=== PATIENT | male | born 1960 | race Caucasian/White ===

== ENCOUNTER 2016-11-28 14:42 | Observation (INO) | payer MEDICARE ==
[~2016-11-28] VITALS: Ht 170.2 cm; Wt 167.9 kg
[~2016-11-28 14:42] MED LIST changes: -ALBU2.5V4 NEB; -CLON1TAB3 PO; -IPRA4AER IH; -OMG1KC PO; -PARO40TA3 PO; -POTA99TA21 PO; -TEST200V21 INJ; -VITA150T PO
[2016-11-28] MEDS ORDERED: RT-ALBUTEROL/IPRATROPIUM 3 ML (DUONEB) VIAL INH ONE (14:45)
--- NOTE | 2016-11-28 14:59 | ED Respiratory ---
General Chief Complaint: Respiratory Problems Stated Complaint: SOA Source: patient Exam Limitations: no limitations History of Present Illness Time seen by provider: 14:58 Initial Comments To ER with reports of abnormal labs. Patient was upstairs having an outpatient ABG done. Today was his first visit with Dr. De Leon whom he is seeing for history of COPD and chronic bronchitis. Patient wears oxygen geqvbj-qjg-tjnup at home but did not wear it to the hospital today because he does not have a portable tank. ABG showed a PO2 of 45, PCO2 of 67, SPO2 was 75 percent. Patient denies feeling short of breath or any chest pain. He states "I feel normal". He also does have a nebulizer that he uses at home. No recent increased cough or fevers. No recent increased shortness of breath. Timing/Duration: constant Associated Symptoms: No cough, No fever/chills, No shortness of breath Allergies and Home Medications Allergies Coded Allergies: meperidine HCl (Unverified Allergy, Unknown, 04/22/13) Home Medications Acetaminophen/Codeine 1 Tab Tablet, 1-2 TAB PO TID PRN, (Reported) NEEDED FOR PAIN Albuterol Sulfate 2.5 Mg/3 Ml Solution, 2.5 MG IH Q4H PRN, (Reported) NEEDED FOR SHORTNESS OF BREATH Carvedilol 12.5 Mg Tablet, 12.5 MG PO BID, (Reported) Ipratropium/Albuterol Sulfate 14.7 Gm Aer.w.adap, 1 PUFF IH Q4H PRN, (Reported) NEEDED FOR SHORTNESS OF BREATH Lisinopril 20 Mg Tablet, 20 MG PO DAILY, (Reported) Montelukast Sodium 10 Mg Tablet, 10 MG PO DAILY, (Reported) Multivitamin 1 Each Tablet, 1 TAB PO DAILY, (Reported) Paroxetine Hcl 30 Mg Tablet, 30 MG PO DAILY, (Reported) Simvastatin 40 Mg Tablet, 40 MG PO HS, (Reported) Constitutional: see HPI, No chills, No fever EENTM: see HPI Respiratory: see HPI, cough, No short of breath Cardiovascular: no symptoms reported Genitourinary: no symptoms reported Musculoskeletal: no symptoms reported Skin: no symptoms reported Psychiatric/Neurological: No Symptoms Reported Hematologic/Lymphatic: No Symptoms Reported Immunological/Allergic: no symptoms reported Past Jsrfgjc-Vpknyg-Frvife Hx Immunizations Up To Date Tetanus Booster (TDap): Less than 5yrs Surgeries HX Surgeries: Yes Respiratory Hx Respiratory Disorders: Yes (COPD, chronic bronchitis, asthma) Respiratory Disorders: Asthma, Chronic Bronchitis, Sleep Apnea, COPD Cardiovascular Hx Cardiac Disorders: Yes Neurological Hx Neurological Disorders: No Reproductive System Hx Reproductive Disorders: No Genitourinary Hx Genitourinary Disorders: No Gastrointestinal Hx Gastrointestinal Disorders: Yes Gastrointestinal Disorders: Gastroesophageal Reflux Musculoskeletal Hx Musculoskeletal Disorders: No Endocrine Hx Endocrine Disorders: No HEENT HX ENT Disorders: No Cancer Hx Cancer: No Psychosocial Hx Psychiatric Problems: No Integumentary HX Skin/Integumentary Disorder: No Blood Transfusions Hx Blood Disorders: No Adverse Reaction to a Blood Tr: No (patient has never been given blood) Family Medical History Significant Family History: No Pertinent Family Hx Physical Exam Vital Signs Vital Sign - Last 12Hours 11/28/16 11/28/16 14:52 15:00 Temp 98.5 Pulse 72 Resp 22 B/P (MAP) 137/72 Pulse Ox 98 O2 Delivery High Flow NC O2 Flow Rate 4.00 Capillary Refill : General Appearance: WD/WN, no apparent distress, obese, other (no distress, speaks in full sentences) Eyes: Bilateral Eye EOMI, Bilateral Eye Normal Inspection, Bilateral Eye PERRL HEENT: PERRL/EOMI, normal ENT inspection Neck: non-tender, full range of motion Respiratory: no respiratory distress, no accessory muscle use, decreased breath sounds Cardiovascular: regular rate, rhythm, no murmur Gastrointestinal: normal bowel sounds, non tender, soft Neurologic/Psychiatric: alert, normal mood/affect, oriented x 3 Skin: normal color, warm/dry Progress/Results/Core Measures Results/Orders Lab Results Laboratory Tests Test 11/28/16 15:10 11/28/16 15:45 Range/Units White Blood Count 10.1 4.3-11.0 10^3/uL Red Blood Count 4.94 4.35-5.85 10^6/uL Hemoglobin 14.1 13.3-17.7 G/DL Hematocrit 46 40-54 % Mean Corpuscular Volume 94 80-99 FL Mean Corpuscular Hemoglobin 29 25-34 PG Mean Corpuscular Hemoglobin Concent 30 L 32-36 G/DL Red Cell Distribution Width 14.9 H 10.0-14.5 % Platelet Count 177 130-400 10^3/uL Mean Platelet Volume 10.1 7.4-10.4 FL Neutrophils (%) (Auto) 71 42-75 % Lymphocytes (%) (Auto) 17 12-44 % Monocytes (%) (Auto) 8 0-12 % Eosinophils (%) (Auto) 4 0-10 % Basophils (%) (Auto) 0 0-10 % Neutrophils # (Auto) 7.2 1.8-7.8 X 10^3 Lymphocytes # (Auto) 1.7 1.0-4.0 X 10^3 Monocytes # (Auto) 0.8 0.0-1.0 X 10^3 Eosinophils # (Auto) 0.4 H 0.0-0.3 10^3/uL Basophils # (Auto) 0.0 0.0-0.1 10^3/uL Sodium Level 143 135-145 MMOL/L Potassium Level 4.5 3.6-5.0 MMOL/L Chloride Level 99 98-107 MMOL/L Carbon Dioxide Level 35 H 21-32 MMOL/L Anion Gap 9 5-14 MMOL/L Blood Urea Nitrogen 12 7-18 MG/DL Creatinine 0.92 0.60-1.30 MG/DL Estimat Glomerular Filtration Rate > 60 BUN/Creatinine Ratio 13 Glucose Level 114 H 70-105 MG/DL Calcium Level 9.2 8.5-10.1 MG/DL Total Bilirubin 0.3 0.1-1.0 MG/DL Aspartate Amino Transf (AST/SGOT) 35 H 5-34 U/L Alanine Aminotransferase (ALT/SGPT) 43 0-55 U/L Alkaline Phosphatase 89 40-136 U/L Total Protein 7.4 6.4-8.2 G/DL Albumin 3.9 3.2-4.5 G/DL Blood Gas Puncture Site RIGHT RADIAL Blood Gas Patient Temperature 99.0 Arterial Blood pH 7.33 *L 7.37-7.43 Arterial Blood Partial Pressure CO2 71 *H 35-45 MMHG Arterial Blood Partial Pressure O2 73 L 79-93 MMHG Arterial Blood HCO3 37 H 23-27 MMOL/L Arterial Blood Total CO2 38.8 H 21.0-31.0 MMOL/L Arterial Blood Oxygen Saturation 94 94-100 % Arterial Blood Base Excess 10.7 H -2.5-2.5 MMOL/L Ramirez Test POSITIVE Blood Gas Ventilator Setting NO Blood Gas Inspired Oxygen 3L NC My Orders Orders - COFFMAN,PETER J LOPPER Cbc With Automated Diff (11/28/16 14:43) Comprehensive Metabolic Panel (11/28/16 14:43) Chest Pa/Lat (2 View) (11/28/16 14:43) Albuterol/Ipra Inhalation Soln (Duoneb I (11/28/16 14:45) Svn Sm Volume Nebulizer Rt-Rfs (11/28/16 14:43) Arterial Blood Gas (11/28/16 15:46) Medications Given in ED Current Medications Medications Dose Ordered Sig/Harry Route Start Time Stop Time Status Last Admin Dose Admin Albuterol/ Ipratropium 3 ml ONCE ONCE INH 11/28/16 14:45 11/28/16 14:46 DC 11/28/16 14:58 3 ML Vital Signs/I&O Vital Sign - Last 12Hours 11/28/16 11/28/16 14:52 15:00 Temp 98.5 Pulse 72 Resp 22 B/P (MAP) 137/72 Pulse Ox 98 97 O2 Delivery High Flow NC O2 Flow Rate 4.00 Departure Communication Time/Spoke to Admitting Phy: 16:29 Communication I discussed the case with Dr. Wu who agrees with the plan of care. Time/Spoke to Consulting Physi: 16:14 Communication/Consulting I discussed the case with Dr. De Leon. Recommends admission, BiPAP Impression Impression: Primary Impression: Obesity hypoventilation syndrome Disposition: ADMITTED INPATIENT Condition: Stable Decision to Admit Reason: Admit from ER (General) Decision to Admit/Date: Nov 28, 2016 Time/Decision to Admit Time: 16:14 Departure-Patient Inst. Referrals: ULICES HERNANDEZ MD (PCP/Family) Primary Care Physician FRED COFFMAN APRN Nov 28, 2016 14:59
[2016-11-28 15:22] LABS: BASOPHILS % (AUTO) 0 % (0-10); EOSINOPHILS # (AUTO) 0.4 10^3/uL (0.0-0.3); EOSINOPHILS % (AUTO) 4 % (0-10); LYMPHOCYTES # (AUTO) 1.7 X 10^3 (1.0-4.0); LYMPHOCYTES % (AUTO) 17 % (12-44); MEAN CORPUSCULAR HEMOGLOBIN 29 PG (25-34); MEAN CORPUSCULAR HGB CONC 30 G/DL (32-36); MEAN CORPUSCULAR VOLUME 94 FL (80-99); MEAN PLATELET VOLUME 10.1 FL (7.4-10.4); MONOCYTES # (AUTO) 0.8 X 10^3 (0.0-1.0); MONOCYTES % (AUTO) 8 % (0-12); NEUTROPHILS # (AUTO) 7.2 X 10^3 (1.8-7.8); NEUTROPHILS % (AUTO) 71 % (42-75); PLATELET COUNT 177 10^3/uL (130-400); RED BLOOD COUNT 4.94 10^6/uL (4.35-5.85); RED CELL DISTRIBUTION WIDTH 14.9 % (10.0-14.5); WHITE BLOOD COUNT 10.1 10^3/uL (4.3-11.0)
[2016-11-28 15:43] LABS: ALANINE AMINOTRANSFERASE 43 U/L (0-55); ALBUMIN 3.9 G/DL (3.2-4.5); ANION GAP 9 MMOL/L (5-14); ASPARTATE AMINO TRANSFERASE 35 U/L (5-34); BILIRUBIN,TOTAL 0.3 MG/DL (0.1-1.0); BLOOD UREA NITROGEN 12 MG/DL (7-18); BUN/CREATININE RATIO 13; CALCIUM 9.2 MG/DL (8.5-10.1); CARBON DIOXIDE 35 MMOL/L (21-32); CHLORIDE 99 MMOL/L (98-107); CREATININE SERUM 0.92 MG/DL (0.60-1.30); GFR ESTIMATED > 60; GLUCOSE 114 MG/DL (70-105); POTASSIUM 4.5 MMOL/L (3.6-5.0); SODIUM 143 MMOL/L (135-145); TOTAL PROTEIN 7.4 G/DL (6.4-8.2)
[2016-11-28 15:54] LABS: ABG BASE EXCESS 10.7 MMOL/L (-2.5-2.5); ABG HCO3 37 MMOL/L (23-27); ABG OXYGEN SATURATION 94 % (94-100); ABG PO2 73 MMHG (79-93); ABG TCO2 38.8 MMOL/L (21.0-31.0)
[2016-11-28 15:56] LABS: ABG PCO2 71 MMHG (35-45); ABG PH 7.33 (7.37-7.43)
[2016-11-28 15:57] LABS: ALLENS TEST POSITIVE
--- NOTE | 2016-11-28 15:58 | Diagnostic Imaging Report ---
PA and lateral chest at 3:39 p.m. INDICATION: COPD. This study was less than optimal due to motion artifact. FINDINGS: The heart size is within normal limits and stable when compared to 04/22/2013. There are chronic pulmonary changes evident but there is no sign of failure, pneumonia or pleural effusion to suggest an acute abnormality. On the PA view, the density about the left hilum does seem somewhat prominent when compared to the prior study. This may merely be secondary to superimposition of bronchovascular structures. There is no definite evidence for hilar mass. If further study is desired, however, then CT of the chest would be recommended. Mediastinum is not widened. The osseous structures are intact. IMPRESSION: 1. There is chronic pulmonary disease but there is no acute abnormality identified. 2. The density over the left hilum may merely be secondary to superimposition. Additional considerations as above. These results were discussed with Roosevelt Castillo APRN. Dictated by: Dictated on workstation # [id number]
[2016-11-28 16:45] VITALS: BP_SYST 137; BP_SYST 182; BP_DIAS 70; BP_DIAS 72
[2016-11-28] MEDS ORDERED: CATHETER FLUSH 10 ML SYR IV PRN (17:00)
[2016-11-28] MEDS ORDERED: RT-ALBUTEROL SULF 2.5 MG/3 ML PRE-MIX VIAL IH PRN ×2 (17:15→18:00)
[2016-11-28] MEDS ORDERED: CLON1TAB3 PO (17:39)
[2016-11-28] MEDS ORDERED: ALBU2.5V4 NEB (17:47)
[2016-11-28] MEDS ORDERED: APAP 300 MG/CODEINE 30 MG (TYLENOL #3) TAB PO PRN ×2 (18:00→18:45)
[2016-11-28] MEDS ORDERED: RT-ALBUTEROL/IPRATROPIUM 3 ML (DUONEB) VIAL IH PRN ×2 (18:15)
[2016-11-28] MEDS ORDERED: IOHEXOL 350 MG/ML 100 ML (OMNIPAQUE 350) VIAL IV ONE (18:15)
[2016-11-28] MEDS ORDERED: NS 100 ML (IVPB) BAG IV ONE (18:15)
[2016-11-28] MEDS: RT-ALBUTEROL SULF 2.5 MG/3 ML PRE-MIX VIAL IH SCH ×2 (18:24→22:10)
[2016-11-28] MEDS ORDERED: PATIENT MAY USE OWN MEDS, ALL MC SCH (18:45)
[2016-11-28] MEDS ORDERED: ALBUTEROL/IPRATROP (COMBIVENT RESPIMAT) 4 GM INHALER INH PRN (18:45)
[2016-11-28 20:04] VITALS: BP 162/77
[2016-11-28] MEDS ORDERED: SIMvastatin 40 MG (ZOCOR) TAB PO SCH (21:00)
[2016-11-28] MEDS ORDERED: clonazePAM 1 MG (KlonoPIN) TAB PO SCH (21:00)
[2016-11-28] MEDS: CARVEDILOL 12.5 MG (COREG) TABLET PO SCH (21:37)
[2016-11-28] MEDS: CATHETER FLUSH 10 ML SYR IV SCH (22:00)
[2016-11-29 00:53] VITALS: BP 146/72
[2016-11-29] MEDS: RT-ALBUTEROL SULF 2.5 MG/3 ML PRE-MIX VIAL IH SCH ×4 (02:07→14:51)
[2016-11-29 04:25] VITALS: BP 188/89
--- NOTE | 2016-11-29 07:19 | Pulmonary Consultation ---
History of Present Illness History of Present Illness Date of Consultation 11/29/16 07:13 Date of Admission History of Present Illness 56yo who saw me in office yesterday for first time. Pt was dyspnic while in office and I ordered ABG. ABG showed partially compensated respiratory acidosis and pt was sent to ED and was given breathing treatments. PT had a vent to mask at one time however insurance stopped paying for it and it was taken away from him. Pt has been getting worse since vent to mask was taken away. is at bedside and state pt slept much better with noninvasive ventilation last night. Allergies and Home Medications Allergies Coded Allergies: meperidine HCl (Unverified Allergy, Unknown, 04/22/13) Home Medications Acetaminophen/Codeine 1 Tab Tablet, 1-2 TAB PO TID PRN, (Reported) NEEDED FOR PAIN Albuterol Sulfate 2.5 Mg/3 Ml Vial.neb, 1 INHALER IH QID PRN for SHORTNESS OF BREATH, #300 (Reported) Carvedilol 12.5 Mg Tablet, 12.5 MG PO BID, (Reported) Clonazepam 1 Mg Tablet, 1 MG PO QID, #120 (Reported) Ipratropium/Albuterol Sulfate 14.7 Gm Aer.w.adap, 1 PUFF IH Q4H PRN, (Reported) NEEDED FOR SHORTNESS OF BREATH Lisinopril 20 Mg Tablet, 20 MG PO DAILY, (Reported) Paroxetine Hcl 30 Mg Tablet, 30 MG PO DAILY, (Reported) Simvastatin 40 Mg Tablet, 40 MG PO HS, (Reported) Past Xqfpxuq-Eabplf-Spjfmn Hx Patient Social History Alcohol Use: Denies Use Recreational Drug Use: No Smoking Status: Former Smoker Recent Foreign Travel: No Contact w/Someone Who Travel: No Recent Infectious Disease Expo: No Recent Hopitalizations: No Physical Abuse Screen: No Sexual Abuse: No Immunizations Up To Date Tetanus Booster (TDap): Less than 5yrs Seasonal Allergies Seasonal Allergies: No Surgeries HX Surgeries: Yes Respiratory Hx Respiratory Disorders: Yes (COPD, chronic bronchitis, asthma) Respiratory Disorders: Asthma, Chronic Bronchitis, Sleep Apnea, COPD Cardiovascular Hx Cardiac Disorders: Yes Neurological Hx Neurological Disorders: No Reproductive System Hx Reproductive Disorders: No Genitourinary Hx Genitourinary Disorders: No Gastrointestinal Hx Gastrointestinal Disorders: Yes Gastrointestinal Disorders: Gastroesophageal Reflux Musculoskeletal Hx Musculoskeletal Disorders: No Endocrine Hx Endocrine Disorders: No HEENT HX ENT Disorders: No Cancer Hx Cancer: No Psychosocial Hx Psychiatric Problems: No Behavioral Health Disorders: Anxiety, Depression Integumentary HX Skin/Integumentary Disorder: No Blood Transfusions Hx Blood Disorders: No Adverse Reaction to a Blood Tr: No (patient has never been given blood) Family Medical History Significant Family History: No Pertinent Family Hx Family Medial History: FH: CHF (congestive heart failure) Exam Exam Vital Signs Date Time Temp Pulse Resp B/P (MAP) Pulse Ox O2 Delivery O2 Flow Rate FiO2 11/29/16 06:37 63 15 95 40.00 11/29/16 04:25 98.0 57 16 188/89 98 NIV/Bilevel 11/29/16 04:09 22 98 40.00 11/29/16 02:07 75 17 96 40.00 11/29/16 00:53 98.3 84 28 146/72 96 NIV/Bilevel 11/29/16 00:07 11 40.00 11/28/16 22:10 65 12 91 40.00 11/28/16 21:00 91 40.00 11/28/16 20:04 97.2 69 20 162/77 96 NIV/Bilevel 11/28/16 19:58 62 17 93 40.00 11/28/16 18:27 64 21 92 40.00 11/28/16 17:15 40 11/28/16 16:45 97 11/28/16 16:45 75 31 97 40.00 11/28/16 16:45 98.3 75 24 182/70 97 NIV/Bilevel 11/28/16 16:35 86 20 95 3.00 11/28/16 15:00 97 4.00 11/28/16 14:52 98.5 72 22 137/72 98 High Flow NC I & O 11/29/16 07:00 Intake Total 100 ml Output Total 450 ml Balance -350 ml General Appearance: No Apparent Distress, WD/WN Neck: Full Range of Motion, Normal Inspection, Non Tender, Supple Respiratory: No Accessory Muscle Use, No Respiratory Distress, Decreased Breath Sounds Cardiovascular: Regular Rate, Rhythm Capillary Refill: Less Than 3 Seconds Gastrointestinal: normal bowel sounds, non tender, soft Skin: Warm/Dry Results Lab Laboratory Tests 11/28/16 15:10 Assessment/Plan Assessment/Plan -Morbid obesity with OHS -PT needs vent to mask to prevent continued progressive respiratory decline and -I have contact [facility] and they are going to try to get pt a vent to mask -COPDAE with acute on chronic respiratory failure -oxygen -SVNs Clinical Quality Measures DVT/VTE Risk/Contraindication: Risk Factor Score Per Nursin RFS Level Per Nursing on Admit: 4+=Very High GILLIAN SOOD DO Nov 29, 2016 07:19
[2016-11-29] MEDS ORDERED: NS 100 ML (IVPB) BAG IV ONE (07:45)
[2016-11-29] MEDS ORDERED: CATHETER FLUSH 10 ML SYR IV PRN (07:45)
[2016-11-29] MEDS ORDERED: IOHEXOL 350 MG/ML 100 ML (OMNIPAQUE 350) VIAL IV ONE (07:45)
[2016-11-29 08:00] VITALS: BP 131/90
[2016-11-29] MEDS ORDERED: POTA99TA21 PO (08:52)
[2016-11-29] MEDS ORDERED: VITA150T PO (08:52)
[2016-11-29] MEDS ORDERED: PARO40TA3 PO (08:52)
[2016-11-29] MEDS ORDERED: OMG1KC PO (08:52)
[2016-11-29] MEDS ORDERED: IPRA4AER IH (08:56)
[2016-11-29] MEDS ORDERED: CLON1TAB3 PO (08:56)
[2016-11-29] MEDS ORDERED: PARoxetine 20 MG (PAXIL) TAB PO SCH ×2 (09:00)
[2016-11-29] MEDS ORDERED: PARoxetine 10 MG (PAXIL) TAB PO SCH (09:00)
[2016-11-29] MEDS ORDERED: lisINopril 20 MG (ZESTRIL) TAB PO SCH (09:00)
[2016-11-29] MEDS ORDERED: TEST200V21 INJ (09:06)
[2016-11-29] MEDS: CARVEDILOL 12.5 MG (COREG) TABLET PO SCH (09:07)
[2016-11-29] MEDS ORDERED: clonazePAM 1 MG (KlonoPIN) TAB PO SCH (09:30)
[2016-11-29] MEDS ORDERED: clonazePAM 1 MG (KlonoPIN) TAB PO PRN (09:30)
[2016-11-29] MEDS ORDERED: PAROXETINE 40 MG PO SCH (10:00)
--- NOTE | 2016-11-29 11:23 | Short Stay Summary-Hospitalist ---
HPI History of Present Illness: HPI/Chief Complaint CC: Shortness of breath HPI: This is a 56yoWM pt of Dr. Agustin's that presented to ER after ABG was ordered as an outpatient revealed severe hypocapnia and need for BiPAP placement. Chart Review: CXR showed chronic pulmonary disease, CBC and CMP normal, ABG revealed 7.33 Dr. De Leon Review: Pt could be DC tomorrow. Monitor pt stay. early childhood worker: Ask respiratory is pt can eat. Patient Interview: Pt lives in [place]. Pt female visitor states he has O2 at his home. Physical exam was stable. Pt denies smoking. Pt states his PCP is Dr. Romaine Agustin. Pt does not know if he needs refills on meds but does not think he needs any refills. Pt would like to be DC today. Pt would like something to eat. Scribed by Moise Pink under the direct supervision of Dr. Shah. Source: patient Exam Limitations: no limitations Date Seen 11/29/16 Attending Physician Mayi Shah Douglas K MD Referring Physician Date of Admission Nov 28, 2016 at 16:16 Home Medications & Allergies Home Medications Reviewed patient Home Medication Reconciliation Form Allergies Allergies Coded Allergies meperidine HCl (Unverified Allergy, Unknown, 04/22/13) Past Kfibael-Ntuvgg-Nywukd Hx Patient Social History Marrital Status: single Employed/Student: unemployed Alcohol Use: Denies Use Recreational Drug Use: No Smoking Status: Former Smoker Physical Abuse Screen: No Sexual Abuse: No Recent Foreign Travel: No Contact w/other who traveled: No Recent Hopitalizations: No Recent Infectious Disease Expo: No Immunizations Up To Date Tetanus Booster (TDap): Less than 5yrs Seasonal Allergies Seasonal Allergies: No Surgeries HX Surgeries: Yes Respiratory Hx Respiratory Disorders: Yes (COPD, chronic bronchitis, asthma) Respiratory Disorders: COPD, Sleep Apnea Cardiovascular Hx Cardiovascular Disorders: Yes Cardiac Disorders: Hypertension Neurological Hx Neurological Disorders: No Reproductive System Hx Reproductive Disorders: No Genitourinary Hx Genitourinary Disorders: No Gastrointestinal Hx Gastrointestinal Disorders: Yes Gastrointestinal Disorders: Gastroesophageal Reflux Musculoskeletal Hx Musculoskeletal Disorders: No Endocrine Hx Endocrine Disorders: No HEENT HX ENT Disorders: No Cancer Hx Cancer: No Psychosocial Hx Psychiatric Problems: No Behavioral Health Disorders: Anxiety, Depression Integumentary HX Skin/Integumentary Disorder: No Blood Transfusions Hx Blood Disorders: No Adverse Reaction to a Blood Tr: No (patient has never been given blood) Family Medical History Significant Family History: No Pertinent Family Hx Family Hx: FH: CHF (congestive heart failure) Review of Systems Constitutional: see HPI EENTM: no symptoms reported Respiratory: short of breath, wheezing Cardiovascular: no symptoms reported Gastrointestinal: no symptoms reported Genitourinary: no symptoms reported Musculoskeletal: no symptoms reported Skin: no symptoms reported Psychiatric/Neurological: No Symptoms Reported All Other Systems Reviewed Negative Unless Noted: Yes Physical Exam Physical Exam Vital Signs Vital Sign - Last 12Hours 11/28/16 11/28/16 11/28/16 14:52 15:00 17:15 Temp 98.5 Pulse 72 Resp 22 B/P (MAP) 137/72 Pulse Ox 98 O2 Delivery High Flow NC O2 Flow Rate 4.00 FiO2 40 Capillary Refill : Less Than 3 Seconds General Appearance: No Apparent Distress, WD/WN, Chronically ill, Obese Eyes: Bilateral Eye Normal Inspection, Bilateral Eye PERRL HEENT: PERRL/EOMI, Normal ENT Inspection, Pharynx Normal Neck: Full Range of Motion, Normal Inspection, Non Tender, Supple, Carotid Bruit Respiratory: Chest Non Tender, Lungs Clear, No Accessory Muscle Use, No Respiratory Distress, Decreased Breath Sounds Cardiovascular: Regular Rate, Rhythm, No Edema, No Gallop, No JVD, No Murmur, Normal Peripheral Pulses Gastrointestinal: Normal Bowel Sounds, No Organomegaly, No Pulsatile Mass, Non Tender, Soft Back: Normal Inspection, No CVA Tenderness, No Vertebral Tenderness Extremity: Normal Capillary Refill, Normal Inspection, Normal Range of Motion, Non Tender, No Calf Tenderness, No Pedal Edema Neurologic/Psychiatric: Alert, Oriented x3, No Motor/Sensory Deficits, Normal Mood/Affect Skin: Normal Color, Warm/Dry, Rash (venous stasis changes bilateral lower extremities) Lymphatic: No Adenopathy Results Results/Procedures Lab Laboratory Tests 11/28/16 15:10 Short Stay Diagnosis Discharge Diagnosis-Short Stay Admission Diagnosis Assessment: Hypercapnic respiratory failure in need of BiPAP while arranging vent to mask sleep apnea treatment Depression Anxiety Chronic venous stasis dermatitis Morbid obesity Respiratory acidosis Final Discharge Diagnosis Assessment: Hypercapnic respiratory failure in need of BiPAP while arranging vent to mask sleep apnea treatment Depression Anxiety Chronic venous stasis dermatitis Morbid obesity Respiratory acidosis Conclusion Plan Plan: Discharge once DME arranges for vent to mask and portable oxygen Follow-up Dr. De Leon Follow-up with Dr. Agustin Clinical Quality Measures DVT/VTE Risk/Contraindication: Risk Factor Score Per Nursin RFS Level Per Nursing on Admit: 4+=Very High MAYI SHAH DO Nov 29, 2016 11:23
[2016-11-29 12:00] VITALS: BP 122/58
[2016-11-29] MEDS: CATHETER FLUSH 10 ML SYR IV SCH ×2 (14:59→15:00)
[2016-11-29 15:30] VITALS: BP 122/58
--- OUTSIDE RECORDS SUMMARY | 2016-12-31 14:31 | XMS REPORT ---
Author Author [facility] Medical Staff Organization [facility] Address [address] [place], [place] [id number] Phone [phone] Summary purpose TRANSITION OF CARE AUTO GENERATION Chief Complaint and Reason for Visit Admit Diagnosis 1 LOWER LEG INJURY NOS Problem list No authorized problems tracked for continuity of care are available for this visit. Encounters No authorized problems tracked for encounter diagnoses are available for this visit. Medications No medications recorded for this patient visit Allergies, adverse reactions, alerts Allergen Category Ingredient Status Reaction Severity Onset Demerol Drug Allergy Demerol Confirmed or Verified Demerol Drug Allergy meperidine Confirmed or Verified Immunizations No immunizations recorded for this patient visit Relevant diagnostic tests and/or laboratory data No authorized results are available for this patient visit History of procedures Procedure Code Code Type Description Date Performed Performing Physician A0427 CPT-4 [id number] 01-28-2015 SONAL DALE A0425 CPT-4 GROUND MILEAGE 01-28-2015 SONAL DALE Functional status No functional or cognitive status observations are available for this visit. Vital signs No authorized vital signs are available for this visit. Social history No Social History or smoking status observations were recorded for this visit. ( Unknown if ever smoked.) Treatment Plan No treatment plan text is available for this visit. Hospital discharge instructions No discharge instruction text is available for this visit.
--- OUTSIDE RECORDS SUMMARY | 2016-12-31 14:31 | XMS REPORT ---
Author Author [facility] Medical Staff Organization [facility] Address [address], [place] [id number] Phone [phone] Summary purpose TRANSITION OF CARE AUTO GENERATION Chief Complaint and Reason for Visit No authorized Reason for Visit (Admitting Diagnosis) is available for this visit. Problem list No authorized problems tracked for [...] for this patient visit History of procedures No procedures recorded for this patient visit. Functional status Functional Status Finding Observation Time Muscle Strength RUE 5 ROM full resist :45 Muscle Strength RLE 5 ROM full resist :45 Muscle Strength LUE 5 ROM full resist :45 Muscle Strength LLE 4 ROM slight resist :45 Abdomen Appearance obese :45 Abdomen firm :45 Bowel Sounds present :45 Urination normal :45 Quality sym/unlabored :45 Cough absent :45 Secretions no :45 Breath Sounds RUL clear :45 Breath Sounds RML clear :45 Breath Sounds RLL clear :45 Breath Sounds EZE clear :45 Breath Sounds LLL clear :45 Airway natural :45 Oxygen no :30 Temp >100.4 no :45 Temp <96.8 no :45 Chills with rigors no :45 HR > 90bpm no :45 Respirations > 20 no :45 Systolic <90 no :45 headache stiff neck no :45 Rapid Resp no :45 IV Site Location R hand :34 IV Type peripheral :34 IV Site Information discontinued :34 IV Site Awais other (specify) Comment: 16g :39 IV Site Appearance WNL :39 IV Site Color clear :39 IV Site Patent yes :39 Dressing Type occlusive :39 Nursing Note TDAP admin in R deltoid. Discharge instructions reviewed with pt- verbalized understanding. VS obtained, dc in good condition and ambulatory. :34 Vital signs Type Value Date Respiration Rate 20breaths per minute :30 Pulse 80beats per minute :30 Oxygen Saturation 94% :30 BP Systolic 146mmHg :30 BP Diastolic 82mmHg :30 Temperature 99.4F :39 Social history No Social History or smoking status observations were recorded for this visit. ( Unknown if ever smoked.) Treatment Plan No treatment plan text is available for this visit. Hospital discharge instructions Dismissal Condition good Disposition on DC home DC Inst/Educ Give yes Med/Side Effects Rev yes
--- OUTSIDE RECORDS SUMMARY | 2016-12-31 14:31 | XMS REPORT | Clinical Summary ---
Author Author Admin, ISATU Organization [facility] Address Unknown Phone Unavailable Allergies, Adverse Reactions, Alerts Allergy Name Reaction Description Start Date Severity Status Provider DEMEROL Lips turned purple Mild Active Regino Lane MD Conditions or Problems Problem Name Problem Code Onset Date Status Entry Date Provider Comment Standard Description Annotate DEPRESSION [address] MD Depressive disorder, not elsewhere classified HYPERTENSION 401.[address] MD Unspecified essential hypertension SHOULDER PAIN, LEFT, CHRONIC 719.[address] MD Pain in joint involving shoulder region URTICARIA 708.[address] MD Unspecified urticaria CHEST PAIN, UNSPECIFIED 786.[address] MD Unspecified chest pain EDEMA 782.[address] MD Edema SNORING 786.[address] MD Other dyspnea and respiratory abnormality HYPOGONADISM 257.2 Active Barbi Coates Other testicular hypofunction ANXIETY DISORDER 300.[address] MD Anxiety state, unspecified GASTROENTERITIS 558.[address] MD Other and unspecified noninfectious gastroenteritis and colitis Medication List Medication Instructions Start Date Stop Date Generic Name ND Status Provider Patient Instruction PROMETHAZINE HCL 25 MG TABS 1 four times a day as needed for nausea/vomiting PROMETHAZINE HCL 42078390984 Active Regino Lane MD Active XANAX 0.25 MG TABS 2 by mouth twice a day PRN Anxiety ALPRAZOLAM 61616627269 No Longer Active Regino Lane MD Active XANAX 0.5 MG TABS 1 po BID PRN Anxiety ALPRAZOLAM 69759759110 Active Regino Lane MD Active AXIRON 30 MG/ACT SOLN 60 mg applied q.a.m TESTOSTERONE 11975011885 No Longer Active Regino Lane MD Active VENLAFAXINE HCL 75 MG TABS 1 po BID VENLAFAXINE HCL 22963908423 Active Vivien Sosar Active CARVEDILOL 12.5 MG TABS 1 tablet by mouth twice daily CARVEDILOL 65099422341 Active Chani Jackum DIGITAL TECHNICIAN Active HYDROCHLOROTHIAZIDE 25 MG TABS 1 tablet by mouth daily prn HYDROCHLOROTHIAZIDE 77438865685 Active Gail Jimenez RN Active LISINOPRIL 20 MG TABS 1 tablet by mouth daily LISINOPRIL 30783277327 Active Chani Negron Quinn DIGITAL TECHNICIAN Active PREDNISONE 20 MG TAB 2 tabs daily for 3 days, 1 tab daily for 3 days, 1/2 tab daily for 2 days PREDNISONE 35153120343 No Longer Active Regino Lane MD Active TYLENOL/CODEINE #3 300-30 MG TAB 1 po TID PRN Pain ACETAMINOPHEN-CODEINE 53843930657 Active Regino Lane MD Active ZOLOFT 50 MG TAB 1 tablet by mouth daily SERTRALINE HCL 42357942268 No Longer Active Regino Lane MD Active ZOLOFT 100 MG TAB 1 po qd SERTRALINE HCL 12873513072 No Longer Active Regino Lane MD Active SIMVASTATIN 20 MG TABS 1 tab daily at bedtime SIMVASTATIN 49025471574 Active Gail Jimenez RN Active LISINOPRIL-HYDROCHLOROTHIAZIDE 20-12.5 MG TABS 1 tab by mouth daily LISINOPRIL-HYDROCHLOROTHIAZIDE 55640132002 No Longer Active Jhonathan Agudelo RN Active ZOLOFT 50 MG TAB 1 tablet by mouth daily ZOLOFT 50 MG TAB 004616 SERTRALINE HCL Inactive XANAX 0.25 MG TABS 2 by mouth twice a day PRN Anxiety XANAX 0.25 MG TABS 914972 ALPRAZOLAM Inactive PREDNISONE 20 MG TAB 2 tabs daily for 3 days, 1 tab daily for 3 days, 1/2 tab daily for 2 days PREDNISONE 20 MG TAB 783920 PREDNISONE Inactive AXIRON 30 MG/ACT SOLN 60 mg applied q.a.m AXIRON 30 MG/ACT SOLN TESTOSTERONE Inactive Advance Directives Directive Description Start Date PERMISSION TO SHARE Diagnostic Results Date Name Value Unit Range Description Lab Report: Lipid Panel, Prostatic Specific Ag, Comp. Metabolic Panel - Chemistry cholesterol, serum 147 mg/dL 209-369 5862/06/19 triglyceride, serum, fasting 192 mg/dL 30-200 HDL cholesterol, serum 40 mg/dL 32-96 LDL cholesterol, serum 69 mg/dL 0-130 prostate specific antigen 0.56 ng/mL 0.00-4.00 sodium, serum 141 mmol/L 104-488 8990/06/19 potassium, serum 4.4 mmol/L 3.5-5.2 chloride, serum 105 mmol/L 98-107 carbon dioxide, venous blood 29.3 mmol/L 21.0-32.0 blood glucose 109 mg/dL 65-110 urea nitrogen, blood 18 mg/dL 7-18 creatinine, serum 1.30 mg/dL 0.60-1.30 alanine aminotransferase (SGPT), serum 43 U/L 12-78 aspartate aminotransferase (SGOT), serum 23 U/L 15-37 alkaline phosphatase, serum 107 U/L 50-136 calcium, serum 8.9 mg/dL 8.5-10.1 bilirubin, serum, total 0.30 mg/dL 0.00-1.00 Encounters Code Encounter Date Provider Facility CPT-96651 Level 3 Est. Patient 10:35:[address] MD [facility] CPT-68383 Level 3 Est. Patient 11:30:[address] MD [facility] CPT-65021 Level 3 Est. Patient 12:49:[address] MD [facility] CPT-82842 Level 3 Est. Patient 10:47:[address] MD [facility] CPT-28759 Level 4 Est. Patient 09:59:[address] MD [facility] CPT-09662 Level 3 Est. Patient 09:32:[address] MD [facility] CPT-97968 Level 3 Est. Patient 10:10:[address] MD [facility] Procedures Code Procedure Name Date Entry Date Standard Description CPT-21052 Venipuncture Draw Fee 08:08:20 CDT CPT-J1080 Depo Testosterone 200 mg 14:41:51 CDT CPT-J1080 Depo Testosterone 200 mg 11:21:45 CDT CPT-J1070 Depo Testosterone 100 mg 11:21:45 CDT CPT-50365 Abx/Therapy Injection 11:21:45 CDT CPT-J1080 Depo Testosterone 200 mg 10:46:16 CDT CPT-J1070 Depo Testosterone 100 mg 10:46:16 CDT CPT-31082 Abx/Therapy Injection 10:46:16 CDT CPT-62372 EKG Trac and Interp 10:22:23 REMELT WORKER CPT-70154 Chest 2V Frontal and Lat 10:22:23 REMELT WORKER CPT-54270 Shoulder comp min 2V 10:10:44 CDT
--- OUTSIDE RECORDS SUMMARY | 2016-12-31 14:32 | XMS REPORT ---
Author Author [facility] [employer] [facility] Medical Staff Organization [facility] Address [address], [place] [id number] Phone [phone] Summary purpose TRANSITION OF CARE AUTO GENERATION [...] recorded for this patient visit. Functional status No functional or cognitive status [...]
--- OUTSIDE RECORDS SUMMARY | 2016-12-31 14:32 | XMS REPORT | Clinical Summary ---
Author Author Admin, ISATU Organization [facility] Address Unknown Phone Allergies, Adverse Reactions, Alerts Allergy Name Reaction [...] Instructions Start Date Stop Date Generic Name NDC Status Provider Patient Instruction PROMETHAZINE HCL 25 MG TABS 1 four times a day as needed for nausea/vomiting PROMETHAZINE HCL 76162045273 Active Regino Lane MD Active XANAX 0.25 MG TABS 2 by mouth twice a day PRN Anxiety ALPRAZOLAM 79269790644 No Longer Active Regino Lane MD Active XANAX 0.5 MG TABS 1 po BID PRN Anxiety ALPRAZOLAM 00998966267 Active Region Lane MD Active AXIRON 30 MG/ACT SOLN 60 mg applied q.a.m TESTOSTERONE 07572613518 No Longer Active Regino Lane MD Active VENLAFAXINE HCL 75 MG TABS 1 po BID VENLAFAXINE HCL 18393725223 Active Vivien Aj Active CARVEDILOL 12.5 MG TABS 1 tablet by mouth twice daily CARVEDILOL 75887602306 Active Chani Negron Quinn GRASSLAND CONSERVATIONIST Active HYDROCHLOROTHIAZIDE 25 MG TABS 1 tablet by mouth daily prn HYDROCHLOROTHIAZIDE 40212791528 Active Gail Jimenez RN Active LISINOPRIL 20 MG TABS 1 tablet by mouth daily LISINOPRIL 23286132456 Active Chani Negron Quinn GRASSLAND CONSERVATIONIST Active PREDNISONE 20 MG TAB 2 tabs daily for 3 days, 1 tab daily for 3 days, 1/2 tab daily for 2 days PREDNISONE 63574163709 No Longer Active Regino Lane MD Active TYLENOL/CODEINE #3 300-30 MG TAB 1 po TID PRN Pain ACETAMINOPHEN-CODEINE 43513695463 Active Regino Lane MD Active ZOLOFT 50 MG TAB 1 tablet by mouth daily SERTRALINE HCL 37873350797 No Longer Active Regino Lane MD Active ZOLOFT 100 MG TAB 1 po qd SERTRALINE HCL 34196284111 No Longer Active Regino Lane MD Active SIMVASTATIN 20 MG TABS 1 tab daily at bedtime SIMVASTATIN 36880901365 Active Gail Jimenez RN Active LISINOPRIL-HYDROCHLOROTHIAZIDE 20-12.5 MG TABS 1 tab by mouth daily LISINOPRIL-HYDROCHLOROTHIAZIDE 04517298717 No Longer Active Jhonathan Agudelo Active ZOLOFT 50 MG TAB 1 tablet by mouth daily ZOLOFT 50 MG TAB 859046 SERTRALINE HCL Inactive XANAX 0.25 MG TABS 2 by mouth twice a day PRN Anxiety XANAX 0.25 MG TABS 936614 ALPRAZOLAM Inactive PREDNISONE 20 MG TAB 2 tabs daily for 3 days, 1 tab daily for 3 days, 1/2 tab daily for 2 days PREDNISONE 20 MG TAB 248584 PREDNISONE Inactive AXIRON 30 MG/ACT SOLN 60 mg applied q.a.m AXIRON 30 MG/ACT SOLN TESTOSTERONE Inactive Advance Directives Directive Description Start Date PERMISSION TO SHARE Diagnostic Results Date Name Value Unit Range Description Lab Report: Lipid Panel, Prostatic Specific Ag, Comp. Metabolic Panel - Chemistry cholesterol, serum 147 mg/dL 005-866 0297/06/19 triglyceride, serum, fasting 192 mg/dL 30-200 HDL cholesterol, serum 40 mg/dL 32-96 LDL cholesterol, serum 69 mg/dL 0-130 prostate specific antigen 0.56 ng/mL 0.00-4.00 sodium, serum 141 mmol/L 233-913 6763/06/19 potassium, serum 4.4 mmol/L 3.5-5.2 chloride, serum [...] 0.00-1.00 Encounters Code Encounter Date Provider Facility CPT-48286 Level 3 Est. Patient 10:35:[address] MD [facility] CPT-38603 Level 3 Est. Patient 11:30:[address] MD [facility] CPT-75257 Level 3 Est. Patient 12:49:[address] MD [facility] CPT-96183 Level 3 Est. Patient 10:47:[address] MD [facility] CPT-70562 Level 4 Est. Patient 09:59:[address] MD [facility] CPT-81562 Level 3 Est. Patient 09:32:[address] MD [facility] CPT-53078 Level 3 Est. Patient 10:10:[address] MD [facility] Procedures Code Procedure Name Date Entry Date Standard Description CPT-68162 Venipuncture Draw Fee 08:08:20 CDT CPT-J1080 Depo Testosterone 200 mg 14:41:51 CDT CPT-J1080 Depo Testosterone 200 mg 11:21:45 CDT CPT-J1070 Depo Testosterone 100 mg 11:21:45 CDT CPT-41949 Abx/Therapy Injection 11:21:45 CDT CPT-J1080 Depo Testosterone 200 mg 10:46:16 CDT CPT-J1070 Depo Testosterone 100 mg 10:46:16 CDT CPT-70550 Abx/Therapy Injection 10:46:16 CDT CPT-62110 EKG Trac and Interp 10:22:23 MAGNET PLACER CPT-03523 Chest 2V Frontal and Lat 10:22:23 MAGNET PLACER CPT-43193 Shoulder comp min 2V 10:10:44 CDT
--- OUTSIDE RECORDS SUMMARY | 2016-12-31 14:32 | XMS REPORT | Clinical Summary ---
Author Author Admin, ISATU Organization [facility] Address Unknown Phone Unavailable Allergies, Adverse Reactions, [...] day as needed for nausea/vomiting PROMETHAZINE HCL 46068613214 Active Regino Lane MD Active XANAX 0.25 MG TABS 2 by mouth twice a day PRN Anxiety ALPRAZOLAM 79674017020 No Longer Active Regino Lane MD Active XANAX 0.5 MG TABS 1 po BID PRN Anxiety ALPRAZOLAM 03368628784 Active Regino Lane MD Active AXIRON 30 MG/ACT SOLN 60 mg applied q.a.m TESTOSTERONE 86797160001 No Longer Active Regino Lane MD Active VENLAFAXINE HCL 75 MG TABS 1 po BID VENLAFAXINE HCL 35653015051 Active Vivien Sosar Active CARVEDILOL 12.5 MG TABS 1 tablet by mouth twice daily CARVEDILOL 53419355166 Active Chani Jackum HEDGE FUND ACCOUNTANT Active HYDROCHLOROTHIAZIDE 25 MG TABS 1 tablet by mouth daily prn HYDROCHLOROTHIAZIDE 68028743871 Active Gail Jimenez RN Active LISINOPRIL 20 MG TABS 1 tablet by mouth daily LISINOPRIL 45167851406 Active Chani Negron Quinn HEDGE FUND ACCOUNTANT Active PREDNISONE 20 MG TAB 2 tabs daily for 3 days, 1 tab daily for 3 days, 1/2 tab daily for 2 days PREDNISONE 47872224396 No Longer Active Regino Lane MD Active TYLENOL/CODEINE #3 300-30 MG TAB 1 po TID PRN Pain ACETAMINOPHEN-CODEINE 04080784882 Active Regino Lane MD Active ZOLOFT 50 MG TAB 1 tablet by mouth daily SERTRALINE HCL 18775131921 No Longer Active Regino Lane MD Active ZOLOFT 100 MG TAB 1 po qd SERTRALINE HCL 34907381367 No Longer Active Regino Lane MD Active SIMVASTATIN 20 MG TABS 1 tab daily at bedtime SIMVASTATIN 79328528252 Active Gail Jimenez RN Active LISINOPRIL-HYDROCHLOROTHIAZIDE 20-12.5 MG TABS 1 tab by mouth daily LISINOPRIL-HYDROCHLOROTHIAZIDE 18110233326 No Longer Active Jhonathan Agudelo RN Active ZOLOFT 50 MG TAB 1 tablet by mouth daily ZOLOFT 50 MG TAB 505154 SERTRALINE HCL Inactive XANAX 0.25 MG TABS 2 by mouth twice a day PRN Anxiety XANAX 0.25 MG TABS 102201 ALPRAZOLAM Inactive PREDNISONE 20 MG TAB 2 tabs daily for 3 days, 1 tab daily for 3 days, 1/2 tab daily for 2 days PREDNISONE 20 MG TAB 712442 PREDNISONE Inactive AXIRON 30 MG/ACT SOLN 60 mg applied q.a.m AXIRON 30 MG/ACT SOLN TESTOSTERONE Inactive Advance Directives Directive Description Start Date PERMISSION TO SHARE Diagnostic Results Date Name Value Unit Range Description Lab Report: Lipid Panel, Prostatic Specific Ag, Comp. Metabolic Panel - Chemistry cholesterol, serum 147 mg/dL 406-679 9195/06/19 triglyceride, serum, fasting 192 mg/dL 30-200 HDL cholesterol, serum 40 mg/dL 32-96 LDL cholesterol, serum 69 mg/dL 0-130 prostate specific antigen 0.56 ng/mL 0.00-4.00 sodium, serum 141 mmol/L 102-803 4521/06/19 potassium, serum 4.4 mmol/L 3.5-5.2 chloride, serum [...] 0.00-1.00 Encounters Code Encounter Date Provider Facility CPT-47928 Level 3 Est. Patient 10:35:[address] MD [facility] CPT-21533 Level 3 Est. Patient 11:30:[address] MD [facility] CPT-36291 Level 3 Est. Patient 12:49:[address] MD [facility] CPT-05069 Level 3 Est. Patient 10:47:30 GRAPHIC [address]IGN [address]ACHER [address] MD [facility] CPT-01210 Level 4 Est. Patient 09:59:53 GRAPHIC [address]IGN TEACHER [address] MD [facility] CPT-22424 Level 3 Est. Patient 09:32:09 GRAPHIC DESIGN TEACHER R[address]o [address] MD [facility] CPT-47310 Level 3 Est. Patient 10:10:[address] MD [facility] Procedures Code Procedure Name Date Entry Date Standard Description CPT-78143 Venipuncture Draw Fee 08:08:20 CDT CPT-J1080 Depo Testosterone 200 mg 14:41:51 CDT CPT-J1080 Depo Testosterone 200 mg 11:21:45 CDT CPT-J1070 Depo Testosterone 100 mg 11:21:45 CDT CPT-87760 Abx/Therapy Injection 11:21:45 CDT CPT-J1080 Depo Testosterone 200 mg 10:46:16 CDT CPT-J1070 Depo Testosterone 100 mg 10:46:16 CDT CPT-04787 Abx/Therapy Injection 10:46:16 CDT CPT-50132 EKG Trac and Interp 10:22:23 GRAPHIC DESIGN TEACHER CPT-44083 Chest 2V Frontal and Lat 10:22:23 GRAPHIC DESIGN TEACHER CPT-75653 Shoulder comp min 2V 10:10:44 CDT
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
--- OUTSIDE RECORDS SUMMARY | 2016-12-31 14:32 | XMS REPORT | Continuity of Care Document ---
Author Author [facility] Organization [facility] Address Unknown Phone Unavailable Support Name Relationship Address Phone ORDOÑEZPARMINDER RIVAS Next Of Kin [address] [place] [address] Insurance Providers Payer Name Policy Number Subscriber Name Relationship [facility] [id number] Luis Angel Ordoñez 01 Self / Same As Patient Advance Directives Directive Response Recorded Date Advance Directives N 04/22/13 9:29am Health Care Power of Senior Net Developer Architect N 04/22/13 9:29am Organ Donor N 04/22/13 9:29am Problems No Known Problems or Medical conditions. Family History History Response Recorded Date/Time Hx Family Cancer N 04/22/13 8:58am Hx Family Cardiac Disorders Y 04/22/13 8: 58am Hx Family Stroke N 04/22/13 8:58am Hx Family Hypertension Y 04/22/13 8:58am Hx Family Myocardial Infarction Y 8:58am Hx Family Cystic Fibrosis N 04/22/13 8: 58am Social History History Response Recorded Date/Time Alcohol Use Denies Use 04/22/13 8:36am Recreational Drug Use N 04/22/13 8:36am Recent Foreign Travel N 04/22/13 8:36am Recent Infectious Disease Exposure N 8:36am Hospitalization with Isolation Denies 5:49pm Allergies, Adverse Reactions, Alerts Allergen Type Severity Reaction Last Updated meperidine HCl Allergy Unknown 04/22/13 Medications Medication Dose Units Route Sig Qty Days Multivitamin (Multi Vitamin Daily) 1 Tab PO DAILY Acetaminophen/Codeine (Tylenol W/Codeine #3 Tablet) 1 - 2 Tab PO TID PRN Albuterol Sulfate (Proventil 2.5 Mg/3 Ml Ns) 2.5 Mg IH Q4H PRN Ipratropium/Albuterol Sulfate (Combivent Inhaler) 1 Puff IH Q4H PRN Carvedilol 12.5 Mg PO BID Lisinopril (Prinivil) 20 Mg PO DAILY Paroxetine Hcl 30 Mg PO DAILY Simvastatin 40 Mg PO HS Montelukast Sodium (Singulair 10 Mg) 10 Mg PO DAILY Response Recorded Date/Time Status not known Unknown Results No Known Relevant Diagnostic Tests, Laboratory Data and/or Discharge Summary. Encounters Encounter Location Date/Time Discharged Inpatient [facility] 8:04am
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
--- OUTSIDE RECORDS SUMMARY | 2016-12-31 15:04 | XMS REPORT | Continuity of Care Document ---
Author Author [facility] Address Unknown Phone Unavailable Allergies Active Description Code Type Severity Reaction Onset Reported/Identified Relationship to Patient Clinical Status Yes Demerol 3853 Drug Allergy N/A N/A Yes Demerol Drug Allergy 06/11/2012 Yes meperidine HCl [id number] Drug Allergy Unknown N/A 04/22/2013 Medications Problems [...] LUIS ANGEL VALDEZ APRN 782.3 EDEMA 06/11/2012 296.90 MOOD DISORDER [...] Procedures Code [place] [address] ROUTINE VENIPUNCTURE 07/19/2012 48840 TESTOSTERONE FREE 07/19/2012 74842 NUCLEAR STRESS TESTING 07/26/2012 61345 EKG, TRACING (IN-HOUSE) 07/26/2012 62319 ECHO 2D 2011 54042 THERAPUTIC INJ SQ/IM 07/30/2012 79004 TESTOSTERONE FREE 08/21/2012 77053 THERAPUTIC INJ SQ/IM 09/13/2012 A0425 GROUND MILEAGE [...] Status Pt. Type Provider Facility Loc./Unit Complaint [id number] 10/04/2012 15:20:00 10/04/2012 23: 59:59 [facility] Outpatient LUIS ANGEL VALDEZ APRN [id number] 09/13/2012 10:41:00 09/13/2012 23: 59:59 [facility] Outpatient LUIS ANGEL VALDEZ APRN [id number] 08/26/2012 12:40:00 08/26/2012 23: 59:59 [facility] LUIS ANGEL VALDEZ APRN [id number] 08/19/2012 11:07:00 08/19/2012 23: 59:59 [facility] Outpatient [id number] 07/30/2012 08:15:00 07/30/2012 23: 59:59 [facility] [place] [id number] 07/19/2012 08:43:00 07/19/2012 23: 59:59 [facility] Outpatient FORTINO LINN DO [id number] 12/06/2012 11:00:00 Document Registration
== END 2016-11-29 11:25 | disposition home or self-care (01) ==
LOC: EDUNIT# 14:42 → ER 14:43 → 4TH 16:16 → UNDOADMOB 16:16 → 4TH 16:44 → UNDODISOB 11-29 15:30
PROVIDERS: ADMIT Internal Medicine; ATTEND Internal Medicine
DX: J96.22 Acute and chronic respiratory failure with hypercapnia (principal); E66.2 Morbid (severe) obesity with alveolar hypoventilation; Z68.43 Body mass index [BMI] 50.0-59.9, adult; J44.9 Chronic obstructive pulmonary disease, unspecified; F32.9 Major depressive disorder, single episode, unspecified; F41.9 Anxiety disorder, unspecified; I87.2 Venous insufficiency (chronic) (peripheral)
CPT/HCPCS: 36415; 71020; 80053; 82805; 85025; 94640; 94660; 94761; 99285; G0378

== ENCOUNTER → 2016-11-28 | Outpatient (CLI) | payer MEDICARE ==
[~2016-11-28] MED LIST: ALBU0.8322 IH; ALBU2.5V4 NEB; CARV12.53 PO; CLON1TAB3 PO; CODE-54 PO; IPRA4AER IH; LISI20TA PO; MNTL10T PO; MULT-974 PO; OMG1KC PO; PARO30TA2 PO; PARO40TA3 PO; POTA99TA21 PO; RT-COMBINH IH; SIMV40TA4 PO; TEST200V21 INJ; VITA150T PO
[2016-11-28 14:20] LABS: ABG BASE EXCESS 10.7 MMOL/L (-2.5-2.5); ABG HCO3 37 MMOL/L (23-27); ABG OXYGEN SATURATION 76 % (94-100); ABG PCO2 67 MMHG (35-45); ABG PH 7.35 (7.37-7.43); ABG PO2 45 MMHG (79-93); ABG TCO2 38.6 MMOL/L (21.0-31.0)
[2016-11-28 14:22] LABS: ALLENS TEST YES-POS; PATIENT TEMP 98.2
== END ==
LOC: RT 13:30
PROVIDERS: ATTEND Internal Medicine Critical Care Medicine
DX: J44.9 Chronic obstructive pulmonary disease, unspecified (principal); G47.30 Sleep apnea, unspecified; E66.01 Morbid (severe) obesity due to excess calories; R53.83 Other fatigue; R09.02 Hypoxemia; R06.00 Dyspnea, unspecified
CPT/HCPCS: 82805

== ENCOUNTER → 2017-01-29 | Outpatient (CLI) | payer MEDICARE ==
[~2017-01-29] MED LIST changes: +ALBU2.5V4 NEB; +CLON1TAB3 PO; +IPRA4AER IH; +OMG1KC PO; +PARO40TA3 PO; +POTA99TA21 PO; +RT-ALBUTEROL SULF 2.5 MG/3 ML PRE-MIX VIAL IH ONE; +TEST200V21 INJ; +VITA150T PO
== END ==
LOC: RT 15:08
PROVIDERS: ATTEND Internal Medicine Critical Care Medicine
DX: J44.9 Chronic obstructive pulmonary disease, unspecified (principal); R06.00 Dyspnea, unspecified; G47.30 Sleep apnea, unspecified; E66.01 Morbid (severe) obesity due to excess calories; R09.02 Hypoxemia; R53.83 Other fatigue
CPT/HCPCS: 94060; 94640; 94726; 94729

== ENCOUNTER 2017-03-06 03:02 | Emergency (ER) | payer MEDICARE ==
[~2017-03-06] VITALS: Ht 170.2 cm; Wt 158.8 kg
[~2017-03-06 03:02] MED LIST changes: -RT-ALBUTEROL SULF 2.5 MG/3 ML PRE-MIX VIAL IH ONE
[2017-03-06] MEDS ORDERED: RT-ALBUTEROL/IPRATROPIUM 3 ML (DUONEB) VIAL ONE (03:16)
[2017-03-06] MEDS ORDERED: RT-ALBUTEROL/IPRATROPIUM 3 ML (DUONEB) VIAL INH ONE (03:30)
[2017-03-06 03:34] LABS: BASOPHILS % (AUTO) 0 % (0-10); EOSINOPHILS # (AUTO) 0.4 10^3/uL (0.0-0.3); EOSINOPHILS % (AUTO) 4 % (0-10); LYMPHOCYTES # (AUTO) 2.2 X 10^3 (1.0-4.0); LYMPHOCYTES % (AUTO) 22 % (12-44); MEAN CORPUSCULAR HEMOGLOBIN 27 PG (25-34); MEAN CORPUSCULAR HGB CONC 31 G/DL (32-36); MEAN CORPUSCULAR VOLUME 89 FL (80-99); MEAN PLATELET VOLUME 9.9 FL (7.4-10.4); MONOCYTES # (AUTO) 0.7 X 10^3 (0.0-1.0); MONOCYTES % (AUTO) 7 % (0-12); NEUTROPHILS # (AUTO) 6.9 X 10^3 (1.8-7.8); NEUTROPHILS % (AUTO) 67 % (42-75); PLATELET COUNT 179 10^3/uL (130-400); RED CELL DISTRIBUTION WIDTH 16.4 % (10.0-14.5); WHITE BLOOD COUNT 10.2 10^3/uL (4.3-11.0)
[2017-03-06 03:58] LABS: ALANINE AMINOTRANSFERASE 31 U/L (0-55); ANION GAP 11 MMOL/L (5-14); ASPARTATE AMINO TRANSFERASE 24 U/L (5-34); BILIRUBIN,TOTAL 0.3 MG/DL (0.1-1.0); BLOOD UREA NITROGEN 11 MG/DL (7-18); BUN/CREATININE RATIO 11; CALCIUM 9.2 MG/DL (8.5-10.1); CARBON DIOXIDE 29 MMOL/L (21-32); CHLORIDE 102 MMOL/L (98-107); CREATININE SERUM 1.03 MG/DL (0.60-1.30); GFR ESTIMATED > 60; GLUCOSE 109 MG/DL (70-105); POTASSIUM 4.2 MMOL/L (3.6-5.0); SODIUM 142 MMOL/L (135-145); TOTAL PROTEIN 7.3 GM/DL (6.4-8.2)
[2017-03-06 04:05] LABS: TROPONIN I < 0.30 NG/ML (<0.30)
--- NOTE | 2017-03-06 05:35 | ED Respiratory ---
General Chief Complaint: Respiratory Problems Stated Complaint: SOB Nursing Triage Note: PT TO ED 7 W/ C/O SOB ONSET THIS EVENING. PT REPORTS HE RECENTLY CHANGED HIS MASK FOR HIS BREATHING MACHINE AND STATES "IT JUST DIDN'T WORK OR FIT RIGHT". Source: patient Exam Limitations: no limitations History of Present Illness Time seen by provider: 03:17 Initial Comments This 56-year-old gentleman presents to the emergency room with complaints of shortness of air and difficulty sleeping. He uses a BiPAP (vent to mask) machine at home for sleep apnea. He has been having trouble with his mask. He denies any cough or fever. He feels a tightness across his upper abdomen and has had some increased lower extremity swelling. He reports being under much stress recently which exacerbates these issues. He does have a nebulizer machine but has not taken any treatments since yesterday afternoon. Patient has a medical history of COPD, obstructive sleep apnea, congestive heart failure , and history of respiratory failure with hypercarbia requiring intubation. He uses 3 L/m on his oxygen supplementation. Dr. Agustin is his primary care provider and Dr. De Leon is his imaging system administrator. Allergies and Home Medications Allergies Coded Allergies: meperidine HCl (Unverified Allergy, Unknown, 04/22/13) Home Medications Acetaminophen/Codeine 1 Tab Tablet, 1-2 TAB PO TID PRN for PAIN, (Reported) Albuterol Sulfate 2.5 Mg/3 Ml Vial.neb, 2.5 MG NEB QID PRN for SHORTNESS OF BREATH, (Reported) Albuterol/Ipratropium 4 Gm Aero, 1 PUFF IH Q4H PRN for SHORTNESS OF BREATH, ( Reported) Carvedilol 12.5 Mg Tablet, 12.5 MG PO BID, (Reported) Clonazepam 1 Mg Tablet, 1 MG PO BID, (Reported) Clonazepam 1 Mg Tablet, 1 MG PO BID PRN for ANXIETY, (Reported) Lisinopril 20 Mg Tablet, 20 MG PO DAILY, (Reported) [place] 3 Polyunsat Fatty Acids 1,000 Mg Cap, 2,000 MG PO DAILY, (Reported) TAKES 2 (1000MG) CAPSULES Paroxetine HCl 40 Mg Tablet, 40 MG PO DAILY, (Reported) Potassium Gluconate 99 Mg Tablet, 99 MG PO DAILY, (Reported) Simvastatin 40 Mg Tablet, 40 MG PO HS, (Reported) Testosterone Cypionate 200 Mg/1 Ml Vial, 100 MG INJ EVERY 2 WEEKS, (Reported) Vitamin B Complex & Vit C No.4 150 Mg Tablet, 150 MG PO DAILY, (Reported) Constitutional: no symptoms reported EENTM: no symptoms reported Respiratory: see HPI Cardiovascular: see HPI Gastrointestinal: no symptoms reported Genitourinary: no symptoms reported Musculoskeletal: no symptoms reported Skin: no symptoms reported Psychiatric/Neurological: See HPI Hematologic/Lymphatic: No Symptoms Reported Past Ikeavlp-Wsrlbb-Qqhehh Hx Patient Social History Alcohol Use: Denies Use Recreational Drug Use: No Smoking Status: Former Smoker Recent Foreign Travel: No Contact w/Someone Who Travel: No Recent Infectious Disease Expo: No Recent Hopitalizations: No Immunizations Up To Date Tetanus Booster (TDap): Less than 5yrs Seasonal Allergies Seasonal Allergies: No Surgeries HX Surgeries: Yes Surgeries: Adenoidectomy, Tonsillectomy Respiratory Hx Respiratory Disorders: Yes (COPD, chronic bronchitis, asthma, history of respiratory failure requiring intubation) Respiratory Disorders: Asthma, Chronic Bronchitis, Sleep Apnea, COPD Cardiovascular Hx Cardiac Disorders: Yes (Congestive heart failure) Cardiac Disorders: Hypertension Neurological Hx Neurological Disorders: No Reproductive System Hx Reproductive Disorders: No Genitourinary Hx Genitourinary Disorders: No Gastrointestinal Hx Gastrointestinal Disorders: Yes Gastrointestinal Disorders: Gastroesophageal Reflux Musculoskeletal Hx Musculoskeletal Disorders: No Endocrine Hx Endocrine Disorders: No HEENT HX ENT Disorders: No Cancer Hx Cancer: No Psychosocial Hx Psychiatric Problems: Yes Behavioral Health Disorders: Sleep Difficulties, Anxiety, Depression Integumentary HX Skin/Integumentary Disorder: No Blood Transfusions Hx Blood Disorders: No Adverse Reaction to a Blood Tr: No (patient has never been given blood) Family Medical History Significant Family History: No Pertinent Family Hx Family Medial History: FH: CHF (congestive heart failure) Physical Exam Vital Signs Vital Sign - Last 12Hours 03/06/17 03:07 Temp 98.3 Pulse 76 Resp 28 B/P (MAP) 179/77 Pulse Ox 90 O2 Delivery Nasal Cannula O2 Flow Rate 3.00 Capillary Refill : Less Than 3 Seconds General Appearance: WD/WN, no apparent distress, obese (Morbidly) HEENT: PERRL/EOMI, normal ENT inspection, pharynx normal Neck: normal inspection Respiratory: no respiratory distress, no accessory muscle use, wheezing Cardiovascular: regular rate, rhythm, no edema, no murmur Gastrointestinal: normal bowel sounds, non tender, soft Extremities: no calf tenderness, swelling Neurologic/Psychiatric: night nurse II-XII nml as tested, no motor/sensory deficits, alert, normal mood/affect, oriented x 3 Skin: normal color, warm/dry Progress/Results/Core Measures Results/Orders Lab Results Laboratory Tests Test 03/06/17 03:18 Range/Units White Blood Count 10.2 4.3-11.0 10^3/uL Red Blood Count 5.00 4.35-5.85 10^6/uL Hemoglobin 13.7 13.3-17.7 G/DL Hematocrit 45 40-54 % Mean Corpuscular Volume 89 80-99 FL Mean Corpuscular Hemoglobin 27 25-34 PG Mean Corpuscular Hemoglobin Concent 31 L 32-36 G/DL Red Cell Distribution Width 16.4 H 10.0-14.5 % Platelet Count 179 130-400 10^3/uL Mean Platelet Volume 9.9 7.4-10.4 FL Neutrophils (%) (Auto) 67 42-75 % Lymphocytes (%) (Auto) 22 12-44 % Monocytes (%) (Auto) 7 0-12 % Eosinophils (%) (Auto) 4 0-10 % Basophils (%) (Auto) 0 0-10 % Neutrophils # (Auto) 6.9 1.8-7.8 X 10^3 Lymphocytes # (Auto) 2.2 1.0-4.0 X 10^3 Monocytes # (Auto) 0.7 0.0-1.0 X 10^3 Eosinophils # (Auto) 0.4 H 0.0-0.3 10^3/uL Basophils # (Auto) 0.0 0.0-0.1 10^3/uL Sodium Level 142 135-145 MMOL/L Potassium Level 4.2 3.6-5.0 MMOL/L Chloride Level 102 98-107 MMOL/L Carbon Dioxide Level 29 21-32 MMOL/L Anion Gap 11 5-14 MMOL/L Blood Urea Nitrogen 11 7-18 MG/DL Creatinine 1.03 0.60-1.30 MG/DL Estimat Glomerular Filtration Rate > 60 BUN/Creatinine Ratio 11 Glucose Level 109 H 70-105 MG/DL Calcium Level 9.2 8.5-10.1 MG/DL Total Bilirubin 0.3 0.1-1.0 MG/DL Aspartate Amino Transf (AST/SGOT) 24 5-34 U/L Alanine Aminotransferase (ALT/SGPT) 31 0-55 U/L Alkaline Phosphatase 78 40-136 U/L Troponin I < 0.30 <0.30 NG/ML C-Reactive Protein High Sensitivity 1.60 H 0.00-0.50 MG/DL B-Type Natriuretic Peptide < 10.0 <100.0 PG/ML Total Protein 7.3 6.4-8.2 GM/DL Albumin 4.0 3.2-4.5 GM/DL My Orders Orders - JEREMIAH CASTELLANOS MD Albuterol/Ipra Inhalation Soln (Duoneb I (03/06/17 03:16) BNP (03/06/17 03:24) Cbc With Automated Diff (03/06/17 03:24) Comprehensive Metabolic Panel (03/06/17 03:24) Troponin I (03/06/17 03:24) Saline Lock/Iv-Start (03/06/17 03:24) Chest Pa/Lat (2 View) (03/06/17 03:24) Albuterol/Ipra Inhalation Soln (Duoneb I (03/06/17 03:30) Svn Sm Volume Nebulizer Rt-Rfs (03/06/17 03:24) Ekg Tracing (03/06/17 03:24) Monitor-Rhythm Ecg Trace Only (03/06/17 03:24) Hs C Reactive Protein (03/06/17 03:24) Medications Given in ED Vital Signs/I&O Vital Sign - Last 12Hours 03/06/17 03/06/17 03/06/17 03:07 03:27 05:53 Temp 98.3 Pulse 76 73 Resp 28 24 B/P (MAP) 179/77 Pulse Ox 90 96 93 O2 Delivery Nasal Cannula Nasal Cannula Room Air O2 Flow Rate 3.00 3.00 Blood Pressure Mean: 111 Progress Note : Progress Note Workup was unremarkable. Patient felt significantly improved after DuoNeb treatment. Counseling regarding weight loss was provided. Diagnostic Imaging Diagonstic Imaging: Xray Plain Films/CT/US/NM/MRI: chest Comments Chest x-ray viewed by me and compared with prior. Report not yet available. No acute changes identified. Departure Impression Impression: Primary Impression: COPD exacerbation Additional Impression: Dyspnea Qualified Codes: R06.00 - Dyspnea, unspecified Disposition: 01 HOME, SELF-CARE Condition: Improved Departure-Patient Inst. Decision time for Depature: 05:20 Referrals: ULICES AGUSTIN MD (PCP/Family) Primary Care Physician Patient Instructions: Exacerbation of COPD Add. Discharge Instructions: Follow-up with Dr. De Leon as soon as possible. You may continue nebulizer treatments as often as every 4 hours if needed for shortness of air. Work toward weight loss. Use your other medications as prescribed. Return to care if symptoms worsen. All discharge instructions reviewed with patient and/or family. Voiced understanding. Copy Copies To 1: GILLIAN DE LEON DO Copies To 2: ULICES AGUSTIN MD, JOSHUA T MD Mar 06, 2017 05:35
[2017-03-06 05:53] VITALS: BP 165/84
--- NOTE | 2017-03-06 07:47 | Diagnostic Imaging Report ---
INDICATION: Shortness of breath, onset this evening. Recently changed mask on his breathing machine and states that it does not work right. Unable to sleep. History of COPD. Comparison study: Chest from 11/28/2016. FINDINGS: Frontal and lateral views of the chest demonstrate stable cardiomegaly. Flattening of the diaphragms is again identified on the lateral view. No pleural effusions are present. There are no focal infiltrates. IMPRESSION: Stable mild cardiomegaly and COPD. Dictated by: Dictated on workstation # [id number]
--- OUTSIDE RECORDS SUMMARY | 2017-03-06 18:46 | XMS REPORT | Continuity of Care Document ---
Author Author Formerly 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 Type Provider Facility Loc./Unit Complaint [id number] 10/04/2012 15:20:00 10/04/2012 23: 59:59 [facility] Outpatient LUIS ANGEL VALDEZ APRN [id number] 09/13/2012 10:41:00 09/13/2012 23: 59:59 [facility] Outpatient LUIS ANGEL VALDEZ APRN [id number] 08/26/2012 12:40:00 08/26/2012 23: 59:59 [facility] Outpatient LUIS ANGEL VALDEZ APRN [id number] 08/19/2012 11:07:00 08/19/2012 23: 59:59 [facility] Outpatient [id number] 07/30/2012 08:15:00 07/30/2012 23: 59:59 [facility] [place] [place] [id number] 07/19/2012 08:43:00 07/19/2012 23: 59:59 [facility] Outpatient FORTINO LINN DO [id number] 12/06/2012 11:00:00 Document Registration
== END 2017-03-06 05:53 | disposition home or self-care (01) ==
LOC: EDUNIT# 03:02 → ER 03:05
DX: J44.1 Chronic obstructive pulmonary disease with (acute) exacerbation (principal); J45.909 Unspecified asthma, uncomplicated; F41.9 Anxiety disorder, unspecified; F32.9 Major depressive disorder, single episode, unspecified; K21.9 Gastro-esophageal reflux disease without esophagitis; I10 Essential (primary) hypertension; Z87.891 Personal history of nicotine dependence; Z98.890 Other specified postprocedural states
CPT/HCPCS: 36415; 71020; 80053; 83880; 84484; 85025; 86141; 93005; 93041; 94640

== ENCOUNTER → 2017-05-28 | Outpatient (CLI) | payer MEDICARE, OTHER | LOC: WOUNDCARE 11:02 | PROVIDERS: ATTEND Surgery | DX: I87.323 Chronic venous hypertension (idiopathic) with inflammation of bilateral lower extremity (principal); I50.9 Heart failure, unspecified; I89.0 Lymphedema, not elsewhere classified; I70.213 Atherosclerosis of native arteries of extremities with intermittent claudication, bilateral legs; J44.9 Chronic obstructive pulmonary disease, unspecified; E66.01 Morbid (severe) obesity due to excess calories; Z68.43 Body mass index [BMI] 50.0-59.9, adult | CPT/HCPCS: 99213 ==

== ENCOUNTER → 2017-05-28 | Outpatient (CLI) | payer MEDICARE, OTHER ==
[2017-05-28 13:37] LABS: BASOPHILS % (AUTO) 0 % (0-10); EOSINOPHILS # (AUTO) 0.6 10^3/uL (0.0-0.3); EOSINOPHILS % (AUTO) 6 % (0-10); LYMPHOCYTES # (AUTO) 1.7 X 10^3 (1.0-4.0); LYMPHOCYTES % (AUTO) 16 % (12-44); MEAN CORPUSCULAR HEMOGLOBIN 28 PG (25-34); MEAN CORPUSCULAR HGB CONC 30 G/DL (32-36); MEAN CORPUSCULAR VOLUME 91 FL (80-99); MEAN PLATELET VOLUME 9.5 FL (7.4-10.4); MONOCYTES # (AUTO) 0.9 X 10^3 (0.0-1.0); MONOCYTES % (AUTO) 9 % (0-12); NEUTROPHILS # (AUTO) 7.3 X 10^3 (1.8-7.8); NEUTROPHILS % (AUTO) 69 % (42-75); PLATELET COUNT 194 10^3/uL (130-400); RED BLOOD COUNT 5.08 10^6/uL (4.35-5.85); RED CELL DISTRIBUTION WIDTH 15.5 % (10.0-14.5); WHITE BLOOD COUNT 10.6 10^3/uL (4.3-11.0)
[2017-05-28 13:56] LABS: ALANINE AMINOTRANSFERASE 28 U/L (0-55); ALBUMIN 4.1 GM/DL (3.2-4.5); ANION GAP 9 MMOL/L (5-14); ASPARTATE AMINO TRANSFERASE 23 U/L (5-34); BILIRUBIN,TOTAL 0.3 MG/DL (0.1-1.0); BLOOD UREA NITROGEN 13 MG/DL (7-18); BUN/CREATININE RATIO 15; CALCIUM 9.3 MG/DL (8.5-10.1); CARBON DIOXIDE 32 MMOL/L (21-32); CHLORIDE 98 MMOL/L (98-107); CREATININE SERUM 0.87 MG/DL (0.60-1.30); GFR ESTIMATED > 60; GLUCOSE 101 MG/DL (70-105); POTASSIUM 4.1 MMOL/L (3.6-5.0); SODIUM 139 MMOL/L (135-145); TOTAL PROTEIN 7.8 GM/DL (6.4-8.2)
== END ==
LOC: LAB 13:19
PROVIDERS: ATTEND Surgery
DX: I87.323 Chronic venous hypertension (idiopathic) with inflammation of bilateral lower extremity (principal); I89.0 Lymphedema, not elsewhere classified; I50.9 Heart failure, unspecified; E66.01 Morbid (severe) obesity due to excess calories; J44.9 Chronic obstructive pulmonary disease, unspecified; I70.213 Atherosclerosis of native arteries of extremities with intermittent claudication, bilateral legs
CPT/HCPCS: 36415; 80053; 85025

== ENCOUNTER → 2017-06-04 | Outpatient (CLI) | payer MEDICARE, OTHER | LOC: WOUNDCARE 10:55 | PROVIDERS: ATTEND Surgery | DX: I87.323 Chronic venous hypertension (idiopathic) with inflammation of bilateral lower extremity (principal); I70.213 Atherosclerosis of native arteries of extremities with intermittent claudication, bilateral legs; I89.0 Lymphedema, not elsewhere classified; I50.9 Heart failure, unspecified; J44.9 Chronic obstructive pulmonary disease, unspecified; E66.01 Morbid (severe) obesity due to excess calories; Z68.43 Body mass index [BMI] 50.0-59.9, adult | CPT/HCPCS: 99212 ==

== ENCOUNTER → 2017-06-07 | Outpatient (CLI) | payer MEDICARE | LOC: CARD 10:32 | PROVIDERS: ATTEND Surgery | DX: I50.9 Heart failure, unspecified (principal); I87.323 Chronic venous hypertension (idiopathic) with inflammation of bilateral lower extremity; I89.0 Lymphedema, not elsewhere classified; I70.213 Atherosclerosis of native arteries of extremities with intermittent claudication, bilateral legs; J44.9 Chronic obstructive pulmonary disease, unspecified; E66.01 Morbid (severe) obesity due to excess calories | CPT/HCPCS: 93306 ==

== ENCOUNTER 2017-09-04 15:21 | Emergency (ER) | payer MEDICARE, OTHER ==
[~2017-09-04] VITALS: Ht 170.2 cm; Wt 156.9 kg
[2017-09-04] MEDS ORDERED: FURO40TA4 PO (15:47)
[2017-09-04] MEDS ORDERED: PRAM0.12 PO (15:49)
[2017-09-04] MEDS ORDERED: NS IV 1000 ML 1,000 ML IV ONE (16:01)
[2017-09-04 16:06] LABS: BASOPHILS % (AUTO) 0 % (0-10); EOSINOPHILS # (AUTO) 0.3 10^3/uL (0.0-0.3); EOSINOPHILS % (AUTO) 4 % (0-10); HEMATOCRIT 43 % (40-54); HEMOGLOBIN 13.7 G/DL (13.3-17.7); LYMPHOCYTES # (AUTO) 1.6 X 10^3 (1.0-4.0); LYMPHOCYTES % (AUTO) 19 % (12-44); MEAN CORPUSCULAR HEMOGLOBIN 28 PG (25-34); MEAN CORPUSCULAR HGB CONC 32 G/DL (32-36); MEAN CORPUSCULAR VOLUME 88 FL (80-99); MONOCYTES # (AUTO) 0.6 X 10^3 (0.0-1.0); MONOCYTES % (AUTO) 6 % (0-12); NEUTROPHILS # (AUTO) 6.2 X 10^3 (1.8-7.8); NEUTROPHILS % (AUTO) 71 % (42-75); PLATELET COUNT 181 10^3/uL (130-400); RED CELL DISTRIBUTION WIDTH 14.9 % (10.0-14.5); WHITE BLOOD COUNT 8.7 10^3/uL (4.3-11.0)
[2017-09-04 16:23] LABS: ABG BASE EXCESS 6.9 MMOL/L (-2.5-2.5); ABG OXYGEN SATURATION 96 % (94-100); ABG PCO2 59 MMHG (35-45); ABG PH 7.36 (7.37-7.43); ABG PO2 78 MMHG (79-93); ABG TCO2 34.2 MMOL/L (21.0-31.0)
[2017-09-04 16:25] LABS: ALANINE AMINOTRANSFERASE 26 U/L (0-55); ALKALINE PHOSPHATASE 87 U/L (40-136); BILIRUBIN,TOTAL 0.3 MG/DL (0.1-1.0); BUN/CREATININE RATIO 17; CALCIUM 9.4 MG/DL (8.5-10.1); CARBON DIOXIDE 31 MMOL/L (21-32); CHLORIDE 97 MMOL/L (98-107); CREATININE SERUM 0.94 MG/DL (0.60-1.30); GFR ESTIMATED > 60; GLUCOSE 146 MG/DL (70-105); POTASSIUM 4.4 MMOL/L (3.6-5.0); SODIUM 139 MMOL/L (135-145); TOTAL PROTEIN 7.6 GM/DL (6.4-8.2)
[2017-09-04 16:25] LABS: ALLENS TEST POSITIVE; INSPIRED O2 3L; PATIENT TEMP 98.6; VENTILATOR NO
--- NOTE | 2017-09-04 16:40 | ED Respiratory ---
General Chief Complaint: Respiratory Problems Stated Complaint: SOB,AMS Nursing Triage Note: pt and report dizziness, soa with moderate resp effort, hallicinations, upper joint pain, unable to sleep or breath on vent to mask, occasional pursed lip breathing, chills, and feels like he's hot and suffocating x 1 week. reports pt fell on Sunday, but pt was unable to tell her when or how, just remembers waking up and going into their room to tell her he woke up on the ground. pt amb into exam room x 1 assist. Source: patient Exam Limitations: no limitations History of Present Illness Time seen by provider: 16:25 Initial Comments Here with report of shortness of air, dyspnea with exertion, dizziness and apparently visual hallucinations. Complains of pain in the upper back. reports that he is on Ventimask but has not been using it very well because he cannot tolerate it. Apparently had a full but today as the found him on the floor. Patient doesn't remember any of the events related to that. Denies nausea or vomiting. Timing/Duration: week, getting worse Severity: moderate Prior Episodes/Possible Cause: occasional episodes Associated Symptoms: No chest pain/soreness, No cough, fever/chills, nasal congestion, nasal drainage, shortness of breath, No sore throat, No wheezing Allergies and Home Medications Allergies Coded Allergies: meperidine HCl (Unverified Allergy, Unknown, 04/22/13) Home Medications Acetaminophen/Codeine 1 Tab Tablet, 1-2 TAB PO TID PRN for PAIN, (Reported) Albuterol Sulfate 2.5 Mg/3 Ml Vial.neb, 2.5 MG NEB QID PRN for SHORTNESS OF BREATH, (Reported) Albuterol/Ipratropium 4 Gm Aero, 1 PUFF IH Q4H PRN for SHORTNESS OF BREATH, ( Reported) Carvedilol 12.5 Mg Tablet, 12.5 MG PO BID, (Reported) Furosemide 40 Mg Tablet, 40 MG PO DAILY, (Reported) Lisinopril 20 Mg Tablet, 20 MG PO DAILY, (Reported) [place] 3 Polyunsat Fatty Acids 1,000 Mg Cap, 2,000 MG PO DAILY, (Reported) TAKES 2 (1000MG) CAPSULES Paroxetine HCl 40 Mg Tablet, 40 MG PO DAILY, (Reported) Potassium Gluconate 99 Mg Tablet, 99 MG PO DAILY, (Reported) Pramipexole 0.125 Mg Tablet, 0.25 MG PO BID, (Reported) Simvastatin 40 Mg Tablet, 40 MG PO HS, (Reported) Vitamin B Complex & Vit C No.4 150 Mg Tablet, 150 MG PO DAILY, (Reported) Constitutional: see HPI, chills, dizziness, fever, malaise, weakness EENTM: nose congestion, nose pain, No ear pain Respiratory: dyspnea on exertion, short of breath Cardiovascular: No chest pain, No edema Gastrointestinal: No abdominal pain, No nausea, No vomiting Genitourinary: no symptoms reported Musculoskeletal: joint pain (bilateral shoulders) Skin: no symptoms reported Psychiatric/Neurological: No Symptoms Reported All Other Systems Reviewed Negative Unless Noted: Yes Past Yvfqkqv-Ybxris-Swmvxt Hx Patient Social History Alcohol Use: Denies Use Recreational Drug Use: No Smoking Status: Former Smoker Former Smoker, Quit: Nov 28, 1986 2nd Hand Smoke Exposure: No Recent Foreign Travel: No Contact w/Someone Who Travel: No Recent Infectious Disease Expo: No Recent Hopitalizations: No Physical Abuse: No Sexual Abuse: No Mistreated: No Fear: No Immunizations Up To Date Tetanus Booster (TDap): More than 5yrs Date of Pneumonia Vaccine: December 25, 2016 Seasonal Allergies Seasonal Allergies: No Surgeries History of Surgeries: Yes Surgeries: Adenoidectomy, Tonsillectomy Respiratory History of Respiratory Disorde: Yes (COPD, chronic bronchitis, asthma) Respiratory Disorders: Asthma, Chronic Bronchitis, Sleep Apnea, COPD Cardiovascular History of Cardiac Disorders: Yes (Congestive heart failure) Cardiac Disorders: Hypertension Neurological History of Neurological Disord: No Reproductive System Hx Reproductive Disorders: No Genitourinary History of Genitourinary Disor: No Gastrointestinal History of Gastrointestinal Di: Yes Gastrointestinal Disorders: Gastroesophageal Reflux Musculoskeletal History of Musculoskeletal Dis: No Endocrine History of Endocrine Disorders: No HEENT History of HEENT Disorders: No Cancer History of Cancer: No Psychosocial History of Psychiatric Problem: Yes Behavioral Health Disorders: Sleep Difficulties, Anxiety, Depression Suicide Risk Score: 1 Integumentary History of Skin or Integumenta: No Blood Transfusions History of Blood Disorders: No Adverse Reaction to a Blood Tr: No (patient has never been given blood) Reviewed Nursing Assessment Reviewed/Agree w Nursing PMH: Yes Family Medical History Family Medial History: FH: CHF (congestive heart failure) Physical Exam Vital Signs Vital Sign - Last 12Hours 09/04/17 15:38 Temp 98.6 Pulse 77 Resp 24 B/P (MAP) 150/77 (101) Pulse Ox 96 O2 Delivery Nasal Cannula Capillary Refill : Less Than 3 Seconds General Appearance: WD/WN, no apparent distress HEENT: PERRL/EOMI, pharynx normal Neck: full range of motion, supple Respiratory: lungs clear, normal breath sounds Cardiovascular: regular rate, rhythm, no murmur Gastrointestinal: non tender, soft Extremities: non-tender, normal inspection Neurologic/Psychiatric: alert, oriented x 3 Skin: normal color, warm/dry Focused Exam Evaluation Lactate Level Laboratory Tests 09/04/17 15:58: Lactic Acid Level 1.87 Lactic Acid Level Laboratory Tests Test 09/04/17 15:58 Lactic Acid Level 1.87 MMOL/L (0.50-2.00) Progress/Results/Core Measures Suspected Sepsis Recent Fever Within 48 Hours: Yes Infection Criteria Present: Suspected New Infection New/Unexplained Altered Menta: Yes Sepsis Screen: Possible Severe Sepsis Risk Sepsis Diagnosis: SIRS Temperature:98.6 Pulse: 77 Respiratory Rate: 24 Laboratory Tests 09/04/17 15:58: White Blood Count 8.7 Blood Pressure 150 /77 Mean: 101 Laboratory Tests 09/04/17 15:58: Lactic Acid Level 1.87 Laboratory Tests 09/04/17 15:58: Creatinine 0.94, Platelet Count 181, Total Bilirubin 0.3 Results/Orders Lab Results Laboratory Tests Test 09/04/17 15:58 09/04/17 16:11 Range/Units White Blood Count 8.7 4.3-11.0 10^3/uL Red Blood Count 4.90 4.35-5.85 10^6/uL Hemoglobin 13.7 13.3-17.7 G/DL Hematocrit 43 40-54 % Mean Corpuscular Volume 88 80-99 FL Mean Corpuscular Hemoglobin 28 25-34 PG Mean Corpuscular Hemoglobin Concent 32 32-36 G/DL Red Cell Distribution Width 14.9 H 10.0-14.5 % Platelet Count 181 130-400 10^3/uL Mean Platelet Volume 10.0 7.4-10.4 FL Neutrophils (%) (Auto) 71 42-75 % Lymphocytes (%) (Auto) 19 12-44 % Monocytes (%) (Auto) 6 0-12 % Eosinophils (%) (Auto) 4 0-10 % Basophils (%) (Auto) 0 0-10 % Neutrophils # (Auto) 6.2 1.8-7.8 X 10^3 Lymphocytes # (Auto) 1.6 1.0-4.0 X 10^3 Monocytes # (Auto) 0.6 0.0-1.0 X 10^3 Eosinophils # (Auto) 0.3 0.0-0.3 10^3/uL Basophils # (Auto) 0.0 0.0-0.1 10^3/uL Sodium Level 139 135-145 MMOL/L Potassium Level 4.4 3.6-5.0 MMOL/L Chloride Level 97 L 98-107 MMOL/L Carbon Dioxide Level 31 21-32 MMOL/L Anion Gap 11 5-14 MMOL/L Blood Urea Nitrogen 16 7-18 MG/DL Creatinine 0.94 0.60-1.30 MG/DL Estimat Glomerular Filtration Rate > 60 BUN/Creatinine Ratio 17 Glucose Level 146 H 70-105 MG/DL Lactic Acid Level 1.87 0.50-2.00 MMOL/L Calcium Level 9.4 8.5-10.1 MG/DL Total Bilirubin 0.3 0.1-1.0 MG/DL Aspartate Amino Transf (AST/SGOT) 26 5-34 U/L Alanine Aminotransferase (ALT/SGPT) 26 0-55 U/L Alkaline Phosphatase 87 40-136 U/L C-Reactive Protein High Sensitivity 2.59 H 0.00-0.50 MG/DL B-Type Natriuretic Peptide 18.5 <100.0 PG/ML Total Protein 7.6 6.4-8.2 GM/DL Albumin 4.0 3.2-4.5 GM/DL Blood Gas Puncture Site RIGHT RADIAL Blood Gas Patient Temperature 98.6 Arterial Blood pH 7.36 L 7.37-7.43 Arterial Blood Partial Pressure CO2 59 H 35-45 MMHG Arterial Blood Partial Pressure O2 78 L 79-93 MMHG Arterial Blood HCO3 32 H 23-27 MMOL/L Arterial Blood Total CO2 34.2 H 21.0-31.0 MMOL/L Arterial Blood Oxygen Saturation 96 94-100 % Arterial Blood Base Excess 6.9 H -2.5-2.5 MMOL/L Ramirez Test POSITIVE Blood Gas Ventilator Setting NO Blood Gas Inspired Oxygen 3L My Orders Orders - STEPHIE NYE MD Arterial Blood Gas (1/9/18 16:01) Cbc With Automated Diff (09/04/17 16:01) Comprehensive Metabolic Panel (09/04/17 16:01) Hs C Reactive Protein (09/04/17 16:01) Lactic Acid Analyzer (09/04/17 16:01) Blood Culture (09/04/17 16:01) Chest 1 View, Ap/Pa Only (09/04/17 16:01) Saline Lock/Iv-Start (09/04/17 16:01) Ns Iv 1000 Ml (Sodium Chloride 0.9%) (09/04/17 16:01) BNP (09/04/17 16:34) Ct Head Wo (09/04/17 16:40) Prednisone Tablet (Deltasone Tablet) (09/04/17 18:00) Vital Signs/I&O Vital Sign - Last 12Hours 09/04/17 15:38 Temp 98.6 Pulse 77 Resp 24 B/P (MAP) 150/77 (101) Pulse Ox 96 O2 Delivery Nasal Cannula Capillary Refill : Less Than 3 Seconds Blood Pressure Mean: 101 Progress Note : Progress Note Seen and evaluated. IV, labs, EKG and chest x-ray ordered. CT head ordered given the fall and recent dizziness with hallucinations. 1750: Prednisone 40 mg by mouth given. We will initiate Augmentin treatment for sinusitis. Patient does admit to congestion and this may be adding to the problems with his to mask. He has appointment with Dr. De Leon in the morning. Copy of chart sent to him. Discharged home with return precautions. Patient verbalize understanding instructions and agreement with plan. Diagnostic Imaging Diagonstic Imaging: Xray Plain Films/CT/US/NM/MRI: chest Comments NAME: LUIS ANGEL ORDOÑEZ [employer] REC#: [id number] PT STATUS: REG ER : 1960 PHYSICIAN: STEPHIE NYE MD ADMIT DATE: 09/04/17/ER Signed Date of Exam: 09/04/17 CHEST 1 VIEW, AP/PA ONLY INDICATION: Dyspnea. Single portable AP view of the chest is obtained with comparison made to study of 03/06/2017. FINDINGS: There is mild cardiomegaly. No pneumothorax or consolidation is identified. No definite pleural fluid is appreciated on the limited study. IMPRESSION: Cardiomegaly similar to previous study without other evidence of acute abnormality. Dictated by: Dictated on workstation # [id number] Dict: 09/04/17 1642 Trans: 09/04/17 1701 Interpreted by: RHETT CASAS MD Electronically signed by: RHETT CASAS MD 09/04/17 170 Diagonstic Imaging: CT Plain Films/CT/US/NM/MRI: head Comments [facility]IA [facility] [place], [place] NAME: LUIS ANGEL ORDOÑEZ [employer] REC#: [id number] PT STATUS: REG ER : 1960 PHYSICIAN: TSEPHIE NYE MD ADMIT DATE: 09/04/17/ER Draft Date of Exam:09/04/17 CT HEAD WO PROCEDURE: CT head without contrast. TECHNIQUE: Multiple contiguous axial images were obtained through the brain without the use of intravenous contrast. INDICATION: Dizziness. FINDINGS: Ventricles and sulci are within normal limits for size. Small focal lucencies are seen within the left basal ganglia which may reflect nonacute lacunar infarcts. There is no evidence of hemorrhage. There is no abnormal mass effect or shift of midline structures. There is mild mural thickening in the visualized portion of the right maxillary sinus. There is poor aeration of mastoid air cells, bilaterally. IMPRESSION: 1. No CT evidence of acute intracranial abnormality however there may be nonacute lacunar infarct within the left basal ganglia. 2. There is probable chronic right maxillary sinusitis and poor pneumatization of mastoid air cells. Dictated on workstation # [id number] Dict: 09/04/17 1725 Trans: 09/04/17 1738 TS [id number] Interpreted by: RHETT CASAS MD Electronically signed by: Departure Impression Impression: Primary Impression: Sinusitis Qualified Codes: J32.1 - Chronic frontal sinusitis Additional Impression: Bronchitis Disposition: 01 HOME, SELF-CARE Condition: Stable Departure-Patient Inst. Decision time for Depature: 17:59 Referrals: MARELY GONZALEZ MD (PCP/Family) Primary Care Physician Patient Instructions: Acute Bronchitis, Adult (DC), Sinusitis, Adult (DC) Add. Discharge Instructions: All discharge instructions reviewed with patient and/or family. Voiced understanding. Take medications as directed. You may use Afrin nasal spray or the generic, 12 hour relief, 2 sprays to each nostril twice daily for 3 days only and then stop. Do not use more than 3 days. Keep appointment with Dr. De Leon tomorrow. Return for worse pain, fever, vomiting, weakness, breathing problems or other concerns as needed. Scripts Prednisone (Prednisone) 20 Mg Tab 40 MG PO DAILY, #8 TAB 0 Refills Prov: STEPHIE NYE MD 09/04/17 Amoxicillin/Potassium Clav (Augmentin 875-125 Tablet) 1 Each Tablet 1 EACH PO BID, #20 TAB 0 Refills Prov: STEPHIE NYE MD 09/04/17 Copy Copies To 1: GILLIAN DE LEON TIMOTHY D MD Sep 04, 2017 16:39
--- NOTE | 2017-09-04 16:47 | Diagnostic Imaging Report ---
INDICATION: Dyspnea. Single portable AP view of the chest is obtained with comparison made to study of 03/06/2017. FINDINGS: There is mild cardiomegaly. No pneumothorax or consolidation is identified. No definite pleural fluid is appreciated on the limited study. IMPRESSION: Cardiomegaly similar to previous study without other evidence of acute abnormality. Dictated by: Dictated on workstation # [id number]
--- NOTE | 2017-09-04 17:39 | Diagnostic Imaging Report ---
PROCEDURE: CT head without contrast. TECHNIQUE: Multiple contiguous axial images were obtained through the brain without the use of intravenous contrast. INDICATION: Dizziness. FINDINGS: Ventricles and sulci are within normal limits for size. Small focal lucencies are seen within the left basal ganglia which may reflect nonacute lacunar infarcts. There is no evidence of hemorrhage. There is no abnormal mass effect or shift of midline structures. There is mild mural thickening in the visualized portion of the right maxillary sinus. There is poor aeration of mastoid air cells, bilaterally. IMPRESSION: 1. No CT evidence of acute intracranial abnormality however there may be nonacute lacunar infarct within the left basal ganglia. 2. There is probable chronic right maxillary sinusitis and poor pneumatization of mastoid air cells. Dictated by: Dictated on workstation # [id number]
[2017-09-04] MEDS ORDERED: predniSONE 20 MG TAB PO ONE (18:00)
[2017-09-04] MEDS ORDERED: PRD20T PO (18:05)
[2017-09-04] MEDS ORDERED: AMOX-358 PO (18:05)
[2017-09-04 18:30] VITALS: BP 149/86
== END 2017-09-04 18:30 | disposition home or self-care (01) ==
LOC: EDUNIT# 15:21 → ER 15:23
DX: J32.9 Chronic sinusitis, unspecified (principal); J40 Bronchitis, not specified as acute or chronic; J44.9 Chronic obstructive pulmonary disease, unspecified; G47.30 Sleep apnea, unspecified; I10 Essential (primary) hypertension; K21.9 Gastro-esophageal reflux disease without esophagitis; F41.9 Anxiety disorder, unspecified; F32.9 Major depressive disorder, single episode, unspecified; Z87.891 Personal history of nicotine dependence; Z90.89 Acquired absence of other organs
CPT/HCPCS: 36415; 70450; 71045; 80053; 82805; 83605; 83880; 85025; 86141; 87040

== ENCOUNTER → 2018-03-25 | Outpatient (CLI) | payer MEDICARE, OTHER ==
[~2018-03-25] MED LIST changes: +AMOX-358 PO; -CLON1TAB3 PO; +CLON1TAB4 PO; +FURO40TA4 PO; +PRAM0.12 PO; +PRD20T PO; +RT-ALBUTEROL SULF 2.5 MG/3 ML PRE-MIX VIAL INH ONE
== END ==
LOC: RT 08:29
PROVIDERS: ATTEND Nurse Practitioner Family
DX: J44.9 Chronic obstructive pulmonary disease, unspecified (principal)
CPT/HCPCS: 94060; 94726; 94729

== ENCOUNTER → 2018-10-21 | Outpatient (CLI) | payer MEDICARE ==
[~2018-10-21] MED LIST changes: +CLON1TAB13 PO; -CLON1TAB4 PO; +IOHEXOL 350 MG/ML 100 ML (OMNIPAQUE 350) VIAL IV ONE; +NS 100 ML (IVPB) BAG IV ONE; +RECEIVED CONTRAST (Hold Metformin) IV SCH; -RT-ALBUTEROL SULF 2.5 MG/3 ML PRE-MIX VIAL INH ONE
[2018-10-21 10:01] LABS: BUN/CREATININE RATIO 14; CREATININE SERUM 0.86 MG/DL (0.60-1.30); GFR ESTIMATED > 60
--- NOTE | 2018-10-21 14:03 | Diagnostic Imaging Report ---
PROCEDURE: CT chest with contrast only. TECHNIQUE: Multiple contiguous axial images were obtained through the chest after administration of intravenous contrast. INDICATION: Chronic bronchitis, COPD, asthma, shortness of air on exertion. COMPARISON: Chest radiograph of 09/04/2017 FINDINGS: Lungs and airway: No endoluminal nodule within the trachea. No pulmonary mass or consolidation. 4 mm right lower lobe pulmonary nodule. Calcified left upper lobe 10 mm pulmonary nodule is compatible with granulomatous infection. No additional pulmonary nodules. No emphysema. No bronchiectasis or interstitial lung disease. Pleura: No pleural effusion or pneumothorax. Heart and mediastinum: Thyroid is normal. No supraclavicular or axillary lymphadenopathy. No mediastinal, hilar or juxtaphrenic lymphadenopathy. Heart is normal in size. No pericardial effusion. Coronary artery calcifications are present. Normal caliber thoracic aorta. Upper abdomen: Diffuse hepatic steatosis. Musculoskeletal: No concerning focal osseous lesions. IMPRESSION: 1. No acute cardiopulmonary process, emphysema or interstitial lung disease. 2. Right lower lobe 4 mm pulmonary nodule is indeterminate but likely of benign etiology given size. Followup CT chest in 12 months could be performed to assess stability if patient is deemed high risk for lung cancer. 3. Diffuse hepatic steatosis. Dictated by: Dictated on workstation # [id number]
== END ==
LOC: RAD 09:32
PROVIDERS: ATTEND Nurse Practitioner Family
DX: K76.0 Fatty (change of) liver, not elsewhere classified (principal); R91.1 Solitary pulmonary nodule; J44.9 Chronic obstructive pulmonary disease, unspecified; J98.4 Other disorders of lung; J96.20 Acute and chronic respiratory failure, unspecified whether with hypoxia or hypercapnia; E66.01 Morbid (severe) obesity due to excess calories; I50.9 Heart failure, unspecified
CPT/HCPCS: 36415; 71260; 82565; 84520

== ENCOUNTER 2019-06-20 07:07 | Inpatient (IN) | payer MEDICARE ==
[~2019-06-20] VITALS: Ht 170.2 cm; Wt 167.8 kg
[2019-06-20] VITALS (16 sets, daily range): BP systolic 91–128; BP diastolic 45–72
[~2019-06-20 07:07] MED LIST changes: -IOHEXOL 350 MG/ML 100 ML (OMNIPAQUE 350) VIAL IV ONE; -NS 100 ML (IVPB) BAG IV ONE; -RECEIVED CONTRAST (Hold Metformin) IV SCH
[2019-06-20] MEDS ORDERED: RT-ALBUTEROL/IPRATROPIUM 3 ML (DUONEB) VIAL ONE ×2 (07:16→07:23)
[2019-06-20 07:35] LABS: BASOPHILS % (AUTO) 0 % (0-10); EOSINOPHILS # (AUTO) 0.5 10^3/uL (0.0-0.3); EOSINOPHILS % (AUTO) 5 % (0-10); HEMATOCRIT 42 % (40-54); HEMOGLOBIN 12.1 G/DL (13.3-17.7); LYMPHOCYTES # (AUTO) 1.7 X 10^3 (1.0-4.0); LYMPHOCYTES % (AUTO) 16 % (12-44); MEAN CORPUSCULAR HEMOGLOBIN 27 PG (25-34); MEAN CORPUSCULAR HGB CONC 29 G/DL (32-36); MEAN CORPUSCULAR VOLUME 93 FL (80-99); MEAN PLATELET VOLUME 9.3 FL (7.4-10.4); MONOCYTES # (AUTO) 0.8 X 10^3 (0.0-1.0); MONOCYTES % (AUTO) 7 % (0-12); NEUTROPHILS # (AUTO) 7.2 X 10^3 (1.8-7.8); NEUTROPHILS % (AUTO) 71 % (42-75); PLATELET COUNT 197 10^3/uL (130-400); RED CELL DISTRIBUTION WIDTH 16.5 % (10.0-14.5); WHITE BLOOD COUNT 10.1 10^3/uL (4.3-11.0)
[2019-06-20 07:54] LABS: PROTHROMBIN TIME PATIENT 13.4 SEC (12.2-14.7)
[2019-06-20 07:59] LABS: ABG BASE EXCESS 14.8 MMOL/L (-2.5-2.5); ABG OXYGEN SATURATION 50 % (94-100); ABG TCO2 45.7 MMOL/L (21.0-31.0)
[2019-06-20 08:02] LABS: ALANINE AMINOTRANSFERASE 34 U/L (0-55); ALBUMIN 3.9 GM/DL (3.2-4.5); ALKALINE PHOSPHATASE 122 U/L (40-136); BILIRUBIN,TOTAL 0.3 MG/DL (0.1-1.0); BUN/CREATININE RATIO 13; CARBON DIOXIDE 38 MMOL/L (21-32); CHLORIDE 96 MMOL/L (98-107); CREATININE SERUM 0.85 MG/DL (0.60-1.30); GFR ESTIMATED > 60; GLUCOSE 110 MG/DL (70-105); POTASSIUM 4.7 MMOL/L (3.6-5.0); SODIUM 141 MMOL/L (135-145); TOTAL PROTEIN 7.5 GM/DL (6.4-8.2)
[2019-06-20 08:02] LABS: ABG PCO2 101 MMHG (35-45); ABG PH 7.24 (7.37-7.43); ABG PO2 37 MMHG (79-93); ALLENS TEST YES-POS; INSPIRED O2 60%; VENTILATOR YES
[2019-06-20 08:03] LABS: PATIENT TEMP 36.4
--- NOTE | 2019-06-20 08:10 | ED General ---
General Chief Complaint: Respiratory Problems Stated Complaint: SOA Nursing Triage Note: pt to rm 5 wiht complaint of soa. per , states has been going for 2 weeks. pt wears 3LNC at home. Nursing Sepsis Screen: No Definite Risk Source of Information: Patient Exam Limitations: Physical Impairments History of Present Illness Date Seen by Provider: Jun 20, 2019 Time Seen by Provider: 07:19 Initial Comments Here with report of increasing shortness of air over the last couple of weeks but certainly worse over the last 1-2 days. No reported fevers, vomiting or other concerns. Patient is quite lethargic and is not really answering questions for himself. He is following simple commands. He is normally on Vent to mask at home while sleeping. The found him not wearing it this morning. Does have history of respiratory failure from COPD as well as CHF. Timing/Duration: 1-2 Days Severity: Severe Associated Systoms: No Chest Pain, No Cough, No Fever/Chills; Shortness of Air, Weakness Allergies and Home Medications Allergies Coded Allergies: meperidine HCl (Unverified Allergy, Unknown, 04/22/13) Home Medications Acetaminophen/Codeine 1 Tab Tablet, 1-2 TAB PO TID PRN for PAIN, (Reported) Albuterol Sulfate 2.5 Mg/3 Ml Vial.neb, 2.5 MG NEB QID PRN for SHORTNESS OF BREATH, (Reported) Albuterol/Ipratropium 4 Gm Aero, 1 PUFF IH Q4H PRN for SHORTNESS OF BREATH, (Reported) Amoxicillin/Potassium Clav 1 Each Tablet, 1 EACH PO BID Prescribed by: STEPHIE NYE on 09/04/17 1805 Carvedilol 12.5 Mg Tablet, 12.5 MG PO BID, (Reported) Furosemide 40 Mg Tablet, 40 MG PO DAILY, (Reported) Lisinopril 20 Mg Tablet, 20 MG PO DAILY, (Reported) [place] 3 Polyunsat Fatty Acids 1,000 Mg Cap, 2,000 MG PO DAILY, (Reported) TAKES 2 (1000MG) CAPSULES Paroxetine HCl 40 Mg Tablet, 40 MG PO DAILY, (Reported) Potassium Gluconate 99 Mg Tablet, 99 MG PO DAILY, (Reported) Pramipexole 0.125 Mg Tablet, 0.25 MG PO BID, (Reported) Prednisone 20 Mg Tab, 40 MG PO DAILY Prescribed by: STEPHIE NYE on 09/04/17 180 Simvastatin 40 Mg Tablet, 40 MG PO HS, (Reported) Vitamin B Complex & Vit C No.4 150 Mg Tablet, 150 MG PO DAILY, (Reported) Patient Home Medication List Home Medication List Reviewed: Yes Review of Systems Review of Systems Constitutional: see HPI; No chills, No fever; malaise, weakness EENTM: no symptoms reported Respiratory: see HPI, orthopnea, short of breath Cardiovascular: No chest pain; edema Review of systems Limited due to patient's altered mental status Past Tbomzsx-[id number]-[id number] Hx Past Med/Social Hx: Reviewed Nursing Past Med/Soc Hx Patient Social History Alcohol Use: Denies Use Recreational Drug Use: No Smoking Status: Former Smoker Former Smoker, Quit: Nov 28, 1986 2nd Hand Smoke Exposure: No Recent Foreign Travel: No Contact w/Someone Who Travel: No Recent Infectious Disease Expo: No Recent Hopitalizations: No Physical Abuse: No Sexual Abuse: No Mistreated: No Fear: No Immunizations Up To Date Tetanus Booster (TDap): More than 5yrs Date of Pneumonia Vaccine: December 25, 2016 Seasonal Allergies Seasonal Allergies: No Past Medical History Surgeries: Yes Adenoidectomy, Tonsillectomy Respiratory: Yes (COPD, chronic bronchitis, asthma) Asthma, Chronic Bronchitis, Sleep Apnea, COPD Cardiac: Yes (Congestive heart failure) Hypertension Neurological: No Reproductive Disorders: No Genitourinary: No Gastrointestinal: Yes Gastroesophageal Reflux Musculoskeletal: No Endocrine: No HEENT: No Cancer: No Psychosocial: Yes Sleep Difficulties, Anxiety, Depression Integumentary: No Blood Disorders: No Adverse Reaction/Blood Tranf: No (patient has never been given blood) Family Medical History Reviewed Nursing Family Hx FH: CHF (congestive heart failure) Physical Exam-Suspected Sepsis Physical Exam Vital Signs Vital Signs - First Documented 06/20/19 09:56 B/P (MAP) 99/53 Capillary Refill : Less Than 3 Seconds Height, Weight, BMI Height: 5'7.00" Weight: 346lbs. 2.0oz. 156.242016kn; 58.00 BMI Method:Stated General Appearance: No Apparent Distress, WD/WN HEENT: PERRL/EOMI, Pharynx Normal Neck: Non Tender, Supple Respiratory: Lungs Clear, Normal Breath Sounds Cardiovascular: Regular Rate, Rhythm, No Murmur Gastrointestinal: Non Tender, Soft Back: Normal Inspection, No CVA Tenderness, No Vertebral Tenderness Extremity: Normal Range of Motion, Non Tender Neurologic/Psychiatric: Alert, Oriented x3 Skin: normal color, warm/dry Focused Exam Lactate Level 06/20/19 07:25: Lactic Acid Level 1.31 Lactic Acid Level Laboratory Tests Test 06/20/19 07:25 Lactic Acid Level 1.31 MMOL/L (0.50-2.00) Procedures/Interventions Lumen: triple Central Line Procedure: betadine prep, sterile drapes applied, sterile dressing applied Position: internal jugular (R) Complications: none Post Position: sutured, good blood return, position confirmed w/ CXR Placed via ultrasound guidance times one attempt without difficulty. Sutured and covered. Good return and flush. Confirmed with chest x-ray. No complications. Date of ETT Placement: Jun 20, 2019 Time of ETT Placement: 09:10 Intubation Method: orotracheal Tube Size: 7.5 Medications: Etomidate, Succinylcholine Positive End Tide CO2: Yes Breath Sounds after Intubation: bilateral-equal Post Intubation Xray: Yes Tube in good position Intubated via bougie after failed attempt with the via scope due to anatomical issues including large tone and large neck. Vocal cords and epiglottis appeared swollen. To past over bougie with some resistance but was able to place to 25 cm at teeth. Positive end-tidal CO2 and breath sounds. O2 sats improved to 100% via ventilation. No significant prolonged desaturations during attempts. Chest x-ray shows tube in good position. Progress/Results/Core Measures Suspected Sepsis Recent Fever Within 48 Hours: No Infection Criteria Present: None New/Unexplained Altered Menta: No Sepsis Screen: No Definite Risk SIRS Temperature: Pulse: 75 Respiratory Rate: 19 Laboratory Tests 06/20/19 07:25: White Blood Count 10.1 Blood Pressure / Mean: 06/20/19 07:25: Lactic Acid Level 1.31 Laboratory Tests 06/20/19 07:25: Creatinine 0.85, INR Comment 1.0, Platelet Count 197, Total Bilirubin 0.3 Results/Orders Lab Results Laboratory Tests Test 06/20/19 07:25 06/20/19 07:50 06/20/19 08:33 06/20/19 09:30 Range/Units White Blood Count 10.1 4.3-11.0 10^3/uL Red Blood Count 4.53 4.35-5.85 10^6/uL Hemoglobin 12.1 L 13.3-17.7 G/DL Hematocrit 42 40-54 % Mean Corpuscular Volume 93 80-99 FL Mean Corpuscular Hemoglobin 27 25-34 PG Mean Corpuscular Hemoglobin Concent 29 L 32-36 G/DL Red Cell Distribution Width 16.5 H 10.0-14.5 % Platelet Count 197 130-400 10^3/uL Mean Platelet Volume 9.3 7.4-10.4 FL Neutrophils (%) (Auto) 71 42-75 % Lymphocytes (%) (Auto) 16 12-44 % Monocytes (%) (Auto) 7 0-12 % Eosinophils (%) (Auto) 5 0-10 % Basophils (%) (Auto) 0 0-10 % Neutrophils # (Auto) 7.2 1.8-7.8 X 10^3 Lymphocytes # (Auto) 1.7 1.0-4.0 X 10^3 Monocytes # (Auto) 0.8 0.0-1.0 X 10^3 Eosinophils # (Auto) 0.5 H 0.0-0.3 10^3/uL Basophils # (Auto) 0.0 0.0-0.1 10^3/uL Prothrombin Time 13.4 12.2-14.7 SEC INR Comment 1.0 0.8-1.4 Activated Partial Thromboplast Time 28 24-35 SEC Sodium Level 141 135-145 MMOL/L Potassium Level 4.7 3.6-5.0 MMOL/L Chloride Level 96 L 98-107 MMOL/L Carbon Dioxide Level 38 H 21-32 MMOL/L Anion Gap 7 5-14 MMOL/L Blood Urea Nitrogen 11 7-18 MG/DL Creatinine 0.85 0.60-1.30 MG/DL Estimat Glomerular Filtration Rate > 60 BUN/Creatinine Ratio 13 Glucose Level 110 H 70-105 MG/DL Lactic Acid Level 1.31 0.50-2.00 MMOL/L Calcium Level 9.0 8.5-10.1 MG/DL Corrected Calcium 9.1 8.5-10.1 MG/DL Total Bilirubin 0.3 0.1-1.0 MG/DL Aspartate Amino Transf (AST/SGOT) 25 5-34 U/L Alanine Aminotransferase (ALT/SGPT) 34 0-55 U/L Alkaline Phosphatase 122 40-136 U/L Troponin I < 0.028 <0.028 NG/ML B-Type Natriuretic Peptide 65.1 <100.0 PG/ML Total Protein 7.5 6.4-8.2 GM/DL Albumin 3.9 3.2-4.5 GM/DL Blood Gas Puncture Site LR LR Blood Gas Patient Temperature 36.4 36.4 Arterial Blood pH 7.24 *L 7.25 *L 7.37-7.43 Arterial Blood Partial Pressure CO2 101 *H 96 *H 35-45 MMHG Arterial Blood Partial Pressure O2 37 *L 73 L 79-93 MMHG Arterial Blood HCO3 43 *H 42 *H 23-27 MMOL/L Arterial Blood Total CO2 45.7 H 44.6 H 21.0-31.0 MMOL/L Arterial Blood Oxygen Saturation 50 L 91 L 94-100 % Arterial Blood Base Excess 14.8 H 14.0 H -2.5-2.5 MMOL/L Ramirez Test YES-POS YES-POS Blood Gas Ventilator Setting YES NO Blood Gas Inspired Oxygen 60% 50% Urine Color YELLOW Urine Clarity CLEAR Urine pH 6 5-9 Urine Specific [place] 1.025 H 1.016-1.022 Urine Protein 2+ H NEGATIVE Urine Glucose (UA) NEGATIVE NEGATIVE Urine Ketones NEGATIVE NEGATIVE Urine Nitrite NEGATIVE NEGATIVE Urine Bilirubin NEGATIVE NEGATIVE Urine Urobilinogen NORMAL NORMAL MG/DL Urine Leukocyte Esterase NEGATIVE NEGATIVE Urine RBC (Auto) NEGATIVE NEGATIVE Urine RBC RARE /HPF Urine WBC NONE /HPF Urine Squamous Epithelial Cells RARE /HPF Urine Crystals NONE /LPF Urine Bacteria NEGATIVE /HPF Urine Casts NONE /LPF Urine Mucus NEGATIVE /LPF Urine Culture Indicated CULTURE PENDING My Orders Orders - STEPHIE NYE MD Albuterol/Ipra Inhalation Soln (Duoneb I (06/20/19 07:16) Albuterol/Ipra Inhalation Soln (Duoneb I (06/20/19 07:23) Cbc With Automated Diff (06/20/19 07:26) Comprehensive Metabolic Panel (06/20/19 07:26) Blood Culture (06/20/19 07:26) Sputum Culture (06/20/19 07:26) Urinalysis (06/20/19 07:26) Urine Culture (06/20/19 07:26) Protime With Inr (06/20/19 07:26) Partial Thromboplastin Time (06/20/19 07:26) Chest 1 View, Ap/Pa Only (06/20/19 07:26) Ed Iv/Invasive Line Start (06/20/19 07:26) Ed Iv/Invasive Line Start (06/20/19 07:26) Vital Signs Adult Sepsis Patie Q15M (06/20/19 07:26) O2 (06/20/19 07:26) Remove Rings In Anticipation O (06/20/19 07:26) Lactic Acid Analyzer (06/20/19 07:26) Arterial Blood Gas (06/20/19 07:26) BNP (06/20/19 07:26) Troponin I (06/20/19 07:26) Ekg Tracing (06/20/19 07:26) Furosemide Injection (Lasix Injection) (06/20/19 08:11) Arterial Blood Gas (06/20/19 08:33) Propofol Drip (Icu) (Diprivan Drip (Icu) (06/20/19 10:00) Propofol Drip (Icu) (Diprivan Drip (Icu) (06/20/19 09:51) Chest 1 View, Ap/Pa Only (06/20/19 09:56) Ventilator Settings Order (06/20/19 10:01) Arterial Blood Draw (06/20/19 ) Arterial Blood Draw (06/20/19 ) Ns Iv 500 Ml (Sodium Chloride 0.9%) (06/20/19 10:15) Norepinephrine (Levophed) (06/20/19 10:30) Ns (Ivpb) (Sodium Chloride 0.9%) (06/20/19 10:30) Norepinephrine (Levophed) (06/20/19 10:30) Ns Iv 500 Ml (Sodium Chloride 0.9%) (06/20/19 10:15) Chest 1 View, Ap/Pa Only (06/20/19 10:45) Influenza A And B Antigens (06/20/19 11:06) Cefepime Injection (Maxipime Injection) (06/20/19 11:15) Medications Given in ED Current Medications Medications Dose Ordered Sig/Harry Route Start Time Stop Time Status Last Admin Dose Admin Albuterol/ Ipratropium 3 ml STK-MED ONCE .ROUTE 06/20/19 07:16 06/20/19 07:19 DC 06/20/19 08:07 3 ML Albuterol/ Ipratropium 3 ml STK-MED ONCE .ROUTE 06/20/19 07:23 06/20/19 07:24 DC 06/20/19 08:07 3 ML Vital Signs/I&O 06/20/19 06/20/19 06/20/19 06/20/19 07:08 07:08 07:57 09:56 Temp 36.4 36.40470 Pulse 76 75 62 Resp 20 19 20 B/P (MAP) 99/53 Pulse Ox 95 94 99 100 O2 Delivery Nasal Cannula Nasal Cannula O2 Flow Rate 5.00 5.00 50.00 Capillary Refill : Less Than 3 Seconds Progress Note : Progress Note Seen and evaluated. IV, labs, EKG and chest x-ray ordered. Placed on BiPAP at 18/7 due to lethargy and concerns for hypercarbia. ABG ordered. Monitor patient. 0835: Patient increasingly lethargic. Repeat ABG ordered. We are trying to avoid intubation but we will see what his PaCO2 is. Lasix 40 mg IV ordered due to concerns for heart failure. Continue to monitor. 0910: Patient becoming incre asingly lethargic and concerns about persistent hypercapnia. ABG done and shows persistent hypercapnia. Elected to intubate due to declining respiratory status and mental status. This was discussed with the patient's who agreed. This was done. 1020: Patient had declining blood pressure and was going to require pressors. Blood pressure declined likely related to sedation medication including propofol as well as high PEEP needed to maintain ventilation. 1100: Central line placed and patient tolerated procedure well. 1105: Plus chest x-ray shows central line in good position. No pneumothorax. Question left sided pneumonia on previous x-ray verifying intubation. This was discussed with Dr. Rowan. We will go ahead and initiate treatment for possible pneumonia. Cefepime 1 g IV ordered. We will go ahead and check influenza. Patient has been on propofol at ranges from 20-40 mcg/kg/m. He did get very hypotensive earlier but is doing better now. We have Levophed available for blood pressure management and currently have that at 0.05 mcg/kg/m after starting at 0.1 mcg/kg/m and having moderate increase in blood pressure. He will be admitted to the ICU. Current vent settings are tidal volume of 450 with rate of 22 and PEEP of 5 and FiO2 30%. End-tidal CO2 has ranged from 50s to 70s despite adjustments and seems to be improving somewhat now. Dr. Rowan will write orders and has seen the patient in the emergency department. Patient admitted, inpatient status critical condition. ECG Initial ECG Impression Date: Jun 20, 2019 Initial ECG Impression Time: 07:51 Initial ECG Rate: 61 Initial ECG Rhythm: Normal Sinus Initial ECG Impression: Normal Initial ECG Comparisson: Unchanged Comment Normal sinus rhythm with normal axis. No evidence of ST elevation NV. Unchanged from a 03/06/17. Interpreted by me. Diagnostic Imaging Diagonstic Imaging: Xray Plain Films/CT/US/NM/MRI: chest [facility] [employer] [place], [place] NAME: LUIS ANGEL ORDOÑEZ H?REL REC#: [id number] PT STATUS: REG ER : 1960 PHYSICIAN: STEPHIE NYE MD ADMIT DATE: 06/20/19/ER Draft Date of Exam:06/20/19 CHEST 1 VIEW, AP/PA ONLY Indication: Shortness of air. Examination: Chest 06/20/2019. Comparison: Made to a chest from 09/04/2017. Findings: There is cardiomegaly. Pulmonary vasculature may be mildly congested but examination limited due to patient body habitus. Atelectasis or infiltrate difficult to exclude at the left lung base. An effusion at the left lung base is also possible versus a prominent fat pad as seen on prior CT imaging from September 2018. No obvious pneumothorax is seen. Impression: 1. Very limited evaluation due to portable technique and patient body habitus, see above discussion. Dictated on workstation # [id number] Dict: 06/20/19 0802 Trans: 06/20/19 0808 [facility] [id number] Interpreted by: JANIE BARKER MD Electronically signed by: Reviewed: Reviewed by Me Diagonstic Imaging: Xray Plain Films/CT/US/NM/MRI: chest Comments [facility] [employer] [place], [place] NAME: LUIS ANGEL ORDOÑEZ H?REL REC#: [id number] PT STATUS: REG ER : 1960 PHYSICIAN: STEPHIE NYE MD ADMIT DATE: 06/20/19/ER Draft Date of Exam:06/20/19 CHEST 1 VIEW, AP/PA ONLY Indication: Post intubation. Time of exam: 10:06 AM Correlation is made with prior chest earlier same day. An endotracheal tube has been placed has its tip in good position above the jorge luis. NG tube passes below the diaphragm. The heart size is stable. Lungs appear to be fairly clear. There is some density in the left base near the costophrenic angle which could indicate some minimal fluid versus infiltrate/atelectasis. Remainder of lung good are clear. The pulmonary vascularity is normal. There is no pneumothorax. IMPRESSION: 1. Satisfactory endotracheal tube and nasogastric tube placement. 2. Questionable mild left basilar infiltrate/atelectasis and small effusion. Dictated on workstation # [id number] Dict: 06/20/19 1019 Trans: 06/20/19 1022 [facility] [id number] Interpreted by: BEATRICE CUADRA MD Electronically signed by: Departure Communication (Admissions) Time/Spoke to Admitting Phy: 09:10 Impression Primary Impression: Hypercapnic respiratory failure Qualified Codes: J96.02 - Acute respiratory failure with hypercapnia Additional Impressions: Pneumonia involving left lung Qualified Codes: J18.9 - Pneumonia, unspecified organism COPD with acute exacerbation Obesity hypoventilation syndrome Disposition: 01 HOME, SELF-CARE Condition: Critical Admissions Decision to Admit Reason: Admit from ER (General) Decision to Admit/Date: Jun 20, 2019 Time/Decision to Admit Time: 09:10 Departure-Patient Inst. Referrals: NO,LOCAL PHYSICIAN (PCP/Family) Primary Care Physician STEPHIE NYE MD Jun 20, 2019 08:10
[2019-06-20] MEDS ORDERED: FUROSEMIDE 40 MG/4 ML INJ (LASIX) IV STA (08:11)
[2019-06-20 08:43] LABS: ABG OXYGEN SATURATION 91 % (94-100); ABG PO2 73 MMHG (79-93); ABG TCO2 44.6 MMOL/L (21.0-31.0)
[2019-06-20 08:44] LABS: ABG PCO2 96 MMHG (35-45); ABG PH 7.25 (7.37-7.43)
[2019-06-20 08:45] LABS: ALLENS TEST YES-POS; INSPIRED O2 50%; PATIENT TEMP 36.4; VENTILATOR NO
--- NOTE | 2019-06-20 09:00 | NUR ---
0901- HR 61, RR 20, 96% O2 BVM, 134/42 0902- 30 MG ETOMIDATE IV PUSH 0903- 200MG SUCCS IV PUSH 0905- FIRST ATTEMPT AT INTUBATION, UNSUCCESSFUL, PT BAGGED 09- SECOND ATTEMPT, BOUJE INSERTED 0910- 7.5 ETT PLACED, POSITIVE COLOR CHANGE AND BREATH SOUNDS AUSCULTATED. 25 @ THE TEETH. 0913- 75MCG FENTANYL, 2.5MG VERSED ADMINISTERED 0920- 16FR OG TUBE INSERTED 0930- 16FR PEARSON INSERTED
[2019-06-20] MEDS ORDERED: PROPOFOL DRIP (ICU) 100 ML IV ONE (09:51)
[2019-06-20 09:52] LABS: BILIRUBIN,URINE NEGATIVE (NEGATIVE); CLARITY,URINE CLEAR; COLOR,URINE YELLOW; GLUCOSE, URINE (UA) NEGATIVE (NEGATIVE); KETONES,URINE NEGATIVE (NEGATIVE); LEUKOCYTE ESTERASE ,URINE NEGATIVE (NEGATIVE); NITRITE,URINE NEGATIVE (NEGATIVE); PH,URINE 6 (5-9); PROTEIN,URINE 2+ (NEGATIVE)
[2019-06-20 09:53] LABS: BACTERIA,URINE NEGATIVE /HPF; RBC,URINE RARE /HPF; SQUAMOUS EPITHELIAL CELL,UR RARE /HPF
[2019-06-20] MEDS: PROPOFOL DRIP (ICU) 100 ML IV SCH ×8 (09:56→23:40)
[2019-06-20] MEDS ORDERED: NS IV 500 ML 500 ML ONE (10:15)
[2019-06-20] MEDS ORDERED: NS IV 500 ML 500 ML IV SCH (10:15)
--- NOTE | 2019-06-20 10:22 | Diagnostic Imaging Report ---
Indication: Post intubation. Time of exam: 10:06 AM Correlation is made with prior chest earlier same day. An endotracheal tube has been placed has its tip in good position above the jorge luis. NG tube passes below the diaphragm. The heart size is stable. Lungs appear to be fairly clear. There is some density in the left base near the costophrenic angle which could indicate some minimal fluid versus infiltrate/atelectasis. Remainder of lung good are clear. The pulmonary vascularity is normal. There is no pneumothorax. IMPRESSION: 1. Satisfactory endotracheal tube and nasogastric tube placement. 2. Questionable mild left basilar infiltrate/atelectasis and small effusion. Dictated by: Dictated on workstation # [id number]
[2019-06-20] MEDS ORDERED: NS (IVPB) 250 ML ONE (10:30)
[2019-06-20] MEDS ORDERED: NOREPINEPHRINE 4 MG in NS (IVPB) 250 ML IV SCH (10:30)
[2019-06-20] MEDS ORDERED: NOREPINEPHRINE 4 MG/4 ML (LEVOPHED) AMP IV ONE (10:30)
--- NOTE | 2019-06-20 10:41 | History & Physical-Hospitalist ---
History of Present Illness HPI/Chief Complaint Pt is a 58yoCM who presented to the ER due to SOB. On my exam he is intubated and sedated and HPI and ROS is not possible per patient. All history comes from records. Per ER note he has had symptoms for 2 weeks but they worsened over the last two days. No reports fevers associated with this. He has a reported history of COPD and CHF per his and he is supposed to be on home vent to mask but he was found without it on this morning. On arrival to the ER he was lethargic and placed on BiPAP but despite this he became more lethargic and his ABG did not significantly improved his CO2 narcosis. He was then intubated due to hypercapnic respiratory failure and admitted to the ICU. Shortly after intubation his BP started to drop as well and he was placed on Levophed. Exam Limitations: clinical condition Date Seen 06/20/19 Time Seen by a Provider: 10:34 Attending Physician PCP No,Local Physician Referring Physician Date of Admission Home Medications & Allergies Home Medications Reviewed patient Home Medication Reconciliation performed by pharmacy medication reconciliations technician inventory specialist and/or nursing. Patients Allergies have been reviewed. Allergies Allergies Coded Allergies meperidine HCl (Unverified Allergy, Unknown, 04/22/13) Past Tbkghpq-Ptfhyg-Btndfb Hx Past Med/Social Hx: Reviewed Nursing Past Med/Soc Hx Patient Social History Marrital Status: Alcohol Use: Denies Use Recreational Drug Use: No Smoking Status: Former Smoker Former Smoker, Quit: Nov 28, 1986 2nd Hand Smoke Exposure: No Recent Foreign Travel: No Contact w/other who traveled: No Recent Hopitalizations: No Recent Infectious Disease Expo: No Immunizations Up To Date Tetanus Booster (TDap): More than 5yrs Date of Pneumonia Vaccine: December 25, 2016 Seasonal Allergies Seasonal Allergies: No Past Medical History Surgeries: Adenoidectomy, Tonsillectomy Respiratory: COPD, Sleep Apnea Cardiac: Hypertension Reproductive: No Gastrointestinal: Gastroesophageal Reflux Psychosocial: Sleep Difficulties, Anxiety, Depression History of Blood Disorders: No Adverse Reaction to Blood Walker: No (patient has never been given blood) Family History Reviewed Nursing Family Hx FH: CHF (congestive heart failure) Review of Systems ROS-Unable to Obtain: Intubated and sedated Constitutional: see HPI Physical Exam Physical Exam Vital Signs Vital Signs - First Documented 06/20/19 06/20/19 09:56 11:40 B/P (MAP) 99/53 FiO2 30 Capillary Refill : Less Than 3 Seconds Height, Weight, BMI Height: 5'7.00" Weight: 346lbs. 2.0oz. 156.628574cl; 58.00 BMI Method:Stated General Appearance: Chronically ill, Obese HEENT: Moist Mucous Membranes; No Scleral Icterus (L), No Scleral Icterus (R); Other (pupils nonreactive (had just received paralytics)) Neck: No JVD; Other (central line in place) Respiratory: Decreased Breath Sounds, Rhonci, Other (on vent) Cardiovascular: Regular Rate, Rhythm, No JVD, No Murmur Gastrointestinal: Normal Bowel Sounds, Non Tender, Soft, Other (obsese) Genital/Rectal: Other (lopez in place, yellow urine) Extremity: Normal Capillary Refill, Pedal Edema, Swelling Neurologic/Psychiatric: Other (had just received paralytic prior to exam so very limited neuro exam, sedated) Skin: No Mottled; Other (venous stasis dermatitis noted on bilateral lower extremities) Results Results/Procedures Labs Laboratory Tests 06/20/19 07:25 Patient resulted labs reviewed. Imaging: Reviewed Imaging Report Assessment/Plan Admission Diagnosis Acute Respiratory Failure Admission Status: Inpatient Order (span 2 midnights) Reason for Inpatient Admission: intubated Assessment and Plan Acute Respiratory Failure COPD Morbid obesity with OHS Intubated ABG shows profound hypercapnia but likely has a baseline CO2 retention Repeat ABG when arrives to unit Propofol and Precedex for sedation Vanc and Cefepime Solu Medrol Hypotensive Levophed ordered Lactic normal, leukocytosis normal, no fever, not tachycardiac No evidence of sepsis Likely iatrogenic from sedation CHF Echo ordered Cardiology consulted, discussed with Dr Zapata BNP normal Received Lasix in ER Monitor I/Os HTN Hold home meds Diagnosis/Problems Diagnosis/Problems (1) CHF (congestive heart failure) Status: Chronic Qualifiers: Heart failure type: unspecified Heart failure chronicity: chronic Qualified Codes: I50.9 - Heart failure, unspecified (2) COPD with acute exacerbation Status: Acute (3) Hypercapnic respiratory failure Status: Acute Qualifiers: Chronicity: acute Qualified Codes: J96.02 - Acute respiratory failure with hypercapnia (4) Obesity hypoventilation syndrome Status: Acute (5) Pneumonia involving left lung Status: Acute Qualifiers: Pneumonia type: due to unspecified organism Lung location: unspecified part of lung Qualified Codes: J18.9 - Pneumonia, unspecified organism JENNI ALMODOVAR MD Jun 20, 2019 10:41
--- NOTE | 2019-06-20 10:51 | NUR ---
50MG ROCURONIUM GIVEN AT THIS TIME PER DR. NYE VERBAL ORDER.
[2019-06-20] MEDS ORDERED: CEFEPIME INJECTION 1,000 MG in WATER (STERILE) FOR INJECTION 10 ML IV ONE (11:15)
[2019-06-20] MEDS ORDERED: PHARMACY TO DOSE IV SCH (11:15)
[2019-06-20] MEDS ORDERED: WATER (STERILE) FOR INJECTION 10 ML ONE (11:20)
[2019-06-20] MEDS ORDERED: CEFEPIME 1 GM (MAXIPIME) VIAL ONE (11:20)
--- NOTE | 2019-06-20 11:28 | Diagnostic Imaging Report ---
INDICATION: Intubation. Time of exam: 10:59 AM Correlation made with prior study earlier the same day. ET tube and NG tube remain in place. A right IJ line has been placed and has tip overlying the SVC. No pneumothorax is seen. There is some infiltrate or atelectasis left base. IMPRESSION: Right IJ line placement, as described. Dictated by: Dictated on workstation # [id number]
--- NOTE | 2019-06-20 11:35 | NUR ---
Pastoral care visit, with pts
--- NOTE | 2019-06-20 11:45 | NUR ---
PTD VANCOMYCIN LABS: SCR 0.85 PLAN: VANCOMYCIN 2,000MG IV X 1 NOW (1200) AND THEN START VANCOMYCIN 2,000MG IV Q12H STARTING TONIGHT AT 2000. WILL CHECK A TROUGH LEVEL PRIOR TO 4TH DOSE 06/21 @ 2100.
[2019-06-20] MEDS ORDERED: VANCOMYCIN 2000 MG/NS 500 ML IVPB IV SCH ×2 (12:00)
[2019-06-20] MEDS: NS IV 1000 ML 1,000 ML IV SCH ×2 (12:58→20:20)
[2019-06-20] MEDS ORDERED: PRAM1TAB5 PO (13:15)
[2019-06-20] MEDS ORDERED: TEST100V3 IM (13:15)
[2019-06-20] MEDS ORDERED: PRAM1TAB2 PO (13:15)
[2019-06-20] MEDS ORDERED: CARV12.53 PO (13:15)
[2019-06-20] MEDS ORDERED: CLON1TAB13 PO (13:15)
[2019-06-20] MEDS ORDERED: LISI-552 PO (13:15)
[2019-06-20] MEDS ORDERED: SILD50TA48 PO (13:15)
[2019-06-20] MEDS ORDERED: ATOR20TA66 PO (13:15)
[2019-06-20] MEDS ORDERED: VENL75CA93 PO (13:15)
[2019-06-20] MEDS: NOREPINEPHRINE 4 MG in NS (IVPB) 250 ML IV SCH ×4 (13:18→23:34)
[2019-06-20] MEDS: VASOPRESSIN INJECTION 20 UNIT in NORMAL SALINE 100 ML IV SCH ×2 (13:18→20:17)
[2019-06-20] MEDS: ENOXAPARIN 40 MG/0.4 ML (LOVENOX) SYR SC SCH ×2 (13:23→23:34)
[2019-06-20] MEDS: methylPREDNISolone 40 MG/ML (Solu-MEDROL) VIAL IV SCH ×3 (13:23→23:35)
--- NOTE | 2019-06-20 13:32 | NUR ---
FULL ASSESSMENT COMPLETED. PT HAS UNEQUAL PUPILS. L 4MM AND REACTIVE. R PINPOINT. DR ALMODOVAR NOTIFIED AND STAT HEAD CT WITHOUT CONTRAST ORDERED. RT NOTIFIED AND RADIOLOGY NOTIFIED. ATTEMPTS TO CONTACT TO SEE IF PATIENT HAS HAD PRIOR SURGERY UNSUCCESSFUL.
[2019-06-20] MEDS ORDERED: ROCURONIUM 10 MG/ML 5 ML SYRINGE IV ONE (13:41)
[2019-06-20] MEDS ORDERED: MIDAZOLAM 5 MG/5 ML (VERSED) VIAL IJ ONE (13:41)
[2019-06-20] MEDS ORDERED: ETOMIDATE IV SOLN 20 MG/10 ML VIAL IV ONE (13:41)
[2019-06-20] MEDS ORDERED: fentaNYL INJECTION 100 MCG/2 ML AMP INJ ONE (13:41)
[2019-06-20] MEDS ORDERED: SUCCINYLCHOLINE INJ 100 MG/5 ML SYR INJ ONE (13:41)
[2019-06-20] MEDS ORDERED: VENL150C98 PO (14:13)
[2019-06-20] MEDS ORDERED: TIOT18CA2 IH (14:16)
[2019-06-20] MEDS ORDERED: ACET-2267 PO (14:17)
--- NOTE | 2019-06-20 14:26 | NUR ---
HAD A LIST FAXED OVER FROM [facility] AND COMPARED IT WITH THE EXT MED HX. I ALSO CLARIFIED THE LIST WITH THE PATIENTS . IN ADDITION TO WHAT IS SHOWN ON THE EXT MED HX STATES HE HAS SPIRIVA HANDIHALER. HE IS SUPPOSED TO USE THIS DAILY BUT HE USES IT MORE NEEDED BECAUSE IT CAUSES MOUTH SORES EVEN THOUGH THEY RINSE HIS MOUTH. SEVERAL ANTIDEPRESSANTS HAVE BEEN FILLED RECENTLY, STATES HE IS ONLY TAKING BOTH STRENGTHS OF THE VENLAFAXINE CURRENTLY, HE HAS STOPPED THE OTHER 3. 06-04-19 EFFEXOR XR 75MG DAILY #30 06-01-19 EFFEXOR XR 150MG DAILY #30 05-29-19 PAXIL 40MG HS #30 ([facility] STATES IT WAS DC'D 05-14-19- STATES IT WAS DC'D RIGHT AFTER THEY REFILLED IT, BUT HE IS NOT CURRENTLY TAKING IT) 05-02-19 WELLBUTRIN 75MG BID #60 (DC'D 06-02-19) 04-25-19 ZOLOFT 100MG DAILY #90 (DC'D 07-14-19 BUT THEN REFILLED IN MARCH THEN DC'D 05-14-19) HE TAKES TYLENOL OTC NEEDED. HIS PCP IS DR. GONZALEZ AT [facility] IN [place]. HIS CLONAZEPAM AND MIRAPEX ARE PRESCRIBED BY DR. GUY PIKE. HE ALSO HAS SEEN MCKAY DELEON AT [facility] ON 05-14-19 HOWEVER THAT WAS THE ONLY TIME HE WAS SEEN THERE. NURSE STATES SHE DOES NOT THINK THEY DID A FULL INTAKE AT THAT TIME AND THE PATIENT HAS NOT BEEN BACK FOR A FOLLOW UP. THE ONLY NOTES ARE THAT HE WAS TO TAKE EFFEXOR 150 AND STOP WELLBUTRIN. STATES HE IS TAKING BOTH DOSES OF THE EFFEXOR AND HAS STOPPED THE OTHER MOOD MEDICATIONS.
--- NOTE | 2019-06-20 14:34 | Diagnostic Imaging Report ---
PROCEDURE: CT head without contrast. TECHNIQUE: Multiple contiguous axial images were obtained through the brain without the use of intravenous contrast. Auto Exposure Controls were utilized during the CT exam to meet ALARA standards for radiation dose reduction. INDICATION: Unequal pupils. COMPARISON: No prior studies are available for comparison. FINDINGS: Ventricles and sulci are within normal limits. No sulcal effacement or midline shift is detected. No acute intra-axial or extra-axial hemorrhage is detected. Cisterns are patent. Visualized paranasal sinuses are clear. Patient is intubated. IMPRESSION: No acute intracranial process is detected. Dictated by: Dictated on workstation # [id number]
[2019-06-20 14:53] LABS: ABG BASE EXCESS 14.2 MMOL/L (-2.5-2.5); ABG OXYGEN SATURATION 89 % (94-100); ABG PCO2 51 MMHG (35-45); ABG PH 7.49 (7.37-7.43); ABG PO2 53 MMHG (79-93); ABG TCO2 40.5 MMOL/L (21.0-31.0); ALLENS TEST YES-POS
[2019-06-20 14:54] LABS: INSPIRED O2 30%; PATIENT TEMP 36; VENTILATOR YES
--- NOTE | 2019-06-20 15:07 | Wound Care Assessment ---
Wound Care Assessment Date Seen by Provider: Jun 20, 2019 Time Seen by Provider: 14:50 Chief Complaint L calf ulcer. HPI The patient is a 58 year old male admitted for respiratory failure, noted to have venous insufficiency ulcer of L lateral calf. The patient has multiple co- morbidities, including COPD, CAD, CHF, TESSA, dysmobility, and severely morbid obesity. The ulcer is superficial. Xeroform/roller gauze dressing is ordered. Smoking Status: Former Smoker Recreational Drug Use: No Alcohol Use: Denies Use Review of Systems Other systems Unable to obtain ROS due to intubated. Exam Vital Signs Date Time Temp Pulse Resp B/P (MAP) Pulse Ox O2 Delivery O2 Flow Rate FiO2 06/20/19 14:00 61 23 112/61 (78) 100 Mechanical Ventilator 30.00 06/20/19 12:07 30 06/20/19 09:56 [id number] Capillary Refill : Less Than 3 Seconds General Appearance: other (On ventilator wiht stable vital signs.) Respiratory: no respiratory distress Extremities: other (L calf ulcer -- 0.8 x 1.0 x 0.2 cm, base 100% slough.) Results Laboratory Tests 06/20/19 07:25: White Blood Count 10.1, Red Blood Count 4.53, Hemoglobin 12.1L, Hematocrit 42, Mean Corpuscular Volume 93, Mean Corpuscular Hemoglobin 27, Mean Corpuscular Hemoglobin Concent 29L, Red Cell Distribution Width 16.5H, Platelet Count 197, Mean Platelet Volume 9.3, Neutrophils (%) (Auto) 71, Lymphocytes (%) (Auto) 16, Monocytes (%) (Auto) 7, Eosinophils (%) (Auto) 5, Basophils (%) (Auto) 0, Neutrophils # (Auto) 7.2, Lymphocytes # (Auto) 1.7, Monocytes # (Auto) 0.8, Eosinophils # (Auto) 0.5H, Basophils # (Auto) 0.0, Prothrombin Time 13.4, INR Comment 1.0, Activated Partial Thromboplast Time 28, Sodium Level 141, Potassium Level 4.7, Chloride Level 96L, Carbon Dioxide Level 38H, Anion Gap 7, Blood Urea Nitrogen 11, Creatinine 0.85, Estimat Glomerular Filtration Rate > 60, BUN/Creatinine Ratio 13, Glucose Level 110H, Lactic Acid Level 1.31, Calcium Level 9.0, Corrected Calcium 9.1, Total Bilirubin 0.3, Aspartate Amino Transf (AST/SGOT) 25, Alanine Aminotransferase (ALT/SGPT) 34, Alkaline Phosphatase 122, Troponin I < 0.028, B-Type Natriuretic Peptide 65.1, Total Protein 7.5, Albumin 3.9 06/20/19 07:50: Blood Gas Puncture Site LR, Blood Gas Patient Temperature 36.4, Arterial Blood pH 7.24*L, Arterial Blood Partial Pressure CO2 101*H, Arterial Blood Partial Pressure O2 37*L, Arterial Blood HCO3 43*H, Arterial Blood Total CO2 45.7H, Arterial Blood Oxygen Saturation 50L, Arterial Blood Base Excess 14.8H, Ramirez Test YES-POS, Blood Gas Ventilator Setting YES, Blood Gas Inspired Oxygen 60% 06/20/19 08:33: Blood Gas Puncture Site LR, Blood Gas Patient Temperature 36.4, Arterial Blood pH 7.25*L, Arterial Blood Partial Pressure CO2 96*H, Arterial Blood Partial Pressure O2 73L, Arterial Blood HCO3 42*H, Arterial Blood Total CO2 44.6H, Arterial Blood Oxygen Saturation 91L, Arterial Blood Base Excess 14.0H, Ramirez Test YES-POS, Blood Gas Ventilator Setting NO, Blood Gas Inspired Oxygen 50% 06/20/19 09:30: Urine Color YELLOW, Urine Clarity CLEAR, Urine pH 6, Urine Specific [place] 1. 025H, Urine Protein 2+H, Urine Glucose (UA) NEGATIVE, Urine Ketones NEGATIVE, Urine Nitrite NEGATIVE, Urine Bilirubin NEGATIVE, Urine Urobilinogen NORMAL, Urine Leukocyte Esterase NEGATIVE, Urine RBC (Auto) NEGATIVE, Urine RBC RARE, Urine WBC NONE, Urine Squamous Epithelial Cells RARE, Urine Crystals NONE, Urine Bacteria NEGATIVE, Urine Casts NONE, Urine Mucus NEGATIVE, Urine Culture Indicated CULTURE PENDING 06/20/19 14:42: Blood Gas Puncture Site RR, Blood Gas Patient Temperature 36, Arterial Blood pH 7.49H, Arterial Blood Partial Pressure CO2 51H, Arterial Blood Partial Pressure O2 53L, Arterial Blood HCO3 39H, Arterial Blood Total CO2 40.5H, Arterial Blood Oxygen Saturation 89L, Arterial Blood Base Excess 14.2H, Ramirez Test YES-POS, Blood Gas Ventilator Setting YES, Blood Gas Inspired Oxygen 30% Microbiology 06/20/19 Influenza Types A,B Antigen (RORO) - Final, Complete Microbiology 06/20/19 Influenza Types A,B Antigen (RORO) - Final, Complete Assessment/Plan/Dx 1. L calf ulcer, full thickness, venous insufficiency ulcer. 2. Lymphedema, chronic, multifactorial. 3. Morbid obesity. Plan: Xeroform dressings ordered. In current respiratory status, elevation of lower extremities is not possible. Will follow. BETO OROPEZA MD Jun 20, 2019 15:06
--- NOTE | 2019-06-20 16:12 | Consultation-Cardiology ---
HPI-Cardiology Cardiology Consultation Date of Consultation 06/20/19 Date of Admission Time Seen by Provider: 16:08 Indication: Acute respiratory failure HPI 58 years old gentleman with severe COPD, oxygen dependent, has been having increasing shortness of breath for the past 4-5 days, having fever and chills. Became more weak and gargling. Came into the emergency room and noted to be in respiratory failure, he was intubated, he was hypotensive, started on pressors and received fluid challenge. Currently sedated and intubated, history was obtained by visiting with his , no chest pain was reported. Home Medications & Allergies Allergies: Coded Allergies: meperidine HCl (Unverified Allergy, Unknown, 04/22/13) Home Medication List Reviewed: Yes KSG-Jwthaq-Twajyn Hx Patient Social History Marital Status: Alcohol Use: Denies Use Recreational Drug Use: No Smoking Status: Former Smoker 2nd Hand Smoke Exposure: No Recent Foreign Travel: No Recent Infectious Disease Expo: No Recent Hopitalizations: No Immunizations Up To Date Tetanus Booster (TDap): More than 5yrs Date of Pneumonia Vaccine: Jun 20, 2017 Past Medical History Discussed below Family Medical History Family History: FH: CHF (congestive heart failure) Review of Systems-General Review of Systems Constitutional: see HPI, other (Sedated and intubated, unable to provide review of systems) EENTM: no symptoms reported Respiratory: see HPI, orthopnea, short of breath, other Cardiovascular: No chest pain; edema Reviewed Test Results Reviewed Test Results Lab Laboratory Tests Test 06/20/19 07:25 06/20/19 07:50 06/20/19 08:33 06/20/19 09:30 Range/Units White Blood Count 10.1 4.3-11.0 10^3/uL Red Blood Count 4.53 4.35-5.85 10^6/uL Hemoglobin 12.1 L 13.3-17.7 G/DL Hematocrit 42 40-54 % Mean Corpuscular Volume 93 80-99 FL Mean Corpuscular Hemoglobin 27 25-34 PG Mean Corpuscular Hemoglobin Concent 29 L 32-36 G/DL Red Cell Distribution Width 16.5 H 10.0-14.5 % Platelet Count 197 130-400 10^3/uL Mean Platelet Volume 9.3 7.4-10.4 FL Neutrophils (%) (Auto) 71 42-75 % Lymphocytes (%) (Auto) 16 12-44 % Monocytes (%) (Auto) 7 0-12 % Eosinophils (%) (Auto) 5 0-10 % Basophils (%) (Auto) 0 0-10 % Neutrophils # (Auto) 7.2 1.8-7.8 X 10^3 Lymphocytes # (Auto) 1.7 1.0-4.0 X 10^3 Monocytes # (Auto) 0.8 0.0-1.0 X 10^3 Eosinophils # (Auto) 0.5 H 0.0-0.3 10^3/uL Basophils # (Auto) 0.0 0.0-0.1 10^3/uL Prothrombin Time 13.4 12.2-14.7 SEC INR Comment 1.0 0.8-1.4 Activated Partial Thromboplast Time 28 24-35 SEC Sodium Level 141 135-145 MMOL/L Potassium Level 4.7 3.6-5.0 MMOL/L Chloride Level 96 L 98-107 MMOL/L Carbon Dioxide Level 38 H 21-32 MMOL/L Anion Gap 7 5-14 MMOL/L Blood Urea Nitrogen 11 7-18 MG/DL Creatinine 0.85 0.60-1.30 MG/DL Estimat Glomerular Filtration Rate > 60 BUN/Creatinine Ratio 13 Glucose Level 110 H 70-105 MG/DL Lactic Acid Level 1.31 0.50-2.00 MMOL/L Calcium Level 9.0 8.5-10.1 MG/DL Corrected Calcium 9.1 8.5-10.1 MG/DL Total Bilirubin 0.3 0.1-1.0 MG/DL Aspartate Amino Transf (AST/SGOT) 25 5-34 U/L Alanine Aminotransferase (ALT/SGPT) 34 0-55 U/L Alkaline Phosphatase 122 40-136 U/L Troponin I < 0.028 <0.028 NG/ML B-Type Natriuretic Peptide 65.1 <100.0 PG/ML Total Protein 7.5 6.4-8.2 GM/DL Albumin 3.9 3.2-4.5 GM/DL Blood Gas Puncture Site LR LR Blood Gas Patient Temperature 36.4 36.4 Arterial Blood pH 7.24 *L 7.25 *L 7.37-7.43 Arterial Blood Partial Pressure CO2 101 *H 96 *H 35-45 MMHG Arterial Blood Partial Pressure O2 37 *L 73 L 79-93 MMHG Arterial Blood HCO3 43 *H 42 *H 23-27 MMOL/L Arterial Blood Total CO2 45.7 H 44.6 H 21.0-31.0 MMOL/L Arterial Blood Oxygen Saturation 50 L 91 L 94-100 % Arterial Blood Base Excess 14.8 H 14.0 H -2.5-2.5 MMOL/L Ramirez Test YES-POS YES-POS Blood Gas Ventilator Setting YES NO Blood Gas Inspired Oxygen 60% 50% Urine Color YELLOW Urine Clarity CLEAR Urine pH 6 5-9 Urine Specific [place] 1.025 H 1.016-1.022 Urine Protein 2+ H NEGATIVE Urine Glucose (UA) NEGATIVE NEGATIVE Urine Ketones NEGATIVE NEGATIVE Urine Nitrite NEGATIVE NEGATIVE Urine Bilirubin NEGATIVE NEGATIVE Urine Urobilinogen NORMAL NORMAL MG/DL Urine Leukocyte Esterase NEGATIVE NEGATIVE Urine RBC (Auto) NEGATIVE NEGATIVE Urine RBC RARE /HPF Urine WBC NONE /HPF Urine Squamous Epithelial Cells RARE /HPF Urine Crystals NONE /LPF Urine Bacteria NEGATIVE /HPF Urine Casts NONE /LPF Urine Mucus NEGATIVE /LPF Urine Culture Indicated CULTURE PENDING Test 06/20/19 14:42 Range/Units Blood Gas Puncture Site RR Blood Gas Patient Temperature 36 Arterial Blood pH 7.49 H 7.37-7.43 Arterial Blood Partial Pressure CO2 51 H 35-45 MMHG Arterial Blood Partial Pressure O2 53 L 79-93 MMHG Arterial Blood HCO3 39 H 23-27 MMOL/L Arterial Blood Total CO2 40.5 H 21.0-31.0 MMOL/L Arterial Blood Oxygen Saturation 89 L 94-100 % Arterial Blood Base Excess 14.2 H -2.5-2.5 MMOL/L Ramirez Test YES-POS Blood Gas Ventilator Setting YES Blood Gas Inspired Oxygen 30% Physical Exam Physical Exam Vital Signs Vital Signs - First Documented 06/20/19 06/20/19 09:56 11:40 B/P (MAP) 99/53 FiO2 30 Capillary Refill : Less Than 3 Seconds Height, Weight, BMI Height: 5'7.00" Weight: 346lbs. 2.0oz. 156.480002zg; 57.27 BMI Method:Stated General Appearance: Chronically ill, Obese, Severe Distress, Other (Sedated and intubated) HEENT: Moist Mucous Membranes; No Scleral Icterus (L), No Scleral Icterus (R); Other (pupils nonreactive (had just received paralytics)) Neck: No JVD; Other (central line in place) Respiratory: Decreased Breath Sounds, Rhonci, Other (on vent) Cardiovascular: Regular Rate, Rhythm, No JVD, No Murmur Gastrointestinal: Normal Bowel Sounds, Non Tender, Soft, Other (obsese) Genital/Rectal: Other (lopez in place, yellow urine) Back: Normal Inspection, No CVA Tenderness, No Vertebral Tenderness Extremity: Normal Capillary Refill, Pedal Edema, Swelling Neurologic/Psychiatric: Other (had just received paralytic prior to exam so very limited neuro exam, sedated) Skin: No Mottled; Other (venous stasis dermatitis noted on bilateral lower extremities) A/P-Cardiology Admission Diagnosis Acute respiratory failure Pneumonia COPD Hypotensive shock Assessment/Plan Acute respiratory failure, acute exacerbation of COPD, ventilatory dependent, started on antibiotics and steroids. Continue with current treatment Pneumonia, receiving antibiotics. Hypotensive shock, started on Levofed, receiving IV fluid, continue to monitor closely Questionable history of congestive heart failure, BNP is normal, echocardiogram showed normal left ventricular size and systolic function, suboptimal images, ejection fraction 55-60 percent, left atrial dilatation, pulmonary artery pressure of 25 mmHg History of COPD, oxygen dependent using oxygen at home. Hyperlipidemia Morbid obesity, BMI 57 Clinical Quality Measures DVT/VTE Risk/Contraindication: Risk Factor Score Per Nursin RFS Level Per Nursing on Admit: 4+=Very High CHARLIE ROSSI MD Jun 20, 2019 16:12
[2019-06-20] MEDS ORDERED: RT-ALBUTEROL/IPRATROPIUM 3 ML (DUONEB) VIAL INH PRN (17:15)
[2019-06-20] MEDS: inSUlin ASPART (NovoLOG) 1 UNIT/0.01 ML (CHARGE PER UNIT) SC SCH ×2 (18:15→23:35)
[2019-06-20] MEDS: RT-ALBUTEROL/IPRATROPIUM 3 ML (DUONEB) VIAL INH SCH ×2 (18:43→22:40)
[2019-06-20] MEDS: VANCOMYCIN 2000 MG/NS 500 ML IVPB IV SCH ×2 (20:19)
[2019-06-20] MEDS: CEFEPIME INJECTION 2,000 MG in WATER (STERILE) FOR INJECTION 20 ML IV SCH (20:28)
[2019-06-21] VITALS (29 sets, daily range): BP systolic 103–124; BP diastolic 48–78
[2019-06-21] MEDS: VASOPRESSIN INJECTION 20 UNIT in NORMAL SALINE 100 ML IV SCH (01:39)
[2019-06-21] MEDS: NOREPINEPHRINE 4 MG in NS (IVPB) 250 ML IV SCH ×6 (01:39→23:48)
[2019-06-21] MEDS: PROPOFOL DRIP (ICU) 100 ML IV SCH ×10 (02:02→23:38)
[2019-06-21 02:53] LABS: ABG BASE EXCESS 10.1 MMOL/L (-2.5-2.5); ABG OXYGEN SATURATION 87 % (94-100); ABG PCO2 61 MMHG (35-45); ABG PH 7.38 (7.37-7.43); ABG PO2 65 MMHG (79-93); ABG TCO2 36.9 MMOL/L (21.0-31.0)
[2019-06-21 02:53] LABS: BASOPHILS % (AUTO) 0 % (0-10); EOSINOPHILS % (AUTO) 0 % (0-10); HEMATOCRIT 38 % (40-54); HEMOGLOBIN 11.3 G/DL (13.3-17.7); LYMPHOCYTES # (AUTO) 1.1 X 10^3 (1.0-4.0); LYMPHOCYTES % (AUTO) 11 % (12-44); MEAN CORPUSCULAR HEMOGLOBIN 27 PG (25-34); MEAN CORPUSCULAR HGB CONC 30 G/DL (32-36); MEAN CORPUSCULAR VOLUME 89 FL (80-99); MEAN PLATELET VOLUME 9.3 FL (7.4-10.4); MONOCYTES # (AUTO) 0.2 X 10^3 (0.0-1.0); MONOCYTES % (AUTO) 2 % (0-12); NEUTROPHILS % (AUTO) 88 % (42-75); PLATELET COUNT 214 10^3/uL (130-400); RED CELL DISTRIBUTION WIDTH 16.3 % (10.0-14.5); WHITE BLOOD COUNT 10.3 10^3/uL (4.3-11.0)
[2019-06-21 02:56] LABS: ALLENS TEST YES-POS; INSPIRED O2 45%; PATIENT TEMP 38.1; VENTILATOR YES
[2019-06-21] MEDS ORDERED: HOLD METFORMIN - RECEIVED CONTRAST 20 ML VIAL IV SCH (03:00)
[2019-06-21] MEDS ORDERED: IOHEXOL 350 MG/ML 100 ML (OMNIPAQUE 350) VIAL IV ONE (03:00)
[2019-06-21] MEDS ORDERED: NS 100 ML (IVPB) BAG IV ONE (03:00)
--- NOTE | 2019-06-21 03:00 | NUR ---
Call to E ICU to report elevated temp of 100.6 F, 38.1 C.
[2019-06-21 03:15] LABS: BUN/CREATININE RATIO 15; CALCIUM 8.3 MG/DL (8.5-10.1); CARBON DIOXIDE 29 MMOL/L (21-32); CHLORIDE 96 MMOL/L (98-107); CREATININE SERUM 0.92 MG/DL (0.60-1.30); GFR ESTIMATED > 60; GLUCOSE 157 MG/DL (70-105); MAGNESIUM 1.8 MG/DL (1.6-2.4); PHOSPHORUS 2.4 MG/DL (2.3-4.7); POTASSIUM 4.2 MMOL/L (3.6-5.0); SODIUM 139 MMOL/L (135-145)
[2019-06-21 03:32] LABS: ANISOCYTOSIS SLIGHT; LYMPHOCYTES % (MANUAL) 5 %; MONOCYTES % (MANUAL) 4 %; NEUTROPHILS % (MANUAL) 91 %; POIKILOCYTOSIS SLIGHT; POLYCHROMASIA SLIGHT
[2019-06-21] MEDS ORDERED: ACETAMINOPHEN 325 MG TABLET ONE (03:54)
[2019-06-21] MEDS: NS IV 1000 ML 1,000 ML IV SCH ×3 (03:59→17:11)
[2019-06-21] MEDS: KCL 20 MEQ TAB (K-DUR) PO SCH (04:09)
[2019-06-21] MEDS: MAGNESIUM 1 GM/100 ML IVPB 100 ML IV SCH (04:09)
[2019-06-21] MEDS: ACETAMINOPHEN 325 MG TABLET PO PRN (04:10)
[2019-06-21] MEDS: POTASSIUM CL 10MEQ/50ML IVPB 50 ML IV SCH (04:10)
[2019-06-21] MEDS: inSUlin ASPART (NovoLOG) 1 UNIT/0.01 ML (CHARGE PER UNIT) SC SCH ×4 (04:11→23:41)
[2019-06-21] MEDS: fentaNYL INJECTION 100 MCG/2 ML AMP IV PRN ×3 (04:59→17:07)
--- NOTE | 2019-06-21 05:09 | NUR ---
Call to E ICU with update on patient condition, continued oxygen sat 88-89% on 50% FIO2 at this time per MV.
[2019-06-21] MEDS: RT-ALBUTEROL/IPRATROPIUM 3 ML (DUONEB) VIAL INH SCH ×5 (06:06→21:18)
--- NOTE | 2019-06-21 06:52 | Diagnostic Imaging Report ---
PROCEDURE: CT angiography of the chest with contrast. TECHNIQUE: Multiple contiguous axial images were obtained through the chest after uneventful bolus administration of intravenous contrast. 3D reconstructed CTA MIP acquisitions were also performed. Auto Exposure Controls were utilized during the CT exam to meet ALARA standards for radiation dose reduction. INDICATION: Respiratory distress. FINDINGS: This study is less than optimal due to the patient's body habitus. The previous CT chest exam of 10/21/2018 failed to show any sign of an acute cardiopulmonary abnormality. The recent plain film examination of the chest performed on 06/20/2019 did reveal left lower lobe atelectasis/infiltrate. On this exam, the main pulmonary arteries are well opacified and show no defect that would indicate a pulmonary embolus. The branches of the pulmonary arteries to the lower lobes, however, are obscured by atelectasis/infiltrate difficult to assess. The lung apices are clear. The previous exam did note a 4 mm nodule in the right lung base. That nodule is obscured by the atelectasis/infiltrate. The aorta is not abnormally dilated and there is no evidence for dissection. The heart is enlarged, but stable. There is no mediastinal or hilar adenopathy. The thyroid gland is generally unremarkable. The sections through the upper abdomen again show that the liver is of lower density than usually seen. This does suggest fatty metamorphosis. There is no acute abnormality identified. The bone windows are unremarkable for fracture or for destructive lesion. The patient has been intubated. The ET tube tip lies approximately 2 cm from the jorge luis. It should be retracted 1 cm. There is also an NG line in place. The tip of the line is in the gastric fundus. IMPRESSION: 1. There is cardiomegaly and bibasilar pneumonia/atelectasis. 2. There is no evidence for pulmonary embolus although the pulmonary arteries to the lower lobes are difficult to assess. The aorta is unremarkable. 3. The patient has been intubated and the ET tube tip should be retracted approximately 1 cm. The NG line tip appears to be within the stomach. Called to Riya at 6:50 a.m. by cvb (for OR) Dictated by: Dictated on workstation # [id number]
--- NOTE | 2019-06-21 07:00 | Occ Therapy Progress Note ---
Therapy Progress Note OT receiving orders to eval/ treat. Pt intubated currently, will complete evaluation when medically stable and able to participate in therapy services. Will check following date. FRANCIS STRANGE OTR Jun 21, 2019 07:00
--- NOTE | 2019-06-21 07:07 | Physical Therapy Progress Note ---
Therapy Progress Note Patient currently on mechanical ventilator. PT will assess patient when medically stable and able to actively participate with skilled therapy. GEOVANI BEAR PT Jun 21, 2019 07:07
--- NOTE | 2019-06-21 08:34 | Cardiology Progress Note ---
Subjective Date Seen by Provider: Jun 21, 2019 Time Seen by Provider: 08:31 Subjective/Events-last exam Patient is sedated and intubated. Review of Systems General: Other (Unable to provide review of systems) Focused Exam Lactate Level 06/20/19 07:25: Lactic Acid Level 1.31 Objective-Cardiology Exam Last Set of Vital Signs Vital Signs 06/21/19 06/21/19 06/21/19 04:36 06:06 06:46 Temp 37.4 Pulse 80 Resp 27 B/P (MAP) 111/51 Pulse Ox 94 O2 Delivery Mechanical Ventilator O2 Flow Rate 40.00 FiO2 45 Capillary Refill : Less Than 3 Seconds I&O Intake and Output 06/21/19 00:00 Intake Total 3300 ml Output Total 1500 ml Balance 1800 ml Intake Oral 0 ml IV Total 3270 ml Other 30 ml Output Urine Total 1500 ml Daily Weight Change No General: Other (Sedated and intubated) HEENT: Atraumatic Neck: Supple, No JVD, No Thyromegaly Lungs: Normal Air Movement, Other (Bilateral rhonchi) Heart: Regular Rate, Normal S1, Normal S2, No Murmurs Abdomen: Normal Bowel Sounds, Soft, No Tenderness, No Hepatosplenomegaly, No Masses Extremities: No Clubbing, No Cyanosis, No Edema, Normal Pulses Skin: No Rashes, No Breakdown, No Significant Lesion Neuro: Other (Sedated and intubated) Psych/Mental Status: Other (Sedated and intubated) Results Lab Laboratory Tests 06/21/19 02:35 A/P-Cardiology Admission Diagnosis Acute respiratory failure Pneumonia COPD Hypotensive shock Assessment/Plan Acute respiratory failure, acute exacerbation of COPD, ventilatory dependent and hypoxemia, managed by primary care team Pneumonia, receiving vancomycin and cefepime. Hypotensive shock, blood pressure is better. Continue to monitor Questionable history of congestive heart failure, BNP is normal, echocardiogram showed normal left ventricular size and systolic function, suboptimal images, ejection fraction 55-60 percent, left atrial dilatation, pulmonary artery pressure of 25 mmHg History of COPD, oxygen dependent using oxygen at home. Hyperlipidemia Morbid obesity, BMI 57 Clinical Quality Measures DVT/VTE Risk/Contraindication: Risk Factor Score Per Nursin RFS Level Per Nursing on Admit: 4+=Very High CHARLIE ORSSI MD Jun 21, 2019 08:34
--- NOTE | 2019-06-21 09:17 | Progress Note - Hospitalist ---
Subjective HPI/CC On Admission Date Seen by Provider: Jun 21, 2019 Time Seen by Provider: 09:12 Pt is a 58yoCM who presented to the ER due to SOB. On my exam he is intubated and sedated and HPI and ROS is not possible per patient. All history comes from records. Per ER note he has had symptoms for 2 weeks but they worsened over the last two days. No reports fevers associated with this. He has a reported history of COPD and CHF per his and he is supposed to be on home vent to mask but he was found without it on this morning. On arrival to the ER he was lethargic and placed on BiPAP but despite this he became more lethargic and his ABG did not significantly improved his CO2 narcosis. He was then intubated due to hypercapnic respiratory failure and admitted to the ICU. Shortly after intubation his BP started to drop as well and he was placed on Levophed. Subjective/Events-last exam Pt remains intubated and sedated. Reviewed events from overnight. CTA negative for PE but became febrile. Focused Exam Lactate Level 06/20/19 07:25: Lactic Acid Level 1.31 Objective Exam Vital Signs Vital Signs Date Time Temp Pulse Resp B/P (MAP) Pulse Ox O2 Delivery O2 Flow Rate FiO2 06/21/19 06:46 80 27 111/51 94 Mechanical Ventilator 40.00 06/21/19 06:06 45 06/21/19 04:36 37.4 Capillary Refill : Less Than 3 Seconds General Appearance: Chronically ill, Obese, Other (sedated and intubated) Respiratory: Decreased Breath Sounds, Rhonci, Other (on vent) Cardiovascular: Regular Rate, Rhythm, No Murmur Gastrointestinal: Normal Bowel Sounds, Soft, Other (obsese abdomen) Extremity: No Calf Tenderness, Swelling Neurologic/Psychiatric: Other (sedated medically) Results/Procedures Lab Laboratory Tests 06/21/19 02:35 Patient resulted labs reviewed. Imaging: Reviewed Imaging Report Assessment/Plan Assessment and Plan Assess & Plan/Chief Complaint Acute Respiratory Failure- mixed hypercapnia and hypoxemia COPD Morbid obesity with OHS Bibasilar PNA Intubated on 06/20 ABG shows improved CO2 but hypoxemia- PEE increased by eICU overnight Propofol and Precedex for sedation Vanc and Cefepime- await cultures Solu Medrol CTA negative for PE Hypotension- resolved Likely iatrogenic from sedation CHF- compensated Echo reveals EF or 55%, PA pressure 25 Cardiology consulted, discussed with Dr Zapata Monitor I/Os HTN Hold home meds as BP well controlled DVT ppx: Lovenos GI ppx: Protonix Diagnosis/Problems Diagnosis/Problems (1) Hypercapnic respiratory failure Status: Acute Qualifiers: Chronicity: acute on chronic Qualified Codes: J96.22 - Acute and chronic respiratory failure with hypercapnia (2) CHF (congestive heart failure) Status: Chronic Qualifiers: Heart failure type: unspecified Heart failure chronicity: chronic Qualifi ed Codes: I50.9 - Heart failure, unspecified (3) COPD with acute exacerbation Status: Acute (4) Obesity hypoventilation syndrome Status: Acute (5) Pneumonia involving left lung Status: Acute Qualifiers: Pneumonia type: due to unspecified organism Lung location: unspecified part of lung Qualified Codes: J18.9 - Pneumonia, unspecified organism (6) Essential (primary) hypertension Status: Chronic Clinical Quality Measures DVT/VTE Risk/Contraindication: Risk Factor Score Per Nursin RFS Level Per Nursing on Admit: 4+=Very High JENNI ALMODOVAR MD Jun 21, 2019 09:17
[2019-06-21] MEDS: CEFEPIME INJECTION 2,000 MG in WATER (STERILE) FOR INJECTION 20 ML IV SCH ×2 (09:42→20:23)
[2019-06-21] MEDS: ENOXAPARIN 40 MG/0.4 ML (LOVENOX) SYR SC SCH ×2 (09:42→23:37)
[2019-06-21] MEDS: VANCOMYCIN 2000 MG/NS 500 ML IVPB IV SCH ×4 (09:42→19:33)
[2019-06-21] MEDS: methylPREDNISolone 40 MG/ML (Solu-MEDROL) VIAL IV SCH ×2 (12:42→23:37)
[2019-06-21] MEDS ORDERED: ARTIFICIAL TEARS OINT (LACRI-LUBE) 3.5 GM TUBE OU PRN (17:45)
[2019-06-21] MEDS ORDERED: TROUGH ORDER-PHARMACY XX ONE (21:00)
[2019-06-22] VITALS (30 sets, daily range): BP systolic 107–153; BP diastolic 56–92
[2019-06-22] MEDS: RT-ALBUTEROL/IPRATROPIUM 3 ML (DUONEB) VIAL INH SCH ×6 (01:40→21:31)
[2019-06-22] MEDS: PROPOFOL DRIP (ICU) 100 ML IV SCH ×5 (02:01→23:20)
[2019-06-22] MEDS: NS IV 1000 ML 1,000 ML IV SCH ×3 (03:04→18:46)
[2019-06-22] MEDS: NOREPINEPHRINE 4 MG in NS (IVPB) 250 ML IV SCH ×5 (03:04→20:24)
[2019-06-22 03:12] LABS: BASOPHILS % (AUTO) 0 % (0-10); EOSINOPHILS % (AUTO) 0 % (0-10); HEMATOCRIT 37 % (40-54); LYMPHOCYTES % (AUTO) 9 % (12-44); MEAN CORPUSCULAR HEMOGLOBIN 27 PG (25-34); MEAN CORPUSCULAR HGB CONC 30 G/DL (32-36); MEAN CORPUSCULAR VOLUME 91 FL (80-99); MEAN PLATELET VOLUME 9.3 FL (7.4-10.4); MONOCYTES # (AUTO) 0.6 X 10^3 (0.0-1.0); MONOCYTES % (AUTO) 5 % (0-12); NEUTROPHILS % (AUTO) 87 % (42-75); PLATELET COUNT 206 10^3/uL (130-400); RED CELL DISTRIBUTION WIDTH 16.2 % (10.0-14.5); WHITE BLOOD COUNT 11.6 10^3/uL (4.3-11.0)
[2019-06-22 03:13] LABS: ABG BASE EXCESS 7.8 MMOL/L (-2.5-2.5); ABG OXYGEN SATURATION 92 % (94-100); ABG PCO2 57 MMHG (35-45); ABG PH 7.38 (7.37-7.43); ABG PO2 65 MMHG (79-93); ABG TCO2 34.7 MMOL/L (21.0-31.0)
[2019-06-22 03:16] LABS: ALLENS TEST YES-POS; INSPIRED O2 40%; PATIENT TEMP 36.9; VENTILATOR YES
[2019-06-22 03:32] LABS: BUN/CREATININE RATIO 18; CALCIUM 8.2 MG/DL (8.5-10.1); CARBON DIOXIDE 28 MMOL/L (21-32); CHLORIDE 101 MMOL/L (98-107); GFR ESTIMATED > 60; GLUCOSE 163 MG/DL (70-105); MAGNESIUM 2.1 MG/DL (1.6-2.4); PHOSPHORUS 2.2 MG/DL (2.3-4.7); POTASSIUM 4.4 MMOL/L (3.6-5.0); SODIUM 141 MMOL/L (135-145)
[2019-06-22] MEDS: POTASSIUM CL 10MEQ/50ML IVPB 50 ML IV SCH (03:40)
[2019-06-22] MEDS: MAGNESIUM 1 GM/100 ML IVPB 100 ML IV SCH (03:40)
[2019-06-22] MEDS: inSUlin ASPART (NovoLOG) 1 UNIT/0.01 ML (CHARGE PER UNIT) SC SCH ×4 (03:41→23:10)
[2019-06-22] MEDS: KCL 20 MEQ TAB (K-DUR) PO SCH (03:41)
[2019-06-22] MEDS: fentaNYL INJECTION 100 MCG/2 ML AMP IV PRN ×2 (03:53→09:14)
--- NOTE | 2019-06-22 06:14 | NUR ---
2100 Vancomycin trough not done at this time d/t patient receiving dose #3 of Vancomycin scheduled at 1999.
--- NOTE | 2019-06-22 08:28 | Cardiology Progress Note ---
Subjective Date Seen by Provider: Jun 22, 2019 Time Seen by Provider: 08:26 Subjective/Events-last exam Patient is sedated and intubated, unable to provide any history. No change in status Review of Systems General: Other (Unable to provide review of systems) Focused Exam Sepsis Stage: Sepsis Possible Source: Pulmonary Lactate Level 06/20/19 07:25: Lactic Acid Level 1.31 Time of Focused Exam: 09:00 Respiratory: Crackles, Decreased Breath Sounds, Other (Intubated) Cardiovascular: Regular Rate, Rhythm, No Gallop, No JVD, No Murmur, Normal Pe ripheral Pulses Skin: normal color, warm/dry, diaphoresis Objective-Cardiology Exam Last Set of Vital Signs Vital Signs 06/22/19 06/22/19 06/22/19 03:00 10:00 10:18 Temp 36.9 Pulse 72 Resp 17 B/P (MAP) 112/59 (76) Pulse Ox 96 O2 Delivery Mechanical Ventilator O2 Flow Rate 40.00 FiO2 40 Capillary Refill : Less Than 3 Seconds I&O Intake and Output 06/22/19 00:00 Intake Total 3950 ml Output Total 2005 ml Balance 1945 ml IV Total 3860 ml Other 90 ml Output Urine Total 2005 ml General: Other (Sedated and intubated) HEENT: Atraumatic Neck: Supple, No JVD, No Thyromegaly Lungs: Normal Air Movement, Other (Bilateral rhonchi) Heart: Regular Rate, Normal S1, Normal S2, No Murmurs Abdomen: Normal Bowel Sounds, Soft, No Tenderness, No Hepatosplenomegaly, No Masses Extremities: No Clubbing, No Cyanosis, No Edema, Normal Pulses Skin: No Rashes, No Breakdown, No Significant Lesion Neuro: Other (Sedated and intubated) Psych/Mental Status: Other (Sedated and intubated) Results Lab Laboratory Tests 06/22/19 03:00 A/P-Cardiology Admission Diagnosis Acute respiratory failure Pneumonia COPD Hypotensive shock Assessment/Plan Acute respiratory failure, acute exacerbation of COPD, ventilatory dependent and hypoxemia, we'll start weaning trial today. Pneumonia, receiving vancomycin and cefepime. Status post hypotensive shock, blood pressure is better. Continue to monitor Questionable history of congestive heart failure, BNP is normal, echocardiogram showed normal left ventricular size and systolic function, suboptimal images, ejection fraction 55-60 percent, left atrial dilatation, pulmonary artery pressure of 25 mmHg History of COPD, oxygen dependent using oxygen at home. Hyperlipidemia Morbid obesity, BMI 57 Clinical Quality Measures DVT/VTE Risk/Contraindication: Risk Factor Score Per Nursin RFS Level Per Nursing on Admit: 4+=Very High CHARLIE ROSSI MD Jun 22, 2019 08:28
--- NOTE | 2019-06-22 08:48 | Progress Note - Hospitalist ---
Subjective HPI/CC On Admission Date Seen by Provider: Jun 22, 2019 Time Seen by Provider: 08:44 Pt is a 58yoCM who presented to the ER due to SOB. On my exam he is intubated and sedated and HPI and ROS is not possible per patient. All history comes from records. Per ER note he has had symptoms for 2 weeks but they worsened over the last two days. No reports fevers associated with this. He has a reported history of COPD and CHF per his and he is supposed to be on home vent to mask but he was found without it on this morning. On arrival to the ER he was lethargic and placed on BiPAP but despite this he became more lethargic and his ABG did not significantly improved his CO2 narcosis. He was then intubated due to hypercapnic respiratory failure and admitted to the ICU. Shortly after intubation his BP started to drop as well and he was placed on Levophed. Subjective/Events-last exam Pt remains intubated and sedated. Discussed with RN doing well. Focused Exam Lactate Level 06/20/19 07:25: Lactic Acid Level 1.31 Objective Exam Vital Signs Vital Signs Date Time Temp Pulse Resp B/P (MAP) Pulse Ox O2 Delivery O2 Flow Rate FiO2 06/22/19 06:59 52 25 95 40 06/22/19 06:00 112/61 (78) Mechanical Ventilator 40.00 06/22/19 03:00 36.9 Capillary Refill : Less Than 3 Seconds General Appearance: No Apparent Distress, Chronically ill, Obese Respiratory: Decreased Breath Sounds, Other (on vent) Cardiovascular: No Murmur, Bradycardia Gastrointestinal: Normal Bowel Sounds, Soft Extremity: Pedal Edema Neurologic/Psychiatric: Other (sedated on vent) Results/Procedures Lab Laboratory Tests 06/22/19 03:00 Patient resulted labs reviewed. Imaging: Reviewed Imaging Report Assessment/Plan Assessment and Plan Assess & Plan/Chief Complaint Acute Respiratory Failure- mixed hypercapnia and hypoxemia COPD Morbid obesity with OHS Bibasilar PNA Intubated on 06/20, weaning trial today, will need BiPAP upon extubation Propofol for sedation Continue Cefepime, DC Vanc for MRSA negative Solu Medrol CTA negative for PE CHF- compensated Echo reveals EF or 55%, PA pressure 25 Cardiology consulted, discussed with Dr Zapata Monitor I/Os Hyperglycemia Iatrogenic form steroids SSI Hypotension- resolved HTN Hold home meds as BP well controlled DVT ppx: Lovenox GI ppx: Protonix Diagnosis/Problems Diagnosis/Problems (1) Hypercapnic respiratory failure Status: Acute Qualifiers: Chronicity: acute on chronic Qualified Codes: J96.22 - Acute and chronic respiratory failure with hypercapnia (2) CHF (congestive heart failure) Status: Chronic Qualifiers: Heart failure type: unspecified Heart failure chronicity: chronic Qualified Codes: I50.9 - Heart failure, unspecified (3) COPD with acute exacerbation Status: Acute (4) Obesity hypoventilation syndrome Status: Acute (5) Pneumonia involving left lung Status: Acute Qualifiers: Pneumonia type: due to unspecified organism Lung location: unspecified part of lung Qualified Codes: J18.9 - Pneumonia, unspecified organism (6) Essential (primary) hypertension Status: Chronic Clinical Quality Measures DVT/VTE Risk/Contraindication: Risk Factor Score Per Nursin RFS Level Per Nursing on Admit: 4+=Very High JENNI ALMODOVAR MD Jun 22, 2019 08:48
[2019-06-22] MEDS: CEFEPIME INJECTION 2,000 MG in WATER (STERILE) FOR INJECTION 20 ML IV SCH ×2 (08:50→20:34)
[2019-06-22] MEDS ORDERED: TROUGH ORDER-PHARMACY XX NR (09:00)
--- NOTE | 2019-06-22 09:00 | Diagnostic Imaging Report ---
INDICATION: Dyspnea, on a ventilator. EXAMINATION: Chest 06/22/2019 Comparison made to a chest from 06/20/2019 FINDINGS: The heart is enlarged. The pulmonary vasculature is unremarkable. There is a likely infiltrate at the left lung base with an adjacent effusion. The remaining lungs demonstrate mildly coarsened asymmetric densities in the right lung compared to the left, possibly mild asymmetric edema. There is a right-sided jugular line tip is stable. A feeding tube is coursing beneath the diaphragm. An ET tube is unchanged. IMPRESSION: 1. Developing left base infiltrate and effusion. 2. Possible asymmetric edema as above. Dictated by: Dictated on workstation # [id number]
[2019-06-22] MEDS ORDERED: DEXMEDETOMIDINE INJECTION 1,000 MCG in NS (IVPB) 240 ML IV SCH (10:00)
[2019-06-22 10:59] LABS: ABG BASE EXCESS 8.2 MMOL/L (-2.5-2.5); ABG OXYGEN SATURATION 81 % (94-100); ABG PCO2 66 MMHG (35-45); ABG PO2 50 MMHG (79-93); ABG TCO2 36.5 MMOL/L (21.0-31.0)
[2019-06-22] MEDS: ENOXAPARIN 40 MG/0.4 ML (LOVENOX) SYR SC SCH ×2 (11:02→23:16)
[2019-06-22] MEDS: methylPREDNISolone 40 MG/ML (Solu-MEDROL) VIAL IV SCH ×2 (11:02→23:16)
[2019-06-22 11:04] LABS: ABG PH 7.33 (7.37-7.43)
[2019-06-22 11:05] LABS: ALLENS TEST YES-POS; INSPIRED O2 40%; PATIENT TEMP 35.8; VENTILATOR YES
[2019-06-22 12:13] LABS: ABG BASE EXCESS 8.1 MMOL/L (-2.5-2.5); ABG OXYGEN SATURATION 84 % (94-100); ABG PCO2 66 MMHG (35-45); ABG PO2 54 MMHG (79-93); ABG TCO2 36.4 MMOL/L (21.0-31.0)
[2019-06-22 12:15] LABS: ABG PH 7.33 (7.37-7.43); ALLENS TEST YES-POS
[2019-06-22 12:16] LABS: INSPIRED O2 40%; PATIENT TEMP 35.8; VENTILATOR YES
[2019-06-22] MEDS ORDERED: NS (IVPB) 250 ML ONE (18:11)
[2019-06-23] VITALS (26 sets, daily range): BP systolic 103–206; BP diastolic 55–93
[2019-06-23] MEDS: NOREPINEPHRINE 4 MG in NS (IVPB) 250 ML IV SCH (01:44)
[2019-06-23] MEDS: RT-ALBUTEROL/IPRATROPIUM 3 ML (DUONEB) VIAL INH SCH ×6 (01:48→21:52)
[2019-06-23] MEDS: NS IV 1000 ML 1,000 ML IV SCH (02:05)
[2019-06-23] MEDS: PROPOFOL DRIP (ICU) 100 ML IV SCH (02:05)
[2019-06-23 03:25] LABS: ABG BASE EXCESS 6.7 MMOL/L (-2.5-2.5); ABG OXYGEN SATURATION 96 % (94-100); ABG PCO2 65 MMHG (35-45); ABG PO2 76 MMHG (79-93); ABG TCO2 34.7 MMOL/L (21.0-31.0); BASOPHILS % (AUTO) 0 % (0-10); EOSINOPHILS % (AUTO) 0 % (0-10); HEMATOCRIT 39 % (40-54); HEMOGLOBIN 11.3 G/DL (13.3-17.7); LYMPHOCYTES % (AUTO) 8 % (12-44); MEAN CORPUSCULAR HEMOGLOBIN 27 PG (25-34); MEAN CORPUSCULAR HGB CONC 29 G/DL (32-36); MEAN CORPUSCULAR VOLUME 91 FL (80-99); MEAN PLATELET VOLUME 9.3 FL (7.4-10.4); MONOCYTES # (AUTO) 0.6 X 10^3 (0.0-1.0); MONOCYTES % (AUTO) 5 % (0-12); NEUTROPHILS # (AUTO) 10.5 X 10^3 (1.8-7.8); NEUTROPHILS % (AUTO) 87 % (42-75); PLATELET COUNT 191 10^3/uL (130-400); RED CELL DISTRIBUTION WIDTH 16.8 % (10.0-14.5); WHITE BLOOD COUNT 12.1 10^3/uL (4.3-11.0)
[2019-06-23 03:26] LABS: ALLENS TEST YES-POS; INSPIRED O2 40; PATIENT TEMP 36.9; VENTILATOR YES
[2019-06-23 03:28] LABS: ABG PH 7.32 (7.37-7.43)
[2019-06-23 03:59] LABS: BUN/CREATININE RATIO 22; CALCIUM 8.1 MG/DL (8.5-10.1); CARBON DIOXIDE 28 MMOL/L (21-32); CHLORIDE 103 MMOL/L (98-107); CREATININE SERUM 0.74 MG/DL (0.60-1.30); GFR ESTIMATED > 60; GLUCOSE 146 MG/DL (70-105); MAGNESIUM 2.2 MG/DL (1.6-2.4); PHOSPHORUS 3.4 MG/DL (2.3-4.7); POTASSIUM 4.6 MMOL/L (3.6-5.0); SODIUM 143 MMOL/L (135-145)
[2019-06-23] MEDS ORDERED: BUMETANIDE 1 MG/4 ML (BUMEX) VIAL IV ONE (05:00)
--- NOTE | 2019-06-23 05:06 | Pulmonary Consultation ---
History of Present Illness History of Present Illness Date of Consultation 06/23/19 05:02 Date of Admission Reason for Visit: Acute respiratory failure Allergies and Home Medications Allergies Coded Allergies: meperidine HCl (Unverified Allergy, Unknown, 04/22/13) Home Medications Acetaminophen 500 Mg Tablet, 1,000 MG PO Q4H PRN for PAIN-MILD, (Reported) Albuterol Sulfate 2.5 Mg/3 Ml Vial.neb, 2.5 MG NEB Q4H PRN for SHORTNESS OF BREATH, (Reported) Atorvastatin Calcium 20 Mg Tablet, 20 MG PO DAILY, (Reported) Carvedilol 12.5 Mg Tablet, 12.5 MG PO BID, (Reported) Clonazepam 1 Mg Tablet, 1 MG PO HS, (Reported) Furosemide 40 Mg Tablet, 40 MG PO DAILY, (Reported) Lisinopril 20 Mg Tablet, 20 MG PO DAILY, (Reported) Pramipexole Di-HCl 1 Mg Tablet, 1 MG PO 0800,1200, (Reported) Pramipexole Di-HCl 1 Mg Tablet, 2 MG PO HS, (Reported) Sildenafil Citrate 50 Mg Tablet, 50 MG PO UD PRN for ED, (Reported) Testosterone Cypionate 100 Mg/1 Ml Vial, 1 ML IM EVERY 2 WEEKS, (Reported) Tiotropium Bonita 1 Inh Aerp, 1 CAP IH DAILY PRN for SHORTNESS OF BREATH, (Reported) Venlafaxine HCl 75 Mg Cap.er.24h, 75 MG PO DAILY, (Reported) TAKES ALONG WITH 150MG Venlafaxine HCl 150 Mg Cap.er.24h, 150 MG PO DAILY, (Reported) TAKES ALONG WITH 75MG Past Tbwvmfa-Rkpirs-Xqfrdr Hx Past Med/Social Hx: Reviewed Nursing Past Med/Soc Hx Patient Social History Alcohol Use: Denies Use Recreational Drug Use: No Smoking Status: Former Smoker Former Smoker, Quit: Nov 28, 1986 2nd Hand Smoke Exposure: No Recent Foreign Travel: No Contact w/Someone Who Travel: No Recent Infectious Disease Expo: No Recent Hopitalizations: No Physical Abuse: No Sexual Abuse: No Mistreated: No Fear: No Immunizations Up To Date Tetanus Booster (TDap): More than 5yrs Date of Pneumonia Vaccine: Jun 20, 2017 Seasonal Allergies Seasonal Allergies: No Past Medical History Surgeries: Yes Adenoidectomy, Tonsillectomy Respiratory: Yes (COPD, chronic bronchitis, asthma) Asthma, Chronic Bronchitis, Sleep Apnea, COPD Cardiac: Yes (Congestive heart failure) Hypertension Neurological: No Reproductive Disorders: No Genitourinary: No Gastrointestinal: Yes Gastroesophageal Reflux Musculoskeletal: No Endocrine: No HEENT: No Cancer: No Psychosocial: Yes Sleep Difficulties, Anxiety, Depression Integumentary: No Blood Disorders: No Adverse Reaction/Blood Tranf: No (patient has never been given blood) Family Medical History Reviewed Nursing Family Hx FH: CHF (congestive heart failure) Sepsis Event Evaluation Height, Weight, BMI Height: 5'7.00" Weight: 346lbs. 2.0oz. 156.849705py; 57.27 BMI Method:Stated Exam Exam Vital Signs Date Time Temp Pulse Resp B/P (MAP) Pulse Ox O2 Delivery O2 Flow Rate FiO2 06/23/19 04:18 65 18 98 40 06/23/19 03:20 97 Mechanical Ventilator 40 06/23/19 03:15 36.9 Mechanical Ventilator 40.00 06/23/19 02:05 50 20 99 Mechanical Ventilator 40.00 06/23/19 02:00 48 14 108/55 (72) 99 Mechanical Ventilator 40.00 06/23/19 01:48 48 16 99 40 06/23/19 01:03 44 06/23/19 01:00 49 21 108/60 (76) 98 Mechanical Ventilator 40.00 06/23/19 00:00 47 15 115/60 (78) 98 Mechanical Ventilator 40.00 06/22/19 23:20 50 Mechanical Ventilator 40.00 06/22/19 23:20 98 Mechanical Ventilator 40 06/22/19 23:20 36.8 Mechanical Ventilator 40.00 06/22/19 23:00 52 23 120/63 (82) 98 Mechanical Ventilator 40.00 06/22/19 22:00 66 21 130/68 (88) 97 Mechanical Ventilator 40.00 06/22/19 21:32 77 19 98 40 06/22/19 21:00 69 17 139/80 (99) 98 Mechanical Ventilator 40.00 06/22/19 20:00 61 16 138/71 (93) 97 Mechanical Ventilator 40.00 06/22/19 20:00 35.9 06/22/19 19:30 96 Mechanical Ventilator 40 06/22/19 19:20 65 20 150/76 (100) 96 Mechanical Ventilator 40.00 10/27/19 19:00 72 06/22/19 19:00 79 22 152/83 (106) 98 Mechanical Ventilator 40.00 06/22/19 18:17 78 20 100 40 06/22/19 18:00 120 43 142/80 (100) 99 Mechanical Ventilator 40.00 06/22/19 17:00 65 17 123/63 (83) 100 Mechanical Ventilator 40.00 06/22/19 16:00 78 144/71 (95) 96 Mechanical Ventilator 40.00 06/22/19 16:00 91 Mechanical Ventilator 40 06/22/19 16:00 35.9 06/22/19 15:00 72 26 140/74 (96) 96 Mechanical Ventilator 40.00 06/22/19 14:20 50 23 94 40 06/22/19 14:00 58 21 126/70 (88) 94 Mechanical Ventilator 40.00 06/22/19 13:00 78 30 153/79 (103) 93 Mechanical Ventilator 40.00 06/22/19 13:00 84 06/22/19 12:00 109 30 150/79 (102) 95 Mechanical Ventilator 40.00 06/22/19 12:00 36.8 06/22/19 12:00 91 Mechanical Ventilator 40 06/22/19 11:00 89 27 133/92 (106) 94 Mechanical Ventilator 40.00 06/22/19 10:18 72 17 96 40 06/22/19 10:00 58 16 112/59 (76) 91 Mechanical Ventilator 40.00 06/22/19 09:16 16 109/56 94 06/22/19 09:00 57 109/56 (73) 90 Mechanical Ventilator 40.00 06/22/19 08:00 48 17 107/56 (73) 97 Mechanical Ventilator 40.00 06/22/19 08:00 94 Mechanical Ventilator 40 06/22/19 07:00 55 06/22/19 07:00 52 27 112/57 (75) 95 Mechanical Ventilator 40.00 06/22/19 06:59 52 25 95 40 06/22/19 06:00 56 19 112/61 (78) 94 Mechanical Ventilator 40.00 06/22/19 05:37 64 20 118/60 94 Mechanical Ventilator 40.00 I & O 06/23/19 07:00 Intake Total 1280 ml Output Total 1675 ml Balance -395 ml Height & Weight Height: 5'7.00" Weight: 346lbs. 2.0oz. 156.281744ue; 57.27 BMI Method:Stated General Appearance: No Apparent Distress, Chronically ill, Obese HEENT: Moist Mucous Membranes; No Scleral Icterus (L), No Scleral Icterus (R); Other (pupils nonreactive (had just received paralytics)) Neck: No JVD; Other (central line in place) Respiratory: Crackles, Decreased Breath Sounds, Other (Intubated) Cardiovascular: Regular Rate, Rhythm, No Gallop, No JVD, No Murmur, Normal Peripheral Pulses Capillary Refill: Less Than 3 Seconds Extremity: Pedal Edema Neurologic/Psychiatric: Other (sedated on vent) Skin: No Mottled; Other (venous stasis dermatitis noted on bilateral lower extremities) Results Lab Laboratory Tests 06/22/19 03:00 06/23/19 03:15 Assessment/Plan Assessment/Plan Acute on chronic respiratory failure CHF -Bumex COPDAE -SVNS -Solumedrol GILLIAN SOOD DO Jun 23, 2019 05:06
[2019-06-23] MEDS ORDERED: BUMETANIDE 1 MG/4 ML (BUMEX) VIAL ONE (05:12)
[2019-06-23] MEDS: KCL 20 MEQ TAB (K-DUR) PO SCH (05:18)
[2019-06-23] MEDS: MAGNESIUM 1 GM/100 ML IVPB 100 ML IV SCH (05:18)
[2019-06-23] MEDS: POTASSIUM CL 10MEQ/50ML IVPB 50 ML IV SCH (05:18)
[2019-06-23] MEDS: inSUlin ASPART (NovoLOG) 1 UNIT/0.01 ML (CHARGE PER UNIT) SC SCH ×4 (05:18→20:53)
[2019-06-23 05:39] LABS: ABG BASE EXCESS 6.9 MMOL/L (-2.5-2.5); ABG OXYGEN SATURATION 95 % (94-100); ABG PCO2 53 MMHG (35-45); ABG PO2 69 MMHG (79-93); ABG TCO2 33.5 MMOL/L (21.0-31.0)
[2019-06-23 05:41] LABS: ALLENS TEST YES-POS; INSPIRED O2 40%; PATIENT TEMP 36.5; VENTILATOR YES
--- NOTE | 2019-06-23 06:03 | NUR ---
PT EXTUBATED TO VAPOTHERM PER ORDERS FROM DR SOOD, VAPOTHERM 20LPM AND 40%. HR 70'S, RR 16 SPO2 98%. PT ABLE TO VERBALIZE NAME AND DENIES INCREASE WOB AT THIS TIME. NO S/S OF DISTRESS NOTED AT THIS TIME. AT BEDSIDE.
--- NOTE | 2019-06-23 06:03 | NUR ---
Patient extubated at this time by RT. Patient tolerated without difficulty. Patient placed on VT 20L/40%.
--- NOTE | 2019-06-23 07:28 | Diagnostic Imaging Report ---
PATIENT HISTORY: Dyspnea. TECHNIQUE: Frontal view of the chest. COMPARISON: 06/22/2019 FINDINGS: Lung volumes are mildly low. There is mild central vascular congestion and cardiomegaly. There are left basilar airspace opacities which appear unchanged. The endotracheal tube is approximately 2.5 cm above the jorge luis. The right jugular line tip projects over the low SVC. IMPRESSION: 1. Cardiomegaly with mild central vascular congestion. Dictated by: Dictated on workstation # [id number]
[2019-06-23] MEDS ORDERED: VANCOMYCIN INJECTION 2,500 MG in NS IV 500 ML 500 ML IV NR (08:35)
--- NOTE | 2019-06-23 08:46 | Cardiology Progress Note ---
Subjective Date Seen by Provider: Jun 23, 2019 Time Seen by Provider: 08:44 Subjective/Events-last exam Patient is sitting in a chair, feeling better. Extubated today Review of Systems General: No Chills, No Night Sweats; Fatigue; No Malaise, No Appetite, No Other HEENT: No Head Aches, No Visual Changes, No Eye Pain, No Ear Pain, No Dysphasia, No Sinus Congestion, No Post Nasal Drip, No Sore Throat, No Other Pulmonary: Dyspnea; No Cough, No Pleuritic Chest Pain, No Other Cardiovascular: Edema; No: Chest Pain, Palpitations, Orthopnea, Paroxysmal Noc. Dyspnea, Lt Headedness, Other Focused Exam Time of Focused Exam: 09:00 Objective-Cardiology Exam Last Set of Vital Signs Vital Signs 06/23/19 06/23/19 06/23/19 06/23/19 03:15 06:00 06:16 07:00 Temp 36.9 Pulse 81 Resp 16 B/P (MAP) 158/92 (114) Pulse Ox 98 O2 Delivery Vapotherm O2 Flow Rate 20.00 FiO2 40 Capillary Refill : Less Than 3 Seconds I&O Intake and Output 06/23/19 00:00 Intake Total 1480 ml Output Total 2650 ml Balance -1170 ml IV Total 1420 ml Other 60 ml Output Urine Total 2650 ml General: Alert, Oriented X3, Cooperative HEENT: Atraumatic Neck: Supple, No JVD, No Thyromegaly Lungs: Clear to Auscultation, Normal Air Movement Heart: Regular Rate, Normal S1, Normal S2, No Murmurs Abdomen: Normal Bowel Sounds, Soft, No Tenderness, No Hepatosplenomegaly, No Masses Extremities: No Clubbing, No Cyanosis, No Edema, Normal Pulses Skin: No Rashes, No Breakdown, No Significant Lesion Neuro: Normal Speech Psych/Mental Status: Mental Status NL, Mood NL Results Lab Laboratory Tests 06/23/19 03:15 A/P-Cardiology Admission Diagnosis Acute respiratory failure Pneumonia COPD Hypotensive shock Assessment/Plan Status post respiratory failure with acute exacerbation of COPD, extubated today. Doing better. Pneumonia, managed by primary care team Status post hypotensive shock, blood pressure is better. Continue to monitor Questionable history of congestive heart failure, BNP is normal, echocardiogram showed normal left ventricular size and systolic function, suboptimal images, ejection fraction 55-60 percent, left atrial dilatation, pulmonary artery pressure of 25 mmHg History of COPD, oxygen dependent using oxygen at home. Hyperlipidemia Morbid obesity, BMI 57 Clinical Quality Measures DVT/VTE Risk/Contraindication: Risk Factor Score Per Nursin RFS Level Per Nursing on Admit: 4+=Very High CHARLIE ROSSI MD Jun 23, 2019 08:46
--- NOTE | 2019-06-23 08:55 | NUR ---
VANCOMYCIN DOSING SCR 0.74; CRCL > 120; BOLUS VANC 2500 MG THEN VANC 2 GM Q12H CHECK TROUGH LEVEL 06/24 2000 HOLD DOSE AND CONTACT PHARMACY IF LEVEL IS GREATER THAN 20 OR LESS THAN 10
--- NOTE | 2019-06-23 09:28 | Physical Therapy Evaluation ---
PT Evaluation-General Medical Diagnosis Admission Date Jun 20, 2019 at 11:08 Medical Diagnosis: respiratory failure Onset Date: Jun 20, 2019 Therapy Diagnosis Therapy Diagnosis: debility/weakness Height/Weight Height (Feet): 5 Height (Inches): 7.00 Weight (Pounds): 346 Weight (Ounces): 2.0 Precautions Precautions/Isolations: Fall Prevention, Standard Precautions Referral Physician: Anum Reason for Referral: Evaluation/Treatment Medical History Pertinent Medical History: COPD, Heart Failure, HTN Additional Medical History morbid obesity Current History ER secondary to SOA Reviewed History: Yes Social History Home: Single Level Current Living Status: Spouse Prior Prior Level of Function SCALE: Activities may be completed with or without assistive devices. 8-Lhmkginmmy-foypbuh completes the activity by him/herself with no assistance from a helper. 5-Set-up or Clean-up Assistance-helper sets up or cleans up; patient completes activity. [place] assists only prior to or following the activity. 4-Supervision or Touching Assistance-helper provides verbal cues and/or touching/steadying and/or contact guard assistance as patient completes activity. Assistance may be provided throughout the activity or intermittently. 3-Partial/Moderate Assistance-helper does LESS THAN HALF the effort. [place] lifts, holds or supports trunk or limbs, but provides less than half the effort. 2-Substantial/Maximal Assistance-helper does MORE THAN HALF the effort. [place] lifts or holds trunk or limbs and provides more than half the effort. 0-Ieskthcca-fidlvs does ALL the effort. Patient does none of the effort to complete the activity. Or, the assistance of 2 or more helpers is required for the patient to complete the activity. If activity was not attempted, code reason: 7-Patient Refused. 9-Not Applicable-not attempted and the patient did not perform the activity before the current illness, exacerbation or injury. 10-Not Attempted due to Environmental Limitations-(lack of equipment, weather restraints, etc.). 88-Not Attempted due to Medical Conditions or Safety Concerns. Bed Mobility: 6 Transfers (B,C,W/C): 6 Gait: 6 Indoor Mobility (Ambulation): Independent Prior Devices Use: Walker PT Evaluation-Current Subjective Patient agrees to PT. Extubated on this date and on vapotherm Objective Patient Orientation: Normal For Age Problem Solving: Fair Attachments: Oxygen (vapotherm), Delacruz Catheter ROM/Strength ROM Lower Extremities bilateral LE WFL Strength Lower Extremities 3+/5 grossly bilateral LE Integumentary/Posture Integumentary refer to nursing notes Bladder Incontinence: Delacruz Cath Posture slight trunk flexed posture Neuromuscular (Tone, Coordination, Reflexes) grossly intact Sensory Vision: Functional Hearing: Impaired Sensation Right Lower Extremit: Impaired Sensation Left Lower Extremity: Impaired Transfers Roll Left to Right (QC): 3 Sit to Lying (QC): 3 Lying to Sitting/Side of Bed(Q: 3 Sit to Stand (QC): 3 Chair/Itv-zs-Aifoj Xfer(QC): 3 Gait Does the Patient Walk?: Yes Mode of Locomotion: Walk Anticipated Mode of Locomotion: Walk Distance (FIM): 1=up to 49 ft Distance: 5 steps Gait Assistive Device: FWW Balance Sitting Static: Normal Sitting Dynamic: Normal Standing Static: Fair Standing Dynamic: Fair Assessment/Needs 58 y.o. male, will benefit from skilled PT to address functional strength and mobility to improve current LOF to safely return to home at maximum LOF. Rehab Potential: Fair PT Longterm Goals Child Support Agent Goals PT Longterm Goals Time Frame: Jul 05, 2019 Sit to Lying (QC): 6 Lying-Sitting on Side/Bed(QC): 6 Sit to Stand (QC): 6 Roll Left to Right (QC): 6 Chair/Gmw-fe-Iedhu Xfer(QC): 6 Car Transfer (QC): 6 Does the Patient Walk: Yes Distance: 200' Walk 10 feet (QC): 6 Walk 10ft-Uneven Surface(QC): 6 Walk 50ft with 2 Turns (QC): 6 Walk 150 ft (QC): 6 Gait Assistive Device: FWW PT Plan Problem List Problem List: Activity Tolerance, Functional Strength, Safety, Balance, Gait, Transfer, Bed Mobility Treatment/Plan Treatment Plan: Continue Plan of Care Treatment Plan: Bed Mobility, Education, Functional Activity Brianna, Functional Strength, Gait, Safety, Therapeutic Exercise, Transfers Treatment Duration: Jul 05, 2019 Frequency: 6 times per week Estimated Hrs Per Day: .25 hour per day Patient and/or Family Agrees t: Yes Time/GCodes Time In: 810 Time Out: 826 Total Billed Treatment Time: 16 Total Billed Treatment 1 visit EVModC 16 min GEOVANI BEAR PT Jun 23, 2019 09:28
[2019-06-23] MEDS: CEFEPIME INJECTION 2,000 MG in WATER (STERILE) FOR INJECTION 20 ML IV SCH ×2 (09:41→20:53)
--- NOTE | 2019-06-23 11:05 | NUR ---
Pastoral care visit, pt waved me into room when he saw me. Pt shared difficulty of his health situation as well as some lingering anger over family issues of his childhood. Pt also shared some issues in his relationship with his adult son. I offered support and encouragement.
--- NOTE | 2019-06-23 11:51 | Occupational Therapy Eval ---
OT Evaluation-General/PLF Medical Diagnosis Admission Date Jun 20, 2019 at 11:08 Medical Diagnosis: respiratory failure Onset Date: Jun 20, 2019 Therapy Diagnosis Therapy Diagnosis: Weakness/decreased ADL skills Height/Weight Height (Feet): 5 Height (Inches): 7.00 Weight (Pounds): 346 Weight (Ounces): 2.0 Precautions Precautions/Isolations: Fall Prevention, Standard Precautions Safety Interventions: None Referral Physician: Anum Referral Reason: Activity Tolerance, Self Care, Evaluation/Treatment, Strengthening/ROM Medical History Pertinent Medical History: COPD, Heart Failure, HTN Additional Medical History Pt. came in with low oxygen and SOA. Went into respiratory distress. Pt. put onto ventilator and extubated this a.m. Pt. also has CHF. Current History Pt. lives in [place]. States that he has had multiple falls at home. Reviewed History: Yes Social History Home: Single Level Current Living Status: Spouse Entry Into Home: Stairs With Railing Steps Into Home: 2 ADL-Prior Level of Function SCALE: Activities may be completed with or without assistive devices. 0-Stqpdrvgcl-tgfnasu completes the activity by him/herself with no assistance from a helper. 5-Set-up or Clean-up Assistance-helper sets up or cleans up; patient completes activity. [place] assists only prior to or following the activity. 4-Supervision or Touching Assistance-helper provides verbal cues and/or touching/steadying and/or contact guard assistance as patient completes activity. Assistance may be provided throughout the activity or intermittently. 3-Partial/Moderate Assistance-helper does LESS THAN HALF the effort. [place] lifts, holds or supports trunk or limbs, but provides less than half the effort. 2-Substantial/Maximal Assistance-helper does MORE THAN HALF the effort. [place] lifts or holds trunk or limbs and provides more than half the effort. 4-Zbgeridpq-pagksy does ALL the effort. Patient does none of the effort to complete the activity. Or, the assistance of 2 or more helpers is required for the patient to complete the activity. If activity was not attempted, code reason: 7-Patient Refused. 9-Not Applicable-not attempted and the patient did not perform the activity before the current illness, exacerbation or injury. 10-Not Attempted due to Environmental Limitations-(lack of equipment, weather restraints, etc.). 88-Not Attempted due to Medical Conditions or Safety Concerns. ADL PLOF Comments Pt. states that overall, he is independent with daily skills. However, at times requires assist from spouse to complete LE dressing. Uses a walker "sometimes" in his home. Self Care: Needed Some Help Functional Cognition: Independent DME/Equipment Comments Pt. has a walker and cane. Occupation: Pt. is unable to remember what he did for a living. OT Current Status Subjective Pt. does not report pain. Appearance Pt. is up in chair in room. Pt. was extubated this a.m. Agrees to work with OT but is having difficulty recalling information. Pt's family member is in room and is able to give some history. Mental Status/Objective Patient Orientation: Person Pt. does not know where he is, but knows he is in the hospital. Is unable to recall why he moved to [place] from [place], or what he did for a living. Pt. becomes tearful when he realizes he is having difficulty with his memory. Attachments: Delacruz Catheter, IV, Oxygen (Vapotherm), Telemetry Current Hand Dominance: Right Upper Extremity ROM Right- WFL Left- Pt. able to flex left shoulder to approximately 100 degrees. Upper Extremity Strength Overall, 3+/5 ADL-Treatment Eating (QC): 88 (Nursing states that pt. has not eaten yet, since extubation this a.m. However, is having no difficulty with drinking water.) Lower Body Dressing (QC): 1 (Pt. unable to reach feet to doff/don slipper socks.) On/Off Footwear (QC): 1 Other Treatments Pt. up in chair. Is unsure how long he has been up. Stands from chair with CGA. Pt. is able to stand at walker for approximately 3 minutes, with no dizziness reported. Pt. states that it feels good to stand. Does sit with correct posture and technique of reaching for chair. Pt. unable to reach feet while seated, and does demonstrate overall low endurance and fatigue. Pt. requests to continue sitting in chair with feet down, instead of elevated at this time. All needs met in room. Pt. and family member, (sister in law) educated about OT goals. Both verbalize understanding. Education OT Patient Education: Correct positioning, Modified ADL techniques, Progress toward Goal/Update tx plan, Purpose of tx/functional activities, Reviewed precautions, Rehab process, Transfer techniques Teaching Recipient: Patient, Family Teaching Methods: Demonstration, Discussion Response to Teaching: Verbalize Understanding, Return Demonstration OT Short Term Goals Short Term Goals Time Frame: Jun 30, 2019 Eating(FIM): 4 Grooming(FIM): 4 Bathing(FIM): 3 Upper Body Dressing(FIM): 4 Lower Body Dressing(FIM): 3 Toileting(FIM): 3 Transfers (B,C,W/C) (FIM): 4 Toilet/Commode Transfer(FIM): 4 Additional Short Term Goals: 1-Demonstrate ADL Tasks, 2-Verbalize Under standing, 3-ImproveStrength/Brianna 1=Demonstrate adherence to instructed precautions during ADL tasks. 2=Patient will verbalize/demonstrate understanding of assistive devices/modifications for ADL. 3=Patient will improve strength/tolerance for activity to enable patient to perform ADL's. OT Fdc Goals Piggyback Clerk Goals Time Frame: Jul 07, 2019 Eating (QC): 6 Oral Hygiene (QC): 5 Shower/Bathe Self (QC): 5 Upper Body Dressing (QC): 5 Lower Body Dressing (QC): 5 On/Off Footwear (QC): 5 Toileting Hygiene (QC): 5 Toilet/Commode Transfer (QC): 6 Additional Goals: 1-Demonstrate ADL Tasks, 2-Verbalize Understanding, 3- ImproveStrength/Brianna 1=Demonstrate adherence to instructed precautions during ADL tasks. 2=Patient will verbalize/demonstrate understanding of assistive device s/modifications for ADL. 3=Patient will improve strength/tolerance for activity to enable patient to perform ADL's. OT Education/Plan Problem List/Assessment Assessment: Decreased Activ Tolerance, Decreased UE Strength, Dependent Transfers, Impaired Cognition, Impaired Funct Balance, Impaired I ADL's, Impaired Self-Care Skills Discharge Recommendations Plan/Recommendations: Continue POC Therapy Discharge Recommendati: Post Acute OT Equpiment Recommendations-D/C: Hip Kit Treatment Plan/Plan of Care Treatment,Training & Education: Yes Patient would benefit from OT for education, treatment and training to promote independence in ADL's, mobility, safety and/or upper extremity function for ADL's. Plan of Care: ADL Retraining, Functional Mobility, UE Funct Exercise/Act Treatment Duration: Jul 07, 2019 Frequency: At least 5 of 7 days/Wk (IRF) Estimated Hrs Per Day: 1.5 hours per day Agreement: Yes Rehab Potential: Good Time/GCodes Start Time: 09:35 Stop Time: 10:00 Total Time Billed (hr/min): 25 Billed Treatment Time 1, EVH x 15minutes, FA x 10minutes AZIZA JONES OT Jun 23, 2019 11:51
[2019-06-23] MEDS: ENOXAPARIN 60 MG/0.6 ML (LOVENOX) SYR SC SCH ×2 (12:56→23:11)
[2019-06-23] MEDS: methylPREDNISolone 40 MG/ML (Solu-MEDROL) VIAL IV SCH ×2 (12:56→23:11)
[2019-06-23] MEDS: ACETAMINOPHEN 325 MG TABLET PO PRN (13:50)
--- NOTE | 2019-06-23 14:48 | Diagnostic Imaging Report ---
PROCEDURE: US Venous Lower Ext Francisco. TECHNIQUE: Multiple real-time grayscale images were obtained over the lower extremities in various projections, bilaterally. Additional duplex Doppler and color Doppler images were also obtained. INDICATION: Swelling. FINDINGS: Femoropopliteal deep venous system is bilaterally widely patent showing normal compressibility and normal flow. No superficial thrombi found. No mass or fluid collection demonstrated. IMPRESSION: Normal negative bilateral lower extremity venous Doppler and ultrasound exam. Dictated by: Dictated on workstation # [id number]
--- NOTE | 2019-06-23 15:43 | Wound Care Assessment ---
Wound Care Assessment Date Seen by Provider: Jun 23, 2019 Time Seen by Provider: 08:30 Chief Complaint L calf ulcer. HPI The patient is a 58 year old male admitted for respiratory failure, noted to have venous insufficiency ulcer of L lateral calf. The patient has multiple co- morbidities, including COPD, CAD, CHF, TESSA, dysmobility, and severely morbid obesity. The ulcer is superficial. Xeroform/roller gauze dressing is ordered. 06/23/19 -- Interval Note: The patient is off the ventilator, sitting up. No c/o related to leg. th eL calf wound is stable with present dressing. We will continue Xeroform. Smoking Status: Former Smoker Recreational Drug Use: No Alcohol Use: Denies Use Review of Systems Pulmonary: No Dyspnea Cardiovascular: No: Chest Pain Exam Vital Signs Date Time Temp Pulse Resp B/P (MAP) Pulse Ox O2 Delivery O2 Flow Rate FiO2 06/23/19 15:23 36.9 85 97 06/23/19 14:27 Vapotherm 15.00 50 06/23/19 14:00 157/78 (104) 06/23/19 13:00 30 Capillary Refill : Less Than 3 Seconds General Appearance: no apparent distress Cardiovascular: regular rate, rhythm, other (3+ edema) Respiratory: rhonchi (On right.) Extremities: other (L lateral calf ulcer -- 1.4 x 1.5 x 0.2 cm, base 100% slough, mod. s.s. drainage.) Results Laboratory Tests 06/22/19 23:10: Glucometer 133H 06/23/19 03:15: White Blood Count 12.1H, Red Blood Count 4.25L, Hemoglobin 11.3L, Hematocrit 39L , Mean Corpuscular Volume 91, Mean Corpuscular Hemoglobin 27, Mean Corpuscular Hemoglobin Concent 29L, Red Cell Distribution Width 16.8H, Platelet Count 191, Mean Platelet Volume 9.3, Neutrophils (%) (Auto) 87H, Lymphocytes (%) (Auto) 8L, Monocytes (%) (Auto) 5, Eosinophils (%) (Auto) 0, Basophils (%) (Auto) 0, Neutrophils # (Auto) 10.5H, Lymphocytes # (Auto) 1.0, Monocytes # (Auto) 0.6, Eosinophils # (Auto) 0.0, Basophils # (Auto) 0.0, Blood Gas Puncture Site R RAD, Blood Gas Patient Temperature 36.9, Arterial Blood pH 7.32*L, Arterial Blood Partial Pressure CO2 65H, Arterial Blood Partial Pressure O2 76L, Arterial Blood HCO3 33H, Arterial Blood Total CO2 34.7H, Arterial Blood Oxygen Saturation 96, Arterial Blood Base Excess 6.7H, Ramirez Test YES-POS, Blood Gas Ventilator Setting YES, Blood Gas Inspired Oxygen 40, Sodium Level 143, Potassium Level 4.6, Chloride Level 103, Carbon Dioxide Level 28, Anion Gap 12, Blood Urea Nitrogen 16, Creatinine 0.74, Estimat Glomerular Filtration Rate > 60, BUN/Creatinine Ratio 22, Glucose Level 146H, Calcium Level 8.1L, Phosphorus Level 3.4, Magnesium Level 2.2, B-Type Natriuretic Peptide 153.2H 06/23/19 05:30: Blood Gas Puncture Site RR, Blood Gas Patient Temperature 36.5, Arterial Blood pH 7.40, Arterial Blood Partial Pressure CO2 53H, Arterial Blood Partial Pressure O2 69L, Arterial Blood HCO3 32H, Arterial Blood Total CO2 33.5H, Arterial Blood Oxygen Saturation 95, Arterial Blood Base Excess 6.9H, Ramirez Test YES-POS, Blood Gas Ventilator Setting YES, Blood Gas Inspired Oxygen 40% 06/23/19 11:56: Glucometer 122H Microbiology 06/20/19 Blood Culture - Preliminary, Resulted No growth 06/21/19 Gram Stain - Final, Resulted 06/21/19 Sputum Culture - Preliminary, Resulted Staphylococcus aureus Usual upper respiratory giovanni Culture In Progress 06/20/19 Urine Culture - Final, Complete NO GROWTH Assessment/Plan/Dx 1. L calf ulcer, full thickness, venous insufficiency ulcer. 2. Lymphedema, chronic, multifactorial. 3. Morbid obesity. Plan: Xeroform dressings ordered. Will follow. BETO OROPEZA MD Jun 23, 2019 15:43 POS
--- NOTE | 2019-06-23 16:56 | Progress Note - Hospitalist ---
Subjective HPI/CC On Admission Date Seen by Provider: Jun 23, 2019 Time Seen by Provider: 08:20 shortness of breath Subjective/Events-last exam He is doing well this morning since extubation. He denies dyspnea. He wants coffee. He is still a bit disoriented. He has no other complaints or concerns. Focused Exam Time of Focused Exam: 09:00 Objective Exam Vital Signs Vital Signs Date Time Temp Pulse Resp B/P (MAP) Pulse Ox O2 Delivery O2 Flow Rate FiO2 06/23/19 16:00 86 21 94 Vapotherm 20.00 40.00 06/23/19 15:23 36.9 06/23/19 14:27 50 Capillary Refill : Less Than 3 Seconds General Appearance: No Apparent Distress, Obese Neck: Normal Inspection, Supple Respiratory: Lungs Clear, Normal Breath Sounds, No Respiratory Distress Cardiovascular: Regular Rate, Rhythm, No Edema, No Murmur Gastrointestinal: Normal Bowel Sounds, Non Tender, Soft Extremity: Normal Inspection, Non Tender, No Pedal Edema Neurologic/Psychiatric: Alert, Disoriented Skin: Normal Color, Warm/Dry Results/Procedures Lab Laboratory Tests 06/23/19 03:15 Patient resulted labs reviewed. Imaging: Reviewed Imaging Report Assessment/Plan Assessment and Plan Assess & Plan/Chief Complaint Acute Respiratory Failure- mixed hypercapnia and hypoxemia COPD Morbid obesity with OHS Bibasilar PNA -Extubated this morning -Wearing nasal cannula -Continue Cefepime -Resume Vancomycin with sputum positive for Staph aureus Steroid-induced hyperglycemia -SSI Hypotension- resolved HTN -Hold home meds as BP well controlled DVT ppx: Lovenox GI ppx: Protonix Diagnosis/Problems Diagnosis/Problems (1) Hypercapnic respiratory failure Status: Acute Qualifiers: Chronicity: acute on chronic Qualified Codes: J96.22 - Acute and chronic respiratory failure with hypercapnia (2) Pneumonia involving left lung Status: Acute Qualifiers: Pneumonia type: due to unspecified organism Lung location: unspecified part of lung Qualified Codes: J18.9 - Pneumonia, unspecified organism (3) Essential (primary) hypertension Status: Chronic (4) COPD with acute exacerbation Status: Acute Clinical Quality Measures DVT/VTE Risk/Contraindication: Risk Factor Score Per Nursin RFS Level Per Nursing on Admit: 4+=Very High MARIAM JIN MD Jun 23, 2019 16:56 POS
[2019-06-23] MEDS: VANCOMYCIN INJECTION 2,000 MG in NS (IVPB) 250 ML IV SCH (20:53)
[2019-06-24] VITALS (10 sets, daily range): BP systolic 133–173; BP diastolic 61–94
[2019-06-24] MEDS: RT-ALBUTEROL/IPRATROPIUM 3 ML (DUONEB) VIAL INH SCH ×6 (02:10→21:45)
[2019-06-24] MEDS ORDERED: ALPRAZolam 1 MG (XANAX) TAB ONE (02:29)
--- NOTE | 2019-06-24 02:42 | NUR ---
THIS PATIENT VOICED C/O ANXIETY R/T HIS CURRENT SITUATION. STATES HE IS UNABLE TO FALL ASLEEP BECAUSE HE CAN NOT SHUT HIS MIND OFF. HE SAYS HE IS WORRIED ABOUT HIS BECAUSE HE DOES NOT WANT HER TO HAVE TO PRESUME THE ROLE OF HIS CAREGIVER AND THAT HE HAS BEEN BATTLING DEPRESSION WELL. I TOLD HIM I WOULD CALL [facility] AND VOICE HIS CONCERNS TO THEM. 0137-- NOTIFIED [facility] OF THE PATIENTS COMPLAINTS. NEW ORDER RECEIVED AT THIS TIME.
[2019-06-24 03:41] LABS: BASOPHILS % (AUTO) 0 % (0-10); EOSINOPHILS % (AUTO) 0 % (0-10); HEMATOCRIT 41 % (40-54); HEMOGLOBIN 12.2 G/DL (13.3-17.7); LYMPHOCYTES # (AUTO) 1.3 X 10^3 (1.0-4.0); LYMPHOCYTES % (AUTO) 12 % (12-44); MEAN CORPUSCULAR HEMOGLOBIN 27 PG (25-34); MEAN CORPUSCULAR HGB CONC 30 G/DL (32-36); MEAN CORPUSCULAR VOLUME 89 FL (80-99); MEAN PLATELET VOLUME 9.4 FL (7.4-10.4); MONOCYTES # (AUTO) 0.5 X 10^3 (0.0-1.0); MONOCYTES % (AUTO) 5 % (0-12); NEUTROPHILS # (AUTO) 9.2 X 10^3 (1.8-7.8); NEUTROPHILS % (AUTO) 83 % (42-75); PLATELET COUNT 196 10^3/uL (130-400); RED CELL DISTRIBUTION WIDTH 17.1 % (10.0-14.5)
[2019-06-24 03:58] LABS: BUN/CREATININE RATIO 25; CALCIUM 8.7 MG/DL (8.5-10.1); CARBON DIOXIDE 28 MMOL/L (21-32); CHLORIDE 100 MMOL/L (98-107); CREATININE SERUM 0.81 MG/DL (0.60-1.30); GFR ESTIMATED > 60; GLUCOSE 154 MG/DL (70-105); MAGNESIUM 2.1 MG/DL (1.6-2.4); PHOSPHORUS 3.7 MG/DL (2.3-4.7); SODIUM 140 MMOL/L (135-145)
--- NOTE | 2019-06-24 04:36 | Pulmonary Progress Note ---
Subjective Time Seen by a Provider: 06:31 Subjective/Events-last exam Pt appears to be doing better. Sepsis Event Evaluation Height, Weight, BMI Height: 5'7.00" Weight: 346lbs. 2.0oz. [id number]; 57.27 BMI Method:Stated Focused Exam Time of Focused Exam: 09:00 Exam Exam Vital Signs Date Time Temp Pulse Resp B/P (MAP) Pulse Ox O2 Delivery O2 Flow Rate FiO2 06/24/19 02:10 96 NIV Bilevel 8.00 06/24/19 01:01 72 06/24/19 00:33 NIV Bilevel 9.00 06/24/19 00:24 NIV Bilevel 7.00 06/24/19 00:00 94 NIV Bilevel 9 06/23/19 23:00 83 26 159/74 (102) 95 Vapotherm 20.00 40.00 06/23/19 22:00 89 22 182/84 (116) 95 Vapotherm 20.00 40.00 06/23/19 21:52 96 Vapotherm 20.00 40 06/23/19 21:00 85 22 146/84 (104) 96 Vapotherm 20.00 40.00 06/23/19 20:23 77 14 190/91 (124) 95 Vapotherm 20.00 40.00 06/23/19 20:00 95 Vapotherm 20.00 35 06/23/19 20:00 36.4 06/23/19 19:57 97 Vapotherm 20.00 40 06/23/19 19:21 83 06/23/19 19:00 79 23 206/93 (130) 96 Vapotherm 20.00 40.00 06/23/19 18:00 83 45 148/70 (96) 97 Vapotherm 20.00 40.00 06/23/19 17:00 76 32 157/72 (100) 95 Vapotherm 20.00 40.00 06/23/19 16:15 95 Vapotherm 20.00 30 06/23/19 16:00 86 21 94 Vapotherm 20.00 40.00 06/23/19 16:00 36.1 06/23/19 15:23 36.9 85 97 06/23/19 15:00 86 165/80 (108) 95 Vapotherm 20.00 40.00 06/23/19 14:27 97 Vapotherm 15.00 50 06/23/19 14:00 85 157/78 (104) 97 Vapotherm 20.00 40.00 06/23/19 13:00 116 30 175/80 (111) Vapotherm 20.00 40.00 06/23/19 12:30 95 Vapotherm 15.00 30 06/23/19 12:26 82 06/23/19 12:00 116 30 167/82 (110) Vapotherm 20.00 40.00 06/23/19 11:00 96 14 145/66 (92) 93 Vapotherm 20.00 40.00 06/23/19 10:37 96 Vapotherm 15.00 30 06/23/19 10:18 96 Vapotherm 20.00 40 06/23/19 10:00 81 13 146/66 (92) 95 Vapotherm 20.00 40.00 06/23/19 09:00 79 14 143/67 (92) 95 Vapotherm 20.00 80.00 06/23/19 08:00 97 Vapotherm 20.00 40 06/23/19 08:00 80 21 150/69 (96) Vapotherm 20.00 80.00 06/23/19 07:00 81 06/23/19 07:00 73 29 153/69 (97) 95 Vapotherm 20.00 40.00 06/23/19 06:16 98 Vapotherm 20.00 40 06/23/19 06:03 Vapotherm 20.00 40.00 06/23/19 06:00 67 16 158/92 (114) 99 Mechanical Ventilator 40.00 06/23/19 05:00 64 157/76 (103) 97 Mechanical Ventilator 40.00 I & O 06/24/19 07:00 Intake Total 2685 ml Output Total 6425 ml Balance -3740 ml Height & Weight Height: 5'7.00" Weight: 346lbs. 2.0oz. [id number]; 57.27 BMI Method:Stated General Appearance: No Apparent Distress, Obese HEENT: Moist Mucous Membranes; No Scleral Icterus (L), No Scleral Icterus (R); Other (pupils nonreactive (had just received paralytics)) Neck: Normal Inspection, Supple Respiratory: Lungs Clear, Normal Breath Sounds, No Respiratory Distress Cardiovascular: Regular Rate, Rhythm, No Edema, No Murmur Capillary Refill: Less Than 3 Seconds Extremity: Normal Inspection, Non Tender, No Pedal Edema Neurologic/Psychiatric: Alert, Disoriented Skin: Normal Color, Warm/Dry Results Lab Laboratory Tests 06/23/19 03:15 06/24/19 03:25 Assessment/Plan Assessment/Plan Acute on chronic respiratory failure CHF -Bumex COPDAE -SVNS -Solumedrol GILLIAN SOOD DO Jun 24, 2019 04:36 POS
[2019-06-24] MEDS ORDERED: ALPRAZolam 1 MG (XANAX) TAB PO PRN (05:00)
[2019-06-24] MEDS: inSUlin ASPART (NovoLOG) 1 UNIT/0.01 ML (CHARGE PER UNIT) SC SCH ×4 (05:01→21:37)
[2019-06-24] MEDS: MAGNESIUM 1 GM/100 ML IVPB 100 ML IV SCH (05:02)
[2019-06-24] MEDS: KCL 20 MEQ TAB (K-DUR) PO SCH (05:02)
[2019-06-24] MEDS: POTASSIUM CL 10MEQ/50ML IVPB 50 ML IV SCH (05:02)
--- NOTE | 2019-06-24 06:53 | Cardiology Progress Note ---
Subjective Date Seen by Provider: Jun 24, 2019 Time Seen by Provider: 06:51 Subjective/Events-last exam Patient is sitting in bed, on Vapotherm, still having dyspnea Review of Systems General: No Chills, No Night Sweats; Fatigue; No Malaise, No Appetite, No Other HEENT: No Head Aches, No Visual Changes, No Eye Pain, No Ear Pain, No Dysphasia, No Sinus Congestion, No Post Nasal Drip, No Sore Throat, No Other Pulmonary: Dyspnea; No Cough, No Pleuritic Chest Pain, No Other Cardiovascular: No: Chest Pain, Palpitations, Orthopnea, Paroxysmal Noc. Dyspnea, Edema, Lt Headedness, Other Focused Exam Time of Focused Exam: 09:00 Objective-Cardiology Exam Last Set of Vital Signs Vital Signs 06/23/19 06/24/19 06/24/19 20:00 06:00 06:41 Temp 36.4 Pulse 72 Resp 17 B/P (MAP) 148/68 (94) Pulse Ox 96 O2 Delivery Vapotherm O2 Flow Rate 15.00 FiO2 30 Capillary Refill : Less Than 3 Seconds I&O Intake and Output 06/24/19 00:00 Intake Total 3545 ml Output Total 6650 ml Balance -3105 ml Intake Oral 1840 ml IV Total 1645 ml Other 60 ml Output Urine Total 6650 ml General: Alert, Oriented X3, Cooperative HEENT: Atraumatic Neck: Supple, No JVD, No Thyromegaly Lungs: Clear to Auscultation, Normal Air Movement Heart: Regular Rate, Normal S1, Normal S2, No Murmurs Abdomen: Normal Bowel Sounds, Soft, No Tenderness, No Hepatosplenomegaly, No Masses Extremities: No Clubbing, No Cyanosis, No Edema, Normal Pulses Skin: No Rashes, No Breakdown, No Significant Lesion Neuro: Normal Speech Psych/Mental Status: Mental Status NL, Mood NL Results Lab Laboratory Tests 06/24/19 03:25 A/P-Cardiology Admission Diagnosis Acute respiratory failure Pneumonia COPD Hypotensive shock Assessment/Plan Status post respiratory failure with acute exacerbation of COPD, extubated and on Vapotherm at this time. Improving slowly. Fluid overload, echocardiogram showed normal LV function, ejection fraction 55- 60 percent, left atrial dilatation with pulmonary artery pressure of 25 mmHg, no signs of congestive heart failure. Responded to Bumex. Continue to monitor Pneumonia, managed by primary care team Status post hypotensive shock, blood pressure is better. Continue to monitor Venous stasis changes, venous stasis ulcer, seen by Dr. Taveras History of COPD, oxygen dependent using oxygen at home. Hyperlipidemia Morbid obesity, BMI 57 Clinical Quality Measures DVT/VTE Risk/Contraindication: Risk Factor Score Per Nursin RFS Level Per Nursing on Admit: 4+=Very High CHARLIE ROSSI MD Jun 24, 2019 06:53 POS
--- NOTE | 2019-06-24 07:55 | Diagnostic Imaging Report ---
INDICATION: Dyspnea. COMPARISON STUDY: Chest from yesterday. FINDINGS: Portable upright view of the chest demonstrates interval extubation and removal of the enteric tube. A right jugular catheter remains in the SVC. Cardiomegaly is stable. Central pulmonary congestion has resolved. There is still a small left pleural effusion. IMPRESSION: Interval extubation with resolution of the pulmonary congestion. Cardiomegaly and a small left pleural effusion are still present. Dictated by: Dictated on workstation # [id number]
[2019-06-24] MEDS: VANCOMYCIN INJECTION 2,000 MG in NS (IVPB) 250 ML IV SCH ×2 (09:14→21:39)
[2019-06-24] MEDS: CEFEPIME INJECTION 2,000 MG in WATER (STERILE) FOR INJECTION 20 ML IV SCH ×2 (09:14→21:39)
--- NOTE | 2019-06-24 09:45 | NUR ---
Pt to room 403. Bedside report received from SIERRA Tracy. Agree with previous assessment.
--- NOTE | 2019-06-24 10:42 | Occupational Ther Daily Note ---
OT Current Status-Daily Note Subjective Pt alert, sitting in recliner. present in room. No c/o pain. Pt transferred from ICU room 9 to 4th floor room 403. Mental Status/Objective Patient Orientation: Person, Place, Time, Situation Attachments: Delacruz Catheter, IV, Oxygen (4L) ADL-Treatment Pt agrees to shower with 's help. Pt declines assistance from [place] or nrsg. CGA sitting <--> stand. CGA using FWW to ambulate to bathroom and transfer into shower. Pt able to complete upper body, rozina area and upper legs then pt's assisted bathing all other area. Pt donned/doffed hospital gown by self. assisted with donning/doffing socks. After therapy, pt sitting in recliner with call light/phone in reach. Nrsg notified of pt's needs. present in room. Therapy Code Descriptions/Definitions Functional [place] Measure: 0=Not Assessed/NA 4=Minimal Assistance 1=Total Assistance 5=Supervision or Setup 2=Maximal Assistance 6=Modified [place] 3=Moderate Assistance 7=Complete IndependenceSCALE: Activities may be completed with or without assistive devices. 8-Pxvpbeesbx-gzevkii completes the activity by him/herself with no assistance from a helper. 5-Set-up or Clean-up Assistance-helper sets up or cleans up; patient completes activity. [place] assists only prior to or following the activity. 4-Supervision or Touching Assistance-helper provides verbal cues and/or touching/steadying and/or contact guard assistance as patient completes activity. Assistance may be provided throughout the activity or intermittently. 3-Partial/Moderate Assistance-helper does LESS THAN HALF the effort. [place] lifts, holds or supports trunk or limbs, but provides less than half the effort. 2-Substantial/Maximal Assistance-helper does MORE THAN HALF the effort. [place] lifts or holds trunk or limbs and provides more than half the effort. 7-Bzmqkcwnq-vtnhne does ALL the effort. Patient does none of the effort to complete the activity. Or, the assistance of 2 or more helpers is required for the patient to complete the activity. If activity was not attempted, code reason: 7-Patient Refused. 9-Not Applicable-not attempted and the patient did not perform the activity before the current illness, exacerbation or injury. 10-Not Attempted due to Environmental Limitations-(lack of equipment, weather restraints, etc.). 88-Not Attempted due to Medical Conditions or Safety Concerns. Bathing Location: L Arm, R Arm, L Upper Leg, R Upper Leg, Chest, Abdomen, Perineal Area Shower/Bathe Self (QC): 3 Lower Body Dressing (QC): 2 OT Short Term Goals Short Term Goals Time Frame: Jun 30, 2019 Eating(FIM): 4 Grooming(FIM): 4 Bathing(FIM): 3 Upper Body Dressing(FIM): 4 Lower Body Dressing(FIM): 3 Toileting(FIM): 3 Transfers (B,C,W/C) (FIM): 4 Toilet/Commode Transfer(FIM): 4 Additional Short Term Goals: 1-Demonstrate ADL Tasks, 2-Verbalize Understanding, 3-ImproveStrength/Brianna 1=Demonstrate adherence to instructed precautions during ADL tasks. 2=Patient will verbalize/demonstrate understanding of assistive devices/modific ations for ADL. 3=Patient will improve strength/tolerance for activity to enable patient to perform ADL's. OT Jail Goals Jail Goals Time Frame: Jul 07, 2019 Eating (QC): 6 Oral Hygiene (QC): 5 Shower/Bathe Self (QC): 5 Upper Body Dressing (QC): 5 Lower Body Dressing (QC): 5 On/Off Footwear (QC): 5 Toileting Hygiene (QC): 5 Toilet/Commode Transfer (QC): 6 Additional Goals: 1-Demonstrate ADL Tasks, 2-Verbalize Understanding, 3- ImproveStrength/Brianna 1=Demonstrate adherence to instructed precautions during ADL tasks. 2=Patient will verbalize/demonstrate understanding of assistive devices/modifications for ADL. 3=Patient will improve strength/tolerance for activity to enable patient to perform ADL's. OT Education/Plan Problem List/Assessment Assessment: Decreased Activ Tolerance, Impaired Coordination, Impaired Funct Balance, Impaired Self-Care Skills Discharge Recommendations Plan/Recommendations: Continue POC Treatment Plan/Plan of Care Patient would benefit from OT for education, treatment and training to promote independence in ADL's, mobility, safety and/or upper extremity function for ADL's. Plan of Care: ADL Retraining, Functional Mobility, UE Funct Exercise/Act Treatment Duration: Jul 07, 2019 Frequency: At least 5 of 7 days/Wk (IRF) Estimated Hrs Per Day: 1.5 hours per day Agreement: Yes Rehab Potential: Good Time/GCodes Start Time: 10:15 Stop Time: 11:00 Total Time Billed (hr/min): 45 Billed Treatment Time 1 visit-ADL 3 (45 min) KATALINA YUAN Jun 24, 2019 10:42 POS
--- NOTE | 2019-06-24 11:40 | Progress Note - Hospitalist ---
Subjective HPI/CC On Admission Date Seen by Provider: Jun 24, 2019 Time Seen by Provider: 09:00 shortness of breath Subjective/Events-last exam He reports improved shortness of breath and cough. He had a bowel movement. He denies fever and chills. He denies abdominal pain, nausea, and vomiting. Focused Exam Time of Focused Exam: 09:00 Objective Exam Vital Signs Vital Signs Date Time Temp Pulse Resp B/P (MAP) Pulse Ox O2 Delivery O2 Flow Rate FiO2 06/24/19 10:45 37.1 94 24 166/77 (106) 96 Nasal Cannula 5.00 06/24/19 09:00 35 Capillary Refill : Less Than 3 Seconds General Appearance: No Apparent Distress, Obese Neck: Normal Inspection, Supple Respiratory: Lungs Clear, Normal Breath Sounds, No Respiratory Distress Cardiovascular: Regular Rate, Rhythm, No Edema, No Murmur Gastrointestinal: Normal Bowel Sounds, Non Tender, Soft Extremity: Normal Inspection, Non Tender, Pedal Edema, Other (venous stasis dermatitis) Neurologic/Psychiatric: Alert, Oriented x3, No Motor/Sensory Deficits, Normal Mood/Affect Skin: Warm/Dry Lymphatic: No Adenopathy Results/Procedures Lab Laboratory Tests 06/24/19 03:25 Patient resulted labs reviewed. Imaging: Reviewed Imaging Report Assessment/Plan Assessment and Plan Assess & Plan/Chief Complaint Acute respiratory failure with hypoxia and hypercapnia COPD Morbid obesity with OHS Bibasilar PNA -On vapotherm -Transition to nasal cannula -Continue Cefepime and Vancomycin -Await sputum culture results, growing Staph aureus -Transfer to 4th floor HTN -Resume Coreg and Lisinopril Steroid-induced hyperglycemia -SSI Hypotension- resolved DVT ppx: Lovenox Diagnosis/Problems Diagnosis/Problems (1) Hypercapnic respiratory failure Status: Acute Qualifiers: Chronicity: acute on chronic Qualified Codes: J96.22 - Acute and chronic respiratory failure with hypercapnia (2) Pneumonia involving left lung Status: Acute Qualifiers: Pneumonia type: due to unspecified organism Lung location: unspecified part of lung Qualified Codes: J18.9 - Pneumonia, unspecified organism (3) Essential (primary) hypertension Status: Chronic (4) COPD with acute exacerbation Status: Acute Clinical Quality Measures DVT/VTE Risk/Contraindication: Risk Factor Score Per Nursin RFS Level Per Nursing on Admit: 4+=Very High MARIAM JIN MD Jun 24, 2019 11:40 POS
[2019-06-24] MEDS: methylPREDNISolone 40 MG/ML (Solu-MEDROL) VIAL IV SCH ×2 (12:29→23:59)
[2019-06-24] MEDS: ENOXAPARIN 60 MG/0.6 ML (LOVENOX) SYR SC SCH ×2 (12:30→23:59)
[2019-06-24] MEDS: PRAMIPEXOLE 0.5 MG TAB (MIRAPEX) PO SCH (12:30)
--- NOTE | 2019-06-24 14:27 | Physical Therapy Daily Note ---
PT Daily Note-Current Subjective Patient and agree to PT at this time. Patient expresses concern about c-pap and possibility of infection coming from it. Patient reports he does not know how to clean c-pap and was told to discuss concerns with RT and/or medical supply company. Pain Numeric Pain Scale: 0-No Pain Location: No Pain Reported Mental Status Patient Orientation: Person, Place, Time, Situation Attachments: Oxygen (4L), Delacruz Catheter, IV Transfers SCALE: Activities may be completed with or without assistive devices. 7-Hfbkykqqee-ypsdrbv completes the activity by him/herself with no assistance from a helper. 5-Set-up or Clean-up Assistance-helper sets up or cleans up; patient completes activity. [place] assists only prior to or following the activity. 4-Supervision or Touching Assistance-helper provides verbal cues and/or touching/steadying and/or contact guard assistance as patient completes activity. Assistance may be provided throughout the activity or intermittently. 3-Partial/Moderate Assistance-helper does LESS THAN HALF the effort. [place] lifts, holds or supports trunk or limbs, but provides less than half the effort. 2-Substantial/Maximal Assistance-helper does MORE THAN HALF the effort. [place] lifts or holds trunk or limbs and provides more than half the effort. 1-Epxiazvxd-xlqwce does ALL the effort. Patient does none of the effort to complete the activity. Or, the assistance of 2 or more helpers is required for the patient to complete the activity. If activity was not attempted, code reason: 7-Patient Refused. 9-Not Applicable-not attempted and the patient did not perform the activity before the current illness, exacerbation or injury. 10-Not Attempted due to Environmental Limitations-(lack of equipment, weather restraints, etc.). 88-Not Attempted due to Medical Conditions or Safety Concerns. Sit to Stand (QC): 6 Gait Training Does the Patient Walk?: Yes Gait: 5 Distance: 75' Walk 10 feet (QC): 5 Walk 50 ft with 2 Turns(QC): 5 Gait Assistive Device: FWW Normal pattern and pace. Does not usually use FWW. Exercises Seated Therapy Exercises: Ankle pumps, Hip flexion Seated Reps: 10 Assessment Patient able to stand from chair and ambulate with use of FWW with no assistanc e. Patient demonstrates normal pattern during ambulation but limited distance due to pulmonary function. PT Group Home Goals Group Home Goals PT Joinery Setter Out Goals Time Frame: Jul 05, 2019 Sit to Lying (QC): 6 Lying-Sitting on Side/Bed(QC): 6 Sit to Stand (QC): 6 Roll Left to Right (QC): 6 Chair/Owl-qe-Ukzsb Xfer(QC): 6 Car Transfer (QC): 6 Does the Patient Walk: Yes Distance: 200' Walk 10 feet (QC): 6 Walk 10ft-Uneven Surface(QC): 6 Walk 50ft with 2 Turns (QC): 6 Walk 150 ft (QC): 6 Gait Assistive Device: FWW PT Plan Treatment/Plan Treatment Plan: Continue Plan of Care Treatment Plan: Bed Mobility, Education, Functional Activity Brianna, Functional Strength, Gait, Safety, Therapeutic Exercise, Transfers Treatment Duration: Jul 05, 2019 Frequency: 6 times per week Estimated Hrs Per Day: .25 hour per day Patient and/or Family Agrees t: Yes Time/GCodes Time In: 1304 Time Out: 1321 Total Billed Treatment Time: 17 Total Billed Treatment 1 visit FA 17min GEOVANI BEAR PT Jun 24, 2019 14:27 POS
--- NOTE | 2019-06-24 15:57 | NUR ---
Responded to request by pt to see this Soft Sugar Operator Head, pt and spent quite a bit of time talking about pts depressions ad his health issues and concerns. Pt shared about his recent sleep issues. I listened and offered support and encouragement. Pt seemed to feel some relief in sharing.
[2019-06-24] MEDS ORDERED: MELATONIN 3 MG TABLET PO PRN (16:45)
[2019-06-24] MEDS ORDERED: ONDANSETRON 4 MG (ZOFRAN) ORAL DISSOLVE TAB PO PRN (16:45)
[2019-06-24] MEDS ORDERED: BISACODYL 10 MG SUPP (DULCOLAX) PR PRN (16:45)
[2019-06-24] MEDS ORDERED: diphenhydrAMINE 25 MG TAB (BENADRYL) PO PRN (16:45)
[2019-06-24] MEDS ORDERED: ANTACID SUSP 30 ML UDC (MYLANTA) PO PRN (16:45)
[2019-06-24] MEDS ORDERED: POLYETHYLENE GLYCOL 17 GM (MIRALAX) PACK PO PRN (16:45)
[2019-06-24] MEDS ORDERED: TROUGH ORDER-PHARMACY XX NR (20:00)
[2019-06-24] MEDS ORDERED: PRAMIPEXOLE 0.5 MG TAB (MIRAPEX) PO SCH (21:00)
[2019-06-24] MEDS ORDERED: clonazePAM 1 MG (KlonoPIN) TAB PO SCH (21:00)
[2019-06-24] MEDS ORDERED: WATER (STERILE) FOR INJECTION 20 ML ONE (21:27)
[2019-06-24] MEDS ORDERED: CEFEPIME 2 GM (MAXIPIME) VIAL ONE (21:27)
[2019-06-24] MEDS: CARVEDILOL 12.5 MG (COREG) TABLET PO SCH (21:37)
[2019-06-25 00:25] VITALS: BP 155/72
[2019-06-25] MEDS: RT-ALBUTEROL/IPRATROPIUM 3 ML (DUONEB) VIAL INH SCH ×3 (01:11→09:58)
[2019-06-25 04:35] VITALS: BP 145/67
[2019-06-25 06:00] LABS: BASOPHILS % (AUTO) 0 % (0-10); EOSINOPHILS % (AUTO) 0 % (0-10); HEMATOCRIT 39 % (40-54); HEMOGLOBIN 11.6 G/DL (13.3-17.7); LYMPHOCYTES # (AUTO) 1.2 X 10^3 (1.0-4.0); LYMPHOCYTES % (AUTO) 12 % (12-44); MEAN CORPUSCULAR HEMOGLOBIN 26 PG (25-34); MEAN CORPUSCULAR HGB CONC 30 G/DL (32-36); MEAN CORPUSCULAR VOLUME 89 FL (80-99); MEAN PLATELET VOLUME 9.2 FL (7.4-10.4); MONOCYTES # (AUTO) 0.6 X 10^3 (0.0-1.0); MONOCYTES % (AUTO) 5 % (0-12); NEUTROPHILS # (AUTO) 8.6 X 10^3 (1.8-7.8); NEUTROPHILS % (AUTO) 83 % (42-75); PLATELET COUNT 212 10^3/uL (130-400); RED CELL DISTRIBUTION WIDTH 17.1 % (10.0-14.5); WHITE BLOOD COUNT 10.3 10^3/uL (4.3-11.0)
[2019-06-25 06:20] LABS: BUN/CREATININE RATIO 23; CALCIUM 8.6 MG/DL (8.5-10.1); CARBON DIOXIDE 27 MMOL/L (21-32); CHLORIDE 103 MMOL/L (98-107); GFR ESTIMATED > 60; GLUCOSE 142 MG/DL (70-105); POTASSIUM 4.9 MMOL/L (3.6-5.0); SODIUM 139 MMOL/L (135-145)
[2019-06-25] MEDS: MAGNESIUM 1 GM/100 ML IVPB 100 ML IV SCH (06:33)
[2019-06-25] MEDS: POTASSIUM CL 10MEQ/50ML IVPB 50 ML IV SCH (06:33)
[2019-06-25] MEDS: KCL 20 MEQ TAB (K-DUR) PO SCH (06:33)
[2019-06-25] MEDS: inSUlin ASPART (NovoLOG) 1 UNIT/0.01 ML (CHARGE PER UNIT) SC SCH ×2 (06:34→12:19)
--- NOTE | 2019-06-25 06:34 | Pulmonary Progress Note ---
Subjective Time Seen by a Provider: 06:32 Subjective/Events-last exam Pt is doing better. No complications noted. Sepsis Event Evaluation Height, Weight, BMI Height: 5'7.00" Weight: 346lbs. 2.0oz. 156.519652hl; 57.27 BMI Method:Stated Focused Exam Time of Focused Exam: 09:00 Exam Exam Vital Signs Date Time Temp Pulse Resp B/P (MAP) Pulse Ox O2 Delivery O2 Flow Rate FiO2 06/25/19 06:17 92 High Flow N/C 4.00 06/25/19 04:35 37.2 83 18 145/67 (93) 92 NIV Bilevel 9.00 06/25/19 01:11 94 NIV Bilevel 4.00 06/25/19 00:25 37.3 90 18 155/72 (99) 95 NIV Bilevel 9.00 06/24/19 21:45 93 High Flow N/C 4.00 06/24/19 21:44 82 173/79 (110) 06/24/19 21:30 High Flow N/C 5.00 06/24/19 19:40 36.8 95 20 165/77 (106) 95 Nasal Cannula 4.00 06/24/19 18:46 93 High Flow N/C 4.00 06/24/19 15:07 High Flow N/C 5.00 06/24/19 12:00 37.0 89 22 158/61 (93) 96 Nasal Cannula 5.00 06/24/19 10:45 37.1 94 24 166/77 (106) 96 Nasal Cannula 5.00 06/24/19 09:55 93 High Flow N/C 5.00 06/24/19 09:45 High Flow N/C 5.00 06/24/19 09:00 95 Vapotherm 20.00 35 06/24/19 08:00 97 160/85 (110) NIV Bilevel 9.00 06/24/19 07:00 97 162/94 (116) NIV Bilevel 9.00 06/24/19 07:00 82 06/24/19 06:41 96 Vapotherm 15.00 30 I & O 06/25/19 07:00 Intake Total 1080 ml Output Total 1925 ml Balance -845 ml Height & Weight Height: 5'7.00" Weight: 346lbs. 2.0oz. [id number]; 57.27 BMI Method:Stated General Appearance: No Apparent Distress, Obese HEENT: PERRL/EOMI, Moist Mucous Membranes; No Scleral Icterus (L), No Scleral Icterus (R) Neck: Normal Inspection, Supple Respiratory: Lungs Clear, Normal Breath Sounds, No Respiratory Distress Cardiovascular: Regular Rate, Rhythm, No Edema, No Murmur Capillary Refill: Less Than 3 Seconds Extremity: Normal Inspection, Non Tender, No Pedal Edema Neurologic/Psychiatric: Alert, Disoriented Skin: Normal Color, Warm/Dry Lymphatic: No Adenopathy Results Lab Laboratory Tests 06/24/19 03:25 06/25/19 05:50 Assessment/Plan Assessment/Plan MRSA pneumonia -Continue Vanco -D/C Cefepime -D/C central line after obtaining peripheral line -D/C lopez - pt is requesting CHF -Lasix COPDAE -SVNS -D/C Solumedrol -Oxygen Debility -PT/OT GILLIAN SOOD DO Jun 25, 2019 06:34 POS
[2019-06-25] MEDS ORDERED: VENlafaxine XR 75 MG (EFFEXOR XR) CAP PO SCH (07:00)
[2019-06-25] MEDS: ACETAMINOPHEN 325 MG TABLET PO PRN (07:01)
--- NOTE | 2019-06-25 07:04 | Diagnostic Imaging Report ---
INDICATION: Shortness of breath COMPARISON: 06/24/19 FINDINGS: Single view of the chest demonstrates continued cardiac enlargement. Lungs are clear. There is no pneumothorax. The right IJ catheter stable. IMPRESSION: Stable cardiac enlargement without pulmonary edema or infiltrate. Dictated by: Dictated on workstation # [id number]
--- NOTE | 2019-06-25 07:35 | NUR ---
VANCOMYCIN DOSING TROUGH LEVEL 16.9 - CONTINUE CURRENT DOSE OF VANC 2 GM Q12H
[2019-06-25 08:00] VITALS: BP 164/75
[2019-06-25] MEDS: PRAMIPEXOLE 0.5 MG TAB (MIRAPEX) PO SCH ×2 (08:36→12:25)
[2019-06-25] MEDS: CARVEDILOL 12.5 MG (COREG) TABLET PO SCH (08:37)
[2019-06-25] MEDS: VANCOMYCIN INJECTION 2,000 MG in NS (IVPB) 250 ML IV SCH (08:44)
[2019-06-25] MEDS ORDERED: FUROSEMIDE 40 MG (LASIX) TAB PO SCH (09:00)
[2019-06-25] MEDS ORDERED: NON-FORMULARY MEDICATION 1 EA EA (Venlafaxine HCl (Venlafaxine HCl ER) 150 MG) PO SCH (09:00)
[2019-06-25] MEDS ORDERED: lisINopril 20 MG (PRINIVIL) TABLET PO SCH (09:00)
--- NOTE | 2019-06-25 10:21 | Cardiology Progress Note ---
Subjective Date Seen by Provider: Jun 25, 2019 Time Seen by Provider: 10:20 Subjective/Events-last exam Patient is sitting up in chair. Reports dyspnea is improving. Denies any chest pain or palpitations. Review of Systems General: No Chills, No Night Sweats; Fatigue; No Malaise, No Appetite, No Other HEENT: No Head Aches, No Visual Changes, No Eye Pain, No Ear Pain, No Dysphasia, No Sinus Congestion, No Post Nasal Drip, No Sore Throat, No Other Pulmonary: Dyspnea; No Cough, No Pleuritic Chest Pain, No Other Cardiovascular: No: Chest Pain, Palpitations, Orthopnea, Paroxysmal Noc. Dyspnea, Edema, Lt Headedness, Other Focused Exam Time of Focused Exam: 09:00 Objective-Cardiology Exam Last Set of Vital Signs Vital Signs 06/24/19 06/25/19 06/25/19 09:00 09:58 12:00 Temp 36.9 Pulse 80 Resp 24 B/P (MAP) 155/74 (101) Pulse Ox 91 O2 Delivery Nasal Cannula O2 Flow Rate 4.00 FiO2 35 Capillary Refill : Less Than 3 Seconds I&O Intake and Output 06/25/19 00:00 Intake Total 1950 ml Output Total 3425 ml Balance -1475 ml Intake Oral 1680 ml IV Total 270 ml Output Urine Total 3425 ml # Bowel Movements 2 General: Alert, Oriented X3, Cooperative HEENT: Atraumatic Neck: Supple, No JVD, No Thyromegaly Lungs: Clear to Auscultation, Normal Air Movement Heart: Regular Rate, Normal S1, Normal S2, No Murmurs Abdomen: Normal Bowel Sounds, Soft, No Tenderness, No Hepatosplenomegaly, No Masses Extremities: No Clubbing, No Cyanosis, No Edema, Normal Pulses Skin: No Rashes, No Breakdown, No Significant Lesion Neuro: Normal Speech Psych/Mental Status: Mental Status NL, Mood NL Results Lab Laboratory Tests 06/25/19 05:50 A/P-Cardiology Admission Diagnosis Acute respiratory failure Pneumonia COPD Hypotensive shock Assessment/Plan Status post respiratory failure with acute exacerbation of COPD. Improving slowly. Fluid overload, echocardiogram showed normal LV function, ejection fraction 55- 60 percent, left atrial dilatation with pulmonary artery pressure of 25 mmHg, no signs of congestive heart failure. Responded to Bumex. Continue to monitor Pneumonia, managed by primary care team Status post hypotensive shock, blood pressure is better. Continue to monitor Hypertension- started on Lisinopril in addition to his beta fabian. Continue to monitor blood pressure. Venous stasis changes, venous stasis ulcer, seen by Dr. Taveras History of COPD, oxygen dependent using oxygen at home. Hyperlipidemia, monitor as outpatient. Morbid obesity, BMI 57 Patient was seen and evaluated with Di, examination performed, management plan was discussed, agree with the current scribed note, I made few changes to the note using Italic font Patient is sitting in a chair, feeling better, still having mild shortness of breath Responded to diuretics. Doing better Blood pressure is better Start on lisinopril and beta blockers, continue to monitor blood pressure at this time. Clinical Quality Measures DVT/VTE Risk/Contraindication: Risk Factor Score Per Nursin RFS Level Per Nursing on Admit: 4+=Very High Supervisory-Addendum Brief Supervisory Addendum Participated in pt care: history, MDM, physical Personally performed: exam, history, MDM Care discussed with: DI PARHAM Jun 25, 2019 10:21 CHARLIE MILLS MD Jun 25, 2019 14:29 POS
--- NOTE | 2019-06-25 10:37 | Occupational Ther Daily Note ---
OT Current Status-Daily Note Subjective Pt alert, sitting in recliner. Pt agrees to therapy. No c/o pain at this time. Mental Status/Objective Patient Orientation: Person, Place, Time, Situation Attachments: [place] Catheter, IV, Oxygen ADL-Treatment Therapy Code Descriptions/Definitions Functional [place] Measure: 0=Not Assessed/NA 4=Minimal Assistance 1=Total Assistance 5=Supervision or Setup 2=Maximal Assistance 6=Modified [place] 3=Moderate Assistance 7=Complete IndependenceSCALE: Activities may be completed with or without assistive devices. 2-Qrkvqhtgdn-qdliicd completes the activity by him/herself with no assistance from a helper. 5-Set-up or Clean-up Assistance-helper sets up or cleans up; patient completes activity. [place] assists only prior to or following the activity. 4-Supervision or Touching Assistance-helper provides verbal cues and/or touching/steadying and/or contact guard assistance as patient completes activity. Assistance may be provided throughout the activity or intermittently. 3-Partial/Moderate Assistance-helper does LESS THAN HALF the effort. [place] lifts, holds or supports trunk or limbs, but provides less than half the effort. 2-Substantial/Maximal Assistance-helper does MORE THAN HALF the effort. [place] lifts or holds trunk or limbs and provides more than half the effort. 7-Qnasrhfdo-gkkgtc does ALL the effort. Patient does none of the effort to complete the activity. Or, the assistance of 2 or more helpers is required for the patient to complete the activity. If activity was not attempted, code reason: 7-Patient Refused. 9-Not Applicable-not attempted and the patient did not perform the activity before the current illness, exacerbation or injury. 10-Not Attempted due to Environmental Limitations-(lack of equipment, weather restraints, etc.). 88-Not Attempted due to Medical Conditions or Safety Concerns. Other Treatment Pt stated that he has been walking in room with FWW and . is assisting pt with ADLs. assisted pt to transfer from bed to recliner, CGA. Pt agrees to complete UE strengthening against gravity. Pt is hard to keep focused and on task. B UE exercises, 3, 2 sets 10 reps. Pt tolerated well. After therapy, pt sitting in recliner with call light/phone in reach. present in room, all needs met . OT Short Term Goals Short Term Goals Time Frame: Jun 30, 2019 Eating(FIM): 4 Grooming(FIM): 4 Bathing(FIM): 3 Upper Body Dressing(FIM): 4 Lower Body Dressing(FIM): 3 Toileting(FIM): 3 Transfers (B,C,W/C) (FIM): 4 Toilet/Commode Transfer(FIM): 4 Additional Short Term Goals: 1-Demonstrate ADL Tasks, 2-Verbalize Understanding, 3-ImproveStrength/Brianna 1=Demonstrate adherence to instructed precautions during ADL tasks. 2=Patient will verbalize/demonstrate understanding of assistive devices/modifications for ADL. 3=Patient will improve strength/tolerance for activity to enable patient to perform ADL's. OT Intermediate Goals Intermediate Goals Time Frame: Jul 07, 2019 Eating (QC): 6 Oral Hygiene (QC): 5 Shower/Bathe Self (QC): 5 Upper Body Dressing (QC): 5 Lower Body Dressing (QC): 5 On/Off Footwear (QC): 5 Toileting Hygiene (QC): 5 Toilet/Commode Transfer (QC): 6 Additional Goals: 1-Demonstrate ADL Tasks, 2-Verbalize Understanding, 3- ImproveStrength/Brianna 1=Demonstrate adherence to instructed precautions during ADL tasks. 2=Patient will verbalize/demonstrate understanding of assistive devices/modifications for ADL. 3=Patient will improve strength/tolerance for activity to enable patient to perform ADL's. OT Education/Plan Problem List/Assessment Assessment: Decreased Activ Tolerance, Decreased UE Strength, Impaired Self- Care Skills Discharge Recommendations Plan/Recommendations: Continue POC Treatment Plan/Plan of Care Patient would benefit from OT for education, treatment and training to promote independence in ADL's, mobility, safety and/or upper extremity function for ADL's. Plan of Care: ADL Retraining, Functional Mobility, UE Funct Exercise/Act Treatment Duration: Jul 07, 2019 Frequency: At least 5 of 7 days/Wk (IRF) Estimated Hrs Per Day: 1.5 hours per day Agreement: Yes Rehab Potential: Good Time/GCodes Start Time: 09:03 Stop Time: 09:27 Total Time Billed (hr/min): 24 Billed Treatment Time 1 visit-FA 2 (24 min) KATALINA YUAN Jun 25, 2019 10:37 POS
[2019-06-25 12:00] VITALS: BP 155/74
--- NOTE | 2019-06-25 12:14 | Physical Therapy Daily Note ---
PT Daily Note-Current Subjective Pt is sitting in recliner visiting with company upon arrival. Pt agrees to PT for ambulation. Pain Location: No Pain Reported Mental Status Patient Orientation: Person, Place, Time, Situation Attachments: Oxygen, IV Transfers SCALE: Activities may be completed with or without assistive devices. 2-Bnkvcfokiv-nrbylio completes the activity by him/herself with no assistance from a helper. 5-Set-up or Clean-up Assistance-helper sets up or cleans up; patient completes activity. [place] assists only prior to or following the activity. 4-Supervision or Touching Assistance-helper provides verbal cues and/or touching/steadying and/or contact guard assistance as patient completes activit y. Assistance may be provided throughout the activity or intermittently. 3-Partial/Moderate Assistance-helper does LESS THAN HALF the effort. [place] lifts, holds or supports trunk or limbs, but provides less than half the effort. 2-Substantial/Maximal Assistance-helper does MORE THAN HALF the effort. [place] lifts or holds trunk or limbs and provides more than half the effort. 3-Mutczjbdq-vzbsgk does ALL the effort. Patient does none of the effort to complete the activity. Or, the assistance of 2 or more helpers is required for the patient to complete the activity. If activity was not attempted, code reason: 7-Patient Refused. 9-Not Applicable-not attempted and the patient did not perform the activity before the current illness, exacerbation or injury. 10-Not Attempted due to Environmental Limitations-(lack of equipment, weather restraints, etc.). 88-Not Attempted due to Medical Conditions or Safety Concerns. Sit to Stand (QC): 5 Weight Bearing Full Weight Bearing Full Weight Bearing Gait Training Does the Patient Walk?: Yes Gait: 5 Distance: 250' Walk 10 feet (QC): 5 Walk 50 ft with 2 Turns(QC): 5 Walk 150 ft (QC): 5 Gait Persons Needed: 1 Gait Assistive Device: FWW Treatments Pt transfers from recliner to standing and ambulates in hallway while wearing mask for Droplet Precautions. Pt returns to room at end of Rx with all needs met, call light in hand. Assessment Current Status: Good Progress Pt is fatigued by end of walk, needing rest to recover. PT Chcf Goals [place] Goals PT [place] Goals Time Frame: Jul 05, 2019 Sit to Lying (QC): 6 Lying-Sitting on Side/Bed(QC): 6 Sit to Stand (QC): 6 Roll Left to Right (QC): 6 Chair/Iqs-cv-Cwedj Xfer(QC): 6 Car Transfer (QC): 6 Does the Patient Walk: Yes Distance: 200' Walk 10 feet (QC): 6 Walk 10ft-Uneven Surface(QC): 6 Walk 50ft with 2 Turns (QC): 6 Walk 150 ft (QC): 6 Gait Assistive Device: FWW PT Plan Problem List Problem List: Activity Tolerance, Functional Strength Treatment/Plan Treatment Plan: Continue Plan of Care Treatment Plan: Bed Mobility, Education, Functional Activity Brianna, Functional Strength, Gait, Safety, Therapeutic Exercise, Transfers Treatment Duration: Jul 05, 2019 Frequency: 6 times per week Estimated Hrs Per Day: .25 hour per day Patient and/or Family Agrees t: Yes Safety Risks/Education Patient Education: Gait Training, Correct Positioning, Safety Issues Teaching Recipient: Patient Teaching Methods: Discussion Response to Teaching: Verbalize Understanding Time/GCodes Time In: 1114 Time Out: 1129 Total Billed Treatment Time: 15 Total Billed Treatment 1, GT (15m) CARA MARQUEZ PTA Jun 25, 2019 12:14 POS
[2019-06-25] MEDS: ENOXAPARIN 60 MG/0.6 ML (LOVENOX) SYR SC SCH (12:25)
[2019-06-25] MEDS ORDERED: LINE600T5 PO (13:11)
--- NOTE | 2019-06-25 13:39 | Discharge Summary ---
Discharge Summary Hospital Course Problems/Dx: (1) MRSA pneumonia Status: Acute Qualifiers: Qualified Codes: J15.212 - Pneumonia due to methicillin resistant Stap hylococcus aureus (2) Hypercapnic respiratory failure Status: Acute Qualifiers: Qualified Codes: J96.22 - Acute and chronic respiratory failure with hypercapnia (3) Essential (primary) hypertension Status: Chronic (4) COPD with acute exacerbation Status: Acute Hospital Course Date of Admission: Jun 20, 2019 at 11:08 Admission Diagnosis : Acute on chronic respiratory failure with hypoxemia and hypercapnia Family Physician/Provider: DarielaLocal Physician Date of Discharge: 06/25/19 Discharge Diagnosis: MRSA pneumonia Hospital Course: Tad Guadalupe is a 58yoM with PMH morbid obesity, OHS, chronic respiratory failure, who presented with acute respiratory failure and was found to have MRSA pneumonia. He was in severe respiratory distress and required intubation. He improved and was extubated without issue. He was continued on oral Linezolid on discharge. He was discharged home. He will follow up with Dr. De Leon. He needs to establish with a primary care provider. Labs and Pending Lab Test: Laboratory Tests 06/24/19 15:50: Glucometer 145H 06/24/19 20:21: Vancomycin Level Trough 16.9 06/24/19 21:16: Glucometer 198H 06/25/19 05:50: White Blood Count 10.3, Red Blood Count 4.42, Hemoglobin 11.6L, Hematocrit 39L, Mean Corpuscular Volume 89, Mean Corpuscular Hemoglobin 26, Mean Corpuscular Hemoglobin Concent 30L, Red Cell Distribution Width 17.1H, Platelet Count 212, Mean Platelet Volume 9.2, Neutrophils (%) (Auto) 83H, Lymphocytes (%) (Auto) 12, Monocytes (%) (Auto) 5, Eosinophils (%) (Auto) 0, Basophils (%) (Auto) 0, Neutrophils # (Auto) 8.6H, Lymphocytes # (Auto) 1.2, Monocytes # (Auto) 0.6, Eosinophils # (Auto) 0.0, Basophils # (Auto) 0.0, Sodium Level 139, Potassium Level 4.9, Chloride Level 103, Carbon Dioxide Level 27, Anion Gap 9, Blood Urea Nitrogen 18, Creatinine 0.80, Estimat Glomerular Filtration Rate > 60, BUN/Creatinine Ratio 23, Glucose Level 142H, Calcium Level 8.6, Phosphorus Level 4.0, Magnesium Level 2.0 06/25/19 11:01: Glucometer 136H Microbiology 06/20/19 Blood Culture - Preliminary, Resulted No growth 06/21/19 Gram Stain - Final, Complete 06/21/19 Sputum Culture - Final, Complete Staphylococcus aureus Usual upper respiratory giovanni 06/20/19 Urine Culture - Final, Complete NO GROWTH Home Meds Active Zyvox (Linezolid) 600 Mg Tablet 600 Mg PO BID 7 Days Reported Tylenol Extra Strength (Acetaminophen) 500 Mg Tablet 1,000 Mg PO Q4H PRN Spiriva (Tiotropium [place]) 1 Inh Aerp 1 Cap IH DAILY PRN Venlafaxine HCl ER (Venlafaxine HCl) 150 Mg Cap.er.24h 150 Mg PO DAILY TAKES ALONG WITH 75MG Sildenafil Citrate 50 Mg Tablet 50 Mg PO UD PRN Lisinopril 20 Mg Tablet 20 Mg PO DAILY Atorvastatin Calcium 20 Mg Tablet 20 Mg PO DAILY Mirapex (Pramipexole Di-HCl) 1 Mg Tablet 2 Mg PO HS Pramipexole Dihydrochloride (Pramipexole Di-HCl) 1 Mg Tablet 1 Mg PO 0800,1200 Testosterone Cypionate 100 Mg/1 Ml Vial 1 Ml IM EVERY 2 WEEKS Venlafaxine HCl ER (Venlafaxine HCl) 75 Mg Cap.er.24h 75 Mg PO DAILY TAKES ALONG WITH 150MG Clonazepam 1 Mg Tablet 1 Mg PO HS Carvedilol 12.5 Mg Tablet 12.5 Mg PO BID Furosemide 40 Mg Tablet 40 Mg PO DAILY Albuterol Sulfate 2.5 Mg/3 Ml Vial.neb 2.5 Mg NEB Q4H PRN Assessment/Pt Instructions Take medications as prescribed. Complete your antibiotics even if you are f eeling better. Establish with a primary care doctor. Follow up with Dr. De Leon. Discharge Planning: <30 minutes discharge planning Discharge Instructions Discharge Diet: No Restrictions Activity as Tolerated: Yes Consultations Pulmonology Discharge Physical Examination Vital Signs Vital Signs Date Time Temp Pulse Resp B/P (MAP) Pulse Ox O2 Delivery O2 Flow Rate FiO2 06/25/19 12:00 36.9 80 24 155/74 (101) 91 Nasal Cannula 06/25/19 09:58 4.00 06/24/19 09:00 35 General Appearance: No Apparent Distress, WD/WN, Obese Respiratory: Lungs Clear, Normal Breath Sounds, No Respiratory Distress, Other (wearing nasal cannula) Cardiovascular: Regular Rate, Rhythm, No Edema, No Murmur Gastrointestinal: Normal Bowel Sounds, Non Tender, Soft Extremity: Normal Inspection, Non Tender, Other (chronic venous stasis changes) Skin: Warm/Dry, Other (venous stasis dermatitis) Neurologic/Psychiatric: Alert, Oriented x3, No Motor/Sensory Deficits, Normal Mood/Affect Allergies: Coded Allergies: meperidine HCl (Unverified Allergy, Unknown, 04/22/13) Discharge Summary Date of Admission Jun 20, 2019 at 11:08 Date of Discharge Discharge Date: Jun 25, 2019 Discharge Time: 13:28 Admission Diagnosis Acute Respiratory Failure Consults/Procedures Consulations Pulmonology Discharge Diagnosis MRSA pneumonia (1) MRSA pneumonia Status: Acute Qualifiers: Qualified Codes: J15.212 - Pneumonia due to methicillin resistant Staphylococcus aureus (2) Hypercapnic respiratory failure Status: Acute Qualifiers: Qualified Codes: J96.22 - Acute and chronic respiratory failure with hypercapnia (3) Essential (primary) hypertension Status: Chronic (4) COPD with acute exacerbation Status: Acute Clinical Quality Measures DVT/VTE Risk/Contraindication: Risk Factor Score Per Nursin RFS Level Per Nursing on Admit: 4+=Very High MARIAM JIN MD Jun 25, 2019 13:32 POS
== END 2019-06-25 15:45 | disposition home or self-care (01) | DRG 208 ==
LOC: EDUNIT# 07:07 → ER 07:08 → ICU 11:08 → 4TH 06-24 09:48
PROVIDERS: ADMIT Family Medicine; ATTEND Family Medicine
PROC: 5A1945Z Respiratory Ventilation, 24-96 Consecutive Hours (ICD-10-PCS; principal; 2019-06-20)
PROC: 0BH17EZ Insertion of Endotracheal Airway into Trachea, Via Natural or Artificial Opening (ICD-10-PCS; 2019-06-20)
DX: J96.22 Acute and chronic respiratory failure with hypercapnia (principal); J96.21 Acute and chronic respiratory failure with hypoxia; J15.212 Pneumonia due to Methicillin resistant Staphylococcus aureus; J44.1 Chronic obstructive pulmonary disease with (acute) exacerbation; R57.9 Shock, unspecified; E66.2 Morbid (severe) obesity with alveolar hypoventilation; Z68.43 Body mass index [BMI] 50.0-59.9, adult; L97.221 Non-pressure chronic ulcer of left calf limited to breakdown of skin; I11.0 Hypertensive heart disease with heart failure; E87.70 Fluid overload, unspecified; I50.9 Heart failure, unspecified; R73.9 Hyperglycemia, unspecified; I87.2 Venous insufficiency (chronic) (peripheral); I89.0 Lymphedema, not elsewhere classified; K21.9 Gastro-esophageal reflux disease without esophagitis; R53.83 Other fatigue; E78.5 Hyperlipidemia, unspecified; F41.9 Anxiety disorder, unspecified; F32.9 Major depressive disorder, single episode, unspecified; Z86.79 Personal history of other diseases of the circulatory system; Z99.81 Dependence on supplemental oxygen; Z87.891 Personal history of nicotine dependence; T38.0X5A Adverse effect of glucocorticoids and synthetic analogues, initial encounter
CPT/HCPCS: 31500; 36415; 36600; 51702; 70450; 71045; 71275; 80048; 80053; 80202; 81000; 82805; 82962; 83605; 83735; 83880; 84100; 84484; 85007; 85025; 85027; 85610; 85730; 87040; 87070; 87077; 87081; 87088; 87186; 87205; 87449; 87804; 87899; 93005; 93306; 93970; 94002; 94003; 94640; 94660; 94664; 94760; 94799; 96365; 96366; 96367; 96375; 99291; 99292

== ENCOUNTER 2019-08-26 16:36 | Inpatient (IN) | payer MEDICARE ==
[~2019-08-26] VITALS: Ht 170.2 cm; Wt 174.8 kg
[2019-08-26] VITALS (7 sets, daily range): BP systolic 54–150; BP diastolic 30–69
[~2019-08-26 16:36] MED LIST changes: +ACET-2267 PO; +ATOR20TA66 PO; +LINE600T12 PO; +LISI-552 PO; +PRAM1TAB2 PO; +PRAM1TAB5 PO; +SILD50TA48 PO; +TEST100V3 IM; +TIOT18CA2 IH; +VENL150C98 PO; +VENL75CA93 PO
[2019-08-26] MEDS ORDERED: NS IV 1000 ML 1,000 ML IV SCH (19:14)
[2019-08-26] MEDS ORDERED: VANCOMYCIN INJECTION 0.1 MG in NS (IVPB) 250 ML IV SCH (19:15)
[2019-08-26] MEDS ORDERED: NS IV ONE (19:15)
[2019-08-26] MEDS ORDERED: ACETAMINOPHEN 650 MG SUPP (TYLENOL) PR PRN (19:15)
[2019-08-26] MEDS ORDERED: BISACODYL 10 MG SUPP (DULCOLAX) PR PRN (19:15)
--- NOTE | 2019-08-26 19:29 | History & Physical-Hospitalist ---
History of Present Illness HPI/Chief Complaint Pt is a 59yoCM known to me from previous admissions who was admitted for acute hypercapnic respiratory failure. He is currently intubated sedated and interview is not possible. All history is obtained from review of records and from ER. He reportedly was found by his home health aides and was unresponsive this afternoon and EMS was called and he was brought to the emergency department. He was protecting his airway and so a trial of BiPAP was done because his PCO2 was around 115. After this trial repeat ABG showed a PCO2 of 126 and decision was made to intubate. He has known COPD and follows with Dr. De Leon. He was here recently in May for similar presentation. At that time he had a MRSA pneumonia. He is being admitted to the ICU. Source: patient Date Seen 08/26/19 Time Seen by a Provider: 20:30 Attending Physician Jenni Rowan MD PCP No,Local Physician Referring Physician Date of Admission Home Medications & Allergies Home Medications Reviewed patient Home Medication Reconciliation performed by pharmacy medication reconciliations automotive maintenance technician and/or nursing. Patients Allergies have been reviewed. Allergies Allergies Coded Allergies meperidine HCl (Unverified Allergy, Unknown, 04/22/13) Past Gknfjjm-Xvifjp-Vafrhe Hx Past Med/Social Hx: Reviewed Nursing Past Med/Soc Hx Patient Social History Marrital Status: Smoking Status: Former Smoker Former Smoker, Quit: Nov 28, 1986 2nd Hand Smoke Exposure: No Recent Foreign Travel: No Contact w/other who traveled: No Recent Hopitalizations: No Immunizations Up To Date Tetanus Booster (TDap): More than 5yrs Date of Pneumonia Vaccine: Jun 20, 2017 Seasonal Allergies Seasonal Allergies: No Past Medical History Surgeries: Adenoidectomy, Tonsillectomy Respiratory: COPD, Sleep Apnea Cardiac: Hypertension Reproductive: No Gastrointestinal: Gastroesophageal Reflux Psychosocial: Sleep Difficulties, Anxiety, Depression History of Blood Disorders: No Adverse Reaction to Blood Walker: No (patient has never been given blood) Family History Reviewed Nursing Family Hx FH: CHF (congestive heart failure) Review of Systems ROS-Unable to Obtain: unable to obtain due to intubation Constitutional: see HPI Physical Exam Physical Exam Vital Signs Vital Signs - First Documented 08/26/19 08/26/19 08/26/19 20:10 20:21 21:00 Temp 36.8 Pulse 65 Resp 22 B/P (MAP) 92/44 Pulse Ox 100 O2 Delivery Mechanical Ventilator O2 Flow Rate 50.00 FiO2 100 Capillary Refill : Height, Weight, BMI Height: 5'7.00" Weight: 346lbs. 2.0oz. [id number]; 57.27 BMI Method:Stated General Appearance: Chronically ill, Obese HEENT: Other (OG in place ) Respiratory: Rhonci, Wheezing, Other (intubated) Cardiovascular: Regular Rate, Rhythm, No Murmur Gastrointestinal: Normal Bowel Sounds, Soft, Other (obese) Extremity: Pedal Edema, Swelling Neurologic/Psychiatric: Other (aroused to physical stimuli when transferred from gurney to bed) Skin: Normal Color, Warm/Dry; No Mottled Results Results/Procedures Labs Laboratory Tests 08/26/19 21:10 08/26/19 21:45 08/27/19 03:25 08/27/19 13:53 08/28/19 03:00 Patient resulted labs reviewed. Assessment/Plan Admission Diagnosis Acute hypercapnic respiratory failure Admission Status: Inpatient Order (span 2 midnights) Reason for Inpatient Admission: on vent Assessment and Plan Acute hypercapnic Respiratory Failure COPD Morbid obesity with OHS Recent MRSA pneumonia Intubated at OSH, will get CXR to check placement Propofol and Precedex for sedation Vanc and Cefepime to cover for PNA Was started on Zosyn at OSH for aspiration during intubation Will start Solu Medrol MAT protocol ABG now Hypotensive No evidence of sepsis at this time, will check lactic acid Dr Buckley consulted who will place central line Had similar presentation last admission and hypotension was iatrogenic from sedation Levophed to keep MAP >60 CHF Echo from 05/2019 showed EF 55% Monitor I/Os HTN Hold home meds Critical Care Critically Ill Patient Diagnosis/Problems Diagnosis/Problems (1) Acute hypercapnic respiratory failure (2) Essential (primary) hypertension Status: Chronic (3) CHF (congestive heart failure) Status: Chronic JENNI ROWAN MD Aug 26, 2019 19:29
[2019-08-26] MEDS ORDERED: PROPOFOL DRIP (ICU) 100 ML IV ONE (20:01)
[2019-08-26] MEDS ORDERED: NS (IVPB) 50 ML ONE (20:01)
[2019-08-26] MEDS: PROPOFOL DRIP (ICU) 100 ML IV SCH (20:10)
[2019-08-26] MEDS ORDERED: NS IV 1000 ML 1,000 ML ONE ×2 (20:22→22:38)
[2019-08-26] MEDS ORDERED: NS (IVPB) 250 ML ONE ×3 (20:24→23:30)
[2019-08-26] MEDS ORDERED: NOREPINEPHRINE 4 MG/4 ML (LEVOPHED) AMP IV ONE ×2 (20:24→22:37)
--- NOTE | 2019-08-26 21:29 | Diagnostic Imaging Report ---
INDICATION: Respiratory failure, intubated. COMPARISON: 06/25/2019 at 03:43 a.m. FINDINGS: Single view of the chest demonstrates an ET tube in the mid trachea. There is an NG tube just within the stomach. The side-port is in the distal esophagus. Consider advancing 10 cm. The heart is enlarged. Bilateral pulmonary infiltrates are present. There is no pneumothorax. No large effusion seen. Central vascular congestion is seen centrally. IMPRESSION: 1. Cardiac enlargement with central vascular congestion. 2. Bilateral pulmonary infiltrates suggestive of pneumonia. 3. Well-positioned ET tube. Consider advancing the NG tube approximately 10 cm. Dictated by: Dictated on workstation # [id number]
[2019-08-26 21:43] LABS: ALBUMIN 3.7 GM/DL (3.2-4.5); BILIRUBIN,TOTAL 0.5 MG/DL (0.1-1.0); CALCIUM 7.8 MG/DL (8.5-10.1); CREATININE SERUM 1.38 MG/DL (0.60-1.30)
[2019-08-26 21:50] LABS: POTASSIUM 6.5 MMOL/L (3.6-5.0)
[2019-08-26 21:56] LABS: BASOPHILS % (AUTO) 0 % (0-10); EOSINOPHILS # (AUTO) 0.1 10^3/uL (0.0-0.3); EOSINOPHILS % (AUTO) 0 % (0-10); HEMATOCRIT 48 % (40-54); HEMOGLOBIN 13.6 G/DL (13.3-17.7); LYMPHOCYTES # (AUTO) 1.8 X 10^3 (1.0-4.0); LYMPHOCYTES % (AUTO) 7 % (12-44); MEAN CORPUSCULAR HEMOGLOBIN 27 PG (25-34); MEAN CORPUSCULAR HGB CONC 28 G/DL (32-36); MEAN CORPUSCULAR VOLUME 94 FL (80-99); MEAN PLATELET VOLUME 9.2 FL (7.4-10.4); MONOCYTES % (AUTO) 4 % (0-12); NEUTROPHILS # (AUTO) 23.8 X 10^3 (1.8-7.8); NEUTROPHILS % (AUTO) 89 % (42-75); PLATELET COUNT 265 10^3/uL (130-400); WHITE BLOOD COUNT 26.7 10^3/uL (4.3-11.0)
[2019-08-26 22:05] LABS: ABG BASE EXCESS 6.4 MMOL/L (-2.5-2.5); ABG OXYGEN SATURATION 68 % (94-100); ABG PO2 41 MMHG (79-93); ABG TCO2 37.9 MMOL/L (21.0-31.0)
[2019-08-26 22:07] LABS: ABG PCO2 97 MMHG (35-45); ABG PH 7.17 (7.37-7.43)
[2019-08-26 22:08] LABS: ALLENS TEST YES-POS; INSPIRED O2 50%; PATIENT TEMP 36.1; VENTILATOR YES
[2019-08-26 22:22] LABS: ANISOCYTOSIS SLIGHT; BAND NEUTROPHILS 18 %; EOSINOPHILS % (MANUAL) 1 %; LYMPHOCYTES % (MANUAL) 5 %; MONOCYTES % (MANUAL) 2 %; NEUTROPHILS % (MANUAL) 74 %; POLYCHROMASIA SLIGHT
[2019-08-26] MEDS: inSUlin ASPART (NovoLOG) 1 UNIT/0.01 ML (CHARGE PER UNIT) SC SCH (23:04)
[2019-08-26] MEDS ORDERED: VANCOMYCIN 1000 MG/VIAL ONE (23:30)
[2019-08-26] MEDS: NS IV 1000 ML 1,000 ML IV SCH (23:56)
[2019-08-26] MEDS: CEFEPIME INJECTION 1,000 MG in WATER (STERILE) FOR INJECTION 10 ML IV SCH (23:56)
[2019-08-27] VITALS (28 sets, daily range): BP systolic 100–144; BP diastolic 47–72
[2019-08-27] MEDS: NOREPINEPHRINE 4 MG in NS (IVPB) 250 ML IV SCH ×2 (00:30→03:53)
[2019-08-27 00:45] LABS: ABG BASE EXCESS 5.5 MMOL/L (-2.5-2.5); ABG OXYGEN SATURATION 86 % (94-100); ABG PO2 56 MMHG (79-93); ABG TCO2 36.7 MMOL/L (21.0-31.0)
[2019-08-27 00:46] LABS: ABG PCO2 94 MMHG (35-45); ABG PH 7.18 (7.37-7.43)
[2019-08-27 00:47] LABS: ALLENS TEST YES-POS; INSPIRED O2 80%; PATIENT TEMP 36.2; VENTILATOR YES
[2019-08-27 02:19] LABS: ABG BASE EXCESS 5.8 MMOL/L (-2.5-2.5); ABG OXYGEN SATURATION 90 % (94-100); ABG PO2 55 MMHG (79-93); ABG TCO2 35.1 MMOL/L (21.0-31.0)
[2019-08-27 02:20] LABS: ABG PH 7.26 (7.37-7.43)
[2019-08-27 02:21] LABS: ABG PCO2 74 MMHG (35-45); ALLENS TEST YES-POS; INSPIRED O2 80%; VENTILATOR YES
[2019-08-27] MEDS: PROPOFOL DRIP (ICU) 100 ML IV SCH ×4 (02:39→22:30)
[2019-08-27] MEDS: NS IV 1000 ML 1,000 ML IV SCH (03:02)
[2019-08-27 03:33] LABS: BASOPHILS % (AUTO) 0 % (0-10); EOSINOPHILS % (AUTO) 0 % (0-10); HEMATOCRIT 44 % (40-54); HEMOGLOBIN 12.8 G/DL (13.3-17.7); LYMPHOCYTES # (AUTO) 1.2 X 10^3 (1.0-4.0); LYMPHOCYTES % (AUTO) 4 % (12-44); MEAN CORPUSCULAR HEMOGLOBIN 27 PG (25-34); MEAN CORPUSCULAR HGB CONC 29 G/DL (32-36); MEAN CORPUSCULAR VOLUME 92 FL (80-99); MEAN PLATELET VOLUME 9.1 FL (7.4-10.4); MONOCYTES # (AUTO) 1.4 X 10^3 (0.0-1.0); MONOCYTES % (AUTO) 5 % (0-12); NEUTROPHILS # (AUTO) 26.2 X 10^3 (1.8-7.8); NEUTROPHILS % (AUTO) 91 % (42-75); PLATELET COUNT 226 10^3/uL (130-400); RED CELL DISTRIBUTION WIDTH 18.6 % (10.0-14.5); WHITE BLOOD COUNT 28.8 10^3/uL (4.3-11.0)
[2019-08-27 03:55] LABS: ALBUMIN 3.6 GM/DL (3.2-4.5); BILIRUBIN,TOTAL 0.4 MG/DL (0.1-1.0); CALCIUM 7.8 MG/DL (8.5-10.1); CREATININE SERUM 1.44 MG/DL (0.60-1.30); POTASSIUM 6.1 MMOL/L (3.6-5.0)
[2019-08-27 04:44] LABS: ABG BASE EXCESS 6.3 MMOL/L (-2.5-2.5); ABG OXYGEN SATURATION 94 % (94-100); ABG PCO2 67 MMHG (35-45); ABG PO2 66 MMHG (79-93); ABG TCO2 34.5 MMOL/L (21.0-31.0)
[2019-08-27 04:45] LABS: ABG PH 7.31 (7.37-7.43)
[2019-08-27 04:46] LABS: ALLENS TEST YES-POS; INSPIRED O2 80%; PATIENT TEMP 36.8; VENTILATOR YES
[2019-08-27] MEDS ORDERED: SOD POLYSTERENE 15 GM/60 ML (KAYEXALATE) UNIT DOSE ONE (04:46)
[2019-08-27] MEDS ORDERED: SOD POLYSTERENE 15 GM/60 ML (KAYEXALATE) UNIT DOSE NG ONE (05:30)
[2019-08-27] MEDS: CEFEPIME INJECTION 1,000 MG in WATER (STERILE) FOR INJECTION 10 ML IV SCH ×3 (06:00→18:05)
[2019-08-27] MEDS: MAGNESIUM 1 GM/100 ML IVPB 100 ML IV SCH (06:32)
[2019-08-27] MEDS: KCL 20 MEQ TAB (K-DUR) PO SCH (06:32)
[2019-08-27] MEDS: POTASSIUM CL 10MEQ/50ML IVPB 50 ML IV SCH (06:32)
[2019-08-27] MEDS: inSUlin ASPART (NovoLOG) 1 UNIT/0.01 ML (CHARGE PER UNIT) SC SCH ×4 (06:33→21:18)
--- NOTE | 2019-08-27 08:33 | Diagnostic Imaging Report ---
INDICATION: Mechanical ventilation, infiltrate. TECHNIQUE: Single view chest 3:15 AM. CORRELATION STUDY: 08/26/2019 FINDINGS: Examination compromised by patient's body habitus and technique. Endotracheal tube and gastric tube remain in place. The heart size and mediastinum remain enlarged and prominent. Scattered pulmonary parenchymal densities projected over the mid and lower lung good persisting. There is overall hypoventilation may be accentuating the findings. IMPRESSION: 1. Generally stable appearance about the support lines and tubes as limited in visualization. 2. Extensive bilateral pulmonary infiltrates persisting, stable to perhaps slightly more prominent, may be accentuated by severity of hypoventilation. Dictated by: Dictated on workstation # [id number]
[2019-08-27] MEDS ORDERED: RT-ALBUTEROL/IPRATROPIUM 3 ML (DUONEB) VIAL INH PRN (09:00)
[2019-08-27] MEDS: RT-ALBUTEROL/IPRATROPIUM 3 ML (DUONEB) VIAL INH SCH ×4 (09:35→21:17)
[2019-08-27 09:41] LABS: ABG BASE EXCESS 7.2 MMOL/L (-2.5-2.5); ABG OXYGEN SATURATION 96 % (94-100); ABG PCO2 51 MMHG (35-45); ABG PH 7.41 (7.37-7.43); ABG PO2 73 MMHG (79-93); ABG TCO2 33.4 MMOL/L (21.0-31.0); ALLENS TEST YES-POS
[2019-08-27] MEDS ORDERED: VANCOMYCIN 2000 MG/NS 500 ML IVPB IV NR ×2 (09:41)
--- NOTE | 2019-08-27 09:41 | NUR ---
0715 dose of vanc not given due to it being un available. contacted pharmacy and it is a concentration that has to be figured so it will be figured and re timed. house sup an doc notified.
[2019-08-27 09:42] LABS: INSPIRED O2 90%; PATIENT TEMP 37.2; VENTILATOR YES
[2019-08-27] MEDS ORDERED: FUROSEMIDE 40 MG/4 ML INJ (LASIX) IVP ONE (09:45)
--- NOTE | 2019-08-27 10:42 | Progress Note - Hospitalist ---
Subjective HPI/CC On Admission Date Seen by Provider: Aug 27, 2019 Time Seen by Provider: 10:37 Pt is a 59yoCM known to me from previous admissions who was admitted for acute hypercapnic respiratory failure. He is currently intubated sedated and interview is not possible. All history is obtained from review of records and from ER. He reportedly was found by his home health aides and was unresponsive this afternoon and EMS was called and he was brought to the emergency department. He was protecting his airway and so a trial of BiPAP was done because his PCO2 was around 115. After this trial repeat ABG showed a PCO2 of 126 and decision was made to intubate. He has known COPD and follows with Dr. De Leon. He was here recently in May for similar presentation. At that time he had a MRSA pneumonia. He is being admitted to the ICU. Subjective/Events-last exam Pt remains intubated and sedated. at bedside. Reviewed events from yesterday with her and plan to keep on vent today. All questions answered. Focused Exam Lactate Level 08/26/19 21:10: Lactic Acid Level 2.80*H 08/27/19 00:10: Lactic Acid Level 2.09*H Objective Exam Vital Signs Vital Signs Date Time Temp Pulse Resp B/P (MAP) Pulse Ox O2 Delivery O2 Flow Rate FiO2 08/28/19 14:00 63 26 144/51 (82) 100 Mechanical Ventilator 70.00 08/28/19 12:00 36.0 08/28/19 10:29 40 Capillary Refill : Less Than 3 Seconds General Appearance: Obese, Other (intubated/sedated) Respiratory: Wheezing, Other (on vent) Cardiovascular: Regular Rate, Rhythm, No Murmur Gastrointestinal: Normal Bowel Sounds, Soft, Other (obese) Genital/Rectal: Other (lopez in place) Neurologic/Psychiatric: Other (sedated) Results/Procedures Lab Laboratory Tests 08/28/19 03:00 Patient resulted labs reviewed. Assessment/Plan Assessment and Plan Assess & Plan/Chief Complaint Acute hypercapnic Respiratory Failure COPD Morbid obesity with OHS Recent MRSA pneumonia Maintain on vent Pulm consult tomorrow Propofol and Precedex for sedation Vanc and Cefepime Continue SoluMedrol MAT protocol Hypotension- resolved No evidence of sepsis at this time, lactic acidosis likely due to hypoxia Had similar presentation last admission in May and hypotension was iatrogenic from sedation Levophed to keep MAP >60 CHF Echo from 05/2019 showed EF 55% Monitor I/Os HTN Hold home meds Critical Care Critically Ill Patient Diagnosis/Problems Diagnosis/Problems (1) Acute hypercapnic respiratory failure (2) Essential (primary) hypertension Status: Chronic (3) CHF (congestive heart failure) Status: Chronic Clinical Quality Measures DVT/VTE Risk/Contraindication: Risk Factor Score Per Nursin RFS Level Per Nursing on Admit: 4+=Very High JENNI ALMODOVAR MD Aug 27, 2019 10:42
[2019-08-27 14:00] LABS: BASOPHILS % (AUTO) 0 % (0-10); EOSINOPHILS % (AUTO) 0 % (0-10); HEMATOCRIT 39 % (40-54); HEMOGLOBIN 11.6 G/DL (13.3-17.7); LYMPHOCYTES # (AUTO) 1.1 X 10^3 (1.0-4.0); LYMPHOCYTES % (AUTO) 7 % (12-44); MEAN CORPUSCULAR HEMOGLOBIN 27 PG (25-34); MEAN CORPUSCULAR HGB CONC 29 G/DL (32-36); MEAN CORPUSCULAR VOLUME 90 FL (80-99); MEAN PLATELET VOLUME 9.4 FL (7.4-10.4); MONOCYTES % (AUTO) 6 % (0-12); NEUTROPHILS % (AUTO) 86 % (42-75); PLATELET COUNT 151 10^3/uL (130-400); RED CELL DISTRIBUTION WIDTH 18.1 % (10.0-14.5)
[2019-08-27 14:17] LABS: CALCIUM 7.8 MG/DL (8.5-10.1); CREATININE SERUM 1.42 MG/DL (0.60-1.30); POTASSIUM 4.6 MMOL/L (3.6-5.0)
[2019-08-27] MEDS: D5 NS 1000 ML IV SOLUTION 1,000 ML IV SCH (18:04)
[2019-08-27] MEDS: VANCOMYCIN 1250 MG/NS 250 ML IVPB IV SCH ×2 (18:07)
[2019-08-27] MEDS: FAMOTIDINE 20MG/2ML IV (PEPCID) IV SCH (21:18)
[2019-08-28] VITALS (30 sets, daily range): BP systolic 99–160; BP diastolic 48–70
[2019-08-28] MEDS: CEFEPIME INJECTION 1,000 MG in WATER (STERILE) FOR INJECTION 10 ML IV SCH ×4 (00:07→17:49)
[2019-08-28] MEDS: RT-ALBUTEROL/IPRATROPIUM 3 ML (DUONEB) VIAL INH SCH ×6 (01:25→22:15)
[2019-08-28] MEDS: PROPOFOL DRIP (ICU) 100 ML IV SCH ×6 (01:54→23:36)
[2019-08-28] MEDS: VANCOMYCIN 1250 MG/NS 250 ML IVPB IV SCH ×4 (01:57→11:31)
[2019-08-28 03:09] LABS: WHITE BLOOD COUNT 10.2 10^3/uL (4.3-11.0)
[2019-08-28 03:10] LABS: BASOPHILS % (AUTO) 0 % (0-10); EOSINOPHILS # (AUTO) 0.1 10^3/uL (0.0-0.3); EOSINOPHILS % (AUTO) 1 % (0-10); HEMATOCRIT 36 % (40-54); HEMOGLOBIN 10.5 G/DL (13.3-17.7); LYMPHOCYTES # (AUTO) 1.4 X 10^3 (1.0-4.0); LYMPHOCYTES % (AUTO) 13 % (12-44); MEAN CORPUSCULAR HEMOGLOBIN 26 PG (25-34); MEAN CORPUSCULAR HGB CONC 29 G/DL (32-36); MEAN CORPUSCULAR VOLUME 90 FL (80-99); MEAN PLATELET VOLUME 9.6 FL (7.4-10.4); MONOCYTES # (AUTO) 0.7 X 10^3 (0.0-1.0); MONOCYTES % (AUTO) 7 % (0-12); NEUTROPHILS # (AUTO) 8.2 X 10^3 (1.8-7.8); NEUTROPHILS % (AUTO) 80 % (42-75); PLATELET COUNT 129 10^3/uL (130-400); RED CELL DISTRIBUTION WIDTH 18.4 % (10.0-14.5)
[2019-08-28 03:13] LABS: ABG BASE EXCESS 7.2 MMOL/L (-2.5-2.5); ABG OXYGEN SATURATION 86 % (94-100); ABG PCO2 49 MMHG (35-45); ABG PH 7.43 (7.37-7.43); ABG PO2 48 MMHG (79-93); ABG TCO2 33.5 MMOL/L (21.0-31.0)
[2019-08-28 03:14] LABS: ALLENS TEST YES-POS; INSPIRED O2 70%; PATIENT TEMP 35.4; VENTILATOR YES
--- NOTE | 2019-08-28 03:32 | Pulmonary Consultation ---
JEREMIAH FIELDS MED STUDENT 08/28/19 0332: History of Present Illness History of Present Illness Date Seen by Provider: Aug 28, 2019 Time Seen by Provider: 03:10 Date of Admission History of Present Illness The patient is a 59 year old male who was direct admitted to the ICU for acute respiratory failure. He was found unresponsive by home health aides and taken to the [facility] ER by EMS. He was intubated in the ER after a trial of BiPAP and a repeat ABG showed CO2 of 126. The patient was then transferred here for ICU management. ABGs have shown improvement over past 24hrs. This morning he is on the ventilator and is not requiring pressors. Allergies and Home Medications Allergies Coded Allergies: meperidine HCl (Unverified Allergy, Unknown, 04/22/13) Home Medications Acetaminophen 500 Mg Tablet, 1,000 MG PO Q4H PRN for PAIN-MILD, (Reported) Albuterol Sulfate 2.5 Mg/3 Ml Vial.neb, 2.5 MG NEB Q4H PRN for SHORTNESS OF BREATH, (Reported) Atorvastatin Calcium 20 Mg Tablet, 20 MG PO DAILY, (Reported) Carvedilol 12.5 Mg Tablet, 12.5 MG PO BID, (Reported) Clonazepam 1 Mg Tablet, 1 MG PO HS, (Reported) Furosemide 40 Mg Tablet, 40 MG PO DAILY, (Reported) Linezolid 600 Mg Tablet, 600 MG PO BID Prescribed by: MARIAM JIN on 06/25/19 1311 Lisinopril 20 Mg Tablet, 20 MG PO DAILY, (Reported) Pramipexole Di-HCl 1 Mg Tablet, 1 MG PO 0800,1200, (Reported) Pramipexole Di-HCl 1 Mg Tablet, 2 MG PO HS, (Reported) Sildenafil Citrate 50 Mg Tablet, 50 MG PO UD PRN for ED, (Reported) Testosterone Cypionate 100 Mg/1 Ml Vial, 1 ML IM EVERY 2 WEEKS, (Reported) Tiotropium [place] 1 Inh Aerp, 1 CAP IH DAILY PRN for SHORTNESS OF BREATH, (Reported) Venlafaxine HCl 75 Mg Cap.er.24h, 75 MG PO DAILY, (Reported) TAKES ALONG WITH 150MG Venlafaxine HCl 150 Mg Cap.er.24h, 150 MG PO DAILY, (Reported) TAKES ALONG WITH 75MG Past Sfijwbu-Qahmpq-Ewgqbm Hx Patient Social History Alcohol Use: Denies Use Recreational Drug Use: No Smoking Status: Former Smoker Type Used: Cigarettes Former Smoker, Quit: Nov 28, 1986 2nd Hand Smoke Exposure: No Recent Foreign Travel: No Contact w/Someone Who Travel: No Recent Infectious Disease Expo: No Recent Hopitalizations: No Immunizations Up To Date Tetanus Booster (TDap): More than 5yrs Date of Pneumonia Vaccine: Jun 20, 2017 Date of Influenza Vaccine: Jun 11, 2019 Seasonal Allergies Seasonal Allergies: No Past Medical History Surgeries: Yes Adenoidectomy, Tonsillectomy Respiratory: Yes (COPD, chronic bronchitis, asthma) Asthma, Chronic Bronchitis, Sleep Apnea, COPD Currently Using CPAP: Yes Currently Using BIPAP: No Cardiac: Yes (Congestive heart failure) Hypertension Neurological: No Reproductive Disorders: No Genitourinary: No Gastrointestinal: Yes Gastroesophageal Reflux Musculoskeletal: No Endocrine: No HEENT: No Cancer: No Psychosocial: Yes Sleep Difficulties, Anxiety, Depression Integumentary: No Blood Disorders: No Adverse Reaction/Blood Tranf: No (patient has never been given blood) Family Medical History FH: CHF (congestive heart failure) Review of Systems Time Seen by Provider: 03:10 Other Patient is on the ventilator. Sepsis Event Evaluation Height, Weight, BMI Height: 5'7.00" Weight: 346lbs. 2.0oz. 156.498850iq; 57.92 BMI Method:Stated Exam Exam Vital Signs Date Time Temp Pulse Resp B/P (MAP) Pulse Ox O2 Delivery O2 Flow Rate FiO2 08/28/19 03:00 63 30 103/52 (69) 96 Mechanical Ventilator 70.00 08/28/19 02:00 63 29 106/53 (70) 98 Mechanical Ventilator 70.00 08/28/19 01:54 70 109/53 08/28/19 01:25 64 30 95 70 08/28/19 01:00 59 08/28/19 01:00 62 26 106/52 (70) 97 Mechanical Ventilator 70.00 08/28/19 00:00 61 30 115/53 (73) 99 Mechanical Ventilator 70.00 08/28/19 00:00 36.2 08/28/19 00:00 94 Mechanical Ventilator 70 08/27/19 23:00 58 29 120/58 (78) 100 Mechanical Ventilator 70.00 08/27/19 22:30 62 120/63 08/27/19 22:00 64 30 121/60 (80) 100 Mechanical Ventilator 70.00 08/27/19 21:17 60 30 100 70 08/27/19 21:00 64 29 112/56 (74) 100 Mechanical Ventilator 70.00 08/27/19 20:01 82 111/57 08/27/19 20:00 67 24 111/57 (75) 100 Mechanical Ventilator 70.00 08/27/19 20:00 35.9 08/27/19 20:00 94 Mechanical Ventilator 70 08/27/19 19:00 75 08/27/19 19:00 74 29 121/58 (79) 96 Mechanical Ventilator 70.00 08/27/19 18:13 67 30 98 70 08/27/19 18:00 75 30 118/58 (78) 100 Mechanical Ventilator 70.00 08/27/19 17:00 76 30 100/49 (66) 100 Mechanical Ventilator 70.00 08/27/19 16:00 94 Mechanical Ventilator 70 08/27/19 16:00 75 30 121/62 (81) 99 Mechanical Ventilator 70.00 08/27/19 15:20 36.2 08/27/19 15:00 73 30 138/68 (91) 97 Mechanical Ventilator 70.00 08/27/19 14:35 Mechanical Ventilator 70.00 08/27/19 14:33 70 30 96 80 08/27/19 14:00 71 30 136/72 (93) 96 Mechanical Ventilator 90.00 08/27/19 13:00 75 08/27/19 13:00 73 30 140/68 (92) 96 Mechanical Ventilator 90.00 08/27/19 12:00 79 29 118/64 (82) 100 Mechanical Ventilator 90.00 08/27/19 12:00 94 Mechanical Ventilator 90 08/27/19 11:25 37.4 08/27/19 11:23 37.4 08/27/19 11:00 77 30 141/69 (93) 97 Mechanical Ventilator 90.00 08/27/19 10:45 77 30 98 80 08/27/19 10:00 77 29 117/58 (77) 97 Mechanical Ventilator 90.00 08/27/19 09:00 69 30 144/70 (94) 94 Mechanical Ventilator 90.00 08/27/19 08:53 68 94 90 08/27/19 08:40 68 30 139/69 94 Mechanical Ventilator 90.00 08/27/19 08:00 94 Mechanical Ventilator 90 08/27/19 08:00 66 29 143/71 (95) 94 Mechanical Ventilator 90.00 08/27/19 07:12 36.8 08/27/19 07:00 67 08/27/19 07:00 65 30 136/67 (90) 93 Mechanical Ventilator 90.00 08/27/19 06:22 67 30 94 90 08/27/19 06:00 68 30 124/61 (82) 95 Mechanical Ventilator 80.00 08/27/19 05:00 65 15 123/62 (82) 96 Mechanical Ventilator 80.00 08/27/19 04:00 67 30 115/55 (75) 96 Mechanical Ventilator 80.00 08/27/19 04:00 97 Mechanical Ventilator 80 08/27/19 04:00 36.3 08/27/19 03:57 66 30 96 80 I & O 08/28/19 07:00 Output Total 4075 ml Balance -4075 ml Height & Weight Height: 5'7.00" Weight: 346lbs. 2.0oz. 156.345140sn; 57.92 BMI Method:Stated General Appearance: Obese, Other (intubated/sedated) HEENT: Other (OG in place ) Respiratory: Wheezing, Other (on vent) Cardiovascular: Regular Rate, Rhythm, No Murmur, Bradycardia Capillary Refill: Less Than 3 Seconds Extremity: Pedal Edema, Swelling Neurologic/Psychiatric: Other (sedated) Skin: Normal Color, Warm/Dry; No Mottled Results Lab Laboratory Tests 08/26/19 21:10 08/26/19 21:45 08/27/19 03:25 08/27/19 13:53 08/28/19 03:00 Assessment/Plan Assessment/Plan Acute Respiratory Failure: -Ventilator support -FIO2 70% -PEEP: 10.0 COPD exacerbation -Duonebs Q4h -Add solumedrol Morbid obesity with OHS Recent MRSA pneumonia -Vancomycin started 08/26 -Cefepime started 08/26 CHF -monitor I/O HTN -hold home medications GILLIAN DE LEON DO 08/28/19 7884: History of Present Illness History of Present Illness Time Seen by Provider: 04:28 History of Present Illness The patient is a 59 year old male with hx of severe COPD, OHS, recent admission in May for MRSA pna was direct admitted to the ICU for acute respiratory failure. He was found unresponsive by home health aides and taken to the [facility] ER by EMS. He was intubated in the ER after a trial of BiPAP and a repeat ABG showed CO2 of 126. The patient was then transferred here for ICU management. ABGs have shown improvement over past 24hrs. This morning he is on the ventilator and is not requiring pressors. Allergies and Home Medications Allergies Coded Allergies: meperidine HCl (Unverified Allergy, Unknown, 04/22/13) Home Medications Acetaminophen 500 Mg Tablet, 1,000 MG PO Q4H PRN for PAIN-MILD, (Reported) Albuterol Sulfate 2.5 Mg/3 Ml Vial.neb, 2.5 MG NEB Q4H PRN for SHORTNESS OF BREATH, (Reported) Atorvastatin Calcium 20 Mg Tablet, 20 MG PO DAILY, (Reported) Carvedilol 12.5 Mg Tablet, 12.5 MG PO BID, (Reported) Clonazepam 1 Mg Tablet, 1 MG PO HS, (Reported) Furosemide 40 Mg Tablet, 40 MG PO DAILY, (Reported) Linezolid 600 Mg Tablet, 600 MG PO BID Prescribed by: MARIAM JIN on 06/25/19 1311 Lisinopril 20 Mg Tablet, 20 MG PO DAILY, (Reported) Pramipexole Di-HCl 1 Mg Tablet, 1 MG PO 0800,1200, (Reported) Pramipexole Di-HCl 1 Mg Tablet, 2 MG PO HS, (Reported) Sildenafil Citrate 50 Mg Tablet, 50 MG PO UD PRN for ED, (Reported) Testosterone Cypionate 100 Mg/1 Ml Vial, 1 ML IM EVERY 2 WEEKS, (Reported) Tiotropium [place] 1 Inh Aerp, 1 CAP IH DAILY PRN for SHORTNESS OF BREATH, (Reported) Venlafaxine HCl 75 Mg Cap.er.24h, 75 MG PO DAILY, (Reported) TAKES ALONG WITH 150MG Venlafaxine HCl 150 Mg Cap.er.24h, 150 MG PO DAILY, (Reported) TAKES ALONG WITH 75MG Past Turylwk-Qxpcwq-Qjfzmf Hx Family Medical History FH: CHF (congestive heart failure) Review of Systems Time Seen by Provider: 04:30 Exam Exam General Appearance: Obese, Other (intubated/sedated) Respiratory: Wheezing, Other (on vent) Cardiovascular: Regular Rate, Rhythm, No Murmur, Bradycardia Extremity: Pedal Edema, Swelling Skin: Normal Color, Warm/Dry Assessment/Plan Assessment/Plan Acute Respiratory Failure: -Ventilator support -FIO2 70% -- Decrease to 50% -PEEP: 10.0 --- decrease PEEP to 8 -Pt appears to be doing better change vent to AC/VC 30/500/8 Fi02 decreased to 50% -Repeat ABG in 1 hr -Check Sputum culture -Give Bumex 2 mg IV X 1 -Decrease IVF to 30 cc/hr COPD exacerbation -Duonebs Q4h -Add solumedrol 125 x 1 then 40 Q 6 Morbid obesity with OHS Hypokalemia -Replace -Check phos Recent MRSA pneumonia -Vancomycin started 08/26 -Cefepime started 08/26 -Cultures negative thus fare CHF -monitor I/O HTN -hold home medications Supervisory-Addendum Brief Verification & Attestation Participated in pt care: history Personally performed: exam, history Care discussed with: Medical Student Procedures: n/a Verification and Attestation of Medical Student E/M Service A medical student performed and documented this service in my presence. I reviewed and verified all information documented by the medical student and made modifications to such information, when appropriate. I personally performed the physical exam and medical decision making. Gillian De Leon, Aug 28, 2019,05:02 JEREMIAH FIELDS MED STUDENT Aug 28, 2019 03:32 GILLIAN DE LEON DO Aug 28, 2019 04:34
[2019-08-28 03:48] LABS: ALANINE AMINOTRANSFERASE 18 U/L (0-55); ALKALINE PHOSPHATASE 66 U/L (40-136); BILIRUBIN,TOTAL 0.3 MG/DL (0.1-1.0); BUN/CREATININE RATIO 21; CALCIUM 7.8 MG/DL (8.5-10.1); CARBON DIOXIDE 25 MMOL/L (21-32); CHLORIDE 100 MMOL/L (98-107); CREATININE SERUM 1.21 MG/DL (0.60-1.30); GFR ESTIMATED > 60; GLUCOSE 168 MG/DL (70-105); MAGNESIUM 1.7 MG/DL (1.6-2.4); POTASSIUM 3.5 MMOL/L (3.6-5.0); SODIUM 140 MMOL/L (135-145); TOTAL PROTEIN 5.7 GM/DL (6.4-8.2)
[2019-08-28] MEDS: KCL 20 MEQ TAB (K-DUR) PO SCH (04:00)
[2019-08-28] MEDS: MAGNESIUM 1 GM/100 ML IVPB 100 ML IV SCH ×2 (04:00→04:32)
[2019-08-28] MEDS: POTASSIUM CL 10MEQ/50ML IVPB 50 ML IV SCH ×4 (04:00→09:01)
[2019-08-28] MEDS ORDERED: MAGNESIUM 1 GM/100 ML IVPB 100 ML IV ONE (04:45)
[2019-08-28] MEDS ORDERED: methylPREDNISolone 125 MG (Solu-MEDROL) VIAL IVP ONE (04:45)
[2019-08-28] MEDS ORDERED: BUMETANIDE 1 MG/4 ML (BUMEX) VIAL IV ONE (04:45)
[2019-08-28] MEDS: methylPREDNISolone 40 MG/ML (Solu-MEDROL) VIAL IV SCH ×3 (04:48→17:49)
[2019-08-28 07:05] LABS: ABG BASE EXCESS 7.8 MMOL/L (-2.5-2.5); ABG OXYGEN SATURATION 79 % (94-100); ABG PCO2 54 MMHG (35-45); ABG PO2 44 MMHG (79-93); ABG TCO2 34.6 MMOL/L (21.0-31.0)
[2019-08-28 07:06] LABS: ALLENS TEST YES-POS; INSPIRED O2 50%; PATIENT TEMP 36.1; VENTILATOR YES
[2019-08-28] MEDS: inSUlin ASPART (NovoLOG) 1 UNIT/0.01 ML (CHARGE PER UNIT) SC SCH ×3 (07:16→17:51)
--- NOTE | 2019-08-28 07:32 | Diagnostic Imaging Report ---
INDICATION: Ventilated patient. COMPARISON: 08/27/2019 FINDINGS: Single frontal radiograph view of the chest was obtained and demonstrates indwelling intertracheal tube with tip below the clavicular heads above the jorge luis. Gastric tube tip is not well-visualized. There is persistent cardiomegaly. Note is also made of interval progression of advanced alveolar consolidation throughout the right lung. There is some patchy airspace opacity on the left as well. Small left basilar effusion is suspected. No pneumothorax is seen on either side. IMPRESSION: 1. Bilateral consolidative appearing infiltrates. Again, there has been interval progression on the right. 2. Probable small left basilar effusion. 3. Cardiomegaly. 4. Lines and tubes as above. Dictated by: Dictated on workstation # [id number]
--- NOTE | 2019-08-28 08:52 | Progress Note - Hospitalist ---
Subjective HPI/CC On Admission Date Seen by Provider: Aug 28, 2019 Time Seen by Provider: 08:45 Pt is a 59yoCM known to me from previous admissions who was admitted for acute hypercapnic respiratory failure. He is currently intubated sedated and interview is not possible. All history is obtained from review of records and from ER. He reportedly was found by his home health aides and was unresponsive this afternoon and EMS was called and he was brought to the emergency department. He was protecting his airway and so a trial of BiPAP was done because his PCO2 was around 115. After this trial repeat ABG showed a PCO2 of 126 and decision was made to intubate. He has known COPD and follows with Dr. De Leon. He was here recently in May for similar presentation. At that time he had a MRSA pneumonia. He is being admitted to the ICU. Subjective/Events-last exam Pt remains intubated and sedated. No ROS possible. at bedside. No complaints. Focused Exam Lactate Level 08/26/19 21:10: Lactic Acid Level 2.80*H 08/27/19 00:10: Lactic Acid Level 2.09*H Objective Exam Vital Signs Vital Signs Date Time Temp Pulse Resp B/P (MAP) Pulse Ox O2 Delivery O2 Flow Rate FiO2 08/28/19 08:00 58 26 120/61 (80) 100 Mechanical Ventilator 70.00 08/28/19 06:51 50 08/28/19 04:00 36.3 Capillary Refill : Less Than 3 Seconds General Appearance: Chronically ill, Obese Respiratory: Decreased Breath Sounds, Other (intubated) Cardiovascular: Regular Rate, Rhythm, No Murmur Gastrointestinal: Normal Bowel Sounds, Non Tender, Soft Genital/Rectal: Other (lopez in place) Extremity: Pedal Edema (nonpitting) Neurologic/Psychiatric: Other (sedated) Results/Procedures Lab Laboratory Tests 08/27/19 13:53 08/28/19 03:00 Patient resulted labs reviewed. Assessment/Plan Assessment and Plan Assess & Plan/Chief Complaint Acute hypercapnic Respiratory Failure COPD Morbid obesity with OHS Recent MRSA pneumonia Pulm consulted, appreciate recs Propofol and Precedex for sedation Vanc and Cefepime SoluMedrol MAT protocol Hypotension- resolved No evidence of sepsis at this time, lactic acidosis likely due to hypoxia Had similar presentation last admission in May and hypotension was iatrogenic from sedation Levophed to keep MAP >60 CHF Echo from 05/2019 showed EF 55% Monitor I/Os HTN Hold home meds Critical Care Critically Ill Patient Diagnosis/Problems Diagnosis/Problems (1) Acute hypercapnic respiratory failure (2) Essential (primary) hypertension Status: Chronic (3) CHF (congestive heart failure) Status: Chronic Clinical Quality Measures DVT/VTE Risk/Contraindication: Risk Factor Score Per Nursin RFS Level Per Nursing on Admit: 4+=Very High JENNI ALMODOVAR MD Aug 28, 2019 08:52
[2019-08-28] MEDS ORDERED: TROUGH ORDER-PHARMACY XX NR (09:00)
[2019-08-28] MEDS ORDERED: NS IV 1000 ML 1,000 ML ONE (09:12)
[2019-08-28] MEDS: FAMOTIDINE 20MG/2ML IV (PEPCID) IV SCH ×2 (09:19→20:21)
[2019-08-28] MEDS: D5 NS 1000 ML IV SOLUTION 1,000 ML IV SCH (09:20)
[2019-08-28] MEDS ORDERED: BUDE0.5A NEB (09:37)
--- NOTE | 2019-08-28 09:38 | NUR ---
UNABLE TO SPEAK WITH THE PATIENT AT THIS TIME. I COMPARED THE MED REC WITH THE EXT MED HX AND REVIEWED THE MEDICATIONS THEY WERE REPORTED PREVIOUSLY. THE EXT MED HX MATCHES. I REMOVED THE LINEZOLID THAT SHOULD BE FINISHED. PREVIOUSLY HAD REPORTED PATIENT USES THE SPIRIVA NEEDED, I LEFT IT AND THE SILDENAFIL PRN AND THE TYLENOL OTC PRN. I ADDED THE BUDESONIDE THAT WAS RECENTLY FILLED.
--- NOTE | 2019-08-28 09:48 | Anesthesia-Procedure Note ---
Procedures/Interventions Procedure Start/Stop/Diagnosis Date of Procedure: Aug 28, 2019 Start Time: 09:30 Stop Time: 09:45 Arterial Line Arterial Line Catheter: 20G Type: Radial Location: Right Procedure: prepped, draped in sterile fashion, good wave-form was obtained, patient tolerated procedure well, no immediate complications LESLEY KEBEDE CRNA Aug 28, 2019 09:48
[2019-08-28 10:51] LABS: ABG BASE EXCESS 6.2 MMOL/L (-2.5-2.5); ABG OXYGEN SATURATION 94 % (94-100); ABG PCO2 48 MMHG (35-45); ABG PH 7.42 (7.37-7.43); ABG PO2 63 MMHG (79-93); ABG TCO2 32.4 MMOL/L (21.0-31.0)
[2019-08-28 10:52] LABS: ALLENS TEST ART LINE; INSPIRED O2 40%; VENTILATOR YES
[2019-08-28 11:14] LABS: BILIRUBIN,URINE NEGATIVE (NEGATIVE); CLARITY,URINE CLEAR; COLOR,URINE YELLOW; GLUCOSE, URINE (UA) NEGATIVE (NEGATIVE); KETONES,URINE NEGATIVE (NEGATIVE); LEUKOCYTE ESTERASE ,URINE NEGATIVE (NEGATIVE); NITRITE,URINE NEGATIVE (NEGATIVE); PH,URINE 5.5 (5-9); PROTEIN,URINE NEGATIVE (NEGATIVE)
[2019-08-28 11:22] LABS: BACTERIA,URINE NEGATIVE /HPF; SQUAMOUS EPITHELIAL CELL,UR RARE /HPF
[2019-08-28] MEDS: VANCOMYCIN INJECTION 1,750 MG in NS IV 500 ML 500 ML IV SCH (12:38)
--- NOTE | 2019-08-28 13:05 | NUR ---
Pastoral care visit.
--- NOTE | 2019-08-28 13:35 | NUR ---
Received dietary consult regarding pt's vent status. Note pt currently intubated and sedated at this time. Plan of Care is to extubate pt tomorrow 08/29/19. Would recommend the following TF if pt fails to extubate and would remain intubated: Jevity 1.5 at goal rate of 50ml/hr. Begin at 10ml/hr and increase by 10ml q6h as tolerated. At goal rate, provides 1800 kcal (27 kcal/kg IBW); 77 g Pro (1.1 g Pro/kg IBW) and 912 ml free water. Flush with 150 ml H2O q4h for hydration status. with flushes provides 1812 ml free water. Will follow and reassess as pt needs and status change. Colton Anthony, MS, RD, LD
--- NOTE | 2019-08-28 16:35 | Diagnostic Imaging Report ---
INDICATION: PICC line placement. EXAMINATION: Portable chest at 4:15 p.m. FINDINGS: An ET tube projects over the trachea. NG tube enters the stomach. Left upper extremity PICC line is ascending in the internal jugular vein. There is a large consolidating infiltrate in the right lung. There is a left pleural effusion. IMPRESSION: Left upper extremity PICC line appears to be passing in a cephalad direction in the left internal jugular vein. Extensive right lung infiltrate and left pleural effusion are not appreciably changed from earlier in the day. Dictated by: Dictated on workstation # [id number]
--- NOTE | 2019-08-28 17:00 | NUR ---
attempt to place picc left upper arm unsuccessful, advanced to IJ rather than SVC. attempt to place picc right upper arm unsuccessful, unable to gain access.
[2019-08-28] MEDS: MUPIROCIN 2% OINT 22 GM (BACTROBAN) TUBE NSEACH SCH (20:22)
--- NOTE | 2019-08-28 23:35 | OPERATIVE REPORT ---
DATE OF SERVICE: 08/26/2019 PREOPERATIVE DIAGNOSIS: Hypotension. POSTOPERATIVE DIAGNOSIS: Hypotension. PROCEDURE: Attempted right internal jugular vein central line placement, left femoral vein ultrasound-guided central line placement. SURGEON: Judie Buckley DO ANESTHESIA: Current sedation on vent. ESTIMATED BLOOD LOSS: Minimal. COMPLICATIONS: None. INDICATIONS: The patient is a 59-year-old male, intubated and has been having some hypotension and Dr. Rowan has requested that I place a central line. The right neck was prepped and draped in sterile fashion. Timeout was performed. Ultrasound was used to locate the right internal jugular vein. This was then accessed without difficulty. Dark nonpulsatile blood was withdrawn. The guidewire was inserted into the right internal jugular vein. A #11 blade scalpel was used to make a small skin incision at the insertion point. Dilator was then advanced over the wire and removed. The triple lumen catheter was then advanced. The wire was then attempted to be withdrawn with the catheter inserted and the wire was unable to be removed. The wire was then advanced and the catheter was removed from the wire. The dilator was then advanced over the wire without difficulty and a new catheter was inserted over the wire and the wire was attempted to be removed and unable to be removed again, therefore the catheter and the wire were removed. Ultrasound again was used to relocate the right internal jugular vein, it was re-accessed, dark nonpulsatile blood was withdrawn. Wire was reinserted into the right internal jugular vein. The dilator was then advanced over the wire and removed without difficulty. The triple lumen catheter was then inserted again over the wire and the wire again was unable to be removed. Multiple attempts at redirection were performed and unable to get the wire to be removed; therefore the catheter and the wire removed and pressure was held. The left femoral vein was then prepped and draped. The area was prepped and draped in a sterile fashion. Ultrasound was used to locate the left femoral vein. The left femoral vein was then accessed, dark nonpulsatile blood was withdrawn. The wire was inserted through the needle and the needle was removed. An 11 blade scalpel was used to make a small skin incision at the insertion point, the dilator was then advanced over the wire and removed. The triple lumen catheter was then advanced over the wire and the wire was removed. This was then secured in the usual fashion using 3-0 silk suture. All ports were accessed and flushed without difficulty. The area was then washed and dried and sterile bandage was applied. The patient tolerated procedure well without any complications. Chest x-ray pending. Job ID: [id number] DocumentID: [id number] Dictated Date: 08/28/2019 18:19:30 Press Breaker Date: 08/28/2019 23:35:19 Dictated By: JUDIE BUCKLEY DO
[2019-08-29] VITALS (32 sets, daily range): BP systolic 108–173; BP diastolic 48–70
[2019-08-29] MEDS: inSUlin ASPART (NovoLOG) 1 UNIT/0.01 ML (CHARGE PER UNIT) SC SCH ×4 (00:10→17:51)
[2019-08-29] MEDS: CEFEPIME INJECTION 1,000 MG in WATER (STERILE) FOR INJECTION 10 ML IV SCH ×4 (00:27→17:51)
[2019-08-29] MEDS: methylPREDNISolone 40 MG/ML (Solu-MEDROL) VIAL IV SCH ×4 (00:27→17:51)
[2019-08-29] MEDS: VANCOMYCIN INJECTION 1,750 MG in NS IV 500 ML 500 ML IV SCH ×2 (00:27→12:50)
[2019-08-29] MEDS: PROPOFOL DRIP (ICU) 100 ML IV SCH ×11 (02:24→22:33)
[2019-08-29 02:50] LABS: BASOPHILS % (AUTO) 0 % (0-10); EOSINOPHILS % (AUTO) 0 % (0-10); HEMATOCRIT 38 % (40-54); HEMOGLOBIN 11.4 G/DL (13.3-17.7); LYMPHOCYTES # (AUTO) 0.8 X 10^3 (1.0-4.0); LYMPHOCYTES % (AUTO) 6 % (12-44); MEAN CORPUSCULAR HEMOGLOBIN 27 PG (25-34); MEAN CORPUSCULAR HGB CONC 30 G/DL (32-36); MEAN CORPUSCULAR VOLUME 89 FL (80-99); MEAN PLATELET VOLUME 10.1 FL (7.4-10.4); MONOCYTES # (AUTO) 0.5 X 10^3 (0.0-1.0); MONOCYTES % (AUTO) 3 % (0-12); NEUTROPHILS # (AUTO) 13.4 X 10^3 (1.8-7.8); NEUTROPHILS % (AUTO) 91 % (42-75); PLATELET COUNT 142 10^3/uL (130-400); RED CELL DISTRIBUTION WIDTH 18.5 % (10.0-14.5); WHITE BLOOD COUNT 14.7 10^3/uL (4.3-11.0)
[2019-08-29 02:51] LABS: ABG BASE EXCESS 5.8 MMOL/L (-2.5-2.5); ABG OXYGEN SATURATION 80 % (94-100); ABG PCO2 41 MMHG (35-45); ABG PH 7.47 (7.37-7.43); ABG PO2 43 MMHG (79-93); ABG TCO2 31.1 MMOL/L (21.0-31.0)
[2019-08-29 02:53] LABS: ALLENS TEST POSITIVE; INSPIRED O2 21%; VENTILATOR YES
[2019-08-29] MEDS: RT-ALBUTEROL/IPRATROPIUM 3 ML (DUONEB) VIAL INH SCH ×6 (03:05→22:14)
[2019-08-29 03:11] LABS: ALANINE AMINOTRANSFERASE 19 U/L (0-55); ALBUMIN 3.2 GM/DL (3.2-4.5); ALKALINE PHOSPHATASE 69 U/L (40-136); BILIRUBIN,TOTAL 0.2 MG/DL (0.1-1.0); BUN/CREATININE RATIO 22; CALCIUM 8.5 MG/DL (8.5-10.1); CARBON DIOXIDE 23 MMOL/L (21-32); CHLORIDE 103 MMOL/L (98-107); CREATININE SERUM 1.11 MG/DL (0.60-1.30); GFR ESTIMATED > 60; GLUCOSE 174 MG/DL (70-105); MAGNESIUM 2.1 MG/DL (1.6-2.4); POTASSIUM 4.5 MMOL/L (3.6-5.0); SODIUM 142 MMOL/L (135-145); TOTAL PROTEIN 6.6 GM/DL (6.4-8.2)
[2019-08-29] MEDS: POTASSIUM CL 10MEQ/50ML IVPB 50 ML IV SCH (03:14)
[2019-08-29] MEDS: KCL 20 MEQ TAB (K-DUR) PO SCH (03:15)
[2019-08-29] MEDS: MAGNESIUM 1 GM/100 ML IVPB 100 ML IV SCH (03:15)
[2019-08-29] MEDS ORDERED: ANIDULAFUNGIN INJECTION 200 MG in NS (IVPB) 250 ML IV ONE (05:15)
[2019-08-29] MEDS ORDERED: BUMETANIDE 1 MG/4 ML (BUMEX) VIAL ONE ×2 (06:51→07:02)
--- NOTE | 2019-08-29 06:54 | Pulmonary Progress Note ---
Subjective Time Seen by a Provider: 06:56 Subjective/Events-last exam Pt is sedated on vent. Sepsis Event Evaluation Height, Weight, BMI Height: 5'7.00" Weight: 346lbs. 2.0oz. 156.182070ff; 57.92 BMI Method:Stated Focused Exam Lactate Level 08/26/19 21:10: Lactic Acid Level 2.80*H 08/27/19 00:10: Lactic Acid Level 2.09*H Exam Exam Vital Signs Date Time Temp Pulse Resp B/P (MAP) Pulse Ox O2 Delivery O2 Flow Rate FiO2 08/29/19 06:00 60 27 173/62 (99) 97 Mechanical Ventilator 35.00 08/29/19 05:31 36.0 Mechanical Ventilator 35.00 08/29/19 05:00 66 25 157/56 (89) 94 Mechanical Ventilator 25.00 08/29/19 05:00 66 25 157/56 (89) 94 Mechanical Ventilator 25.00 08/29/19 04:56 154/53 08/29/19 04:00 78 27 144/52 (82) 94 Mechanical Ventilator 25.00 08/29/19 04:00 94 Mechanical Ventilator 21 08/29/19 03:47 60 27 96 21 08/29/19 03:00 58 26 147/58 (87) 93 Mechanical Ventilator 25.00 08/29/19 02:24 159/56 08/29/19 02:00 61 24 156/56 (89) 93 Mechanical Ventilator 25.00 08/29/19 01:00 61 08/29/19 01:00 59 23 153/52 (85) 93 Mechanical Ventilator 25.00 08/29/19 00:00 97 Mechanical Ventilator 25 08/29/19 00:00 62 28 156/52 (86) 95 Mechanical Ventilator 25.00 08/28/19 23:36 61 22 155/52 94 Mechanical Ventilator 70.00 08/28/19 23:35 36.7 08/28/19 23:00 63 23 149/53 (85) 95 Mechanical Ventilator 25.00 08/28/19 22:15 60 27 96 21 08/28/19 22:00 59 27 153/52 (85) 97 Mechanical Ventilator 25.00 08/28/19 21:00 67 28 143/52 (82) 97 Mechanical Ventilator 25.00 08/28/19 20:50 36.33403 60 26 145/50 98 Mechanical Ventilator 08/28/19 20:00 98 Mechanical Ventilator 25 08/28/19 20:00 36.6 08/28/19 20:00 64 23 132/48 (76) 98 Mechanical Ventilator 25.00 08/28/19 19:37 Mechanical Ventilator 25.00 08/28/19 19:00 63 26 147/51 (83) 99 Mechanical Ventilator 35.00 08/28/19 19:00 60 08/28/19 18:59 59 26 100 25 08/28/19 18:00 62 25 148/51 (83) 100 Mechanical Ventilator 35.00 08/28/19 17:50 60 145/51 08/28/19 17:00 69 27 149/51 (83) 98 Mechanical Ventilator 35.00 08/28/19 16:10 98 Mechanical Ventilator 35 08/28/19 16:00 36.4 08/28/19 16:00 72 20 131/49 (76) 100 Mechanical Ventilator 35.00 08/28/19 15:00 57 19 122/48 (72) Mechanical Ventilator 35.00 08/28/19 14:17 Mechanical Ventilator 35.00 08/28/19 14:09 60 29 100 40 08/28/19 14:00 63 26 144/51 (82) 100 Mechanical Ventilator 70.00 08/28/19 13:00 63 23 146/53 (84) 100 Mechanical Ventilator 70.00 08/28/19 12:29 58 08/28/19 12:00 36.0 08/28/19 12:00 97 Mechanical Ventilator 40 08/28/19 12:00 64 22 148/52 (84) 99 Mechanical Ventilator 70.00 08/28/19 11:00 61 22 156/53 (87) 99 Mechanical Ventilator 70.00 08/28/19 10:29 61 2 97 40 08/28/19 10:00 56 24 160/58 (92) 99 Mechanical Ventilator 70.00 08/28/19 09:20 62 08/28/19 09:00 58 19 120/60 (80) 97 Mechanical Ventilator 70.00 08/28/19 09:00 61 117/63 08/28/19 08:00 58 26 120/61 (80) 100 Mechanical Ventilator 70.00 08/28/19 07:30 100 Mechanical Ventilator 50 08/28/19 07:00 66 08/28/19 07:00 62 21 113/67 (82) 93 Mechanical Ventilator 70.00 08/28/19 06:51 60 30 100 50 I & O 08/29/19 07:00 Intake Total 7097.5 ml Output Total 4230 ml Balance 2867.5 ml Height & Weight Height: 5'7.00" Weight: 346lbs. 2.0oz. 156.785787rz; 57.92 BMI Method:Stated General Appearance: Obese, Other (intubated/sedated) HEENT: Other (OG in place ) Neck: Non Tender, Supple Respiratory: Decreased Breath Sounds, Other (on vent) Cardiovascular: Regular Rate, Rhythm, No Murmur Capillary Refill: Less Than 3 Seconds Gastrointestinal: normal bowel sounds, non tender, soft Extremity: Pedal Edema, Swelling Neurologic/Psychiatric: Other (sedated) Skin: Normal Color, Warm/Dry; No Mottled Lymphatic: No Adenopathy Results Lab Laboratory Tests 08/27/19 13:53 08/28/19 03:00 08/29/19 02:40 Assessment/Plan Assessment/Plan Acute Respiratory Failure: -Ventilator support -PEEP to 8 -Pt appears to be doing better change vent to AC/VC 30/500/8 Fi02 decreased to 50% -Repeat ABG in 1 hr -Check Sputum culture -repeat Bumex 2 mg IV X 1 -Decrease IVF to 30 cc/hr COPD exacerbation -Duonebs Q4h - solumedrol 40 Q 6 Morbid obesity with OHS Hypokalemia -Replace -Check phos Recent MRSA pneumonia -Add Eraxis 08/29 secondary to yeast in Sputum culture. -Vancomycin started 08/26 -Cefepime started 08/26 CHF -monitor I/O HTN -Add Lopressor PO, and PRN Hydralazine GILLIAN SOOD DO Aug 29, 2019 06:54
[2019-08-29] MEDS: FAMOTIDINE 20MG/2ML IV (PEPCID) IV SCH ×2 (08:19→21:34)
[2019-08-29] MEDS: hydrALAZINE (APESOLINE) 20 MG/ML VIAL IV SCH ×5 (08:19→23:56)
[2019-08-29] MEDS: meTOprolol TARTRATE 25 MG (LOPRESSOR) TABLET PO SCH ×2 (08:21→20:26)
[2019-08-29] MEDS: MUPIROCIN 2% OINT 22 GM (BACTROBAN) TUBE NSEACH SCH ×2 (08:33→21:34)
--- NOTE | 2019-08-29 08:38 | Diagnostic Imaging Report ---
INDICATION: Respiratory failure. Portable chest 3:46 AM FINDINGS: There is diffuse alveolar infiltrate in the right lung. There is an ET tube projecting over the trachea. NG tube enters the stomach. IMPRESSION: Diffuse alveolar infiltrate right lung. No appreciable change from previous day. Dictated by: Dictated on workstation # [id number]
--- NOTE | 2019-08-29 09:33 | Progress Note - Hospitalist ---
Subjective HPI/CC On Admission Date Seen by Provider: Aug 29, 2019 Time Seen by Provider: 09:28 Pt is a 59yoCM known to me from previous admissions who was admitted for acute hypercapnic respiratory failure. He is currently intubated sedated and interview is not possible. All history is obtained from review of records and from ER. He reportedly was found by his home health aides and was unresponsive this afternoon and EMS was called and he was brought to the emergency department. He was protecting his airway and so a trial of BiPAP was done because his PCO2 was around 115. After this trial repeat ABG showed a PCO2 of 126 and decision was made to intubate. He has known COPD and follows with Dr. De Leon. He was here recently in May for similar presentation. At that time he had a MRSA pneumonia. He is being admitted to the ICU. Subjective/Events-last exam Pt remains intuabted and sedated. No ROS possible. at bedside without concern. Focused Exam Lactate Level 08/26/19 21:10: Lactic Acid Level 2.80*H 08/27/19 00:10: Lactic Acid Level 2.09*H Objective Exam Vital Signs Vital Signs Date Time Temp Pulse Resp B/P (MAP) Pulse Ox O2 Delivery O2 Flow Rate FiO2 08/29/19 09:00 95 27 162/56 (91) 97 Mechanical Ventilator 35.00 08/29/19 07:21 35 08/29/19 05:31 36.0 Capillary Refill : Less Than 3 Seconds General Appearance: Chronically ill, Obese Respiratory: Rhonci, Other (on vent) Cardiovascular: Regular Rate, Rhythm, No Murmur Rectal: Other (lopez in place) Extremity: Pedal Edema Neurologic/Psychiatric: Other (on sedation but was awakening and attempted to ask question but was unintelligible and patient appearred quite agitated after that) Results/Procedures Lab Laboratory Tests 08/29/19 02:40 Patient resulted labs reviewed. Assessment/Plan Assessment and Plan Assess & Plan/Chief Complaint Acute hypercapnic Respiratory Failure COPD Morbid obesity with OHS Recent MRSA pneumonia Propofol and Precedex for sedation, will add Fentanyl Vanc and Cefepime to cover for PNA, Eraxis added today for yeast in sputum Solu Medrol MAT protocol Pulm consulted, appreciate recs Hypotensive- resolved off pressors Had similar presentation last admission and hypotension was iatrogenic from sedation CHF Echo from 05/2019 showed EF 55% Monitor I/Os HTN Hold home meds Critical Care Critically Ill Patient Diagnosis/Problems Diagnosis/Problems (1) Acute hypercapnic respiratory failure (2) Essential (primary) hypertension Status: Chronic (3) CHF (congestive heart failure) Status: Chronic Clinical Quality Measures DVT/VTE Risk/Contraindication: Risk Factor Score Per Nursin RFS Level Per Nursing on Admit: 4+=Very High JENNI ALMODOVAR MD Aug 29, 2019 09:33
--- NOTE | 2019-08-29 09:58 | NUR ---
This nurse updated on patients decreased urine output, orders received to give patient 1L NS bolus now.
--- NOTE | 2019-08-29 10:07 | Physician Query Clarification ---
PQ-CHF Specificity Admission Date: Aug 26, 2019 at 19:59 Discharge Date: The medical record reflects the following clinical scenario: History/Risk Factors: Acute hypercapnic respiratory failure, COPD AE, HTN w/ chronic CHF OHS Clinical Findings: BNP 96.7, EF 55% Treatment: 20 mg IVP Lasix Question: Can you further specify the acuity &/or type of CHF per the clinical indicators above? Please document a response in the Progress Notes or Discharge Summary. 1. Acuity: Acute, Chronic or Acute on Chronic 2. Type: Systolic, Diastolic or Systolic & Diastolic 3. Unspecified: CHF cannot be further specified regarding type or acuity 4. Other, with explanation of clinical findings 5. Clinically undetermined, no explanation for clinical findings PHYSICIAN RESPONSE Acuity: Chronic Type: Diastolic Please remember a lack of response to the above will prompt a phone page by [facility]/ Coding staff. In responding to this query, please exercise your independent professional judgment. The purpose of this communication is to more accurately reflect the complexity of your patients condition. The fact that a question is asked does not imply that any particular answer is desired or expected. Thank you for your timely response to this clarification. Requestors name: Temo THIS PHYSICIAN QUERY FORM IS A PERMANENT PART OF THE MEDICAL RECORD TEMO CAGE Aug 29, 2019 10:07 JENNI ALMODOVAR MD Aug 29, 2019 14:40
--- NOTE | 2019-08-29 10:15 | NUR ---
Patient awake and agitated. This nurse assessed patients lopez catheter after receiving report on patient and hourly, I notified of patients low urine output (see in previous note). Lopez catheter tubing is not kinked, securement device in place, catheter bag is below patients hip level. Assessment remains unchanged. This nurse investigated further and flushed lopez catheter with NS, after flushing lopez catheter urine now flowing freely. This nurse notified that this nurse flushed lopez catheter and that it is now patent and draining and patient in fact does not have low urine output. IV bolus previously ordered discontinued. Will continue to closely monitor.
--- NOTE | 2019-08-29 10:33 | NUR ---
2ML OF DEFINITY SOLUTION WERE GIVEN. PT TOLERATED IT WELL.
[2019-08-29] MEDS: fentaNYL INJECTION 1,250 MCG in NS (IVPB) 250 ML IV SCH (10:38)
[2019-08-29] MEDS: NS IV 1000 ML 1,000 ML IV STA ×2 (10:39→12:48)
[2019-08-29] MEDS ORDERED: TROUGH ORDER-PHARMACY XX NR (11:00)
--- NOTE | 2019-08-29 15:10 | Diagnostic Imaging Report ---
INDICATION: PICC line placement. TIME OF EXAM: 02:25 p.m. COMPARISON: Correlation is made with prior study earlier same day. FINDINGS: Left-sided PICC line is noted. The tip appears to be in the region of the SVC. There is NG tube passes below the diaphragm. Extensive airspace infiltrate throughout the right lung is noted. Heart is enlarged. ET tube has tip above the jorge luis. No pneumothorax. IMPRESSION: PICC line placement, as described. Dictated by: Dictated on workstation # [id number]
--- NOTE | 2019-08-29 15:39 | NUR ---
This nurse updated about the xray being reported for the PICC line that was placed, gave me the go ahead to use the PICC line.
[2019-08-29] MEDS: D5 NS 1000 ML IV SOLUTION 1,000 ML IV SCH (20:23)
[2019-08-30] VITALS (28 sets, daily range): BP systolic 94–166; BP diastolic 50–99
[2019-08-30] MEDS: PROPOFOL DRIP (ICU) 100 ML IV SCH ×11 (00:50→23:43)
[2019-08-30] MEDS: methylPREDNISolone 40 MG/ML (Solu-MEDROL) VIAL IV SCH ×5 (01:01→23:43)
[2019-08-30] MEDS: CEFEPIME INJECTION 1,000 MG in WATER (STERILE) FOR INJECTION 10 ML IV SCH ×5 (01:01→23:43)
[2019-08-30] MEDS: inSUlin ASPART (NovoLOG) 1 UNIT/0.01 ML (CHARGE PER UNIT) SC SCH ×4 (01:07→17:54)
[2019-08-30] MEDS: RT-ALBUTEROL/IPRATROPIUM 3 ML (DUONEB) VIAL INH SCH ×5 (02:46→23:51)
[2019-08-30 03:51] LABS: ABG BASE EXCESS 5.5 MMOL/L (-2.5-2.5); ABG OXYGEN SATURATION 91 % (94-100); ABG PCO2 46 MMHG (35-45); ABG PH 7.43 (7.37-7.43); ABG PO2 60 MMHG (79-93); ABG TCO2 31.4 MMOL/L (21.0-31.0)
[2019-08-30 03:51] LABS: BASOPHILS % (AUTO) 0 % (0-10); EOSINOPHILS % (AUTO) 0 % (0-10); HEMATOCRIT 39 % (40-54); HEMOGLOBIN 11.4 G/DL (13.3-17.7); LYMPHOCYTES # (AUTO) 0.9 X 10^3 (1.0-4.0); LYMPHOCYTES % (AUTO) 6 % (12-44); MEAN CORPUSCULAR HEMOGLOBIN 27 PG (25-34); MEAN CORPUSCULAR HGB CONC 30 G/DL (32-36); MEAN CORPUSCULAR VOLUME 90 FL (80-99); MEAN PLATELET VOLUME 10.5 FL (7.4-10.4); MONOCYTES # (AUTO) 0.6 X 10^3 (0.0-1.0); MONOCYTES % (AUTO) 4 % (0-12); NEUTROPHILS # (AUTO) 12.5 X 10^3 (1.8-7.8); NEUTROPHILS % (AUTO) 90 % (42-75); PLATELET COUNT 163 10^3/uL (130-400); RED CELL DISTRIBUTION WIDTH 19.2 % (10.0-14.5); WHITE BLOOD COUNT 13.9 10^3/uL (4.3-11.0)
[2019-08-30 03:53] LABS: ALLENS TEST POSITIVE; INSPIRED O2 35%; PATIENT TEMP 36.2; VENTILATOR YES
[2019-08-30] MEDS ORDERED: BUMETANIDE 1 MG/4 ML (BUMEX) VIAL IV ONE (04:00)
[2019-08-30] MEDS: POTASSIUM CL 10MEQ/50ML IVPB 50 ML IV SCH (04:11)
[2019-08-30] MEDS: hydrALAZINE (APESOLINE) 20 MG/ML VIAL IV SCH ×6 (04:11→20:53)
[2019-08-30] MEDS: MAGNESIUM 1 GM/100 ML IVPB 100 ML IV SCH (04:12)
[2019-08-30] MEDS: KCL 20 MEQ TAB (K-DUR) PO SCH (04:12)
[2019-08-30 04:15] LABS: BUN/CREATININE RATIO 28; CALCIUM 8.6 MG/DL (8.5-10.1); CARBON DIOXIDE 23 MMOL/L (21-32); CHLORIDE 106 MMOL/L (98-107); CREATININE SERUM 1.07 MG/DL (0.60-1.30); GFR ESTIMATED > 60; GLUCOSE 170 MG/DL (70-105); MAGNESIUM 2.2 MG/DL (1.6-2.4); PHOSPHORUS 3.4 MG/DL (2.3-4.7); POTASSIUM 4.6 MMOL/L (3.6-5.0); SODIUM 142 MMOL/L (135-145)
--- NOTE | 2019-08-30 04:18 | Pulmonary Progress Note ---
JEREMIAH FIELDS MED STUDENT 08/30/19 0418: Subjective Date Seen by a Provider: Aug 30, 2019 Time Seen by a Provider: 04:00 Subjective/Events-last exam The patient is sedated and on the ventilator. There are no family present at this time. Sepsis Event Evaluation Height, Weight, BMI Height: 5'7.00" Weight: 346lbs. 2.0oz. 156.425621kw; 57.92 BMI Method:Stated Exam Exam Vital Signs Date Time Temp Pulse Resp B/P (MAP) Pulse Ox O2 Delivery O2 Flow Rate FiO2 08/30/19 03:39 36.79856 62 18 149/60 96 Mechanical Ventilator 08/30/19 03:00 62 18 149/60 (89) 96 Mechanical Ventilator 35.00 08/30/19 02:49 64 26 96 35 08/30/19 02:00 59 26 145/77 (99) 98 Mechanical Ventilator 35.00 08/30/19 01:00 61 25 151/60 (90) 97 Mechanical Ventilator 35.00 08/30/19 01:00 61 08/30/19 00:50 Mechanical Ventilator 08/30/19 00:00 95 Mechanical Ventilator 35 08/30/19 00:00 62 25 149/58 (88) 97 Mechanical Ventilator 35.00 08/29/19 23:00 61 21 144/59 (87) 97 Mechanical Ventilator 35.00 08/29/19 22:33 Mechanical Ventilator 08/29/19 22:16 58 26 97 35 08/29/19 22:00 60 20 149/60 (89) 98 Mechanical Ventilator 35.00 08/29/19 21:00 61 26 136/70 (92) 98 Mechanical Ventilator 35.00 08/29/19 20:27 36.25363 64 26 128/64 93 Mechanical Ventilator 08/29/19 20:00 62 27 145/56 (85) 95 Mechanical Ventilator 35.00 08/29/19 20:00 95 Mechanical Ventilator 35 08/29/19 19:33 36.6 64 26 128/64 (85) 93 Mechanical Ventilator 35.00 08/29/19 19:00 68 08/29/19 19:00 64 26 130/65 (86) 94 Mechanical Ventilator 35.00 08/29/19 18:45 60 26 94 35 08/29/19 18:00 58 26 134/53 (80) 94 Mechanical Ventilator 35.00 08/29/19 17:52 57 08/29/19 17:00 61 22 130/49 (76) 95 Mechanical Ventilator 35.00 08/29/19 16:00 96 Mechanical Ventilator 21 08/29/19 16:00 68 25 128/55 (79) 95 Mechanical Ventilator 35.00 08/29/19 15:49 61 08/29/19 15:00 62 22 137/49 (78) 98 Mechanical Ventilator 35.00 08/29/19 14:20 65 26 91 35 08/29/19 14:15 76 08/29/19 14:00 64 21 138/48 (78) 93 Mechanical Ventilator 35.00 08/29/19 13:00 75 15 159/60 (93) 96 Mechanical Ventilator 35.00 08/29/19 12:32 84 08/29/19 12:17 93 08/29/19 12:00 78 27 146/50 (82) 96 Mechanical Ventilator 35.00 08/29/19 12:00 95 Mechanical Ventilator 21 08/29/19 11:58 36.3 08/29/19 11:00 89 27 136/49 (78) 93 Mechanical Ventilator 35.00 08/29/19 10:37 96 139/52 08/29/19 10:13 89 33 95 35 08/29/19 10:00 89 31 158/57 (90) 97 Mechanical Ventilator 35.00 08/29/19 09:00 95 27 162/56 (91) 97 Mechanical Ventilator 35.00 08/29/19 08:55 94 160/59 08/29/19 08:27 95 08/29/19 08:00 95 Mechanical Ventilator 21 08/29/19 08:00 80 25 159/52 (87) 97 Mechanical Ventilator 35.00 08/29/19 07:45 36.5 08/29/19 07:21 68 26 96 35 08/29/19 07:00 75 25 159/53 (88) 96 Mechanical Ventilator 35.00 08/29/19 07:00 74 08/29/19 06:00 60 27 173/62 (99) 97 Mechanical Ventilator 35.00 08/29/19 05:31 36.0 Mechanical Ventilator 35.00 08/29/19 05:00 66 25 157/56 (89) 94 Mechanical Ventilator 25.00 08/29/19 05:00 66 25 157/56 (89) 94 Mechanical Ventilator 25.00 08/29/19 04:56 154/53 I & O 08/30/19 07:00 Intake Total 1775.5 ml Output Total 2970 ml Balance -1194.5 ml Height & Weight Height: 5'7.00" Weight: 346lbs. 2.0oz. 156.811564cl; 57.92 BMI Method:Stated General Appearance: Chronically ill, Obese HEENT: Other (OG in place ) Neck: Non Tender, Supple Respiratory: Rhonci, Other (on vent) Cardiovascular: Regular Rate, Rhythm, No Murmur Capillary Refill: Less Than 3 Seconds Gastrointestinal: normal bowel sounds, non tender, soft Extremity: Pedal Edema Neurologic/Psychiatric: Other (on sedation but was awakening and attempted to ask question but was unintelligible and patient appearred quite agitated after that) Skin: Normal Color, Warm/Dry; No Mottled Lymphatic: No Adenopathy Results Lab Laboratory Tests 08/29/19 02:40 08/30/19 03:40 Assessment/Plan Assessment/Plan Acute Respiratory Failure: -Ventilator support -PEEP to 5, O2: 35%, V: 500 -Decrease IVF to 30 cc/hr COPD exacerbation -Duonebs Q4h -Solumedrol 40 Q 6 Morbid obesity with OHS Hypokalemia -Resolved: 4.5 on 08/29 Recent MRSA pneumonia -Add Eraxis 08/29 secondary to yeast in Sputum culture. -Vancomycin started 08/26 -Cefepime started 08/26 CHF -monitor I/O HTN -Add Lopressor PO, and PRN Hydralazine GILLIAN DE LEON DO 08/30/19 0517: Subjective Time Seen by a Provider: 05:11 Subjective/Events-last exam Sedated on vent Exam Exam General Appearance: Chronically ill, Obese HEENT: Other (OG in place ) Respiratory: Rhonci, Other (on vent) Cardiovascular: Regular Rate, Rhythm, No Murmur Gastrointestinal: normal bowel sounds, non tender, soft Skin: Normal Color, Warm/Dry Lymphatic: No Adenopathy Assessment/Plan Assessment/Plan Acute Respiratory Failure: -Ventilator support -Will start weaning vent tomorrow if CXR continues to improve. CXR is showing improvement. -Continue current Abx, eraxis and will give Bumex 1mg BID in prep for vent weaning. -Decrease IVF to 30 cc/hr COPD exacerbation -Duonebs Q4h -Solumedrol 40 Q 6 Morbid obesity with OHS Hypokalemia -Resolved: 4.5 on 08/29 Recent MRSA pneumonia -Add Eraxis 08/29 secondary to yeast in Sputum culture. -Vancomycin started 08/26 -Cefepime started 08/26 CHF -monitor I/O HTN -Add Lopressor PO, and PRN Hydralazine Supervisory-Addendum Brief Verification & Attestation Participated in pt care: history Personally performed: exam, history Care discussed with: Medical Student Procedures: n/a Verification and Attestation of Medical Student E/M Service A medical student performed and documented this service in my presence. I reviewed and verified all information documented by the medical student and made modifications to such information, when appropriate. I personally performed the physical exam and medical decision making. Gillian De Leon, Aug 30, 2019,05:18 JEREMIAH FIELDS MED STUDENT Aug 30, 2019 04:18 GILLIAN DE LEON DO Aug 30, 2019 05:17
[2019-08-30] MEDS ORDERED: TROUGH ORDER-PHARMACY XX NR (06:00)
[2019-08-30] MEDS: ENOXAPARIN 40 MG/0.4 ML (LOVENOX) SYR SC SCH (06:10)
[2019-08-30 06:34] LABS: BASOPHILS % (AUTO) 0 % (0-10); EOSINOPHILS % (AUTO) 0 % (0-10); HEMATOCRIT 37 % (40-54); HEMOGLOBIN 11.1 G/DL (13.3-17.7); LYMPHOCYTES # (AUTO) 0.8 X 10^3 (1.0-4.0); LYMPHOCYTES % (AUTO) 6 % (12-44); MEAN CORPUSCULAR HEMOGLOBIN 27 PG (25-34); MEAN CORPUSCULAR HGB CONC 30 G/DL (32-36); MEAN CORPUSCULAR VOLUME 90 FL (80-99); MONOCYTES # (AUTO) 0.6 X 10^3 (0.0-1.0); MONOCYTES % (AUTO) 5 % (0-12); NEUTROPHILS # (AUTO) 12.1 X 10^3 (1.8-7.8); NEUTROPHILS % (AUTO) 89 % (42-75); PLATELET COUNT 151 10^3/uL (130-400); RED CELL DISTRIBUTION WIDTH 19.2 % (10.0-14.5); WHITE BLOOD COUNT 13.5 10^3/uL (4.3-11.0)
[2019-08-30] MEDS ORDERED: LORazepam INJ 2 MG/ML (ATIVAN) VIAL ONE (06:51)
[2019-08-30] MEDS: LORazepam INJ 2 MG/ML (ATIVAN) VIAL IVP PRN (06:59)
[2019-08-30 07:01] LABS: ALANINE AMINOTRANSFERASE 16 U/L (0-55); ALBUMIN 3.3 GM/DL (3.2-4.5); ALKALINE PHOSPHATASE 66 U/L (40-136); BILIRUBIN,TOTAL 0.3 MG/DL (0.1-1.0); BUN/CREATININE RATIO 29; CALCIUM 8.4 MG/DL (8.5-10.1); CARBON DIOXIDE 24 MMOL/L (21-32); CHLORIDE 106 MMOL/L (98-107); CREATININE SERUM 1.06 MG/DL (0.60-1.30); GFR ESTIMATED > 60; GLUCOSE 167 MG/DL (70-105); MAGNESIUM 2.2 MG/DL (1.6-2.4); POTASSIUM 4.6 MMOL/L (3.6-5.0); SODIUM 143 MMOL/L (135-145); TOTAL PROTEIN 6.2 GM/DL (6.4-8.2); TRIGLYCERIDES 403 MG/DL (<150)
[2019-08-30 07:07] LABS: VANCOMYCIN,TROUGH 16.3 UG/ML (10.0-20.0)
--- NOTE | 2019-08-30 08:00 | NUR ---
NGT RESIDUAL 75 ML. CONTINUE FEED AT 20 ML/HR.
[2019-08-30] MEDS: FAMOTIDINE 20MG/2ML IV (PEPCID) IV SCH ×2 (08:17→20:53)
[2019-08-30] MEDS: MUPIROCIN 2% OINT 22 GM (BACTROBAN) TUBE NSEACH SCH ×2 (08:17→20:54)
[2019-08-30] MEDS: BUMETANIDE 1 MG/4 ML (BUMEX) VIAL IV SCH ×2 (08:17→20:53)
[2019-08-30] MEDS: meTOprolol TARTRATE 25 MG (LOPRESSOR) TABLET PO SCH ×2 (08:17→20:53)
--- NOTE | 2019-08-30 09:24 | Progress Note - Hospitalist ---
Subjective HPI/CC On Admission Date Seen by Provider: Aug 30, 2019 Time Seen by Provider: 09:21 Pt is a 59yoCM known to me from previous admissions who was admitted for acute hypercapnic respiratory failure. He is currently intubated sedated and interview is not possible. All history is obtained from review of records and from ER. He reportedly was found by his home health aides and was unresponsive this afternoon and EMS was called and he was brought to the emergency department. He was protecting his airway and so a trial of BiPAP was done because his PCO2 was around 115. After this trial repeat ABG showed a PCO2 of 126 and decision was made to intubate. He has known COPD and follows with Dr. De Leon. He was here recently in May for similar presentation. At that time he had a MRSA pneumonia. He is being admitted to the ICU. Subjective/Events-last exam Pt remains intubated and sedated. No concerns per RN. No family at bedside. Objective Exam Vital Signs Vital Signs Date Time Temp Pulse Resp B/P (MAP) Pulse Ox O2 Delivery O2 Flow Rate FiO2 08/30/19 08:08 165/61 08/30/19 07:00 63 08/30/19 06:10 36.93333 26 96 Mechanical Ventilator 08/30/19 06:00 35.00 08/30/19 04:00 35 Capillary Refill : Less Than 3 Seconds General Appearance: Chronically ill, Obese Respiratory: Rhonci, Wheezing, Other (on vent) Cardiovascular: Regular Rate, Rhythm, No Murmur Gastrointestinal: Normal Bowel Sounds, Soft Extremity: Pedal Edema Neurologic/Psychiatric: Other (sedated, appears comfortable) Results/Procedures Lab Laboratory Tests 08/30/19 03:40 08/30/19 06:00 08/30/19 06:20 Patient resulted labs reviewed. Assessment/Plan Assessment and Plan Assess & Plan/Chief Complaint Acute hypercapnic Respiratory Failure COPD Morbid obesity with OHS Recent MRSA pneumonia Propofol, Precedex, and Fentanyl gtt for sedation, Ativan added today Vanc, Eraxis, and Cefepime to cover for PNA Solu Medrol MAT protocol Pulm consulted, appreciate recs Hypotensive- resolved off pressors Had similar presentation last admission and hypotension was iatrogenic from sedation CHF Echo from 05/2019 showed EF 55% Monitor I/Os HTN Hold home meds Critical Care Critically Ill Patient Diagnosis/Problems Diagnosis/Problems (1) Acute hypercapnic respiratory failure (2) Essential (primary) hypertension Status: Chronic (3) CHF (congestive heart failure) Status: Chronic Clinical Quality Measures DVT/VTE Risk/Contraindication: Risk Factor Score Per Nursin RFS Level Per Nursing on Admit: 4+=Very High JENNI ALMODOVAR MD Aug 30, 2019 09:24
[2019-08-30] MEDS: ANIDULAFUNGIN INJECTION 100 MG in NS (IVPB) 100 ML IV SCH (09:44)
[2019-08-30] MEDS: fentaNYL INJECTION 1,250 MCG in NS (IVPB) 250 ML IV SCH (09:56)
--- NOTE | 2019-08-30 09:59 | NUR ---
VANCOMYCIN TROUGH 16.3 08/30 @0620 CONTINUE CURRENT REGIMEN
--- NOTE | 2019-08-30 10:30 | NUR ---
WASTED 30 ML OF FENTANYL WITH KT RN.
[2019-08-30] MEDS: D5 NS 1000 ML IV SOLUTION 1,000 ML IV SCH (11:00)
--- NOTE | 2019-08-30 11:04 | Diagnostic Imaging Report ---
INDICATION: Ventilator, respiratory failure. COMPARISON: August 29, 2019 TECHNIQUE: Single radiograph of the chest dated August 30, 2019. FINDINGS: Endotracheal tube and enteric catheter are again identified and stable. Left-sided PICC line is also noted, though the distal tip is not well visualized. The cardiac silhouette appears enlarged. Central pulmonary vascular congestion. Extensive bilateral mixed interstitial and airspace opacities. Bilateral pleural effusions are suspected, left greater than right. No pneumothorax. Osseous structures appear stable. IMPRESSION: Extensive bilateral pulmonary infiltrates with suspected pleural effusions. Overall appearance is slightly worsened since the prior examination. Enlargement of the cardiac silhouette with central pulmonary vascular congestion. Unchanged lines and tubes. Dictated by: Dictated on workstation # [id number]
--- NOTE | 2019-08-30 12:00 | NUR ---
NGT RESIDUAL 80 ML. WILL CONTINUE TUBE FEEDING. INCREASE RATE TO 30 ML/HR.
--- NOTE | 2019-08-30 18:00 | NUR ---
NGT RESIDUAL 250ML. HOLD TUBE FEEDING. WILL CONTINUE TO MONITOR.
[2019-08-31] VITALS (31 sets, daily range): BP systolic 96–173; BP diastolic 51–84
[2019-08-31] MEDS: PROPOFOL DRIP (ICU) 100 ML IV SCH ×12 (01:20→23:59)
[2019-08-31] MEDS: inSUlin ASPART (NovoLOG) 1 UNIT/0.01 ML (CHARGE PER UNIT) SC SCH ×4 (01:22→17:50)
[2019-08-31] MEDS: fentaNYL INJECTION 1,250 MCG in NS (IVPB) 250 ML IV SCH ×2 (01:22→20:14)
[2019-08-31] MEDS: hydrALAZINE (APESOLINE) 20 MG/ML VIAL IV SCH ×8 (01:22→23:58)
[2019-08-31] MEDS: RT-ALBUTEROL/IPRATROPIUM 3 ML (DUONEB) VIAL INH SCH ×6 (02:47→22:22)
[2019-08-31 03:29] LABS: BASOPHILS % (AUTO) 0 % (0-10); EOSINOPHILS % (AUTO) 0 % (0-10); HEMATOCRIT 39 % (40-54); HEMOGLOBIN 11.3 G/DL (13.3-17.7); LYMPHOCYTES # (AUTO) 1.3 X 10^3 (1.0-4.0); LYMPHOCYTES % (AUTO) 9 % (12-44); MEAN CORPUSCULAR HEMOGLOBIN 27 PG (25-34); MEAN CORPUSCULAR HGB CONC 29 G/DL (32-36); MEAN CORPUSCULAR VOLUME 91 FL (80-99); MEAN PLATELET VOLUME 10.2 FL (7.4-10.4); MONOCYTES # (AUTO) 0.8 X 10^3 (0.0-1.0); MONOCYTES % (AUTO) 6 % (0-12); NEUTROPHILS % (AUTO) 85 % (42-75); PLATELET COUNT 169 10^3/uL (130-400); WHITE BLOOD COUNT 14.1 10^3/uL (4.3-11.0)
[2019-08-31 03:30] LABS: ABG BASE EXCESS 5.4 MMOL/L (-2.5-2.5); ABG OXYGEN SATURATION 87 % (94-100); ABG PCO2 54 MMHG (35-45); ABG PH 7.37 (7.37-7.43); ABG PO2 63 MMHG (79-93)
[2019-08-31 03:31] LABS: ALLENS TEST POSITIVE; INSPIRED O2 35%; PATIENT TEMP 37.1; VENTILATOR YES
[2019-08-31 03:50] LABS: ALANINE AMINOTRANSFERASE 17 U/L (0-55); ALBUMIN 3.2 GM/DL (3.2-4.5); ALKALINE PHOSPHATASE 64 U/L (40-136); BILIRUBIN,TOTAL 0.3 MG/DL (0.1-1.0); BUN/CREATININE RATIO 36; CALCIUM 7.9 MG/DL (8.5-10.1); CARBON DIOXIDE 23 MMOL/L (21-32); CHLORIDE 106 MMOL/L (98-107); CREATININE SERUM 1.06 MG/DL (0.60-1.30); GFR ESTIMATED > 60; GLUCOSE 187 MG/DL (70-105); MAGNESIUM 2.2 MG/DL (1.6-2.4); PHOSPHORUS 3.9 MG/DL (2.3-4.7); POTASSIUM 4.3 MMOL/L (3.6-5.0); SODIUM 143 MMOL/L (135-145); TOTAL PROTEIN 6.2 GM/DL (6.4-8.2)
[2019-08-31] MEDS: CEFEPIME INJECTION 1,000 MG in WATER (STERILE) FOR INJECTION 10 ML IV SCH ×3 (05:17→17:50)
[2019-08-31] MEDS: methylPREDNISolone 40 MG/ML (Solu-MEDROL) VIAL IV SCH ×3 (05:18→17:50)
[2019-08-31] MEDS: MAGNESIUM 1 GM/100 ML IVPB 100 ML IV SCH (05:25)
[2019-08-31] MEDS: POTASSIUM CL 10MEQ/50ML IVPB 50 ML IV SCH (05:25)
[2019-08-31] MEDS: KCL 20 MEQ TAB (K-DUR) PO SCH (05:26)
[2019-08-31 05:30] LABS: LYMPHOCYTES % (MANUAL) 8 %; MONOCYTES % (MANUAL) 5 %; NEUTROPHILS % (MANUAL) 87 %
[2019-08-31] MEDS: ENOXAPARIN 40 MG/0.4 ML (LOVENOX) SYR SC SCH (05:45)
--- NOTE | 2019-08-31 06:46 | Pulmonary Progress Note ---
Subjective Time Seen by a Provider: 06:58 Subjective/Events-last exam RN states she is suctioning pt every 4hours and RT had to change out suction cath secondary mucous plugging. Sepsis Event Evaluation Height, Weight, BMI Height: 5'7.00" Weight: 346lbs. 2.0oz. 156.645464nj; 57.92 BMI Method:Stated Exam Exam Vital Signs Date Time Temp Pulse Resp B/P (MAP) Pulse Ox O2 Delivery O2 Flow Rate FiO2 08/31/19 06:00 65 25 147/56 (86) 97 Mechanical Ventilator 35.00 08/31/19 05:16 168/66 08/31/19 05:00 59 26 166/64 (98) 97 Mechanical Ventilator 35.00 08/31/19 04:00 69 26 164/61 (95) 95 Mechanical Ventilator 35.00 08/31/19 04:00 37.1 08/31/19 04:00 Mechanical Ventilator 35 08/31/19 03:00 73 24 143/51 (81) 95 Mechanical Ventilator 35.00 08/31/19 02:47 70 27 94 35 08/31/19 02:00 73 25 108/57 (74) 95 Mechanical Ventilator 35.00 08/31/19 01:20 145/54 08/31/19 01:00 70 25 146/55 (85) 97 Mechanical Ventilator 35.00 08/31/19 01:00 68 08/31/19 00:00 Mechanical Ventilator 35 08/31/19 00:00 70 26 96/57 (70) 97 Mechanical Ventilator 35.00 08/30/19 23:43 149/54 08/30/19 23:43 37.3 08/30/19 23:00 71 25 106/99 (101) 93 Mechanical Ventilator 35.00 08/30/19 22:00 107 30 129/54 (79) 99 Mechanical Ventilator 35.00 08/30/19 21:02 158/58 08/30/19 21:00 70 26 166/61 (96) 96 Mechanical Ventilator 35.00 08/30/19 20:00 Mechanical Ventilator 35 08/30/19 20:00 70 23 163/61 (95) 96 Mechanical Ventilator 35.00 08/30/19 20:00 36.6 08/30/19 19:00 71 08/30/19 19:00 71 24 153/56 (88) 95 Mechanical Ventilator 35.00 08/30/19 18:40 70 26 96 35 08/30/19 18:27 150/57 08/30/19 18:00 66 25 165/63 (97) 95 Mechanical Ventilator 35.00 08/30/19 17:00 67 26 160/60 (93) 95 Mechanical Ventilator 35.00 08/30/19 16:00 36.5 08/30/19 16:00 73 25 159/59 (92) 95 Mechanical Ventilator 35.00 08/30/19 16:00 97 Mechanical Ventilator 35 08/30/19 15:54 144/52 08/30/19 15:12 65 26 95 35 08/30/19 15:00 64 26 146/55 (85) 95 Mechanical Ventilator 35.00 08/30/19 14:00 62 25 149/58 (88) 94 Mechanical Ventilator 35.00 08/30/19 14:00 149/58 08/30/19 13:00 63 26 148/55 (86) 96 Mechanical Ventilator 35.00 08/30/19 13:00 61 08/30/19 12:27 149/55 08/30/19 12:00 68 26 157/57 (90) 97 Mechanical Ventilator 35.00 08/30/19 12:00 97 Mechanical Ventilator 35 08/30/19 12:00 37.3 08/30/19 11:00 69 24 146/52 (83) 96 Mechanical Ventilator 35.00 08/30/19 11:00 145/52 08/30/19 10:35 69 26 96 35 08/30/19 10:00 67 26 159/55 (89) 97 Mechanical Ventilator 35.00 08/30/19 09:00 67 19 162/68 (99) 95 Mechanical Ventilator 35.00 08/30/19 08:08 165/61 08/30/19 08:00 96 Mechanical Ventilator 35 08/30/19 08:00 57 26 151/62 (91) 97 Mechanical Ventilator 35.00 08/30/19 08:00 36.8 08/30/19 07:00 63 08/30/19 07:00 63 21 94/62 (73) 97 Mechanical Ventilator 35.00 I & O 08/31/19 07:00 Intake Total 3000 ml Output Total 5050 ml Balance -2050 ml Height & Weight Height: 5'7.00" Weight: 346lbs. 2.0oz. 156.367206ps; 57.92 BMI Method:Stated General Appearance: Chronically ill, Obese HEENT: Other (OG in place ) Neck: Non Tender, Supple Respiratory: Rhonci, Other (on vent) Cardiovascular: Regular Rate, Rhythm, No Murmur Capillary Refill: Less Than 3 Seconds Gastrointestinal: normal bowel sounds, non tender, soft Extremity: Pedal Edema Neurologic/Psychiatric: Other (sedated, appears comfortable) Skin: Normal Color, Warm/Dry Lymphatic: No Adenopathy Results Lab Laboratory Tests 08/30/19 03:40 08/30/19 06:00 08/30/19 06:20 08/31/19 03:19 Assessment/Plan Assessment/Plan Acute Respiratory Failure: -Ventilator support -PER RN and RT pt is having copious amounts of thick brown sputum production. RN is suctioning at least every 4 hours. Will Do bronchoscopy tomorrow morning then proceed with vent weaning. at bedside and i answered all of her questions and concerns. -Continue current Abx, eraxis and will give Bumex 1mg BID. -CXR is improving -IVF to 30 cc/hr COPD exacerbation -Duonebs Q4h -Solumedrol 40 Q 6 Morbid obesity with OHS Hypokalemia -Resolved: 4.5 on 08/29 Recent MRSA pneumonia -Add Eraxis 08/29 secondary to yeast in Sputum culture. -Vancomycin started 08/26 -Cefepime started 08/26 CHF -monitor I/O HTN - Lopressor PO, and PRN Hydralazine GILLIAN SOOD DO Aug 31, 2019 06:46
--- NOTE | 2019-08-31 08:00 | NUR ---
NGT RESIDUAL WAS 0ML. WILL RESTART TUBE FEEDINGS.
--- NOTE | 2019-08-31 08:09 | Diagnostic Imaging Report ---
INDICATION: Respiratory distress. Comparison made with prior examination from 08/30/2019 FINDINGS: There is cardiomegaly. There is some venous congestion. There is no pleural effusion, pneumothorax or pneumonia. ET and NG tubes are in satisfactory position. IMPRESSION: Cardiomegaly and mild central pulmonary venous congestion. Dictated by: Dictated on workstation # [id number]
[2019-08-31] MEDS: FAMOTIDINE 20MG/2ML IV (PEPCID) IV SCH ×2 (08:58→20:13)
[2019-08-31] MEDS: MUPIROCIN 2% OINT 22 GM (BACTROBAN) TUBE NSEACH SCH ×2 (08:58→20:13)
[2019-08-31] MEDS: ANIDULAFUNGIN INJECTION 100 MG in NS (IVPB) 100 ML IV SCH (08:59)
[2019-08-31] MEDS: meTOprolol TARTRATE 25 MG (LOPRESSOR) TABLET PO SCH ×2 (08:59→19:24)
[2019-08-31 09:35] LABS: ABG BASE EXCESS 4.6 MMOL/L (-2.5-2.5); ABG OXYGEN SATURATION 93 % (94-100); ABG PCO2 45 MMHG (35-45); ABG PH 7.42 (7.37-7.43); ABG PO2 66 MMHG (79-93); ABG TCO2 30.5 MMOL/L (21.0-31.0); ALLENS TEST ART LINE; INSPIRED O2 100%; PATIENT TEMP 35.8; VENTILATOR YES
[2019-08-31] MEDS: BUMETANIDE 2.5 MG/10 ML (BUMEX) VIAL IV SCH ×2 (09:36→20:14)
--- NOTE | 2019-08-31 10:46 | Progress Note - Hospitalist ---
Subjective HPI/CC On Admission Date Seen by Provider: Aug 31, 2019 Time Seen by Provider: 10:44 Pt is a 59yoCM known to me from previous admissions who was admitted for acute hypercapnic respiratory failure. He is currently intubated sedated and interview is not possible. All history is obtained from review of records and from ER. He reportedly was found by his home health aides and was unresponsive this afternoon and EMS was called and he was brought to the emergency department. He was protecting his airway and so a trial of BiPAP was done because his PCO2 was around 115. After this trial repeat ABG showed a PCO2 of 126 and decision was made to intubate. He has known COPD and follows with Dr. De Leon. He was here recently in May for similar presentation. At that time he had a MRSA pneumonia. He is being admitted to the ICU. Subjective/Events-last exam Pt remains intuabted and sedated. No family at bedside. Objective Exam Vital Signs Vital Signs Date Time Temp Pulse Resp B/P (MAP) Pulse Ox O2 Delivery O2 Flow Rate FiO2 08/31/19 10:12 52 26 93 45 08/31/19 09:36 151/63 08/31/19 09:00 Mechanical Ventilator 35.00 08/31/19 04:00 37.1 Capillary Refill : Less Than 3 Seconds General Appearance: Chronically ill, Obese Respiratory: Rhonci, Other (on vent) Cardiovascular: Regular Rate, Rhythm, No Murmur Gastrointestinal: Normal Bowel Sounds, Non Tender, Soft Genital/Rectal: Other (lopez in place) Neurologic/Psychiatric: Other (sedated, appears confident) Results/Procedures Lab Laboratory Tests 08/31/19 03:19 Patient resulted labs reviewed. Assessment/Plan Assessment and Plan Assess & Plan/Chief Complaint Acute hypercapnic Respiratory Failure COPD Morbid obesity with OHS Recent MRSA pneumonia Propofol, Precedex, Ativan, and Fentanyl gtt for sedation, Ativan Vanc, Eraxis, and Cefepime to cover for PNA Solu Medrol MAT protocol Pulm consulted, appreciate recs Discussed with Dr De Leon and he has copious secretions, will plan for bronch tomorrow Hypotensive- resolved Had similar presentation last admission and hypotension was iatrogenic from sedation CHF Echo from 05/2019 showed EF 55% Monitor I/Os HTN Hold home meds Critical Care Critically Ill Patient Diagnosis/Problems Diagnosis/Problems (1) Acute hypercapnic respiratory failure (2) Essential (primary) hypertension Status: Chronic (3) CHF (congestive heart failure) Status: Chronic Clinical Quality Measures DVT/VTE Risk/Contraindication: Risk Factor Score Per Nursin RFS Level Per Nursing on Admit: 4+=Very High JENNI ALMODOVAR MD Aug 31, 2019 10:46
[2019-08-31] MEDS: D5 NS 1000 ML IV SOLUTION 1,000 ML IV SCH (10:58)
--- NOTE | 2019-08-31 12:00 | NUR ---
NGT FEEDING WAS 75ML. WILL CONTINUE TUBE FEEDINGS.
--- NOTE | 2019-08-31 13:25 | NUR ---
THIS NURSE NOTIFIED DR SOOD PT HEART RATE HAS BEEN 45-55 BEATS/MIN. NURSE HELD PRECEDEX AND HEART RATE REMAINED LOW. ORDER TO HOLD METOPROLOL IF HEART LESS THAN 60 AND TO CONTINUE TO MONITOR.
--- NOTE | 2019-08-31 15:01 | NUR ---
LOVENOX DOSING: CrCl 115 BMI 61 CHANGED TO LOVENOX 60 MG BID
[2019-08-31] MEDS: ENOXAPARIN 60 MG/0.6 ML (LOVENOX) SYR SC SCH (17:13)
--- NOTE | 2019-08-31 18:00 | NUR ---
NGT RESIDUAL 120 ML. CONTINUE TUBE FEEDING. WILL CONTINUE TO MONITOR.
[2019-08-31] MEDS ORDERED: MUPIROCIN 2% OINT 22 GM (BACTROBAN) TUBE NSEACH SCH (21:00)
[2019-09-01] VITALS (30 sets, daily range): BP systolic 105–169; BP diastolic 50–70
[2019-09-01] MEDS: methylPREDNISolone 40 MG/ML (Solu-MEDROL) VIAL IV SCH ×4 (00:50→18:03)
[2019-09-01] MEDS: inSUlin ASPART (NovoLOG) 1 UNIT/0.01 ML (CHARGE PER UNIT) SC SCH ×4 (00:50→17:37)
[2019-09-01] MEDS: PROPOFOL DRIP (ICU) 100 ML IV SCH ×9 (00:50→22:19)
[2019-09-01] MEDS: RT-ALBUTEROL/IPRATROPIUM 3 ML (DUONEB) VIAL INH SCH ×6 (02:45→22:03)
[2019-09-01 03:42] LABS: ABG BASE EXCESS 4.5 MMOL/L (-2.5-2.5); ABG OXYGEN SATURATION 94 % (94-100); ABG PCO2 45 MMHG (35-45); ABG PH 7.42 (7.37-7.43); ABG PO2 71 MMHG (79-93); ABG TCO2 30.4 MMOL/L (21.0-31.0); BASOPHILS % (AUTO) 0 % (0-10); EOSINOPHILS % (AUTO) 0 % (0-10); HEMATOCRIT 41 % (40-54); HEMOGLOBIN 12.1 G/DL (13.3-17.7); LYMPHOCYTES # (AUTO) 1.1 X 10^3 (1.0-4.0); LYMPHOCYTES % (AUTO) 8 % (12-44); MEAN CORPUSCULAR HEMOGLOBIN 26 PG (25-34); MEAN CORPUSCULAR HGB CONC 30 G/DL (32-36); MEAN CORPUSCULAR VOLUME 90 FL (80-99); MEAN PLATELET VOLUME 9.9 FL (7.4-10.4); MONOCYTES # (AUTO) 0.8 X 10^3 (0.0-1.0); MONOCYTES % (AUTO) 7 % (0-12); NEUTROPHILS % (AUTO) 85 % (42-75); PLATELET COUNT 161 10^3/uL (130-400); RED CELL DISTRIBUTION WIDTH 19.4 % (10.0-14.5); WHITE BLOOD COUNT 12.9 10^3/uL (4.3-11.0)
[2019-09-01 03:43] LABS: ALLENS TEST POSITIVE; VENTILATOR YES
[2019-09-01] MEDS: hydrALAZINE (APESOLINE) 20 MG/ML VIAL IV SCH ×5 (04:04→20:08)
[2019-09-01 04:11] LABS: ALANINE AMINOTRANSFERASE 24 U/L (0-55); ALBUMIN 3.4 GM/DL (3.2-4.5); ALKALINE PHOSPHATASE 62 U/L (40-136); BILIRUBIN,TOTAL 0.4 MG/DL (0.1-1.0); BUN/CREATININE RATIO 39; CALCIUM 8.6 MG/DL (8.5-10.1); CARBON DIOXIDE 22 MMOL/L (21-32); CHLORIDE 103 MMOL/L (98-107); CREATININE SERUM 0.96 MG/DL (0.60-1.30); GFR ESTIMATED > 60; GLUCOSE 187 MG/DL (70-105); MAGNESIUM 2.4 MG/DL (1.6-2.4); PHOSPHORUS 4.1 MG/DL (2.3-4.7); POTASSIUM 4.5 MMOL/L (3.6-5.0); SODIUM 141 MMOL/L (135-145); TOTAL PROTEIN 6.7 GM/DL (6.4-8.2)
[2019-09-01 04:25] LABS: TRIGLYCERIDES 909 MG/DL (<150)
[2019-09-01] MEDS: MAGNESIUM 1 GM/100 ML IVPB 100 ML IV SCH (04:31)
[2019-09-01] MEDS: POTASSIUM CL 10MEQ/50ML IVPB 50 ML IV SCH (04:31)
[2019-09-01] MEDS: KCL 20 MEQ TAB (K-DUR) PO SCH (04:31)
[2019-09-01] MEDS: LORazepam INJ 2 MG/ML (ATIVAN) VIAL IVP PRN (04:43)
[2019-09-01] MEDS ORDERED: KETAMINE HCL 100 MG/ML 5 ML VIAL IV ONE ×2 (05:45→06:45)
--- NOTE | 2019-09-01 05:47 | Pulmonary Progress Note ---
Subjective Time Seen by a Provider: 06:46 Subjective/Events-last exam Pt is sedated on vent. Still copious amounts of yellow sputum. Sepsis Event Evaluation Height, Weight, BMI Height: 5'7.00" Weight: 346lbs. 2.0oz. 156.367411sb; 57.92 BMI Method:Stated Exam Exam Vital Signs Date Time Temp Pulse Resp B/P (MAP) Pulse Ox O2 Delivery O2 Flow Rate FiO2 09/01/19 04:00 53 26 145/59 (87) 92 Mechanical Ventilator 55.00 09/01/19 04:00 92 Mechanical Ventilator 55 09/01/19 03:47 92 Mechanical Ventilator 09/01/19 03:00 53 26 136/62 (86) 92 Mechanical Ventilator 55.00 09/01/19 02:52 51 26 97 55 09/01/19 02:07 35.70905 69 18 105/58 92 Mechanical Ventilator 09/01/19 02:00 56 25 144/61 (88) 93 Mechanical Ventilator 55.00 09/01/19 01:00 56 25 140/55 (83) 94 Mechanical Ventilator 55.00 09/01/19 00:50 35.48881 69 18 105/58 92 Mechanical Ventilator 09/01/19 00:40 56 09/01/19 00:00 69 18 105/58 (74) 94 Mechanical Ventilator 55.00 09/01/19 00:00 92 Mechanical Ventilator 55 08/31/19 23:59 35.99376 64 21 145/53 91 Mechanical Ventilator 08/31/19 23:00 64 21 145/53 (83) 91 Mechanical Ventilator 55.00 08/31/19 22:25 56 26 93 55 08/31/19 22:12 35.64984 55 27 148/56 93 Mechanical Ventilator 08/31/19 22:00 55 27 148/56 (86) 93 Mechanical Ventilator 55.00 08/31/19 21:00 60 25 152/57 (88) 93 Mechanical Ventilator 55.00 08/31/19 20:13 35.14751 52 26 156/59 91 Mechanical Ventilator 08/31/19 20:00 92 Mechanical Ventilator 55 08/31/19 20:00 53 26 159/61 (93) 91 Mechanical Ventilator 55.00 08/31/19 19:22 35.2 52 26 156/59 (91) 91 Mechanical Ventilator 55.00 08/31/19 19:00 54 26 156/58 (90) 91 Mechanical Ventilator 55.00 08/31/19 19:00 53 08/31/19 18:49 52 26 92 55 08/31/19 18:00 68 20 141/55 (83) 93 Mechanical Ventilator 55.00 08/31/19 17:51 162/52 08/31/19 17:00 63 20 173/65 (101) 91 Mechanical Ventilator 35.00 08/31/19 16:09 155/55 08/31/19 16:00 91 Mechanical Ventilator 55 08/31/19 16:00 36.2 08/31/19 16:00 65 13 159/58 (91) 93 Mechanical Ventilator 35.00 08/31/19 15:15 53 26 90 45 08/31/19 15:00 54 34 105/84 (91) 93 Mechanical Ventilator 35.00 08/31/19 14:00 47 26 146/61 (89) 92 Mechanical Ventilator 35.00 08/31/19 13:40 146/50 08/31/19 13:00 48 26 148/58 (88) 93 Mechanical Ventilator 35.00 08/31/19 13:00 49 08/31/19 12:00 93 Mechanical Ventilator 45 08/31/19 12:00 36.2 08/31/19 12:00 60 21 155/61 (92) 93 Mechanical Ventilator 35.00 08/31/19 11:33 156/61 08/31/19 11:00 53 26 144/57 (86) 92 Mechanical Ventilator 35.00 08/31/19 10:12 52 26 93 45 08/31/19 10:00 52 26 139/65 (89) 93 Mechanical Ventilator 35.00 08/31/19 09:36 151/63 08/31/19 09:00 53 25 148/59 (88) 98 Mechanical Ventilator 35.00 08/31/19 08:00 71 34 141/64 (89) 100 Mechanical Ventilator 35.00 08/31/19 08:00 98 Mechanical Ventilator 35 08/31/19 08:00 35.8 08/31/19 07:56 170/65 08/31/19 07:00 64 08/31/19 07:00 64 26 155/59 (91) 98 Mechanical Ventilator 35.00 08/31/19 06:50 60 26 98 35 08/31/19 06:00 65 25 147/56 (86) 97 Mechanical Ventilator 35.00 I & O 09/01/19 07:00 Intake Total 1080 ml Output Total 4425 ml Balance -3345 ml Height & Weight Height: 5'7.00" Weight: 346lbs. 2.0oz. 156.971667lz; 57.92 BMI Method:Stated General Appearance: Chronically ill, Obese HEENT: Other (OG in place ) Neck: Non Tender, Supple Respiratory: Rhonci, Other (on vent) Cardiovascular: Regular Rate, Rhythm, No Murmur Capillary Refill: Less Than 3 Seconds Gastrointestinal: normal bowel sounds, non tender, soft Extremity: Pedal Edema Neurologic/Psychiatric: Other (sedated, appears confident) Skin: Normal Color, Warm/Dry Lymphatic: No Adenopathy Results Lab Laboratory Tests 08/30/19 06:00 08/30/19 06:20 08/31/19 03:19 09/01/19 03:38 Assessment/Plan Assessment/Plan Acute Respiratory Failure with ARDS -Ventilator support -Increase PEEP to 10 -Pt is requiring a lot of sedation Triglycerides are up. Will try to decrease propofol. He is currently on Propofol, fentanyl, and precedex. May need to Add Versed gtt. -PER RN and RT pt is having copious amounts of thick brown sputum production. RN is suctioning at least every 4 hours. Will Do bronchoscopy this morning then proceed with vent weaning. at bedside and i answered all of her questions and concerns. -Continue current Abx, eraxis and will give Bumex 1mg BID. -CXR is worse -IVF to 30 cc/hr -Give total 2mg of bumex this AM then continue 1mg BID COPD exacerbation -Duonebs Q4h -Solumedrol 40 Q 6 Morbid obesity with OHS Hypokalemia -Resolved: 4.5 on 13 Recent MRSA pneumonia -Eraxis 1/3 secondary to yeast in Sputum culture. -Vanco and Cefepime auto stopped -CXR shows worsening and pt is producing copious amounts of thick yellow sputum. -Bronchoscopy today -Start Merrem, Zyvox and Eraxis please do not stop until first discussing with me. -Pt is not ready for extubation yet CHF -monitor I/O HTN - Lopressor PO, and PRN Hydralazine GILLIAN SOOD DO Sep 01, 2019 05:46
[2019-09-01] MEDS ORDERED: MIDAZOLAM 5 MG/5 ML (VERSED) VIAL ONE (06:21)
[2019-09-01] MEDS ORDERED: MEROPENEM 1,000 MG in WATER (STERILE) FOR INJECTION 20 ML IV SCH ×2 (06:45→07:00)
[2019-09-01] MEDS ORDERED: MIDAZOLAM 5 MG/5 ML (VERSED) VIAL IVP ONE (06:45)
--- NOTE | 2019-09-01 06:59 | Diagnostic Imaging Report ---
INDICATION: Acute respiratory failure. Fall. COMPARISON: 08/31/2019 FINDINGS: Single frontal radiographic view of the chest was obtained and shows indwelling endotracheal tube with tip at the clavicular heads. Gastric tube tip terminates in the stomach. Left upper extremity PICC line is seen with tip in the high SVC near the junction of the innominate veins. There is persistent cardiomegaly. Pulmonary vasculature may be slightly prominent. Lungs show persistent consolidative opacities within the left base completely obscuring the left hemidiaphragm. There are likely some patchy alveolar opacities in the right lower lung as well, although right hemidiaphragm is better visualized on today's exam. No pneumothorax is seen on either side. Osseous structures show no acute abnormalities. IMPRESSION: 1. Improved appearance to the right lung base, which may be related to positioning of overlying soft tissue structures. 2. Persistent consolidative opacities within the left base suggestive of underlying effusion with associated atelectasis, although consolidative infiltrate is also a consideration. 3. Lines and tubes as above. 4. Persistent cardiomegaly and probable mild pulmonary vascular congestion. Dictated by: Dictated on workstation # [id number]
--- NOTE | 2019-09-01 07:01 | Pulmonary Procedures ---
Pulmonary Procedures Date of Procedure Date of Service: Sep 01, 2019 Bronch Bronchoscopy with bilateral bronchial washes. Preop DX PNA, mucous plugging, copious amounts of sputum production Postop DX: same (pic taken) Complications: none After informed consent obtained and formal time out pt was sedated using Fe ntanyl and Versed. Bronchoscope was advanced through ET tube An anatomical tour was undertaken down to the segmental bronchi bilaterally. Pt has copious amounts of sputum production with mucous plugs. pictures were taken. No endobronchial lesions noted.Bronchoscopy with bilateral bronchial washes were obtained. Pt tolerated procedure well. No complications noted. Stat CXR is pen jam[place]. GILLIAN SOOD DO Sep 01, 2019 07:01
[2019-09-01] MEDS: MIDAZOLAM INJECTION FOR DRIPS 50 MG in NS (IVPB) 90 ML IV SCH (08:15)
[2019-09-01] MEDS ORDERED: BUMETANIDE 1 MG/4 ML (BUMEX) VIAL IV SCH ×2 (09:00)
--- NOTE | 2019-09-01 09:05 | NUR ---
Pastoral care visit, w pts
[2019-09-01] MEDS: FAMOTIDINE 20MG/2ML IV (PEPCID) IV SCH ×2 (10:00→20:08)
[2019-09-01] MEDS: ENOXAPARIN 60 MG/0.6 ML (LOVENOX) SYR SC SCH ×2 (10:18→18:04)
[2019-09-01] MEDS: MEROPENEM 500 MG/SWFI 10 ML IV PUSH IV SCH ×6 (10:18→18:04)
[2019-09-01] MEDS: DOCUSATE SODIUM 10 MG/ML 10 ML UDC (COLACE) PO SCH ×2 (10:18→20:08)
[2019-09-01] MEDS: meTOprolol TARTRATE 25 MG (LOPRESSOR) TABLET PO SCH ×2 (10:19→20:08)
[2019-09-01] MEDS: ANIDULAFUNGIN INJECTION 100 MG in NS (IVPB) 100 ML IV SCH (10:19)
[2019-09-01] MEDS: LINEZOLID IVPB 300 ML IV SCH ×2 (10:19→20:08)
[2019-09-01] MEDS: MUPIROCIN 2% OINT 22 GM (BACTROBAN) TUBE NSEACH SCH ×2 (10:20→20:09)
[2019-09-01] MEDS ORDERED: BUMETANIDE 2.5 MG/10 ML (BUMEX) VIAL ONE (10:46)
[2019-09-01] MEDS: fentaNYL INJECTION 1,250 MCG in NS (IVPB) 250 ML IV SCH (11:03)
[2019-09-01] MEDS ORDERED: LIDOCAINE PF 1% 2 ML AMP INJ ONE (11:30)
--- NOTE | 2019-09-01 13:19 | Progress Note - Hospitalist ---
Subjective HPI/CC On Admission Date Seen by Provider: Sep 01, 2019 Time Seen by Provider: 07:30 Pt is a 59yoCM known to me from previous admissions who was admitted for acute hypercapnic respiratory failure. He is currently intubated sedated and interview is not possible. All history is obtained from review of records and from ER. He reportedly was found by his home health aides and was unresponsive this afternoon and EMS was called and he was brought to the emergency department. He was protecting his airway and so a trial of BiPAP was done because his PCO2 was around 115. After this trial repeat ABG showed a PCO2 of 126 and decision was made to intubate. He has known COPD and follows with Dr. De Leon. He was here recently in May for similar presentation. At that time he had a MRSA pneumonia. He is being admitted to the ICU. Subjective/Events-last exam He remains intubated and sedated. He has no family bedside. Objective Exam Vital Signs Vital Signs Date Time Temp Pulse Resp B/P (MAP) Pulse Ox O2 Delivery O2 Flow Rate FiO2 09/01/19 13:00 58 25 155/63 (93) 92 Mechanical Ventilator 60.00 09/01/19 12:00 36.0 09/01/19 10:24 70 Capillary Refill : Less Than 3 Seconds General Appearance: No Apparent Distress, WD/WN, Obese HEENT: PERRL/EOMI, Pharynx Normal Neck: Normal Inspection, Supple Respiratory: Lungs Clear, Normal Breath Sounds, No Respiratory Distress, Other (Mechanically ventilated) Cardiovascular: Regular Rate, Rhythm, No Murmur Gastrointestinal: Normal Bowel Sounds, Soft Extremity: Pedal Edema Neurologic/Psychiatric: Other (Sedated) Skin: Normal Color, Warm/Dry Results/Procedures Lab Laboratory Tests 09/01/19 03:38 Patient resulted labs reviewed. Assessment/Plan Assessment and Plan Assess & Plan/Chief Complaint Acute respiratory failure with hypoxia COPD with acute exacerbation Morbid obesity with OHS Recent MRSA pneumonia Continue vancomycin, cefepime, and Eraxis for pneumonia Continue Solu-Medrol MAT protocol in place Pulse consulted, appreciate recommendations Heart failure with preserved ejection fraction Echo from 05/2019 showed EF 55% Monitor I/Os HTN Hold home meds Hypotension, resolved Critical Care Critically Ill Patient Diagnosis/Problems Diagnosis/Problems (1) Acute respiratory failure with hypoxia Status: Acute Clinical Quality Measures DVT/VTE Risk/Contraindication: Risk Factor Score Per Nursin RFS Level Per Nursing on Admit: 4+=Very High MARIAM JIN MD Sep 01, 2019 13:19
[2019-09-01] MEDS: BUMETANIDE 1 MG/4 ML (BUMEX) VIAL IV SCH (20:08)
[2019-09-02] VITALS (30 sets, daily range): BP systolic 94–169; BP diastolic 53–85
[2019-09-02] MEDS: hydrALAZINE (APESOLINE) 20 MG/ML VIAL IV SCH ×7 (00:09→23:47)
[2019-09-02] MEDS: MEROPENEM 500 MG/SWFI 10 ML IV PUSH IV SCH ×10 (00:26→23:56)
[2019-09-02] MEDS: methylPREDNISolone 40 MG/ML (Solu-MEDROL) VIAL IV SCH ×5 (00:27→23:56)
[2019-09-02] MEDS: inSUlin ASPART (NovoLOG) 1 UNIT/0.01 ML (CHARGE PER UNIT) SC SCH ×5 (00:27→23:56)
[2019-09-02] MEDS: PROPOFOL DRIP (ICU) 100 ML IV SCH ×10 (00:55→23:43)
[2019-09-02] MEDS: RT-ALBUTEROL/IPRATROPIUM 3 ML (DUONEB) VIAL INH SCH ×6 (02:08→21:11)
[2019-09-02 03:59] LABS: BASOPHILS % (AUTO) 0 % (0-10); EOSINOPHILS % (AUTO) 0 % (0-10); HEMATOCRIT 42 % (40-54); HEMOGLOBIN 12.7 G/DL (13.3-17.7); LYMPHOCYTES # (AUTO) 0.9 X 10^3 (1.0-4.0); LYMPHOCYTES % (AUTO) 7 % (12-44); MEAN CORPUSCULAR HEMOGLOBIN 27 PG (25-34); MEAN CORPUSCULAR HGB CONC 31 G/DL (32-36); MEAN CORPUSCULAR VOLUME 88 FL (80-99); MEAN PLATELET VOLUME 10.7 FL (7.4-10.4); MONOCYTES # (AUTO) 0.7 X 10^3 (0.0-1.0); MONOCYTES % (AUTO) 5 % (0-12); NEUTROPHILS # (AUTO) 11.6 X 10^3 (1.8-7.8); NEUTROPHILS % (AUTO) 88 % (42-75); PLATELET COUNT 159 10^3/uL (130-400); RED CELL DISTRIBUTION WIDTH 18.7 % (10.0-14.5); WHITE BLOOD COUNT 13.2 10^3/uL (4.3-11.0)
[2019-09-02 04:01] LABS: ABG BASE EXCESS 4.7 MMOL/L (-2.5-2.5); ABG OXYGEN SATURATION 94 % (94-100); ABG PCO2 44 MMHG (35-45); ABG PH 7.43 (7.37-7.43); ABG PO2 75 MMHG (79-93); ABG TCO2 30.6 MMOL/L (21.0-31.0)
[2019-09-02 04:02] LABS: ALLENS TEST POSITIVE; INSPIRED O2 70%; VENTILATOR YES
[2019-09-02 04:17] LABS: ALANINE AMINOTRANSFERASE 41 U/L (0-55); ALBUMIN 3.4 GM/DL (3.2-4.5); ALKALINE PHOSPHATASE 66 U/L (40-136); BILIRUBIN,TOTAL 0.6 MG/DL (0.1-1.0); BUN/CREATININE RATIO 41; CALCIUM 8.5 MG/DL (8.5-10.1); CARBON DIOXIDE 23 MMOL/L (21-32); CHLORIDE 100 MMOL/L (98-107); CREATININE SERUM 1.02 MG/DL (0.60-1.30); GFR ESTIMATED > 60; GLUCOSE 184 MG/DL (70-105); MAGNESIUM 2.3 MG/DL (1.6-2.4); PHOSPHORUS 4.5 MG/DL (2.3-4.7); POTASSIUM 4.8 MMOL/L (3.6-5.0); SODIUM 138 MMOL/L (135-145); TOTAL PROTEIN 6.9 GM/DL (6.4-8.2)
[2019-09-02] MEDS: ENOXAPARIN 60 MG/0.6 ML (LOVENOX) SYR SC SCH ×2 (05:54→16:37)
[2019-09-02] MEDS: KCL 20 MEQ TAB (K-DUR) PO SCH (05:55)
[2019-09-02] MEDS: POTASSIUM CL 10MEQ/50ML IVPB 50 ML IV SCH (05:55)
[2019-09-02] MEDS: MAGNESIUM 1 GM/100 ML IVPB 100 ML IV SCH (05:55)
[2019-09-02] MEDS: MIDAZOLAM INJECTION FOR DRIPS 50 MG in NS (IVPB) 90 ML IV SCH ×2 (06:46→17:52)
[2019-09-02] MEDS: fentaNYL INJECTION 1,250 MCG in NS (IVPB) 250 ML IV SCH ×2 (06:49→17:14)
--- NOTE | 2019-09-02 07:08 | Pulmonary Progress Note ---
Subjective Time Seen by a Provider: 07:01 Subjective/Events-last exam PT is sedated on vent. Sepsis Event Evaluation Height, Weight, BMI Height: 5'7.00" Weight: 346lbs. 2.0oz. 156.090019ug; 57.92 BMI Method:Stated Exam Exam Vital Signs Date Time Temp Pulse Resp B/P (MAP) Pulse Ox O2 Delivery O2 Flow Rate FiO2 09/02/19 06:46 Mechanical Ventilator 09/02/19 06:37 54 28 92 70 09/02/19 06:00 56 25 165/65 (98) 92 Mechanical Ventilator 70.00 09/02/19 05:00 58 25 161/62 (95) 92 Mechanical Ventilator 70.00 09/02/19 04:17 Mechanical Ventilator 09/02/19 04:00 65 26 155/57 (89) 91 Mechanical Ventilator 70.00 09/02/19 04:00 Mechanical Ventilator 70 09/02/19 03:34 36.0 09/02/19 03:00 58 26 159/62 (94) 93 Mechanical Ventilator 70.00 09/02/19 02:08 60 26 93 70 09/02/19 02:00 61 26 155/60 (91) 93 Mechanical Ventilator 70.00 09/02/19 01:00 75 25 94/65 (75) 93 Mechanical Ventilator 70.00 09/02/19 00:55 Mechanical Ventilator 09/02/19 00:43 69 09/02/19 00:08 36.3 09/02/19 00:00 Mechanical Ventilator 70 09/02/19 00:00 63 25 149/53 (85) 92 Mechanical Ventilator 70.00 09/01/19 23:00 65 26 145/50 (81) 91 Mechanical Ventilator 70.00 09/01/19 22:19 Mechanical Ventilator 09/01/19 22:03 63 26 91 70 09/01/19 22:00 62 25 148/52 (84) 91 Mechanical Ventilator 70.00 09/01/19 21:04 Mechanical Ventilator 70.00 09/01/19 21:00 64 25 151/55 (87) 93 Mechanical Ventilator 75.00 09/01/19 20:30 Mechanical Ventilator 75.00 09/01/19 20:06 Mechanical Ventilator 09/01/19 20:00 Mechanical Ventilator 80 09/01/19 20:00 36.1 09/01/19 20:00 61 26 167/65 (99) 92 Mechanical Ventilator 65.00 09/01/19 19:40 Mechanical Ventilator 80.00 09/01/19 19:35 Mechanical Ventilator 75.00 09/01/19 19:17 59 26 92 65 09/01/19 19:00 58 25 168/64 (98) 91 Mechanical Ventilator 65.00 09/01/19 19:00 Mechanical Ventilator 65.00 09/01/19 18:51 60 09/01/19 18:03 59 150/57 09/01/19 18:00 60 25 147/57 (87) 90 Mechanical Ventilator 65.00 09/01/19 17:00 55 25 158/62 (94) 92 Mechanical Ventilator 65.00 09/01/19 16:00 57 25 156/60 (92) 91 Mechanical Ventilator 65.00 09/01/19 16:00 35.9 09/01/19 15:40 92 Mechanical Ventilator 65 09/01/19 15:00 60 25 152/57 (88) 90 Mechanical Ventilator 65.00 09/01/19 14:53 Mechanical Ventilator 65.00 09/01/19 14:25 64 26 92 60 09/01/19 14:00 55 25 158/64 (95) 92 Mechanical Ventilator 60.00 09/01/19 13:00 58 25 155/63 (93) 92 Mechanical Ventilator 60.00 09/01/19 12:59 56 09/01/19 12:27 58 09/01/19 12:00 36.0 09/01/19 12:00 54 26 155/63 (93) 92 Mechanical Ventilator 60.00 09/01/19 11:40 94 Mechanical Ventilator 60 09/01/19 11:00 67 23 145/58 (87) 91 Mechanical Ventilator 60.00 09/01/19 10:44 Mechanical Ventilator 60.00 09/01/19 10:24 59 26 95 70 09/01/19 10:22 54 09/01/19 10:00 56 25 150/59 (89) 94 Mechanical Ventilator 70.00 09/01/19 09:00 57 25 149/58 (88) 94 Mechanical Ventilator 70.00 09/01/19 08:25 Mechanical Ventilator 70.00 09/01/19 08:15 60 153/60 09/01/19 08:00 65 11 160/64 (96) 97 Mechanical Ventilator 55.00 09/01/19 07:37 37.4 09/01/19 07:37 36.3 09/01/19 07:30 92 Mechanical Ventilator 100 09/01/19 07:20 58 26 97 55 09/01/19 07:20 Mechanical Ventilator 100.00 I & O 09/02/19 07:00 Intake Total 4449 ml Output Total 6300 ml Balance -1851 ml Height & Weight Height: 5'7.00" Weight: 346lbs. 2.0oz. 156.601703iz; 57.92 BMI Method:Stated General Appearance: Chronically ill, Obese HEENT: Other (OG in place ) Neck: Non Tender, Supple Respiratory: Rhonci, Other (on vent) Cardiovascular: Regular Rate, Rhythm, No Murmur Capillary Refill: Less Than 3 Seconds Gastrointestinal: normal bowel sounds, non tender, soft Extremity: Pedal Edema Neurologic/Psychiatric: Other (sedated, appears confident) Skin: Normal Color, Warm/Dry Lymphatic: No Adenopathy Results Lab Laboratory Tests 09/01/19 03:38 09/02/19 03:53 Assessment/Plan Assessment/Plan Acute Respiratory Failure with ARDS -Ventilator support -Decrease Vt to 430 and increase RR, Increase PEEP to 16 -Repeat ABG in 1hr -Pt is requiring a lot of sedation Triglycerides are up. Will try to decrease propofol. He is currently on Propofol, fentanyl, and precedex. May need to Add Versed gtt. - Bumex 1mg BID. -CXR is worse Recent MRSA pneumonia -Eraxis 1/ secondary to yeast in Sputum culture. -Abx advanced 09/01 currently on Merrem, Zyvox and Eraxis please do not stop until first discussing with me. -Pt is not ready for extubation yet COPD exacerbation -Duonebs Q4h -Solumedrol 40 Q 6 Morbid obesity with OHS CHF -monitor I/O HTN - Lopressor PO, and PRN Hydralazine I discussed with pt's regarding code status and pt's current condition. wants to make pt a No code blue. Will continue current care and reevaluate after 48 hrs. Prognosis is guarded. GILLIAN SOOD DO Sep 02, 2019 07:08
[2019-09-02] MEDS: LORazepam INJ 2 MG/ML (ATIVAN) VIAL IVP PRN (07:49)
--- NOTE | 2019-09-02 07:57 | Diagnostic Imaging Report ---
CHEST 1 VIEW, AP/PA ONLY Indication: Intubation Comparison: 09/01/2019 Findings: Stable low lung volumes. Small left pleural effusion is similar. Improved aeration within the lung bases. No pneumothorax. Stable cardiac silhouette. Stable left PICC, ET tube and enteric tube. Impression: 1. Stable support devices. 2. Improved but persistent basilar atelectasis. Dictated by: Dictated on workstation # [id number]
[2019-09-02 08:02] LABS: ABG BASE EXCESS 4.2 MMOL/L (-2.5-2.5); ABG OXYGEN SATURATION 96 % (94-100); ABG PCO2 45 MMHG (35-45); ABG PH 7.42 (7.37-7.43); ABG PO2 84 MMHG (79-93); ABG TCO2 30.2 MMOL/L (21.0-31.0)
[2019-09-02] MEDS: ANIDULAFUNGIN INJECTION 100 MG in NS (IVPB) 100 ML IV SCH (08:05)
[2019-09-02] MEDS: BUMETANIDE 1 MG/4 ML (BUMEX) VIAL IV SCH ×2 (08:05→20:48)
[2019-09-02] MEDS: LINEZOLID IVPB 300 ML IV SCH ×2 (08:06→20:48)
[2019-09-02] MEDS: DOCUSATE SODIUM 10 MG/ML 10 ML UDC (COLACE) PO SCH ×2 (08:06→20:48)
[2019-09-02] MEDS: FAMOTIDINE 20MG/2ML IV (PEPCID) IV SCH ×2 (08:06→20:48)
[2019-09-02] MEDS: MUPIROCIN 2% OINT 22 GM (BACTROBAN) TUBE NSEACH SCH (08:06)
[2019-09-02 08:10] LABS: ALLENS TEST YES-POS; INSPIRED O2 22; PATIENT TEMP 35.8; VENTILATOR YES
[2019-09-02] MEDS: meTOprolol TARTRATE 25 MG (LOPRESSOR) TABLET PO SCH ×2 (09:45→20:48)
--- NOTE | 2019-09-02 12:48 | Progress Note - Hospitalist ---
Subjective HPI/CC On Admission Date Seen by Provider: Sep 02, 2019 Time Seen by Provider: 07:35 Pt is a 59yoCM known to me from previous admissions who was admitted for acute hypercapnic respiratory failure. He is currently intubated sedated and interview is not possible. All history is obtained from review of records and from ER. He reportedly was found by his home health aides and was unresponsive this afternoon and EMS was called and he was brought to the emergency department. He was protecting his airway and so a trial of BiPAP was done because his PCO2 was around 115. After this trial repeat ABG showed a PCO2 of 126 and decision was made to intubate. He has known COPD and follows with Dr. De Leon. He was here recently in May for similar presentation. At that time he had a MRSA pneumonia. He is being admitted to the ICU. Subjective/Events-last exam He is intubated and sedated. He opens his eyes spontaneously. He is moving all extremities. He appears uncomfortable and wants the endotracheal tube out. His is at bedside. Objective Exam Vital Signs Vital Signs Date Time Temp Pulse Resp B/P (MAP) Pulse Ox O2 Delivery O2 Flow Rate FiO2 09/02/19 12:00 36.1 09/02/19 12:00 Mechanical Ventilator 60 09/02/19 12:00 64 22 169/61 (97) 94 60.00 Capillary Refill : Less Than 3 Seconds General Appearance: Mild Distress, Obese HEENT: PERRL/EOMI, Other (Endotracheal tube in place) Neck: Normal Inspection, Supple Respiratory: No Respiratory Distress, Other (Coarse breath sounds, Mechanically ventilated) Cardiovascular: Regular Rate, Rhythm, No Murmur Gastrointestinal: Normal Bowel Sounds, Soft Extremity: Pedal Edema, Swelling Neurologic/Psychiatric: Alert, Other (Uncomfortable) Skin: Other (Venous stasis dermatitis) Results/Procedures Lab Laboratory Tests 09/02/19 03:53 Patient resulted labs reviewed. Imaging: Reviewed Imaging Report Assessment/Plan Assessment and Plan Assess & Plan/Chief Complaint ARDS Acute respiratory failure with hypoxia COPD with acute exacerbation Morbid obesity with OHS Recent MRSA pneumonia Continue Zyvox, Merrem, and Eraxis for pneumonia Continue Solu-Medrol MAT protocol in place Pulmonary consulted, appreciate recommendations Decreasing tidal volume and increasing PEEP for ARDS Heart failure with preserved ejection fraction Echo from 05/2019 showed EF 55% Monitor I/Os HTN Hold home meds Hypotension, resolved Critical Care Critically Ill Patient Diagnosis/Problems Diagnosis/Problems (1) ARDS (adult respiratory distress syndrome) Status: Acute (2) Acute respiratory failure with hypoxia Status: Acute (3) Endotracheally intubated Status: Acute (4) Super obesity Status: Chronic Clinical Quality Measures DVT/VTE Risk/Contraindication: Risk Factor Score Per Nursin RFS Level Per Nursing on Admit: 4+=Very High MARIAM JIN MD Sep 02, 2019 12:48
--- NOTE | 2019-09-02 15:45 | NUR ---
Pastoral care visit w/pts
[2019-09-03] VITALS (30 sets, daily range): BP systolic 108–193; BP diastolic 49–110
[2019-09-03] MEDS: RT-ALBUTEROL/IPRATROPIUM 3 ML (DUONEB) VIAL INH SCH ×6 (01:37→21:44)
[2019-09-03] MEDS: PROPOFOL DRIP (ICU) 100 ML IV SCH ×7 (02:46→20:45)
[2019-09-03 03:00] LABS: ABG BASE EXCESS 3.7 MMOL/L (-2.5-2.5); ABG OXYGEN SATURATION 96 % (94-100); ABG PCO2 44 MMHG (35-45); ABG PH 7.42 (7.37-7.43); ABG PO2 84 MMHG (79-93); ABG TCO2 29.5 MMOL/L (21.0-31.0); ALLENS TEST POSITIVE; BASOPHILS % (AUTO) 0 % (0-10); EOSINOPHILS % (AUTO) 0 % (0-10); HEMATOCRIT 41 % (40-54); HEMOGLOBIN 12.7 G/DL (13.3-17.7); LYMPHOCYTES # (AUTO) 0.7 X 10^3 (1.0-4.0); LYMPHOCYTES % (AUTO) 6 % (12-44); MEAN CORPUSCULAR HEMOGLOBIN 27 PG (25-34); MEAN CORPUSCULAR HGB CONC 31 G/DL (32-36); MEAN CORPUSCULAR VOLUME 88 FL (80-99); MEAN PLATELET VOLUME 10.4 FL (7.4-10.4); MONOCYTES # (AUTO) 0.8 X 10^3 (0.0-1.0); MONOCYTES % (AUTO) 7 % (0-12); NEUTROPHILS # (AUTO) 10.7 X 10^3 (1.8-7.8); NEUTROPHILS % (AUTO) 88 % (42-75); PLATELET COUNT 159 10^3/uL (130-400); RED CELL DISTRIBUTION WIDTH 19.1 % (10.0-14.5); WHITE BLOOD COUNT 12.3 10^3/uL (4.3-11.0)
[2019-09-03 03:01] LABS: INSPIRED O2 50%; VENTILATOR YES
[2019-09-03 03:19] LABS: ALANINE AMINOTRANSFERASE 52 U/L (0-55); ALBUMIN 3.4 GM/DL (3.2-4.5); ALKALINE PHOSPHATASE 66 U/L (40-136); BILIRUBIN,TOTAL 0.6 MG/DL (0.1-1.0); BUN/CREATININE RATIO 48; CALCIUM 8.5 MG/DL (8.5-10.1); CARBON DIOXIDE 22 MMOL/L (21-32); CHLORIDE 100 MMOL/L (98-107); CREATININE SERUM 0.89 MG/DL (0.60-1.30); GFR ESTIMATED > 60; GLUCOSE 166 MG/DL (70-105); MAGNESIUM 2.4 MG/DL (1.6-2.4); PHOSPHORUS 4.9 MG/DL (2.3-4.7); POTASSIUM 4.7 MMOL/L (3.6-5.0); SODIUM 136 MMOL/L (135-145); TOTAL PROTEIN 6.6 GM/DL (6.4-8.2)
[2019-09-03 03:22] LABS: TRIGLYCERIDES 771 MG/DL (<150)
[2019-09-03] MEDS: hydrALAZINE (APESOLINE) 20 MG/ML VIAL IV SCH ×5 (03:46→21:13)
[2019-09-03] MEDS: fentaNYL INJECTION 1,250 MCG in NS (IVPB) 250 ML IV SCH ×2 (04:44→14:50)
--- NOTE | 2019-09-03 05:00 | Pulmonary Progress Note ---
Subjective Time Seen by a Provider: 04:56 Subjective/Events-last exam Sedated on vent Sepsis Event Evaluation Height, Weight, BMI Height: 5'7.00" Weight: 346lbs. 2.0oz. 156.781973xp; 57.92 BMI Method:Stated Exam Exam Vital Signs Date Time Temp Pulse Resp B/P (MAP) Pulse Ox O2 Delivery O2 Flow Rate FiO2 09/03/19 03:00 52 28 182/75 (110) 94 Mechanical Ventilator 50.00 09/03/19 02:47 36.0 09/03/19 02:46 Mechanical Ventilator 09/03/19 02:00 51 27 177/73 (107) 95 Mechanical Ventilator 50.00 09/03/19 01:37 51 28 96 50 09/03/19 01:00 53 28 166/68 (100) 95 Mechanical Ventilator 50.00 09/03/19 01:00 54 09/03/19 00:47 Mechanical Ventilator 50.00 09/03/19 00:00 58 28 144/64 (90) 94 Mechanical Ventilator 60.00 09/03/19 00:00 Mechanical Ventilator 60 09/02/19 23:46 36.0 09/02/19 23:43 Mechanical Ventilator 09/02/19 23:00 60 28 147/61 (89) 92 Mechanical Ventilator 60.00 09/02/19 22:00 52 28 152/62 (92) 94 Mechanical Ventilator 60.00 09/02/19 21:50 Mechanical Ventilator 60.00 09/02/19 21:11 55 28 94 50 09/02/19 21:00 52 24 151/64 (93) 94 Mechanical Ventilator 50.00 09/02/19 20:47 Mechanical Ventilator 09/02/19 20:00 Mechanical Ventilator 50 09/02/19 20:00 53 28 150/63 (92) 94 Mechanical Ventilator 50.00 09/02/19 20:00 35.8 09/02/19 19:00 60 09/02/19 19:00 55 27 151/62 (91) 93 Mechanical Ventilator 50.00 09/02/19 18:17 56 28 94 50 09/02/19 18:00 58 28 146/58 (87) 93 Mechanical Ventilator 50.00 09/02/19 17:58 145/58 09/02/19 17:52 57 09/02/19 17:00 63 28 137/53 (81) 92 Mechanical Ventilator 50.00 09/02/19 16:23 135/57 09/02/19 16:00 Mechanical Ventilator 50 09/02/19 16:00 35.8 09/02/19 16:00 63 22 158/57 (90) 91 Mechanical Ventilator 50.00 09/02/19 15:00 64 22 158/57 (90) 90 Mechanical Ventilator 50.00 09/02/19 14:36 Mechanical Ventilator 50.00 09/02/19 14:31 62 28 93 50 09/02/19 14:06 64 09/02/19 14:00 63 28 159/59 (92) 93 Mechanical Ventilator 60.00 09/02/19 13:00 70 20 148/54 (85) 94 Mechanical Ventilator 60.00 09/02/19 12:52 62 09/02/19 12:00 36.1 09/02/19 12:00 Mechanical Ventilator 60 09/02/19 12:00 64 22 169/61 (97) 94 Mechanical Ventilator 60.00 09/02/19 11:58 168/62 09/02/19 11:00 63 21 167/60 (95) Mechanical Ventilator 60.00 09/02/19 10:28 Mechanical Ventilator 60.00 09/02/19 10:26 61 28 95 60 09/02/19 10:00 55 27 158/60 (92) 94 Mechanical Ventilator 70.00 09/02/19 09:44 157/58 09/02/19 09:00 54 28 169/65 (99) 93 Mechanical Ventilator 70.00 09/02/19 08:04 175/65 09/02/19 08:00 60 18 102/85 (91) 95 Mechanical Ventilator 70.00 09/02/19 08:00 Mechanical Ventilator 70 09/02/19 07:29 36.7 09/02/19 07:00 64 09/02/19 07:00 62 28 102/85 (91) 93 Mechanical Ventilator 70.00 09/02/19 06:46 Mechanical Ventilator 09/02/19 06:37 54 28 92 70 09/02/19 06:00 56 25 165/65 (98) 92 Mechanical Ventilator 70.00 09/02/19 05:00 58 25 161/62 (95) 92 Mechanical Ventilator 70.00 I & O 09/03/19 07:00 Intake Total 4291 ml Output Total 4300 ml Balance -9 ml Height & Weight Height: 5'7.00" Weight: 346lbs. 2.0oz. 156.099884uq; 57.92 BMI Method:Stated General Appearance: Mild Distress, Obese HEENT: PERRL/EOMI, Other (Endotracheal tube in place) Neck: Normal Inspection, Supple Respiratory: No Respiratory Distress, Other (Coarse breath sounds, Mechanically ventilated) Cardiovascular: Regular Rate, Rhythm, No Murmur Capillary Refill: Less Than 3 Seconds Gastrointestinal: normal bowel sounds, non tender, soft Extremity: Pedal Edema, Swelling Neurologic/Psychiatric: Alert, Other (Uncomfortable) Skin: Other (Venous stasis dermatitis) Lymphatic: No Adenopathy Results Lab Laboratory Tests 09/02/19 03:53 09/03/19 02:53 Assessment/Plan Assessment/Plan Acute Respiratory Failure with ARDS -Ventilator support - Bumex 1mg BID. -CXR is worse Recent MRSA pneumonia -Eraxis 1/ secondary to yeast in Sputum culture. -Abx advanced 1/ currently on Merrem, Zyvox and Eraxis please do not stop until first discussing with me. -Pt is not ready for extubation yet COPD exacerbation -Duonebs Q4h -Solumedrol 40 Q 6 Morbid obesity with OHS CHF -monitor I/O HTN - Lopressor PO, and PRN Hydralazine GILLIAN SOOD DO Sep 03, 2019 04:59
[2019-09-03] MEDS: MIDAZOLAM INJECTION FOR DRIPS 50 MG in NS (IVPB) 90 ML IV SCH ×3 (05:15→22:00)
[2019-09-03] MEDS: MAGNESIUM 1 GM/100 ML IVPB 100 ML IV SCH (05:17)
[2019-09-03] MEDS: methylPREDNISolone 40 MG/ML (Solu-MEDROL) VIAL IV SCH ×3 (05:17→21:13)
[2019-09-03] MEDS: MEROPENEM 500 MG/SWFI 10 ML IV PUSH IV SCH ×6 (05:17→17:21)
[2019-09-03] MEDS: POTASSIUM CL 10MEQ/50ML IVPB 50 ML IV SCH (05:17)
[2019-09-03] MEDS: KCL 20 MEQ TAB (K-DUR) PO SCH (05:18)
[2019-09-03] MEDS: inSUlin ASPART (NovoLOG) 1 UNIT/0.01 ML (CHARGE PER UNIT) SC SCH ×3 (05:18→18:43)
[2019-09-03] MEDS: ENOXAPARIN 60 MG/0.6 ML (LOVENOX) SYR SC SCH ×2 (05:22→16:08)
[2019-09-03] MEDS: LINEZOLID IVPB 300 ML IV SCH ×2 (08:03→21:14)
[2019-09-03] MEDS: DOCUSATE SODIUM 10 MG/ML 10 ML UDC (COLACE) PO SCH ×2 (08:03→21:49)
[2019-09-03] MEDS: FAMOTIDINE 20MG/2ML IV (PEPCID) IV SCH ×2 (08:03→21:12)
[2019-09-03] MEDS: meTOprolol TARTRATE 25 MG (LOPRESSOR) TABLET PO SCH ×2 (08:03→21:13)
[2019-09-03] MEDS: ANIDULAFUNGIN INJECTION 100 MG in NS (IVPB) 100 ML IV SCH (08:03)
[2019-09-03] MEDS: BUMETANIDE 1 MG/4 ML (BUMEX) VIAL IV SCH ×2 (08:03→21:13)
--- NOTE | 2019-09-03 08:58 | Diagnostic Imaging Report ---
EXAMINATION: Chest 1 view HISTORY: Respiratory failure COMPARISON: 09/02/2019 FINDINGS: Endotracheal tube tip terminates 6 cm above the jorge luis. Gastric tube tip terminates below the field of view. Left upper extremity peripherally inserted central venous catheter tip terminates in the superior vena cava. There is left lower lobe collapse, similar to prior exam. There is increasing bilateral pulmonary edema. No pneumothorax. Heart size is unchanged. IMPRESSION: 1. Increasing moderate pulmonary edema. 2. Stable left lower lobe collapse. Dictated by: Dictated on workstation # [id number]
--- NOTE | 2019-09-03 15:52 | NUR ---
RD FOLLOW-UP Note pt currently receiving enteral nutrition of Jevity 1.5 at 10ml/hr, with flushes of 150 ml H2O q4h. Would recommend increasing TF by 10ml q6h as tolerated to goal rate of 50ml/hr. Recommend changing flushes from 150 ml H2O q4h to 75 ml q4h for hydration status. At goal rate, provides 1800 kcal; 76 g Pro; and 912 ml free water. With flushes, provides 1362 ml free water. Will continue to follow and reassess as pt needs and status change. Colton Anthony, MS, RD, LD
--- NOTE | 2019-09-03 16:21 | Progress Note - Hospitalist ---
Subjective HPI/CC On Admission Date Seen by Provider: Sep 03, 2019 Time Seen by Provider: 08:40 Pt is a 59yoCM known to me from previous admissions who was admitted for acute hypercapnic respiratory failure. He is currently intubated sedated and interview is not possible. All history is obtained from review of records and from ER. He reportedly was found by his home health aides and was unresponsive this afternoon and EMS was called and he was brought to the emergency department. He was protecting his airway and so a trial of BiPAP was done because his PCO2 was around 115. After this trial repeat ABG showed a PCO2 of 126 and decision was made to intubate. He has known COPD and follows with Dr. De Leon. He was here recently in May for similar presentation. At that time he had a MRSA pneumonia. He is being admitted to the ICU. Subjective/Events-last exam He remains intubated and sedated. His is at bedside. She states that he appears more comfortable today. Objective Exam Vital Signs Vital Signs Date Time Temp Pulse Resp B/P (MAP) Pulse Ox O2 Delivery O2 Flow Rate FiO2 09/03/19 15:17 Mechanical Ventilator 40 09/03/19 15:14 152/51 09/03/19 15:00 65 23 93 40.00 09/03/19 11:53 35.7 Capillary Refill : Less Than 3 Seconds General Appearance: No Apparent Distress, WD/WN, Chronically ill, Obese Neck: Normal Inspection, Supple Respiratory: Other (Coarse breath sounds, mechanically ventilated) Cardiovascular: Regular Rate, Rhythm, No Edema, No Murmur Gastrointestinal: Normal Bowel Sounds, Non Tender, Soft Extremity: Normal Inspection, Pedal Edema Neurologic/Psychiatric: Other (And sedated) Skin: Normal Color, Warm/Dry Results/Procedures Lab Laboratory Tests 09/03/19 02:53 Patient resulted labs reviewed. Imaging: Reviewed Imaging Report Assessment/Plan Assessment and Plan Assess & Plan/Chief Complaint ARDS Acute respiratory failure with hypoxia COPD with acute exacerbation Morbid obesity with OHS Recent MRSA pneumonia Continue Zyvox, Merrem, and Eraxis for pneumonia Continue Solu-Medrol MAT protocol in place Pulmonary consulted, appreciate recommendations Heart failure with preserved ejection fraction Echo from 05/2019 showed EF 55% Monitor I/Os HTN Hold home meds Hypotension, resolved Critical Care Critically Ill Patient Diagnosis/Problems Diagnosis/Problems (1) ARDS (adult respiratory distress syndrome) Status: Acute (2) Acute respiratory failure with hypoxia Status: Acute (3) Endotracheally intubated Status: Acute (4) Super obesity Status: Chronic Clinical Quality Measures DVT/VTE Risk/Contraindication: Risk Factor Score Per Nursin RFS Level Per Nursing on Admit: 4+=Very High MARIAM JIN MD Sep 03, 2019 16:21
[2019-09-03] MEDS: LORazepam INJ 2 MG/ML (ATIVAN) VIAL IVP PRN (18:31)
[2019-09-04] VITALS (30 sets, daily range): BP systolic 103–173; BP diastolic 50–78
[2019-09-04] MEDS: inSUlin ASPART (NovoLOG) 1 UNIT/0.01 ML (CHARGE PER UNIT) SC SCH ×4 (00:23→17:47)
[2019-09-04] MEDS: MEROPENEM 500 MG/SWFI 10 ML IV PUSH IV SCH ×8 (00:28→17:28)
[2019-09-04] MEDS: hydrALAZINE (APESOLINE) 20 MG/ML VIAL IV SCH ×6 (00:34→19:46)
[2019-09-04] MEDS: fentaNYL INJECTION 1,250 MCG in NS (IVPB) 250 ML IV SCH ×3 (01:31→16:26)
[2019-09-04] MEDS: PROPOFOL DRIP (ICU) 100 ML IV SCH ×6 (01:50→22:19)
[2019-09-04] MEDS: RT-ALBUTEROL/IPRATROPIUM 3 ML (DUONEB) VIAL INH SCH ×6 (02:11→21:54)
[2019-09-04 03:22] LABS: ABG BASE EXCESS 6.4 MMOL/L (-2.5-2.5); ABG OXYGEN SATURATION 92 % (94-100); ABG PCO2 50 MMHG (35-45); ABG PO2 66 MMHG (79-93); ABG TCO2 32.9 MMOL/L (21.0-31.0)
[2019-09-04 03:24] LABS: ALLENS TEST ART LINE
[2019-09-04 03:25] LABS: INSPIRED O2 40%; VENTILATOR YES
[2019-09-04 03:29] LABS: BASOPHILS % (AUTO) 0 % (0-10); EOSINOPHILS % (AUTO) 0 % (0-10); HEMATOCRIT 42 % (40-54); HEMOGLOBIN 12.8 G/DL (13.3-17.7); LYMPHOCYTES # (AUTO) 0.7 X 10^3 (1.0-4.0); LYMPHOCYTES % (AUTO) 4 % (12-44); MEAN CORPUSCULAR HEMOGLOBIN 27 PG (25-34); MEAN CORPUSCULAR HGB CONC 30 G/DL (32-36); MEAN CORPUSCULAR VOLUME 89 FL (80-99); MEAN PLATELET VOLUME 10.4 FL (7.4-10.4); MONOCYTES # (AUTO) 1.7 X 10^3 (0.0-1.0); MONOCYTES % (AUTO) 9 % (0-12); NEUTROPHILS # (AUTO) 17.4 X 10^3 (1.8-7.8); NEUTROPHILS % (AUTO) 88 % (42-75); PLATELET COUNT 210 10^3/uL (130-400); RED CELL DISTRIBUTION WIDTH 19.4 % (10.0-14.5); WHITE BLOOD COUNT 19.8 10^3/uL (4.3-11.0)
[2019-09-04 03:51] LABS: ALANINE AMINOTRANSFERASE 85 U/L (0-55); ALBUMIN 3.3 GM/DL (3.2-4.5); ALKALINE PHOSPHATASE 70 U/L (40-136); BILIRUBIN,TOTAL 1.1 MG/DL (0.1-1.0); BUN/CREATININE RATIO 53; CALCIUM 8.6 MG/DL (8.5-10.1); CARBON DIOXIDE 22 MMOL/L (21-32); CHLORIDE 100 MMOL/L (98-107); CREATININE SERUM 0.89 MG/DL (0.60-1.30); GFR ESTIMATED > 60; GLUCOSE 148 MG/DL (70-105); MAGNESIUM 2.3 MG/DL (1.6-2.4); PHOSPHORUS 4.2 MG/DL (2.3-4.7); POTASSIUM 4.5 MMOL/L (3.6-5.0); SODIUM 138 MMOL/L (135-145); TOTAL PROTEIN 6.5 GM/DL (6.4-8.2)
[2019-09-04 04:01] LABS: BAND NEUTROPHILS 2 %; BASOPHILS % (MANUAL) 0 %; EOSINOPHILS % (MANUAL) 0 %; LYMPHOCYTES % (MANUAL) 7 %; MONOCYTES % (MANUAL) 2 %; NEUTROPHILS % (MANUAL) 88 %; REACTIVE LYMPHOCYTES 1 %; SMUDGE CELLS MOD
[2019-09-04 04:02] LABS: ANISOCYTOSIS MODERATE; MICROCYTOSIS SLIGHT; POIKILOCYTOSIS SLIGHT
[2019-09-04] MEDS: MIDAZOLAM INJECTION FOR DRIPS 50 MG in NS (IVPB) 90 ML IV SCH ×3 (04:48→17:30)
[2019-09-04] MEDS: ENOXAPARIN 60 MG/0.6 ML (LOVENOX) SYR SC SCH ×2 (04:48→17:29)
--- NOTE | 2019-09-04 04:51 | Pulmonary Progress Note ---
Subjective Time Seen by a Provider: 06:37 Subjective/Events-last exam PT is sedated on vent. Sepsis Event Evaluation Height, Weight, BMI Height: 5'7.00" Weight: 346lbs. 2.0oz. 156.570976ny; 57.92 BMI Method:Stated Exam Exam Vital Signs Date Time Temp Pulse Resp B/P (MAP) Pulse Ox O2 Delivery O2 Flow Rate FiO2 09/04/19 04:00 102 23 134/65 (88) 99 Mechanical Ventilator 40.00 09/04/19 03:00 103 24 155/71 (99) 98 Mechanical Ventilator 40.00 09/04/19 02:35 144/63 09/04/19 02:12 105 24 99 40 09/04/19 02:00 110 23 162/78 (106) 99 Mechanical Ventilator 40.00 09/04/19 01:50 110 09/04/19 01:00 104 09/04/19 01:00 104 24 153/69 (97) 100 Mechanical Ventilator 40.00 09/04/19 00:00 Mechanical Ventilator 40 09/04/19 00:00 97 23 144/65 (91) 100 Mechanical Ventilator 40.00 09/04/19 00:00 36.6 09/03/19 23:00 107 24 146/70 (95) 100 Mechanical Ventilator 40.00 09/03/19 22:00 112 16 166/58 (94) 100 Mechanical Ventilator 40.00 09/03/19 22:00 110 09/03/19 21:44 118 26 99 40 09/03/19 21:00 115 24 155/72 (99) 100 Mechanical Ventilator 40.00 09/03/19 20:45 195/65 09/03/19 20:00 Mechanical Ventilator 40 09/03/19 20:00 36.4 09/03/19 20:00 116 18 193/58 (103) 99 Mechanical Ventilator 40.00 09/03/19 19:00 108 23 143/57 (85) 100 Mechanical Ventilator 40.00 09/03/19 19:00 108 09/03/19 18:50 97 09/03/19 18:26 118 26 99 50 09/03/19 18:00 69 24 183/58 (99) 97 Mechanical Ventilator 40.00 09/03/19 17:00 64 23 176/59 (98) 97 Mechanical Ventilator 40.00 09/03/19 16:00 62 23 169/55 (93) 96 Mechanical Ventilator 40.00 09/03/19 16:00 35.6 09/03/19 15:17 Mechanical Ventilator 40 09/03/19 15:14 152/51 09/03/19 15:00 65 23 143/49 (80) 93 Mechanical Ventilator 40.00 09/03/19 14:47 141/51 09/03/19 14:11 64 24 96 50 09/03/19 14:11 Mechanical Ventilator 40.00 09/03/19 14:00 58 23 126/110 (115) 96 Mechanical Ventilator 50.00 09/03/19 13:00 59 09/03/19 13:00 59 23 132/50 (77) 93 Mechanical Ventilator 50.00 09/03/19 12:43 133/51 09/03/19 12:00 70 18 122/109 (113) 94 Mechanical Ventilator 50.00 09/03/19 12:00 Mechanical Ventilator 50 09/03/19 11:53 35.7 09/03/19 11:22 56 24 93 50 09/03/19 11:00 57 24 153/60 (91) 95 Mechanical Ventilator 50.00 09/03/19 10:00 59 23 153/59 (90) 96 Mechanical Ventilator 50.00 09/03/19 09:00 68 11 146/51 (82) 94 Mechanical Ventilator 50.00 09/03/19 08:32 127/50 09/03/19 08:25 71 24 93 50 09/03/19 08:00 Mechanical Ventilator 50 09/03/19 08:00 51 24 143/59 (87) 95 Mechanical Ventilator 50.00 09/03/19 08:00 36.1 09/03/19 07:00 50 24 142/56 (84) 95 Mechanical Ventilator 50.00 09/03/19 07:00 50 09/03/19 06:00 54 24 146/57 (86) 95 Mechanical Ventilator 50.00 09/03/19 05:36 Mechanical Ventilator 09/03/19 05:15 Mechanical Ventilator 09/03/19 05:00 53 16 144/57 (86) 94 Mechanical Ventilator 50.00 I & O 09/04/19 07:00 Intake Total 2115 ml Output Total 3400 ml Balance -1285 ml Height & Weight Height: 5'7.00" Weight: 346lbs. 2.0oz. 156.838543ls; 57.92 BMI Method:Stated General Appearance: No Apparent Distress, WD/WN, Chronically ill, Obese HEENT: PERRL/EOMI, Other (Endotracheal tube in place) Neck: Normal Inspection, Supple Respiratory: Other (Coarse breath sounds, mechanically ventilated) Cardiovascular: Regular Rate, Rhythm, No Edema, No Murmur Capillary Refill: Less Than 3 Seconds Gastrointestinal: normal bowel sounds, non tender, soft Extremity: Normal Inspection, Pedal Edema Neurologic/Psychiatric: Other (And sedated) Skin: Normal Color, Warm/Dry Lymphatic: No Adenopathy Results Lab Laboratory Tests 09/03/19 02:53 09/04/19 03:00 Assessment/Plan Assessment/Plan Acute Respiratory Failure with ARDS -Ventilator support - Bumex 1mg BID. -Decrease PEEP to 12 Recent MRSA pneumonia -Eraxis 08/29 secondary to yeast in Sputum culture. -Abx advanced 1/ currently on Merrem, Zyvox and Eraxis please do not stop until first discussing with me. -Pt is not ready for extubation yet COPD exacerbation -Duonebs Q4h -Solumedrol 40 Q 6 Morbid obesity with OHS CHF -monitor I/O HTN - Lopressor PO, and PRN Hydralazine GILLIAN SOOD DO Sep 04, 2019 04:51
[2019-09-04] MEDS ORDERED: BUMETANIDE 1 MG/4 ML (BUMEX) VIAL ONE (05:42)
[2019-09-04] MEDS: BUMETANIDE 1 MG/4 ML (BUMEX) VIAL IV SCH ×3 (05:54→20:11)
[2019-09-04] MEDS: MAGNESIUM 1 GM/100 ML IVPB 100 ML IV SCH (05:55)
[2019-09-04] MEDS: POTASSIUM CL 10MEQ/50ML IVPB 50 ML IV SCH ×3 (05:55→06:14)
[2019-09-04] MEDS: KCL 20 MEQ TAB (K-DUR) PO SCH (05:56)
--- NOTE | 2019-09-04 07:19 | NUR ---
report received. patient remains on the vent. VSS. Afibrile. repositioned q2h. Delacruz care provided. family at the bedside. on fentanyl, versed and propofol gtt. titrated as ordered. All questions answered. denies needs.
[2019-09-04] MEDS: meTOprolol TARTRATE 25 MG (LOPRESSOR) TABLET PO SCH ×2 (08:52→20:13)
[2019-09-04] MEDS: FAMOTIDINE 20MG/2ML IV (PEPCID) IV SCH ×2 (08:52→20:12)
[2019-09-04] MEDS: methylPREDNISolone 40 MG/ML (Solu-MEDROL) VIAL IV SCH ×2 (08:52→20:12)
[2019-09-04] MEDS: ANIDULAFUNGIN INJECTION 100 MG in NS (IVPB) 100 ML IV SCH (08:52)
--- NOTE | 2019-09-04 09:07 | Diagnostic Imaging Report ---
INDICATION: Respiratory failure COMPARISON: 09/03/2019 FINDINGS: Single view of the chest demonstrates cardiac enlargement with persistent but decreased central vascular congestion. There is dependent atelectasis. Small effusion not excluded. There is no pneumothorax. Support lines appear stable. IMPRESSION: 1. Stable support lines without pneumothorax. The NG tube is likely within the distal esophagus but unchanged. 2. Improving aeration. Dictated by: Dictated on workstation # [id number]
[2019-09-04] MEDS: LINEZOLID IVPB 300 ML IV SCH ×2 (09:08→20:12)
[2019-09-04] MEDS: DOCUSATE SODIUM 10 MG/ML 10 ML UDC (COLACE) PO SCH ×2 (09:24→20:12)
[2019-09-04] MEDS: LORazepam INJ 2 MG/ML (ATIVAN) VIAL IVP PRN (09:59)
--- NOTE | 2019-09-04 10:48 | Progress Note - Hospitalist ---
Subjective HPI/CC On Admission Date Seen by Provider: Sep 04, 2019 Time Seen by Provider: 08:30 Pt is a 59yoCM known to me from previous admissions who was admitted for acute hypercapnic respiratory failure. He is currently intubated sedated and interview is not possible. All history is obtained from review of records and from ER. He reportedly was found by his home health aides and was unresponsive this afternoon and EMS was called and he was brought to the emergency department. He was protecting his airway and so a trial of BiPAP was done because his PCO2 was around 115. After this trial repeat ABG showed a PCO2 of 126 and decision was made to intubate. He has known COPD and follows with Dr. De Leon. He was here recently in May for similar presentation. At that time he had a MRSA pneumonia. He is being admitted to the ICU. Subjective/Events-last exam He is intubated and mildly sedated. He is a awake and alert and able to follow commands. He denies being any pain. He does report being uncomfortable. He does not like the endotracheal tube. Objective Exam Vital Signs Vital Signs Date Time Temp Pulse Resp B/P (MAP) Pulse Ox O2 Delivery O2 Flow Rate FiO2 09/04/19 09:45 145/68 09/04/19 09:00 109 24 99 Mechanical Ventilator 35.00 09/04/19 08:00 35 09/04/19 04:00 36.8 Capillary Refill : Less Than 3 Seconds General Appearance: Mild Distress, Obese HEENT: PERRL/EOMI, Other (conjunctival erythema bilaterally) Neck: Normal Inspection, Supple Respiratory: Lungs Clear, Normal Breath Sounds, No Respiratory Distress Cardiovascular: Regular Rate, Rhythm, No Murmur Gastrointestinal: Normal Bowel Sounds, Non Tender, Soft Extremity: Normal Inspection, Non Tender, Pedal Edema Neurologic/Psychiatric: Alert, No Motor/Sensory Deficits, Other (mildly sedated) Skin: Normal Color, Warm/Dry Results/Procedures Lab Laboratory Tests 09/04/19 03:00 Patient resulted labs reviewed. Imaging: Reviewed Imaging Report Assessment/Plan Assessment and Plan Assess & Plan/Chief Complaint ARDS Acute respiratory failure with hypoxia COPD with acute exacerbation Morbid obesity with OHS Recent MRSA pneumonia Continue Zyvox, Merrem, and Eraxis for pneumonia Continue Solu-Medrol MAT protocol in place Pulmonary consulted, appreciate recommendations Continue to wean PEEP and FiO2 as able Heart failure with preserved ejection fraction Echo from 05/2019 showed EF 55% Monitor I/Os HTN Hold home meds Hypotension, resolved Critical Care Critically Ill Patient Diagnosis/Problems Diagnosis/Problems (1) ARDS (adult respiratory distress syndrome) Status: Acute (2) Acute respiratory failure with hypoxia Status: Acute (3) Endotracheally intubated Status: Acute (4) Super obesity Status: Chronic Clinical Quality Measures DVT/VTE Risk/Contraindication: Risk Factor Score Per Nursin RFS Level Per Nursing on Admit: 4+=Very High MARIAM JIN MD Sep 04, 2019 10:48
[2019-09-04] MEDS ORDERED: LORazepam INJ 2 MG/ML (ATIVAN) VIAL IVP PRN (11:00)
[2019-09-04] MEDS ORDERED: DexMEDEtomidine 250 ML DRIP 250 ML IV ONE (11:04)
[2019-09-04] MEDS: DEXMEDETOMIDINE 1,000 MCG/NS 250 ML IV SCH ×3 (11:21→22:18)
--- NOTE | 2019-09-04 11:59 | NUR ---
"RD ASSESSMENT PMHx: COPD; HTN PT INTERACTION: Pt is currently intubated and sedated at this time. Note pt has been NPO x8d, per chart review. Pt currently on TF order of Jevity 1.5 at goal rate of 50ml/hr, with flushes of 150 ml H2O q4h for hydration. Note pt currently at 15ml/hr with 150 ml flushes, and is tolerating well. ABNORMAL NUTRITION-RELATED LAB VALUES LOW: HIGH: BUN 47; glu 148; bili 1.1; AST 64; ALT 85 Est. kcal needs: 1776-7532 kcal | 25-30 kcal/kg IBW, based on IBW of 67.3 kg Est. Pro needs: 67-81 g Pro | 1.0-1.2 g Pro/kg IBW, based on IBW of 67.3 kg PES STATEMENT: Inadequate oral intake (NI-2.1) related to NPO status as evidenced by intubation/sedation INTERVENTION: Continue with NPO status. Continue with current TF recommendation of Jevity 1.5 at goal rate of 50ml/hr. Continue increasing by 10ml q6h as tolerated. Monitor residuals for tolerance. At goal rate, provides 1800 kcal (27 kcal/kg IBW); 76 g Pro (1.1 g Pro/kg IBW) and 912 ml free water. Flush with 75 ml H2O q4h for hydration status. With flushes, provides 1362 ml free water. Will continue to follow and reassess as pt needs and status change. MONITOR/EVALUATE: TF tolerance; Plan of Care; Hydration Status; Weight Status; Lab Values Colton Anthony, MS, RD, LD"
[2019-09-04] MEDS: LACTULOSE SYRUP 10GM/15ML (ENULOSE) 30ML UDC PO SCH ×2 (12:02→20:12)
--- NOTE | 2019-09-04 13:28 | Diagnostic Imaging Report ---
INDICATION: Elevated liver function tests and leukocytosis. FINDINGS: The liver is enlarged at 25 cm. There is increased echogenicity throughout the liver consistent with hepatic steatosis. No discrete liver mass is identified. Portal vein was difficult to evaluate. Gallbladder wall is thickened measuring up to 5 mm. No definite stones or sludge are seen. There is a small amount of fluid adjacent to the gallbladder. Pancreas could not be visualized. The spleen and aorta were not well visualized. IVC is patent. Left kidney was not visualized. Right kidney is unremarkable. No calculus or hydronephrosis is seen. No significant ascites is seen. IMPRESSION: 1. Hepatomegaly. No discrete liver mass is detected. 2. Gallbladder wall thickening without stones or sludge. This could be secondary to hepatic dysfunction. 3. Limited study due to patient body habitus and patient's immobility. No other significant abnormality is seen. Dictated by: Dictated on workstation # [id number]
[2019-09-05] VITALS (30 sets, daily range): BP systolic 78–185; BP diastolic 54–82
[2019-09-05] MEDS: hydrALAZINE (APESOLINE) 20 MG/ML VIAL IV SCH ×6 (01:13→20:23)
[2019-09-05] MEDS: inSUlin ASPART (NovoLOG) 1 UNIT/0.01 ML (CHARGE PER UNIT) SC SCH ×5 (01:19→23:01)
[2019-09-05] MEDS: MEROPENEM 500 MG/SWFI 10 ML IV PUSH IV SCH ×8 (01:20→17:00)
[2019-09-05] MEDS: RT-ALBUTEROL/IPRATROPIUM 3 ML (DUONEB) VIAL INH SCH ×6 (01:58→21:20)
[2019-09-05] MEDS: PROPOFOL DRIP (ICU) 100 ML IV SCH ×5 (02:46→20:46)
[2019-09-05 03:17] LABS: ABG OXYGEN SATURATION 93 % (94-100); ABG PCO2 47 MMHG (35-45); ABG PH 7.42 (7.37-7.43); ABG PO2 71 MMHG (79-93)
[2019-09-05 03:21] LABS: ALLENS TEST ART LINE; INSPIRED O2 35%; PATIENT TEMP 36.4; VENTILATOR YES
[2019-09-05 03:22] LABS: BASOPHILS % (AUTO) 0 % (0-10); EOSINOPHILS % (AUTO) 0 % (0-10); HEMATOCRIT 38 % (40-54); HEMOGLOBIN 11.6 G/DL (13.3-17.7); LYMPHOCYTES # (AUTO) 0.5 X 10^3 (1.0-4.0); LYMPHOCYTES % (AUTO) 6 % (12-44); MEAN CORPUSCULAR HEMOGLOBIN 27 PG (25-34); MEAN CORPUSCULAR HGB CONC 30 G/DL (32-36); MEAN CORPUSCULAR VOLUME 88 FL (80-99); MEAN PLATELET VOLUME 10.3 FL (7.4-10.4); MONOCYTES # (AUTO) 0.5 X 10^3 (0.0-1.0); MONOCYTES % (AUTO) 5 % (0-12); NEUTROPHILS # (AUTO) 7.8 X 10^3 (1.8-7.8); NEUTROPHILS % (AUTO) 89 % (42-75); PLATELET COUNT 156 10^3/uL (130-400); RED CELL DISTRIBUTION WIDTH 18.7 % (10.0-14.5); WHITE BLOOD COUNT 8.8 10^3/uL (4.3-11.0)
[2019-09-05 03:40] LABS: ALANINE AMINOTRANSFERASE 69 U/L (0-55); ALBUMIN 3.2 GM/DL (3.2-4.5); ALKALINE PHOSPHATASE 69 U/L (40-136); BILIRUBIN,TOTAL 0.5 MG/DL (0.1-1.0); BUN/CREATININE RATIO 52; CALCIUM 8.1 MG/DL (8.5-10.1); CARBON DIOXIDE 21 MMOL/L (21-32); CHLORIDE 101 MMOL/L (98-107); CREATININE SERUM 0.93 MG/DL (0.60-1.30); GFR ESTIMATED > 60; GLUCOSE 169 MG/DL (70-105); MAGNESIUM 2.4 MG/DL (1.6-2.4); PHOSPHORUS 4.6 MG/DL (2.3-4.7); POTASSIUM 5.1 MMOL/L (3.6-5.0); SODIUM 136 MMOL/L (135-145)
[2019-09-05] MEDS: POTASSIUM CL 10MEQ/50ML IVPB 50 ML IV SCH (03:50)
[2019-09-05] MEDS: KCL 20 MEQ TAB (K-DUR) PO SCH (03:51)
[2019-09-05] MEDS: MAGNESIUM 1 GM/100 ML IVPB 100 ML IV SCH (03:51)
[2019-09-05] MEDS: MIDAZOLAM INJECTION FOR DRIPS 50 MG in NS (IVPB) 90 ML IV SCH ×2 (04:08→12:58)
[2019-09-05] MEDS: fentaNYL INJECTION 1,250 MCG in NS (IVPB) 250 ML IV SCH ×2 (04:09→12:59)
[2019-09-05] MEDS: DEXMEDETOMIDINE 1,000 MCG/NS 250 ML IV SCH ×3 (04:10→21:47)
--- NOTE | 2019-09-05 04:32 | Pulmonary Progress Note ---
Subjective Time Seen by a Provider: 04:31 Subjective/Events-last exam Pt sedated on vent. Sepsis Event Evaluation Height, Weight, BMI Height: 5'7.00" Weight: 346lbs. 2.0oz. 156.140028aw; 57.92 BMI Method:Stated Exam Exam Vital Signs Date Time Temp Pulse Resp B/P (MAP) Pulse Ox O2 Delivery O2 Flow Rate FiO2 09/05/19 04:08 36.97073 69 23 145/57 99 Mechanical Ventilator 09/05/19 03:00 69 23 145/57 (86) 99 Mechanical Ventilator 35.00 09/05/19 02:46 36.00588 66 24 128/72 97 Mechanical Ventilator 35.00 09/05/19 02:00 74 21 137/56 (83) 98 Mechanical Ventilator 35.00 09/05/19 01:47 66 24 97 35 09/05/19 01:22 36.7 09/05/19 01:00 76 23 145/58 (87) 97 Mechanical Ventilator 35.00 09/05/19 01:00 80 09/05/19 00:00 71 23 139/61 (87) 96 Mechanical Ventilator 35.00 09/05/19 00:00 Mechanical Ventilator 35 09/04/19 23:00 68 24 133/72 (92) 94 Mechanical Ventilator 35.00 09/04/19 22:19 36.26963 66 24 128/72 97 Mechanical Ventilator 35.00 09/04/19 22:00 65 23 138/75 (96) 95 Mechanical Ventilator 35.00 09/04/19 21:56 66 24 97 35 09/04/19 21:00 69 23 127/65 (85) 95 Mechanical Ventilator 35.00 09/04/19 20:00 72 24 119/63 (81) 95 Mechanical Ventilator 35.00 09/04/19 20:00 Mechanical Ventilator 35 09/04/19 19:30 36.4 09/04/19 19:09 124/67 09/04/19 19:00 73 09/04/19 19:00 73 23 124/67 (86) 95 Mechanical Ventilator 35.00 09/04/19 18:10 65 24 95 35 09/04/19 18:00 71 23 123/54 (77) 94 Mechanical Ventilator 35.00 09/04/19 17:30 123/60 09/04/19 17:00 76 23 114/51 (72) 93 Mechanical Ventilator 35.00 09/04/19 16:00 Mechanical Ventilator 35 09/04/19 16:00 36.4 09/04/19 16:00 67 24 123/55 (77) 94 Mechanical Ventilator 35.00 09/04/19 15:00 67 23 121/53 (75) 94 Mechanical Ventilator 35.00 09/04/19 14:21 65 24 95 35 09/04/19 14:00 65 24 124/58 (80) 95 Mechanical Ventilator 35.00 09/04/19 13:00 68 09/04/19 13:00 68 24 128/53 (78) 90 Mechanical Ventilator 35.00 09/04/19 12:05 115/50 09/04/19 12:00 73 14 114/50 (71) 91 Mechanical Ventilator 35.00 09/04/19 12:00 Mechanical Ventilator 35 09/04/19 11:00 90 24 173/60 (97) 96 Mechanical Ventilator 35.00 09/04/19 10:40 91 24 98 35 09/04/19 10:00 106 23 135/59 (84) 96 Mechanical Ventilator 35.00 09/04/19 09:45 145/68 09/04/19 09:27 138/62 09/04/19 09:00 109 24 138/62 (87) 99 Mechanical Ventilator 35.00 09/04/19 08:00 110 24 125/58 (80) 98 Mechanical Ventilator 35.00 09/04/19 08:00 Mechanical Ventilator 35 09/04/19 08:00 36.5 09/04/19 07:00 111 09/04/19 07:00 112 24 131/57 (81) 99 Mechanical Ventilator 35.00 09/04/19 06:23 108 24 98 35 09/04/19 06:00 115 24 146/68 (94) 96 Mechanical Ventilator 40.00 09/04/19 05:00 103 24 132/60 (84) 98 Mechanical Ventilator 40.00 09/04/19 04:48 143/60 I & O 09/05/19 07:00 Intake Total 1350 ml Output Total 3525 ml Balance -2175 ml Height & Weight Height: 5'7.00" Weight: 346lbs. 2.0oz. 156.703691lx; 57.92 BMI Method:Stated General Appearance: Mild Distress, Obese HEENT: PERRL/EOMI, Other (conjunctival erythema bilaterally) Neck: Normal Inspection, Supple Respiratory: Lungs Clear, Normal Breath Sounds, No Respiratory Distress Cardiovascular: Regular Rate, Rhythm, No Murmur Capillary Refill: Less Than 3 Seconds Gastrointestinal: normal bowel sounds, non tender, soft Extremity: Normal Inspection, Non Tender, Pedal Edema Neurologic/Psychiatric: Alert, No Motor/Sensory Deficits, Other (mildly sedated) Skin: Normal Color, Warm/Dry Lymphatic: No Adenopathy Results Lab Laboratory Tests 09/04/19 03:00 09/05/19 03:10 Assessment/Plan Assessment/Plan Acute Respiratory Failure with ARDS -Ventilator support - Bumex 1mg - decrease to daily. -Decrease PEEP to 10 Recent MRSA pneumonia -Eraxis 08/29 secondary to yeast in Sputum culture. -Abx advanced 09/01 currently on Merrem, Zyvox and Eraxis please do not stop until first discussing with me. -Pt is not ready for extubation yet COPD exacerbation -Duonebs Q4h -Solumedrol 40 Q 6 Morbid obesity with OHS CHF -monitor I/O HTN - Lopressor PO, and PRN Hydralazine GILLIAN SOOD DO Sep 05, 2019 04:32
[2019-09-05] MEDS: ENOXAPARIN 60 MG/0.6 ML (LOVENOX) SYR SC SCH ×2 (05:19→16:30)
[2019-09-05] MEDS: BUMETANIDE 1 MG/4 ML (BUMEX) VIAL IV SCH ×2 (05:19→05:22)
--- NOTE | 2019-09-05 07:59 | Diagnostic Imaging Report ---
INDICATION: On ventilator. TECHNIQUE: Single frontal view of the chest. COMPARISON: 09/04/2019. FINDINGS: Endotracheal tube appears stable in position. An enteric tube is noted. The left PICC line tip is at the cavoatrial junction. Lung volumes appear stable. No new consolidation is seen. No significant pleural effusion or pneumothorax is appreciated. IMPRESSION: 1. Stable tubes and line. Aeration appears unchanged. Dictated by: Dictated on workstation # [id number]
[2019-09-05] MEDS: LINEZOLID IVPB 300 ML IV SCH ×2 (08:09→20:24)
[2019-09-05] MEDS: FAMOTIDINE 20MG/2ML IV (PEPCID) IV SCH ×2 (08:09→20:24)
[2019-09-05] MEDS: LACTULOSE SYRUP 10GM/15ML (ENULOSE) 30ML UDC PO SCH ×2 (08:09→20:24)
[2019-09-05] MEDS: methylPREDNISolone 40 MG/ML (Solu-MEDROL) VIAL IV SCH ×2 (08:09→20:24)
[2019-09-05] MEDS: DOCUSATE SODIUM 10 MG/ML 10 ML UDC (COLACE) PO SCH ×2 (08:09→20:24)
[2019-09-05] MEDS: ANIDULAFUNGIN INJECTION 100 MG in NS (IVPB) 100 ML IV SCH (08:10)
[2019-09-05] MEDS: meTOprolol TARTRATE 25 MG (LOPRESSOR) TABLET PO SCH ×2 (08:10→20:24)
--- NOTE | 2019-09-05 11:00 | NUR ---
Pastoral care visit.
--- NOTE | 2019-09-05 13:29 | Progress Note - Hospitalist ---
Subjective HPI/CC On Admission Date Seen by Provider: Sep 05, 2019 Time Seen by Provider: 08:20 Pt is a 59yoCM known to me from previous admissions who was admitted for acute hypercapnic respiratory failure. He is currently intubated sedated and interview is not possible. All history is obtained from review of records and from ER. He reportedly was found by his home health aides and was unresponsive this afternoon and EMS was called and he was brought to the emergency department. He was protecting his airway and so a trial of BiPAP was done because his PCO2 was around 115. After this trial repeat ABG showed a PCO2 of 126 and decision was made to intubate. He has known COPD and follows with Dr. De Leon. He was here recently in May for similar presentation. At that time he had a MRSA pneumonia. He is being admitted to the ICU. Subjective/Events-last exam he remains intubated and sedated. His is at bedside. She has no questions or concerns at this time. She believes that he appears comfortable at this time. Objective Exam Vital Signs Vital Signs Date Time Temp Pulse Resp B/P (MAP) Pulse Ox O2 Delivery O2 Flow Rate FiO2 09/05/19 12:58 67 09/05/19 11:40 37.0 09/05/19 10:20 24 96 35 09/05/19 06:35 158/64 Mechanical Ventilator 35.00 Capillary Refill : Less Than 3 Seconds General Appearance: No Apparent Distress, WD/WN, Other (intubated and sedated) Neck: Normal Inspection, Supple Respiratory: Lungs Clear, Normal Breath Sounds, No Respiratory Distress, Other (intubated and mechanically ventilated) Cardiovascular: Regular Rate, Rhythm, No Murmur Gastrointestinal: Normal Bowel Sounds, Non Tender, Soft Extremity: Normal Inspection, Non Tender, Pedal Edema Neurologic/Psychiatric: Other (sedated) Skin: Normal Color, Warm/Dry Results/Procedures Lab Laboratory Tests 09/05/19 03:10 Patient resulted labs reviewed. Imaging: Reviewed Imaging Report Assessment/Plan Assessment and Plan Assess & Plan/Chief Complaint ARDS Acute respiratory failure with hypoxia COPD with acute exacerbation Morbid obesity with OHS Recent MRSA pneumonia Continue Zyvox, Merrem, and Eraxis for pneumonia Continue Solu-Medrol MAT protocol in place Pulmonary consulted, appreciate recommendations oxygen requirements decreasing, weaning PEEP as able Heart failure with preserved ejection fraction Echo from 05/2019 showed EF 55% Monitor I/Os HTN Hold home meds Hypotension, resolved Critical Care Critically Ill Patient Diagnosis/Problems Diagnosis/Problems (1) ARDS (adult respiratory distress syndrome) Status: Acute (2) Acute respiratory failure with hypoxia Status: Acute (3) Endotracheally intubated Status: Acute (4) Super obesity Status: Chronic Clinical Quality Measures DVT/VTE Risk/Contraindication: Risk Factor Score Per Nursin RFS Level Per Nursing on Admit: 4+=Very High MARIAM JIN MD Sep 05, 2019 13:29
[2019-09-06] VITALS (29 sets, daily range): BP systolic 93–181; BP diastolic 60–94
[2019-09-06] MEDS: hydrALAZINE (APESOLINE) 20 MG/ML VIAL IV SCH ×7 (00:11→23:46)
[2019-09-06] MEDS: fentaNYL INJECTION 1,250 MCG in NS (IVPB) 250 ML IV SCH ×3 (00:12→20:35)
[2019-09-06] MEDS: MEROPENEM 500 MG/SWFI 10 ML IV PUSH IV SCH ×10 (00:13→23:46)
[2019-09-06] MEDS: MIDAZOLAM INJECTION FOR DRIPS 50 MG in NS (IVPB) 90 ML IV SCH ×3 (00:13→20:33)
[2019-09-06] MEDS: PROPOFOL DRIP (ICU) 100 ML IV SCH ×6 (00:14→23:52)
[2019-09-06] MEDS: RT-ALBUTEROL/IPRATROPIUM 3 ML (DUONEB) VIAL INH SCH ×6 (01:37→21:48)
[2019-09-06] MEDS: DEXMEDETOMIDINE 1,000 MCG/NS 250 ML IV SCH ×5 (02:59→22:06)
[2019-09-06 03:18] LABS: ABG BASE EXCESS 4.7 MMOL/L (-2.5-2.5); ABG OXYGEN SATURATION 94 % (94-100); ABG PCO2 44 MMHG (35-45); ABG PH 7.44 (7.37-7.43); ABG PO2 72 MMHG (79-93); ABG TCO2 30.1 MMOL/L (21.0-31.0); ALLENS TEST YES-POS; BASOPHILS % (AUTO) 0 % (0-10); EOSINOPHILS % (AUTO) 0 % (0-10); HEMATOCRIT 39 % (40-54); HEMOGLOBIN 11.7 G/DL (13.3-17.7); LYMPHOCYTES # (AUTO) 0.7 X 10^3 (1.0-4.0); LYMPHOCYTES % (AUTO) 7 % (12-44); MEAN CORPUSCULAR HEMOGLOBIN 27 PG (25-34); MEAN CORPUSCULAR HGB CONC 30 G/DL (32-36); MEAN CORPUSCULAR VOLUME 88 FL (80-99); MEAN PLATELET VOLUME 10.3 FL (7.4-10.4); MONOCYTES # (AUTO) 0.6 X 10^3 (0.0-1.0); MONOCYTES % (AUTO) 6 % (0-12); NEUTROPHILS % (AUTO) 87 % (42-75); PLATELET COUNT 160 10^3/uL (130-400); RED CELL DISTRIBUTION WIDTH 18.4 % (10.0-14.5); WHITE BLOOD COUNT 10.3 10^3/uL (4.3-11.0)
[2019-09-06 03:19] LABS: INSPIRED O2 35%; PATIENT TEMP 37.2; VENTILATOR YES
[2019-09-06 03:42] LABS: ALANINE AMINOTRANSFERASE 56 U/L (0-55); ALBUMIN 3.2 GM/DL (3.2-4.5); ALKALINE PHOSPHATASE 64 U/L (40-136); BILIRUBIN,TOTAL 0.5 MG/DL (0.1-1.0); BUN/CREATININE RATIO 48; CALCIUM 8.3 MG/DL (8.5-10.1); CARBON DIOXIDE 22 MMOL/L (21-32); CHLORIDE 102 MMOL/L (98-107); CREATININE SERUM 0.86 MG/DL (0.60-1.30); GFR ESTIMATED > 60; GLUCOSE 163 MG/DL (70-105); MAGNESIUM 2.1 MG/DL (1.6-2.4); PHOSPHORUS 3.7 MG/DL (2.3-4.7); POTASSIUM 5.2 MMOL/L (3.6-5.0); SODIUM 137 MMOL/L (135-145)
[2019-09-06] MEDS: ENOXAPARIN 60 MG/0.6 ML (LOVENOX) SYR SC SCH ×2 (04:11→16:40)
[2019-09-06] MEDS: BUMETANIDE 1 MG/4 ML (BUMEX) VIAL IV SCH (04:11)
[2019-09-06] MEDS: POTASSIUM CL 10MEQ/50ML IVPB 50 ML IV SCH (05:45)
[2019-09-06] MEDS: MAGNESIUM 1 GM/100 ML IVPB 100 ML IV SCH (05:45)
[2019-09-06] MEDS: inSUlin ASPART (NovoLOG) 1 UNIT/0.01 ML (CHARGE PER UNIT) SC SCH ×4 (05:46→23:40)
[2019-09-06] MEDS: KCL 20 MEQ TAB (K-DUR) PO SCH (05:46)
--- NOTE | 2019-09-06 08:12 | Diagnostic Imaging Report ---
INDICATION: Respiratory distress. Portable chest 4:47 AM FINDINGS: There is an ET tube projecting over the trachea. NG tube appears to enter the stomach. Heart size and pulmonary vascularity are normal. Lungs are clear. There are no effusions or pneumothoraces. IMPRESSION: No acute abnormalities in the chest. No appreciable change compared to previous day. Dictated by: Dictated on workstation # [id number]
[2019-09-06] MEDS ORDERED: SOD POLYSTERENE 15 GM/60 ML (KAYEXALATE) UNIT DOSE PO ONE (09:00)
--- NOTE | 2019-09-06 10:11 | Progress Note - Hospitalist ---
Subjective HPI/CC On Admission Date Seen by Provider: Sep 06, 2019 Time Seen by Provider: 10:07 Pt is a 59yoCM known to me from previous admissions who was admitted for acute hypercapnic respiratory failure. He is currently intubated sedated and interview is not possible. All history is obtained from review of records and from ER. He reportedly was found by his home health aides and was unresponsive this afternoon and EMS was called and he was brought to the emergency department. He was protecting his airway and so a trial of BiPAP was done because his PCO2 was around 115. After this trial repeat ABG showed a PCO2 of 126 and decision was made to intubate. He has known COPD and follows with Dr. De Leon. He was here recently in May for similar presentation. At that time he had a MRSA pneumonia. He is being admitted to the ICU. Subjective/Events-last exam Pt is intubated and sedated. No ROS possible. No family at bedside. Objective Exam Vital Signs Vital Signs Date Time Temp Pulse Resp B/P (MAP) Pulse Ox O2 Delivery O2 Flow Rate FiO2 09/06/19 10:00 53 23 141/73 (95) 98 Mechanical Ventilator 35.00 09/06/19 06:43 35 09/06/19 02:58 37.2 Capillary Refill : Less Than 3 Seconds General Appearance: Obese, Other ( sedated on vent) Respiratory: Rhonci, Other (on vent) Cardiovascular: Regular Rate, Rhythm, No Murmur Gastrointestinal: Normal Bowel Sounds, Non Tender, Soft Neurologic/Psychiatric: Other (sedated) Results/Procedures Lab Laboratory Tests 09/06/19 03:08 Patient resulted labs reviewed. Imaging: Reviewed Imaging Report Assessment/Plan Assessment and Plan Assess & Plan/Chief Complaint ARDS- improving Acute respiratory failure with hypoxia COPD with acute exacerbation Morbid obesity with OHS Recent MRSA pneumonia Continue Zyvox, Merrem, and Eraxis for pneumonia Continue Solu-Medrol MAT protocol in place Pulmonary consulted, appreciate recommendations oxygen requirements decreasing, weaning PEEP as able - Continue Bumex, net negative goal of I/Os Heart failure with preserved ejection fraction Echo from 05/2019 showed EF 55% Monitor I/Os HTN Hold home meds Hypotension, resolved Critical Care Critically Ill Patient Diagnosis/Problems Diagnosis/Problems (1) Acute hypercapnic respiratory failure (2) Essential (primary) hypertension Status: Chronic (3) CHF (congestive heart failure) Status: Chronic Clinical Quality Measures DVT/VTE Risk/Contraindication: Risk Factor Score Per Nursin RFS Level Per Nursing on Admit: 4+=Very High JENNI ALMODOVAR MD Sep 06, 2019 10:11
[2019-09-06] MEDS: FAMOTIDINE 20MG/2ML IV (PEPCID) IV SCH ×2 (11:03→21:31)
[2019-09-06] MEDS: methylPREDNISolone 40 MG/ML (Solu-MEDROL) VIAL IV SCH ×2 (11:03→21:31)
[2019-09-06] MEDS: DOCUSATE SODIUM 10 MG/ML 10 ML UDC (COLACE) PO SCH ×2 (11:03→21:31)
[2019-09-06] MEDS: meTOprolol TARTRATE 25 MG (LOPRESSOR) TABLET PO SCH ×2 (11:04→21:37)
[2019-09-06] MEDS: LINEZOLID IVPB 300 ML IV SCH ×2 (11:21→21:31)
[2019-09-06] MEDS: ANIDULAFUNGIN INJECTION 100 MG in NS (IVPB) 100 ML IV SCH (11:21)
[2019-09-07] VITALS (28 sets, daily range): BP systolic 127–253; BP diastolic 46–82
[2019-09-07] MEDS: RT-ALBUTEROL/IPRATROPIUM 3 ML (DUONEB) VIAL INH SCH ×6 (02:29→21:53)
[2019-09-07] MEDS: DEXMEDETOMIDINE 1,000 MCG/NS 250 ML IV SCH ×2 (03:10→07:51)
[2019-09-07] MEDS: PROPOFOL DRIP (ICU) 100 ML IV SCH (03:11)
[2019-09-07] MEDS: hydrALAZINE (APESOLINE) 20 MG/ML VIAL IV SCH ×6 (03:12→23:32)
[2019-09-07 03:43] LABS: ABG BASE EXCESS 3.7 MMOL/L (-2.5-2.5); ABG OXYGEN SATURATION 91 % (94-100); ABG PCO2 42 MMHG (35-45); ABG PH 7.44 (7.37-7.43); ABG PO2 65 MMHG (79-93)
[2019-09-07 03:45] LABS: BASOPHILS % (AUTO) 0 % (0-10); EOSINOPHILS % (AUTO) 0 % (0-10); HEMATOCRIT 40 % (40-54); HEMOGLOBIN 11.9 G/DL (13.3-17.7); LYMPHOCYTES # (AUTO) 0.7 X 10^3 (1.0-4.0); LYMPHOCYTES % (AUTO) 7 % (12-44); MEAN CORPUSCULAR HEMOGLOBIN 26 PG (25-34); MEAN CORPUSCULAR HGB CONC 30 G/DL (32-36); MEAN CORPUSCULAR VOLUME 88 FL (80-99); MEAN PLATELET VOLUME 10.4 FL (7.4-10.4); MONOCYTES # (AUTO) 0.4 X 10^3 (0.0-1.0); MONOCYTES % (AUTO) 4 % (0-12); NEUTROPHILS # (AUTO) 8.8 X 10^3 (1.8-7.8); NEUTROPHILS % (AUTO) 89 % (42-75); PLATELET COUNT 168 10^3/uL (130-400); RED CELL DISTRIBUTION WIDTH 18.7 % (10.0-14.5); WHITE BLOOD COUNT 9.9 10^3/uL (4.3-11.0)
[2019-09-07 03:47] LABS: ALLENS TEST ART LINE; INSPIRED O2 26%; PATIENT TEMP 36.7; VENTILATOR YES
[2019-09-07 04:00] LABS: BUN/CREATININE RATIO 46; CALCIUM 8.5 MG/DL (8.5-10.1); CARBON DIOXIDE 22 MMOL/L (21-32); CHLORIDE 101 MMOL/L (98-107); CREATININE SERUM 0.79 MG/DL (0.60-1.30); GFR ESTIMATED > 60; GLUCOSE 166 MG/DL (70-105); PHOSPHORUS 3.8 MG/DL (2.3-4.7); SODIUM 135 MMOL/L (135-145)
[2019-09-07] MEDS: ENOXAPARIN 60 MG/0.6 ML (LOVENOX) SYR SC SCH ×2 (05:05→17:25)
[2019-09-07] MEDS: BUMETANIDE 1 MG/4 ML (BUMEX) VIAL IV SCH (05:05)
[2019-09-07] MEDS: MEROPENEM 500 MG/SWFI 10 ML IV PUSH IV SCH ×8 (05:06→23:32)
[2019-09-07] MEDS: KCL 20 MEQ TAB (K-DUR) PO SCH (05:06)
[2019-09-07] MEDS: POTASSIUM CL 10MEQ/50ML IVPB 50 ML IV SCH (05:11)
[2019-09-07] MEDS: inSUlin ASPART (NovoLOG) 1 UNIT/0.01 ML (CHARGE PER UNIT) SC SCH ×4 (05:11→23:04)
[2019-09-07] MEDS: MAGNESIUM 1 GM/100 ML IVPB 100 ML IV SCH (05:11)
--- NOTE | 2019-09-07 06:27 | Pulmonary Progress Note ---
Subjective Date Seen by a Provider: Sep 06, 2019 (Late Note) Time Seen by a Provider: 06:26 Subjective/Events-last exam Sedated on vent Sepsis Event Evaluation Height, Weight, BMI Height: 5'7.00" Weight: 346lbs. 2.0oz. 156.033630ow; 57.92 BMI Method:Stated Exam Exam Vital Signs Date Time Temp Pulse Resp B/P (MAP) Pulse Ox O2 Delivery O2 Flow Rate FiO2 09/07/19 06:00 52 24 170/67 (101) 99 Mechanical Ventilator 26.00 09/07/19 05:00 53 23 164/65 (98) 99 Mechanical Ventilator 26.00 09/07/19 04:00 Mechanical Ventilator 26 09/07/19 04:00 58 23 163/63 (96) 99 Mechanical Ventilator 26.00 09/07/19 03:13 36.7 09/07/19 03:11 Mechanical Ventilator 09/07/19 03:00 58 23 163/63 (96) 100 Mechanical Ventilator 28.00 09/07/19 02:29 57 24 100 28 09/07/19 02:00 56 24 178/71 (106) 98 Mechanical Ventilator 28.00 09/07/19 01:00 60 09/07/19 01:00 56 23 156/64 (94) 99 Mechanical Ventilator 28.00 09/07/19 00:00 57 23 171/71 (104) 99 Mechanical Ventilator 28.00 09/07/19 00:00 Mechanical Ventilator 35 09/06/19 23:52 Mechanical Ventilator 09/06/19 23:15 36.7 09/06/19 23:00 51 24 171/70 (103) 100 Mechanical Ventilator 28.00 09/06/19 22:00 55 23 156/63 (94) 100 Mechanical Ventilator 28.00 09/06/19 21:49 57 24 100 30 09/06/19 21:00 56 24 149/62 (91) 100 Mechanical Ventilator 35.00 09/06/19 20:33 Mechanical Ventilator 09/06/19 20:33 Mechanical Ventilator 09/06/19 20:00 66 24 168/68 (101) 99 Mechanical Ventilator 35.00 09/06/19 20:00 Mechanical Ventilator 35 09/06/19 20:00 36.7 09/06/19 19:00 62 24 156/62 (93) 98 Mechanical Ventilator 35.00 09/06/19 19:00 62 09/06/19 18:58 62 24 99 30 09/06/19 18:00 64 23 171/63 (99) 96 Mechanical Ventilator 35.00 09/06/19 17:00 62 24 166/61 (96) 97 Mechanical Ventilator 35.00 09/06/19 16:00 60 24 177/65 (102) 97 Mechanical Ventilator 35.00 09/06/19 16:00 36.4 09/06/19 16:00 Mechanical Ventilator 35 09/06/19 15:00 70 15 139/79 (99) 98 Mechanical Ventilator 35.00 09/06/19 14:22 61 24 98 30 09/06/19 14:00 62 24 176/64 (101) 99 Mechanical Ventilator 35.00 09/06/19 13:27 185/74 09/06/19 13:00 51 24 179/72 (107) 98 Mechanical Ventilator 35.00 09/06/19 12:32 57 09/06/19 12:00 57 23 164/65 (98) 100 Mechanical Ventilator 35.00 09/06/19 12:00 Mechanical Ventilator 35 09/06/19 12:00 35.9 09/06/19 11:16 175/70 09/06/19 11:00 53 24 112/94 (100) 98 Mechanical Ventilator 35.00 09/06/19 10:27 54 24 98 35 09/06/19 10:00 53 23 141/73 (95) 98 Mechanical Ventilator 35.00 09/06/19 09:00 56 24 93/84 (87) 98 Mechanical Ventilator 35.00 09/06/19 08:01 60 24 99 Mechanical Ventilator 35.00 09/06/19 08:00 Mechanical Ventilator 35 09/06/19 08:00 60 23 99 Mechanical Ventilator 35.00 09/06/19 07:00 62 09/06/19 07:00 64 23 154/62 (92) 98 Mechanical Ventilator 35.00 09/06/19 06:43 59 24 100 35 I & O 09/07/19 06:59 Intake Total 4253 ml Output Total 4325 ml Balance -72 ml Height & Weight Height: 5'7.00" Weight: 346lbs. 2.0oz. 156.575380dg; 57.92 BMI Method:Stated General Appearance: Obese, Other ( sedated on vent) HEENT: PERRL/EOMI, Other (conjunctival erythema bilaterally) Neck: Normal Inspection, Supple Respiratory: Rhonci, Other (on vent) Cardiovascular: Regular Rate, Rhythm, No Murmur Capillary Refill: Less Than 3 Seconds Gastrointestinal: normal bowel sounds, non tender, soft Extremity: Normal Inspection, Non Tender, Pedal Edema Neurologic/Psychiatric: Other (sedated) Skin: Normal Color, Warm/Dry Lymphatic: No Adenopathy Results Lab Laboratory Tests 09/06/19 03:08 09/07/19 03:34 Assessment/Plan Assessment/Plan Acute Respiratory Failure with ARDS -Ventilator support - Bumex 1mg - decrease to daily. -Decrease PEEP to 8 Recent MRSA pneumonia -Eraxis 08/29 secondary to yeast in Sputum culture. -Abx advanced 09/01 currently on Merrem, Zyvox and Eraxis please do not stop until first discussing with me. -Pt is not ready for extubation yet COPD exacerbation -Duonebs Q4h -Solumedrol 40 Q 6 Morbid obesity with OHS CHF -monitor I/O HTN - Lopressor PO, and PRN Hydralazine GILLIAN SOOD DO Sep 07, 2019 06:27
--- NOTE | 2019-09-07 06:29 | Pulmonary Progress Note ---
Subjective Time Seen by a Provider: 06:27 Subjective/Events-last exam Sedated on vent. Sepsis Event Evaluation Height, Weight, BMI Height: 5'7.00" Weight: 346lbs. 2.0oz. 156.744869rs; 57.92 BMI Method:Stated Exam Exam Vital Signs Date Time Temp Pulse Resp B/P (MAP) Pulse Ox O2 Delivery O2 Flow Rate FiO2 09/07/19 06:00 52 24 170/67 (101) 99 Mechanical Ventilator 26.00 09/07/19 05:00 53 23 164/65 (98) 99 Mechanical Ventilator 26.00 09/07/19 04:00 Mechanical Ventilator 26 09/07/19 04:00 58 23 163/63 (96) 99 Mechanical Ventilator 26.00 09/07/19 03:13 36.7 09/07/19 03:11 Mechanical Ventilator 09/07/19 03:00 58 23 163/63 (96) 100 Mechanical Ventilator 28.00 09/07/19 02:29 57 24 100 28 09/07/19 02:00 56 24 178/71 (106) 98 Mechanical Ventilator 28.00 09/07/19 01:00 60 09/07/19 01:00 56 23 156/64 (94) 99 Mechanical Ventilator 28.00 09/07/19 00:00 57 23 171/71 (104) 99 Mechanical Ventilator 28.00 09/07/19 00:00 Mechanical Ventilator 35 09/06/19 23:52 Mechanical Ventilator 09/06/19 23:15 36.7 09/06/19 23:00 51 24 171/70 (103) 100 Mechanical Ventilator 28.00 09/06/19 22:00 55 23 156/63 (94) 100 Mechanical Ventilator 28.00 09/06/19 21:49 57 24 100 30 09/06/19 21:00 56 24 149/62 (91) 100 Mechanical Ventilator 35.00 09/06/19 20:33 Mechanical Ventilator 09/06/19 20:33 Mechanical Ventilator 09/06/19 20:00 66 24 168/68 (101) 99 Mechanical Ventilator 35.00 09/06/19 20:00 Mechanical Ventilator 35 09/06/19 20:00 36.7 09/06/19 19:00 62 24 156/62 (93) 98 Mechanical Ventilator 35.00 09/06/19 19:00 62 09/06/19 18:58 62 24 99 30 09/06/19 18:00 64 23 171/63 (99) 96 Mechanical Ventilator 35.00 09/06/19 17:00 62 24 166/61 (96) 97 Mechanical Ventilator 35.00 09/06/19 16:00 60 24 177/65 (102) 97 Mechanical Ventilator 35.00 09/06/19 16:00 36.4 09/06/19 16:00 Mechanical Ventilator 35 09/06/19 15:00 70 15 139/79 (99) 98 Mechanical Ventilator 35.00 09/06/19 14:22 61 24 98 30 09/06/19 14:00 62 24 176/64 (101) 99 Mechanical Ventilator 35.00 09/06/19 13:27 185/74 09/06/19 13:00 51 24 179/72 (107) 98 Mechanical Ventilator 35.00 09/06/19 12:32 57 09/06/19 12:00 57 23 164/65 (98) 100 Mechanical Ventilator 35.00 09/06/19 12:00 Mechanical Ventilator 35 09/06/19 12:00 35.9 09/06/19 11:16 175/70 09/06/19 11:00 53 24 112/94 (100) 98 Mechanical Ventilator 35.00 09/06/19 10:27 54 24 98 35 09/06/19 10:00 53 23 141/73 (95) 98 Mechanical Ventilator 35.00 09/06/19 09:00 56 24 93/84 (87) 98 Mechanical Ventilator 35.00 09/06/19 08:01 60 24 99 Mechanical Ventilator 35.00 09/06/19 08:00 Mechanical Ventilator 35 09/06/19 08:00 60 23 99 Mechanical Ventilator 35.00 09/06/19 07:00 62 09/06/19 07:00 64 23 154/62 (92) 98 Mechanical Ventilator 35.00 09/06/19 06:43 59 24 100 35 I & O 09/07/19 06:59 Intake Total 4253 ml Output Total 4325 ml Balance -72 ml Height & Weight Height: 5'7.00" Weight: 346lbs. 2.0oz. 156.815875tv; 57.92 BMI Method:Stated General Appearance: Obese, Other ( sedated on vent) HEENT: PERRL/EOMI, Other (conjunctival erythema bilaterally) Neck: Normal Inspection, Supple Respiratory: Rhonci, Other (on vent) Cardiovascular: Regular Rate, Rhythm, No Murmur Capillary Refill: Less Than 3 Seconds Gastrointestinal: normal bowel sounds, non tender, soft Extremity: Normal Inspection, Non Tender, Pedal Edema Neurologic/Psychiatric: Other (sedated) Skin: Normal Color, Warm/Dry Lymphatic: No Adenopathy Results Lab Laboratory Tests 09/06/19 03:08 09/07/19 03:34 Assessment/Plan Assessment/Plan Acute Respiratory Failure with ARDS -Ventilator support -Will start weaning vent today. - Bumex 1mg - decrease to daily. -Decrease PEEP to 5 Recent MRSA pneumonia -Eraxis 08/29 secondary to yeast in Sputum culture. -Abx advanced 09/01 currently on Merrem, Zyvox and Eraxis please do not stop until first discussing with me. -Pt is not ready for extubation yet COPD exacerbation -Duonebs Q4h -Solumedrol 40 Q 6 Morbid obesity with OHS CHF -monitor I/O HTN - Lopressor PO, and PRN Hydralazine GILLIAN SOOD DO Sep 07, 2019 06:29
[2019-09-07] MEDS ORDERED: fentaNYL (OMNICELL DRIP KIT ONLY) 250 MCG/5 ML AMP ONE (06:39)
[2019-09-07] MEDS ORDERED: MIDAZOLAM FOR DRIPS 10 MG/2 ML VIAL ONE (06:40)
[2019-09-07] MEDS ORDERED: NS (IVPB) 100 ML ONE ×2 (06:40→06:41)
[2019-09-07] MEDS: MIDAZOLAM INJECTION FOR DRIPS 50 MG in NS (IVPB) 90 ML IV SCH (06:58)
[2019-09-07] MEDS: fentaNYL INJECTION 1,250 MCG in NS (IVPB) 250 ML IV SCH (07:03)
[2019-09-07 08:06] LABS: ABG BASE EXCESS 6.3 MMOL/L (-2.5-2.5); ABG OXYGEN SATURATION 91 % (94-100); ABG PCO2 46 MMHG (35-45); ABG PH 7.44 (7.37-7.43); ABG PO2 67 MMHG (79-93); ABG TCO2 31.9 MMOL/L (21.0-31.0)
[2019-09-07 08:07] LABS: ALLENS TEST POSITIVE; INSPIRED O2 26%; PATIENT TEMP 36.9; VENTILATOR YES
--- NOTE | 2019-09-07 08:13 | Diagnostic Imaging Report ---
INDICATION: Acute respiratory failure. TECHNIQUE: Single view chest 2:15 AM. CORRELATION STUDY: 09/06/2019 FINDINGS: Endotracheal tube, gastric tube remain in place. Heart size is enlarged mediastinal prominent. Left side central line tip over low SVC. Likely combination of some effusion along with minimal atelectasis and/or infiltrate both lung bases. IMPRESSION: 1. Stable appearance about support lines and tubes. 2. Minimal atelectasis and/or infiltrate along with small effusions at the lung bases. Dictated by: Dictated on workstation # [id number]
--- NOTE | 2019-09-07 08:48 | Progress Note - Hospitalist ---
Subjective HPI/CC On Admission Date Seen by Provider: Sep 07, 2019 Time Seen by Provider: 08:43 Pt is a 59yoCM known to me from previous admissions who was admitted for acute hypercapnic respiratory failure. He is currently intubated sedated and interview is not possible. All history is obtained from review of records and from ER. He reportedly was found by his home health aides and was unresponsive this afternoon and EMS was called and he was brought to the emergency department. He was protecting his airway and so a trial of BiPAP was done because his PCO2 was around 115. After this trial repeat ABG showed a PCO2 of 126 and decision was made to intubate. He has known COPD and follows with Dr. De Leon. He was here recently in May for similar presentation. At that time he had a MRSA pneumonia. He is being admitted to the ICU. Subjective/Events-last exam Pt remains on the vent. Sedation weaned and he is motioning for a pen. His nurse is currently working on getting that for him along with pad to write on. Objective Exam Vital Signs Vital Signs Date Time Temp Pulse Resp B/P (MAP) Pulse Ox O2 Delivery O2 Flow Rate FiO2 09/07/19 08:00 64 17 136/82 (100) 100 Mechanical Ventilator 26.00 09/07/19 06:44 26 09/07/19 03:13 36.7 Capillary Refill : Less Than 3 Seconds General Appearance: Chronically ill, Obese Respiratory: Lungs Clear, Other (on vent) Cardiovascular: Regular Rate, Rhythm, No Murmur Gastrointestinal: Normal Bowel Sounds, Non Tender, Soft Genital/Rectal: Other (lopez in place) Extremity: Pedal Edema, Swelling Neurologic/Psychiatric: Alert Results/Procedures Lab Laboratory Tests 09/07/19 03:34 Patient resulted labs reviewed. Imaging: Reviewed Imaging Report Assessment/Plan Assessment and Plan Assess & Plan/Chief Complaint ARDS- improving Acute respiratory failure with hypoxia COPD with acute exacerbation Morbid obesity with OHS Recent MRSA pneumonia Continue Zyvox, Merrem, and Eraxis for pneumonia Continue Solu-Medrol MAT protocol in place Pulmonary consulted, appreciate recommendations Currently weaning, may be able to be extubated today or tomorrow - Continue Bumex, net negative goal of I/Os Heart failure with preserved ejection fraction Echo from 05/2019 showed EF 55% Monitor I/Os HTN Hold home meds Critical Care Critically Ill Patient Diagnosis/Problems Diagnosis/Problems (1) Acute hypercapnic respiratory failure (2) Essential (primary) hypertension Status: Chronic (3) CHF (congestive heart failure) Status: Chronic Clinical Quality Measures DVT/VTE Risk/Contraindication: Risk Factor Score Per Nursin RFS Level Per Nursing on Admit: 4+=Very High JENNI ALMODOVAR MD Sep 07, 2019 08:48
[2019-09-07] MEDS: methylPREDNISolone 40 MG/ML (Solu-MEDROL) VIAL IV SCH ×2 (09:14→20:14)
[2019-09-07] MEDS: LINEZOLID IVPB 300 ML IV SCH ×2 (09:14→20:14)
[2019-09-07] MEDS: ANIDULAFUNGIN INJECTION 100 MG in NS (IVPB) 100 ML IV SCH (09:14)
[2019-09-07] MEDS: DOCUSATE SODIUM 10 MG/ML 10 ML UDC (COLACE) PO SCH ×2 (09:15→20:14)
[2019-09-07] MEDS: FAMOTIDINE 20MG/2ML IV (PEPCID) IV SCH ×2 (09:15→20:14)
[2019-09-07] MEDS: meTOprolol TARTRATE 25 MG (LOPRESSOR) TABLET PO SCH ×2 (09:15→20:14)
[2019-09-07 09:52] LABS: ABG BASE EXCESS 6.6 MMOL/L (-2.5-2.5); ABG OXYGEN SATURATION 93 % (94-100); ABG PCO2 46 MMHG (35-45); ABG PH 7.44 (7.37-7.43); ABG PO2 70 MMHG (79-93); ABG TCO2 32.4 MMOL/L (21.0-31.0); INSPIRED O2 26%; PATIENT TEMP 36.2; VENTILATOR YES
--- NOTE | 2019-09-07 11:37 | NUR ---
PT EXTUBATED AND PLACED ON HFNC @ 8 LPM. SPO2 100%. NO DISTRESS NOTED @ THIS TIME. NURSE @ BEDSIDE.
[2019-09-07] MEDS: NITROGLYCERIN 2% OINT 1 GM UNIT DOSE PACKET TOP SCH ×3 (12:30→23:32)
[2019-09-07] MEDS ORDERED: ONDANSETRON 4 MG/2 ML (SDV) Z0FRAN IVP PRN (12:30)
[2019-09-07] MEDS: niCARdipine IV 50 MG in NS (IVPB) 230 ML IV SCH ×3 (13:15→20:24)
[2019-09-07] MEDS ORDERED: PROMETHAZINE INJ 25 MG/ML (PHENERGAN) AMP IVP PRN (18:15)
[2019-09-08] VITALS (31 sets, daily range): BP systolic 67–176; BP diastolic 39–82
[2019-09-08] MEDS: RT-ALBUTEROL/IPRATROPIUM 3 ML (DUONEB) VIAL INH SCH ×6 (02:14→22:09)
[2019-09-08 03:03] LABS: BASOPHILS % (AUTO) 0 % (0-10); EOSINOPHILS % (AUTO) 0 % (0-10); HEMATOCRIT 43 % (40-54); HEMOGLOBIN 12.7 G/DL (13.3-17.7); LYMPHOCYTES # (AUTO) 0.6 X 10^3 (1.0-4.0); LYMPHOCYTES % (AUTO) 3 % (12-44); MEAN CORPUSCULAR HEMOGLOBIN 27 PG (25-34); MEAN CORPUSCULAR HGB CONC 30 G/DL (32-36); MEAN CORPUSCULAR VOLUME 89 FL (80-99); MEAN PLATELET VOLUME 9.7 FL (7.4-10.4); MONOCYTES # (AUTO) 0.7 X 10^3 (0.0-1.0); MONOCYTES % (AUTO) 3 % (0-12); NEUTROPHILS # (AUTO) 21.1 X 10^3 (1.8-7.8); NEUTROPHILS % (AUTO) 94 % (42-75); PLATELET COUNT 246 10^3/uL (130-400); RED CELL DISTRIBUTION WIDTH 18.9 % (10.0-14.5); WHITE BLOOD COUNT 22.5 10^3/uL (4.3-11.0)
[2019-09-08 03:04] LABS: ABG BASE EXCESS 7.4 MMOL/L (-2.5-2.5); ABG OXYGEN SATURATION 83 % (94-100); ABG PCO2 67 MMHG (35-45); ABG PO2 58 MMHG (79-93); ABG TCO2 35.5 MMOL/L (21.0-31.0)
[2019-09-08 03:05] LABS: ABG PH 7.32 (7.37-7.43); ALLENS TEST ART LINE
[2019-09-08 03:06] LABS: INSPIRED O2 40%; PATIENT TEMP 36.8; VENTILATOR NO
[2019-09-08] MEDS ORDERED: niCARdipine IV FOR DRIP 50 MG KIT ONE (03:15)
[2019-09-08] MEDS ORDERED: NS (IVPB) 250 ML ONE (03:15)
[2019-09-08 03:20] LABS: BUN/CREATININE RATIO 49; CALCIUM 8.9 MG/DL (8.5-10.1); CARBON DIOXIDE 27 MMOL/L (21-32); CHLORIDE 98 MMOL/L (98-107); GFR ESTIMATED > 60; GLUCOSE 156 MG/DL (70-105); MAGNESIUM 2.1 MG/DL (1.6-2.4); PHOSPHORUS 5.9 MG/DL (2.3-4.7); POTASSIUM 4.7 MMOL/L (3.6-5.0); SODIUM 138 MMOL/L (135-145)
[2019-09-08] MEDS: niCARdipine IV 50 MG in NS (IVPB) 230 ML IV SCH ×3 (03:24→10:37)
[2019-09-08 03:32] LABS: BAND NEUTROPHILS 3 %; LYMPHOCYTES % (MANUAL) 6 %; MONOCYTES % (MANUAL) 5 %; NEUTROPHILS % (MANUAL) 86 %; RBC MORPH NORMAL
[2019-09-08] MEDS: ENOXAPARIN 60 MG/0.6 ML (LOVENOX) SYR SC SCH ×2 (04:14→17:34)
[2019-09-08] MEDS: BUMETANIDE 1 MG/4 ML (BUMEX) VIAL IV SCH (04:14)
[2019-09-08] MEDS: hydrALAZINE (APESOLINE) 20 MG/ML VIAL IV SCH ×6 (04:15→22:57)
[2019-09-08] MEDS: POTASSIUM CL 10MEQ/50ML IVPB 50 ML IV SCH (05:25)
[2019-09-08] MEDS: MAGNESIUM 1 GM/100 ML IVPB 100 ML IV SCH (05:26)
[2019-09-08] MEDS: NITROGLYCERIN 2% OINT 1 GM UNIT DOSE PACKET TOP SCH ×4 (05:26→23:01)
[2019-09-08] MEDS: KCL 20 MEQ TAB (K-DUR) PO SCH (05:26)
[2019-09-08] MEDS: inSUlin ASPART (NovoLOG) 1 UNIT/0.01 ML (CHARGE PER UNIT) SC SCH ×3 (05:26→17:38)
[2019-09-08] MEDS: MEROPENEM 500 MG/SWFI 10 ML IV PUSH IV SCH ×8 (07:10→23:38)
--- NOTE | 2019-09-08 07:13 | Pulmonary Progress Note ---
Subjective Time Seen by a Provider: 07:07 Subjective/Events-last exam PT is currently on BiPAP. His CXR shows left lung opacification.. Sepsis Event Evaluation Height, Weight, BMI Height: 5'7.00" Weight: 346lbs. 2.0oz. 156.844720rp; 57.92 BMI Method:Stated Exam Exam Vital Signs Date Time Temp Pulse Resp B/P (MAP) Pulse Ox O2 Delivery O2 Flow Rate FiO2 09/08/19 06:00 107 174/55 (94) 99 NIV Bilevel 45.00 09/08/19 05:00 108 176/56 (96) 98 NIV Bilevel 45.00 09/08/19 04:00 108 21 164/55 (91) 97 NIV Bilevel 45.00 09/08/19 03:00 117 21 108/55 (72) 97 NIV Bilevel 45.00 09/08/19 02:55 36.8 09/08/19 02:14 113 18 97 40.00 09/08/19 02:00 116 24 116/82 (93) 97 NIV Bilevel 45.00 09/08/19 01:00 118 23 139/55 (83) 98 NIV Bilevel 45.00 09/08/19 00:41 122 09/08/19 00:00 122 34 142/57 (85) 96 NIV Bilevel 45.00 09/07/19 23:55 NIV Bilevel 45 09/07/19 23:00 113 20 150/55 (86) 92 NIV Bilevel 45.00 09/07/19 22:00 116 32 148/54 (85) 97 NIV Bilevel 45.00 09/07/19 21:53 115 21 94 45.00 09/07/19 21:53 NIV Bilevel 45.00 09/07/19 21:00 112 27 134/47 (76) 98 Vapotherm 35.00 40.00 09/07/19 20:00 109 23 127/46 (73) 95 Vapotherm 35.00 40.00 09/07/19 20:00 Vapotherm 35.00 40 09/07/19 19:31 36.0 09/07/19 19:00 Vapotherm 35.00 40.00 09/07/19 19:00 111 23 131/52 (78) 96 Vapotherm 35.00 40.00 09/07/19 18:59 96 Vapotherm 35.00 40 09/07/19 18:59 Vapotherm 35.00 40.00 09/07/19 18:41 112 09/07/19 18:00 116 21 164/55 (91) 100 Vapotherm 40.00 40.00 09/07/19 17:00 114 21 173/54 (93) 100 Vapotherm 40.00 40.00 09/07/19 16:00 116 20 137/71 (93) 100 Vapotherm 40.00 40.00 09/07/19 16:00 Vapotherm 40.00 40 09/07/19 16:00 36.3 09/07/19 15:10 100 Vapotherm 40.00 40 09/07/19 15:00 128 24 250/70 (129) 100 High Flow N/C 8.00 09/07/19 14:00 118 23 237/69 (124) 100 High Flow N/C 8.00 09/07/19 13:00 113 27 249/76 (133) 98 High Flow N/C 8.00 09/07/19 12:29 73 09/07/19 12:00 High Flow N/C 8.00 09/07/19 12:00 112 24 253/81 (138) 100 High Flow N/C 8.00 09/07/19 11:42 High Flow N/C 8.00 09/07/19 11:00 66 18 188/73 (111) 100 Mechanical Ventilator 26.00 09/07/19 10:42 65 18 100 26 09/07/19 10:00 62 14 178/71 (106) 100 Mechanical Ventilator 26.00 09/07/19 09:00 57 15 179/79 (112) 100 Mechanical Ventilator 26.00 09/07/19 08:00 Mechanical Ventilator 26 09/07/19 08:00 64 17 136/82 (100) 100 Mechanical Ventilator 26.00 I & O 09/08/19 07:00 Intake Total 2255 ml Output Total 2750 ml Balance -495 ml Height & Weight Height: 5'7.00" Weight: 346lbs. 2.0oz. 156.415617ix; 57.92 BMI Method:Stated General Appearance: Obese, Other ( sedated on vent) HEENT: PERRL/EOMI, Other (conjunctival erythema bilaterally) Neck: Normal Inspection, Supple Respiratory: Rhonci, Other (on vent) Cardiovascular: Regular Rate, Rhythm, No Murmur Capillary Refill: Less Than 3 Seconds Gastrointestinal: normal bowel sounds, non tender, soft Extremity: Normal Inspection, Non Tender, Pedal Edema Neurologic/Psychiatric: Other (sedated) Skin: Normal Color, Warm/Dry Lymphatic: No Adenopathy Results Lab Laboratory Tests 09/07/19 03:34 09/08/19 02:55 Assessment/Plan Assessment/Plan Acute on chronic respiratory failure -CXR looks worse with left lung opacification probably secondary to mucous plugging -Will order mucomyst and change Duoneb to easy pap -Pt states he is ok with reintubation. -Will see how he does throughout the day however he will likely require reintubation MRSA pneumonia with atelectasis. Mucous plugging causing Left lung opacification -Eraxis 1/3 secondary to yeast in Sputum culture. - Merrem, Zyvox and Eraxis please do not stop until first discussing with me. -Continue Zyvox and Eraxis for 14days. -Continue Merrem for now COPD exacerbation -Duonebs Q4h -Solumedrol 40 Q 6 Morbid obesity with OHS CHF -monitor I/O -- Bumex 1mg - daily HTN - Lopressor PO, and PRN Hydralazine I discussed with Patient, , and RN. Initially pt was stating he did not want to be reintubated however after initial discussion told us they are ok with reintubation. Extensive education and discussion made with pt and . total 120min spent with patient, and family. Critical Care: Critically Ill Patient Time spent with patient (mins): 120 GILLIAN SOOD DO Sep 08, 2019 07:12
--- NOTE | 2019-09-08 07:24 | Diagnostic Imaging Report ---
EXAMINATION: Chest 1 view HISTORY: Respiratory failure COMPARISON: 09/07/2019 FINDINGS: There is complete opacification of left hemithorax, new from prior exam. There is volume loss on the left relative to the right. Patient has been extubated. There is moderate edema of the right lung. Heart is obscured by the opacification of left hemithorax. IMPRESSION: 1. New complete opacification left hemithorax likely representing extensive collapse given the volume loss and rapid onset. 2. Moderate edema in the right lung. Dictated by: Dictated on workstation # [id number]
--- NOTE | 2019-09-08 08:36 | Physical Therapy Progress Note ---
Therapy Progress Note Patient currently on vapotherm. Per RN and family, patient may be reintubated. PT did attempt to treatment patient, however, family declined at this time. PT will continue to monitor patient status and initiate treatment when deemed medically stable. 1 visit GEOVANI BEAR PT Sep 08, 2019 08:36
[2019-09-08] MEDS: meTOprolol TARTRATE 25 MG (LOPRESSOR) TABLET PO SCH ×2 (08:58→19:44)
[2019-09-08] MEDS: FAMOTIDINE 20MG/2ML IV (PEPCID) IV SCH ×2 (08:58→21:07)
[2019-09-08] MEDS: methylPREDNISolone 40 MG/ML (Solu-MEDROL) VIAL IV SCH ×2 (08:58→21:08)
[2019-09-08] MEDS: DOCUSATE SODIUM 10 MG/ML 10 ML UDC (COLACE) PO SCH ×2 (08:58→21:08)
[2019-09-08] MEDS: LINEZOLID IVPB 300 ML IV SCH ×2 (08:58→21:07)
--- NOTE | 2019-09-08 09:19 | Progress Note - Hospitalist ---
Subjective HPI/CC On Admission Date Seen by Provider: Sep 08, 2019 Time Seen by Provider: 09:08 Pt is a 59yoCM known to me from previous admissions who was admitted for acute hypercapnic respiratory failure. He is currently intubated sedated and interview is not possible. All history is obtained from review of records and from ER. He reportedly was found by his home health aides and was unresponsive this afternoon and EMS was called and he was brought to the emergency department. He was protecting his airway and so a trial of BiPAP was done because his PCO2 was around 115. After this trial repeat ABG showed a PCO2 of 126 and decision was made to intubate. He has known COPD and follows with Dr. De Leon. He was here recently in May for similar presentation. At that time he had a MRSA pneumonia. He is being admitted to the ICU. Subjective/Events-last exam Pt now extubated and on Vapotherm. ABG worse this AM. Discussed with patient and . Agreeable at this time to reintubation. Uncertain if he would need a trach. Objective Exam Vital Signs Vital Signs Date Time Temp Pulse Resp B/P (MAP) Pulse Ox O2 Delivery O2 Flow Rate FiO2 09/08/19 08:00 109 153/56 (88) 95 Vapotherm 35.00 40.00 09/08/19 04:00 21 09/08/19 04:00 40 09/08/19 02:55 36.8 Capillary Refill : Less Than 3 Seconds General Appearance: Chronically ill, Mild Distress, Obese Respiratory: Decreased Breath Sounds, Respiratory Distress Cardiovascular: Regular Rate, Rhythm, No Murmur Extremity: Pedal Edema Neurologic/Psychiatric: Alert, Oriented x3 Results/Procedures Lab Laboratory Tests 09/08/19 02:55 Patient resulted labs reviewed. Imaging: Reviewed Imaging Report Assessment/Plan Assessment and Plan Assess & Plan/Chief Complaint ARDS- improving Acute respiratory failure with hypoxia COPD with acute exacerbation Morbid obesity with OHS Recent MRSA pneumonia Continue Zyvox, Merrem, and Eraxis for pneumonia Continue Solu-Medrol (leukocytosis today) MAT protocol in place Pulmonary consulted, appreciate recommendations Extubated yesterday but worsening ABG, may need to reintubate - Continue Bumex, net negative goal of I/Os Heart failure with preserved ejection fraction Echo from 05/2019 showed EF 55% Monitor I/Os HTN Hold home meds Goals of care - Discussed goals with patient and , ok with reintubatin - At this time would not want trach - Ok with [facility] referral Critical Care Critically Ill Patient Diagnosis/Problems Diagnosis/Problems (1) Acute hypercapnic respiratory failure (2) Essential (primary) hypertension Status: Chronic (3) CHF (congestive heart failure) Status: Chronic Clinical Quality Measures DVT/VTE Risk/Contraindication: Risk Factor Score Per Nursin RFS Level Per Nursing on Admit: 4+=Very High JENNI ALMODOVAR MD Sep 08, 2019 09:19
--- NOTE | 2019-09-08 09:21 | NUR ---
PALLIATIVE CARE RN received hospice consult from Dr. De Leon. Before being able to speak with them regarding hospice Dr. Rowan discussed possible need to reintubate patient and his desire to do this He has spoken to his and he wishes to be intubated, he would also like a trach if needed and transfer to [facility]. I spoke with them about the above and they confirmed this and agree to meet with a [facility] investment representative. Faisal is here at this time from [place] and will see the patient and his this morning.
[2019-09-08] MEDS: ANIDULAFUNGIN INJECTION 100 MG in NS (IVPB) 100 ML IV SCH (09:44)
[2019-09-08 10:23] LABS: ABG BASE EXCESS 10.2 MMOL/L (-2.5-2.5); ABG OXYGEN SATURATION 71 % (94-100); ABG PCO2 56 MMHG (35-45); ABG PH 7.41 (7.37-7.43); ABG PO2 47 MMHG (79-93); ABG TCO2 36.8 MMOL/L (21.0-31.0)
[2019-09-08 10:27] LABS: ALLENS TEST YES-POS; INSPIRED O2 45%; PATIENT TEMP 37.1; VENTILATOR NO
[2019-09-08] MEDS: aCETylcysteine 20% (MUCOMYST) 30ML SOLN VIAL INH SCH ×4 (10:40→22:09)
[2019-09-08] MEDS ORDERED: DILTIAZEM 25 MG/5 ML INJ (CARDIZEM) VIAL ONE (11:01)
[2019-09-08] MEDS ORDERED: PROPOFOL DRIP (ICU) 100 ML IV ONE ×2 (11:05→14:13)
--- NOTE | 2019-09-08 11:29 | Occ Therapy Progress Note ---
Therapy Progress Note OT order received, chart reviewed. This OT has been closely monitoring pt's status. At this time, pt. being monitored for possible re-intubation. Possible transfer to [place]. Family declined PT assessment. Will continue to monitor and will evaluate pt. when medically stable. [id number] AZIZA JONES OT Sep 08, 2019 11:29
[2019-09-08] MEDS ORDERED: DILTIAZEM 25 MG/5 ML INJ (CARDIZEM) VIAL IVP NR (11:31)
[2019-09-08] MEDS ORDERED: proPOfol 200 MG/20 ML (DIPRIVAN) VIAL IV ONE (11:54)
[2019-09-08] MEDS ORDERED: LACTATED RINGERS 2,000 ML IV ONE (11:57)
--- NOTE | 2019-09-08 12:02 | NUR ---
RD FOLLOW-UP Per chart review, pt could be reintubated today. If pt is reintubated, would recommend the pt return to tube feedings per previous TF recommendations: Jevity 1.5 at goal rate of 50ml/hr. Begin at 10ml/hr and increase by 10ml q6h as tolerated. Previous tolerance level was on 15ml/hr during last intubation. At goal rate, provides 1800 kcal (27 kcal/kg IBW); 76 g Pro (1.1 g Pro/kg IBW); and 912 ml free water. Flush with 75 ml H2O q4h for hydration status. With flushes, provides 1362 ml free water. Will continue to follow and reassess as pt needs and status change. Colton Anthony MS, RD, LD [phone]
--- NOTE | 2019-09-08 12:05 | Consultation-Cardiology ---
HPI-Cardiology Cardiology Consultation Date of Consultation 09/08/19 Date of Admission Time Seen by Provider: 12:00 Indication: afib with RVR HPI Patient is a 59y.o. male with hx of COPD, morbid obesity. Was found in his home unresponsive on 08/26/19. Has been in ICU for respiratory failure, ARDS. Patient was extubated yesterday. Has been having episodes of afib with RVR. Currenlty on Cardene and sinus tachycardic with HR in the 110's at this time. Patient having worsening respiratory failure, planning for reintubation. Dr. De Leon at bedside Patient was interviewed and visited prior to reintubation, severely short of breath, and Septra DS were normal. Currently short of breath. Having episodes of tachycardia probably due to the severe hypoxemia. Home Medications & Allergies Allergies: Coded Allergies: meperidine HCl (Unverified Allergy, Unknown, 04/22/13) Home Medication List Reviewed: Yes [id number] Hx Patient Social History Marital Status: Alcohol Use: Denies Use Recreational Drug Use: No Smoking Status: Former Smoker Type Used: Cigarettes 2nd Hand Smoke Exposure: No Recent Foreign Travel: No Recent Infectious Disease Expo: No Recent Hopitalizations: No Physical Abuse Screen: No Sexual Abuse: No Immunizations Up To Date Tetanus Booster (TDap): More than 5yrs Date of Pneumonia Vaccine: Jun 20, 2017 Date of Influenza Vaccine: Jun 11, 2019 Past Medical History COPD, CHF, morbid obesity Family Medical History Family History: FH: CHF (congestive heart failure) Review of Systems-General Review of Systems ROS-Unable to Obtain: unable to obtain secondary to respiratory failure Constitutional: see HPI, malaise, weakness, other (unable to provide review of systems due to his current condition) Respiratory: other (severely dyspneic) Cardiovascular: see HPI; No chest pain, No edema, No Hx of Intervention, No pa lpitations, No syncope, No vascular heart diseas, No other Reviewed Test Results Reviewed Test Results Lab Laboratory Tests 09/07/19 17:33: Glucometer 99 09/07/19 22:53: Glucometer 132H 09/08/19 02:55: White Blood Count 22.5H, Red Blood Count 4.80, Hemoglobin 12.7L, Hematocrit 43, Mean Corpuscular Volume 89, Mean Corpuscular Hemoglobin 27, Mean Corpuscular Hemoglobin Concent 30L, Red Cell Distribution Width 18.9H, Platelet Count 246, Mean Platelet Volume 9.7, Neutrophils (%) (Auto) 94H, Lymphocytes (%) (Auto) 3L, Monocytes (%) (Auto) 3, Eosinophils (%) (Auto) 0, Basophils (%) (Auto) 0, Neutrophils # (Auto) 21.1H, Lymphocytes # (Auto) 0.6L, Monocytes # (Auto) 0.7, Eosinophils # (Auto) 0.0, Basophils # (Auto) 0.0, Neutrophils % (Manual) 86, Lymphocytes % (Manual) 6, Monocytes % (Manual) 5, Band Neutrophils 3, Blood Morphology Comment NORMAL, Blood Gas Puncture Site RIGHT RADIAL, Blood Gas Patient Temperature 36.8, Arterial Blood pH 7.32*L, Arterial Blood Partial Pressure CO2 67H, Arterial Blood Partial Pressure O2 58L, Arterial Blood HCO3 34H, Arterial Blood Total CO2 35.5H, Arterial Blood Oxygen Saturation 83L, Arterial Blood Base Excess 7.4H, Ramirez Test ART LINE, Blood Gas Ventilator Setting NO, Blood Gas Inspired Oxygen 40%, Sodium Level 138, Potassium Level 4.7, Chloride Level 98, Carbon Dioxide Level 27, Anion Gap 13, Blood Urea Nitrogen 49H, Creatinine 1.00, Estimat Glomerular Filtration Rate > 60, BUN/Creatinine Ratio 49, Glucose Level 156H, Calcium Level 8.9, Phosphorus Level 5.9H, Magnesium Level 2.1, B-Type Natriuretic Peptide 93.2 09/08/19 09:58: Blood Gas Puncture Site UNK, Blood Gas Patient Temperature 37.1, Arterial Blood pH 7.41, Arterial Blood Partial Pressure CO2 56H, Arterial Blood Partial Pressure O2 47L, Arterial Blood HCO3 35H, Arterial Blood Total CO2 36.8H, Arterial Blood Oxygen Saturation 71L, Arterial Blood Base Excess 10.2H, Ramirez Test YES-POS, Blood Gas Ventilator Setting NO, Blood Gas Inspired Oxygen 45% 09/08/19 11:25: Glucometer 169H Microbiology 09/01/19 Mycobacterial Culture - Preliminary, Resulted 08/26/19 Blood Culture - Final, Complete No growth ECG Impression ECG Initial ECG Rhythm: A Fib/Flutter Initial ECG Impression: Atrial Fibrillation w/RVR Physical Exam Physical Exam Vital Signs Vital Signs - First Documented 09/02/19 09/02/19 00:00 00:08 Temp 36.3 Pulse 63 Resp 25 B/P (MAP) 149/53 (85) Pulse Ox 92 O2 Delivery Mechanical Ventilator O2 Flow Rate 70.00 FiO2 70 Capillary Refill : Less Than 3 Seconds Height, Weight, BMI Height: 5'7.00" Weight: 346lbs. 2.0oz. 156.225388wv; 57.92 BMI Method:Stated General Appearance: Chronically ill, Moderate Distress, Obese HEENT: PERRL/EOMI, Other (conjunctival erythema bilaterally) Neck: Normal Inspection, Supple Respiratory: Decreased Breath Sounds, Respiratory Distress Cardiovascular: No Murmur, Tachycardia Gastrointestinal: Normal Bowel Sounds, Non Tender, Soft Rectal: Deferred, Other (lopez in place) Genital/Rectal: Other (lopez in place) Back: No CVA Tenderness Extremity: Pedal Edema Neurologic/Psychiatric: Alert, Oriented x3 Skin: Normal Color, Warm/Dry Lymphatic: No Adenopathy A/P-Cardiology Admission Diagnosis PAF Acute respiratory failure COPD Morbid obesity Assessment/Plan PAF, has been having episodes of afib with RVR. Currenlty on Cardene gtt and sinus tachycardic with HR in the 100's. I will give Lopressor 5mg IV, continue to monitor. Expect HR to settle down once reintubated. Acute respiratory failure, ARDS, extubated yesterday, having worsening sx. CXR worse today, planning for reintubation, Dr. De Leon at bedside at this time. AE COPD, oxygen dependent, TESSA maintained on CPAP Morbid obesity with OHS, BMI 58. Recent MRSA pneumonia- management per Dr. De Leon Hypertension, continue on current medication and and continue to monitor. Hyperlipidemia, maintained on Lipitor Thank you for allowing us to participate in the management of Mr. Guadalupe. This is Di Fam PA-C, as a scribe for Dr. Zapata. Patient was seen and evaluated with Di, examination performed, management plan was discussed, agree with the current scribed note, I made few changes to the note using Italic font Patient is in respiratory failure, planning to proceed with reintubation soon His episodes of tachycardia are probably due to severe hypoxemia, questionable short burst of atrial fibrillation with rapid ventricular response, returned to sinus tachycardia Continue to monitor telemetry at this time Patient has severe COPD with prolonged intubation,. To be regressing to respiratory failure again and will need another intubation Clinical Quality Measures DVT/VTE Risk/Contraindication: Risk Factor Score Per Nursin RFS Level Per Nursing on Admit: 4+=Very High DI TREVIZO Sep 08, 2019 12:05 pm CHARLIE ZAPATA MD Sep 08, 2019 1:17 pm
[2019-09-08] MEDS ORDERED: meTOprolol 5 MG/5 ML (LOPRESSOR) VIAL IV NR (12:15)
--- NOTE | 2019-09-08 12:30 | NUR ---
Intubation Time Line Note 1158 - Dr De Leon in room with RT/RN. Pt Currently on Vapotherm @ 40/100 1202 - 4 mg Zofran administered 4 mg Versed administered 1204 - 5 mL Propofol administered 1205 - 1000mL bag of LR going wide open to 18 gauge in Rt AC 1206 - 5 mL Propofol administered 50 MARCO Administered Pt Bagged by RT 1207 - Pt began to vomit Suctioning by Dr De Leon Intubated size 8 ETT 26 at lip 1208 - Bagged by RT 1210 - OG tube inserted 1211 - Chest X-ray ordered
--- NOTE | 2019-09-08 12:37 | Diagnostic Imaging Report ---
INDICATION: Intubation. TIME OF EXAM: 12:29 p.m. COMPARISON: Correlation is made with prior chest earlier same day. FINDINGS: ET tube has been placed and has its tip in good position above the jorge luis. NG tube passes below the diaphragm. Left upper extremity PICC line appears to have the tip overlying the SVC. Left hemithorax remains opacified. Right lung is fairly clear. There is no pneumothorax identified. IMPRESSION: 1. Satisfactory endotracheal tube placement. 2. Opacification of left hemithorax. Dictated by: Dictated on workstation # [id number]
--- NOTE | 2019-09-08 13:00 | NUR ---
Pastoral care visit.
[2019-09-08] MEDS ORDERED: MIDAZOLAM 5 MG/5 ML (VERSED) VIAL INJ ONE (13:40)
[2019-09-08] MEDS ORDERED: ROCURONIUM 10 MG/ML 5 ML SYRINGE IV ONE (13:40)
[2019-09-08 13:41] LABS: ABG BASE EXCESS 9.5 MMOL/L (-2.5-2.5); ABG OXYGEN SATURATION 89 % (94-100); ABG PCO2 61 MMHG (35-45); ABG PH 7.37 (7.37-7.43); ABG PO2 62 MMHG (79-93)
[2019-09-08 13:42] LABS: ALLENS TEST ART LINE
[2019-09-08 13:43] LABS: INSPIRED O2 100%; PATIENT TEMP 36.1; VENTILATOR YES
[2019-09-08] MEDS ORDERED: ADENOSINE 6 MG/2 ML (ADENOCARD) VIAL IV ONE (13:43)
[2019-09-08] MEDS ORDERED: MIDAZOLAM INJECTION FOR DRIPS 50 MG in NS (IVPB) 90 ML IV SCH (14:15)
[2019-09-08] MEDS ORDERED: proPOfol (DIPRIVAN) 1000 MG/100 ML VIAL (ICU) IV ONE (14:45)
[2019-09-08] MEDS: DexMEDEtomidine 250 ML DRIP 250 ML IV SCH ×3 (15:05→23:40)
[2019-09-08] MEDS: fentaNYL INJECTION 1,250 MCG in NORMAL SALINE 250 ML INJ SCH (15:14)
[2019-09-08] MEDS: PROPOFOL DRIP (ICU) 100 ML IV SCH ×4 (15:21→22:41)
[2019-09-08] MEDS: LACTATED RINGERS 1,000 ML IV SCH ×2 (15:23→22:41)
[2019-09-08] MEDS: DILTIAZEM IV FOR DRIP 125 MG in NS (IVPB) 100 ML IV SCH (15:44)
[2019-09-08] MEDS ORDERED: LACTATED RINGERS 1,000 ML IV SCH (17:30)
[2019-09-08] MEDS: NOREPINEPHRINE 4 MG/250 ML NS 250 ML IV SCH ×2 (18:14→21:44)
[2019-09-09] VITALS (19 sets, daily range): BP systolic 106–143; BP diastolic 50–73
[2019-09-09] MEDS: NOREPINEPHRINE 4 MG/250 ML NS 250 ML IV SCH ×4 (00:08→12:05)
[2019-09-09] MEDS: inSUlin ASPART (NovoLOG) 1 UNIT/0.01 ML (CHARGE PER UNIT) SC SCH ×3 (00:08→12:05)
[2019-09-09] MEDS: aCETylcysteine 20% (MUCOMYST) 30ML SOLN VIAL INH SCH ×3 (01:31→13:38)
[2019-09-09] MEDS: RT-ALBUTEROL/IPRATROPIUM 3 ML (DUONEB) VIAL INH SCH ×4 (01:31→13:38)
[2019-09-09] MEDS: PROPOFOL DRIP (ICU) 100 ML IV SCH ×6 (02:32→15:41)
[2019-09-09 03:09] LABS: ABG OXYGEN SATURATION 90 % (94-100); ABG PCO2 56 MMHG (35-45); ABG PO2 62 MMHG (79-93); ABG TCO2 35.9 MMOL/L (21.0-31.0)
[2019-09-09 03:11] LABS: ALLENS TEST ART LINE; BASOPHILS % (AUTO) 0 % (0-10); EOSINOPHILS % (AUTO) 0 % (0-10); HEMATOCRIT 34 % (40-54); HEMOGLOBIN 10.2 G/DL (13.3-17.7); INSPIRED O2 40%; LYMPHOCYTES # (AUTO) 0.4 X 10^3 (1.0-4.0); LYMPHOCYTES % (AUTO) 7 % (12-44); MEAN CORPUSCULAR HEMOGLOBIN 27 PG (25-34); MEAN CORPUSCULAR HGB CONC 30 G/DL (32-36); MEAN CORPUSCULAR VOLUME 90 FL (80-99); MEAN PLATELET VOLUME 9.7 FL (7.4-10.4); MONOCYTES # (AUTO) 0.4 X 10^3 (0.0-1.0); MONOCYTES % (AUTO) 6 % (0-12); NEUTROPHILS # (AUTO) 5.4 X 10^3 (1.8-7.8); NEUTROPHILS % (AUTO) 88 % (42-75); PATIENT TEMP 36.2; PLATELET COUNT 156 10^3/uL (130-400); VENTILATOR YES; WHITE BLOOD COUNT 6.1 10^3/uL (4.3-11.0)
[2019-09-09 03:27] LABS: BUN/CREATININE RATIO 56; CALCIUM 8.5 MG/DL (8.5-10.1); CARBON DIOXIDE 27 MMOL/L (21-32); CHLORIDE 101 MMOL/L (98-107); CREATININE SERUM 0.87 MG/DL (0.60-1.30); GFR ESTIMATED > 60; GLUCOSE 198 MG/DL (70-105); MAGNESIUM 2.2 MG/DL (1.6-2.4); PHOSPHORUS 4.3 MG/DL (2.3-4.7); POTASSIUM 4.4 MMOL/L (3.6-5.0); SODIUM 140 MMOL/L (135-145)
[2019-09-09] MEDS: hydrALAZINE (APESOLINE) 20 MG/ML VIAL IV SCH ×3 (03:52→11:59)
[2019-09-09] MEDS: MAGNESIUM 1 GM/100 ML IVPB 100 ML IV SCH (03:52)
[2019-09-09] MEDS: POTASSIUM CL 10MEQ/50ML IVPB 50 ML IV SCH (03:52)
[2019-09-09] MEDS: KCL 20 MEQ TAB (K-DUR) PO SCH (03:53)
[2019-09-09] MEDS: DexMEDEtomidine 250 ML DRIP 250 ML IV SCH ×4 (04:02→15:41)
--- NOTE | 2019-09-09 04:47 | Pulmonary Progress Note ---
Subjective Time Seen by a Provider: 04:46 Subjective/Events-last exam Pt is sedated on vent. Sepsis Event Evaluation Height, Weight, BMI Height: 5'7.00" Weight: 346lbs. 2.0oz. 156.600200qh; 57.92 BMI Method:Stated Exam Exam Vital Signs Date Time Temp Pulse Resp B/P (MAP) Pulse Ox O2 Delivery O2 Flow Rate FiO2 09/09/19 04:21 Mechanical Ventilator 40 09/09/19 04:09 35.6 Mechanical Ventilator 40.00 09/09/19 04:00 68 13 143/55 (84) 100 Mechanical Ventilator 40.00 09/09/19 03:00 73 12 141/52 (81) 99 Mechanical Ventilator 40.00 09/09/19 02:32 36.75863 64 18 136/73 98 Mechanical Ventilator 40.00 09/09/19 02:00 70 12 117/50 (72) 97 Mechanical Ventilator 40.00 09/09/19 01:32 64 18 98 40 09/09/19 01:00 65 15 123/52 (75) 98 Mechanical Ventilator 40.00 09/09/19 00:37 65 09/09/19 00:09 Mechanical Ventilator 40.00 09/08/19 23:57 Mechanical Ventilator 50 09/08/19 23:53 36.4 68 19 154/60 (91) 99 Mechanical Ventilator 50.00 09/08/19 23:00 73 14 143/57 (85) 99 Mechanical Ventilator 50.00 09/08/19 22:48 100 Mechanical Ventilator 50.00 09/08/19 22:45 Mechanical Ventilator 50.00 09/08/19 22:41 36.50645 69 22 136/73 98 Mechanical Ventilator 35.00 09/08/19 22:12 69 22 98 60 09/08/19 22:00 69 16 134/55 (81) 98 Mechanical Ventilator 60.00 09/08/19 21:30 Mechanical Ventilator 60.00 09/08/19 21:00 71 14 153/56 (88) 99 Mechanical Ventilator 70.00 09/08/19 20:00 Mechanical Ventilator 70 09/08/19 20:00 81 21 87/78 (81) 97 Mechanical Ventilator 70.00 09/08/19 20:00 36.4 09/08/19 19:39 37.0 71 22 142/53 (82) 96 Mechanical Ventilator 70.00 09/08/19 19:00 69 18 151/56 (87) 97 Mechanical Ventilator 70.00 09/08/19 18:49 66 21 97 70 09/08/19 18:45 67 09/08/19 18:00 62 20 83/47 (59) 98 Mechanical Ventilator 70.00 09/08/19 17:37 76/45 09/08/19 17:00 64 19 67/41 (50) 98 Mechanical Ventilator 70.00 09/08/19 16:00 36.6 09/08/19 16:00 75 20 90/39 (56) 98 Mechanical Ventilator 70.00 09/08/19 16:00 Mechanical Ventilator 70 09/08/19 15:23 153/46 09/08/19 15:22 163/48 09/08/19 15:21 132/47 09/08/19 15:03 172/47 09/08/19 15:00 88 24 161/46 (84) 98 Mechanical Ventilator 70.00 09/08/19 14:10 Mechanical Ventilator 70.00 09/08/19 14:10 85 21 98 80 09/08/19 14:00 86 22 134/50 (78) 99 Mechanical Ventilator 100.00 09/08/19 13:00 92 21 128/41 (70) 98 Mechanical Ventilator 100.00 09/08/19 13:00 91 09/08/19 12:37 Mechanical Ventilator 100.00 09/08/19 12:15 99 22 99 100 09/08/19 12:00 36.6 09/08/19 12:00 Mechanical Ventilator 70 09/08/19 12:00 112 20 171/53 (92) 98 Vapotherm 35.00 40.00 09/08/19 11:00 156 24 137/51 (79) 93 Vapotherm 35.00 40.00 09/08/19 10:41 97 Vapotherm 35.00 40 09/08/19 10:00 111 27 162/50 (87) 100 Vapotherm 35.00 40.00 09/08/19 09:00 108 167/52 (90) 97 Vapotherm 35.00 40.00 09/08/19 08:00 Vapotherm 35.00 40 09/08/19 08:00 109 153/56 (88) 95 Vapotherm 35.00 40.00 09/08/19 07:00 111 09/08/19 07:00 133 168/54 (92) 97 Vapotherm 35.00 40.00 09/08/19 06:00 107 174/55 (94) 99 NIV Bilevel 45.00 09/08/19 05:00 108 176/56 (96) 98 NIV Bilevel 45.00 I & O 09/09/19 07:00 Intake Total 3440 ml Output Total 4500 ml Balance -1060 ml Height & Weight Height: 5'7.00" Weight: 346lbs. 2.0oz. 156.052006pf; 57.92 BMI Method:Stated General Appearance: Obese, Other ( sedated on vent) HEENT: PERRL/EOMI, Other (conjunctival erythema bilaterally) Neck: Normal Inspection, Supple Respiratory: Rhonci, Other (on vent) Cardiovascular: Regular Rate, Rhythm, No Murmur Capillary Refill: Less Than 3 Seconds Gastrointestinal: soft, distended Extremity: Normal Inspection, Non Tender, Pedal Edema Neurologic/Psychiatric: Other (sedated) Skin: Normal Color, Warm/Dry Lymphatic: No Adenopathy Results Lab Laboratory Tests 09/08/19 02:55 09/09/19 03:00 Assessment/Plan Assessment/Plan Acute on chronic respiratory failure -Will do repeat bronchoscopy today secondary to persistent mucous plugging -Continue SVNS with mucomyst -Pt did not tolerate extubation and developed mucous plug resulting in left lung opacification. MRSA pneumonia with atelectasis. Mucous plugging causing Left lung opacification -Eraxis 1/3 secondary to yeast in Sputum culture. - Merrem, Zyvox and Eraxis please do not stop until first discussing with me. -Continue Zyvox and Eraxis for 14days. -Continue Merrem for now Gastric obstruction vs ileus -Check CT of chest/abd/pelvis -Leave NG to suction -Check gastric occult -Change prilosec to protonix BID COPD exacerbation -Duonebs Q4h -Solumedrol 40 Q 6 Morbid obesity with OHS CHF -monitor I/O -- Bumex 1mg - daily HTN - Lopressor PO, and PRN Hydralazine GILLIAN SOOD DO Sep 09, 2019 04:47
[2019-09-09] MEDS: NITROGLYCERIN 2% OINT 1 GM UNIT DOSE PACKET TOP SCH ×2 (04:53→11:59)
[2019-09-09] MEDS ORDERED: LORazepam INJ 2 MG/ML (ATIVAN) VIAL IV PRN (05:15)
[2019-09-09] MEDS ORDERED: MIDAZOLAM 5 MG/5 ML (VERSED) VIAL ONE (05:31)
[2019-09-09] MEDS: BUMETANIDE 1 MG/4 ML (BUMEX) VIAL IV SCH (05:42)
[2019-09-09] MEDS: MEROPENEM 500 MG/SWFI 10 ML IV PUSH IV SCH ×4 (05:42→12:05)
[2019-09-09] MEDS ORDERED: MIDAZOLAM 5 MG/5 ML (VERSED) VIAL IVP ONE (06:15)
--- NOTE | 2019-09-09 06:25 | NUR ---
BRONCHOSCOPY STARTED AT [address] SOOD. RT AT BEDSIDE. 4MG OF IV VERSED ADMINISTERED ORDERED. PT TOLERATED WELL. WILL CONTINUE TO MONITOR.
[2019-09-09 06:51] LABS: OCCULT BLOOD,GASTRIC FLUID POSITIVE (NEGATIVE)
--- NOTE | 2019-09-09 06:59 | NUR ---
POSITIVE GASTRIC OCCULT AT THIS TIME. DR. SOOD NOTIFIED. ORDERS RECEIVED TO CONSULT SURGERY AND HOLD LOVENOX.
[2019-09-09] MEDS: ENOXAPARIN 60 MG/0.6 ML (LOVENOX) SYR SC SCH (07:07)
--- NOTE | 2019-09-09 07:54 | Physical Therapy Progress Note ---
Therapy Progress Note Patient is currently sedated and intubated. PT will continue to monitor patient status and begin when medically stable and able to actively participate with skilled therapy. GEOVANI BEAR PT Sep 09, 2019 07:54
--- NOTE | 2019-09-09 08:13 | Occ Therapy Progress Note ---
Therapy Progress Note Pt. is currently sedated and on mechanical ventilation. Will continue to monitor and address skilled therapy when medically stable. [id number] AZIZA JONES OT Sep 09, 2019 08:13
--- NOTE | 2019-09-09 08:14 | Consultation - Surgery ---
JUDY MUNOZ,MED STUDENT 09/09/19 0814: History of Present Illness History of Present Illness Patient Consulted On(salvador/time) 09/09/19 08:05 Date Seen by Provider: Sep 09, 2019 Time Seen by Provider: 07:46 Reason for Visit: afib with RVR History of Present Illness Surgery consult for GI bleed This 59y/o male has been intubated since 08/26/2019, so all history came from EMR and patient's . Patient was found unresponsive by his home health aides on 08/26/2019 and EMS was called. Patient was found to be hypercapnic with a pCO of 115 and repeat ABG showing pCO2 of 126 while patient was on BiPAP. Decision was made to intubate . He was extubated for a brief period yesterday but had to be reintubated yesterday. He has a history of COPD managed by Dr. De Leon and was seen her in May for a similar presentation. In May he was found to have a MRSA pneumonia. Allergies and Home Medications Allergies Coded Allergies: meperidine HCl (Unverified Allergy, Unknown, 04/22/13) Home Medications Acetaminophen 500 Mg Tablet, 1,000 MG PO Q4H PRN for PAIN-MILD, (Reported) Albuterol Sulfate 2.5 Mg/3 Ml Vial.neb, 2.5 MG NEB Q6H PRN for SHORTNESS OF BREATH, (Reported) Atorvastatin Calcium 20 Mg Tablet, 20 MG PO DAILY, (Reported) Budesonide 0.5 Mg/2 Ml Ampul.neb, 0.5 MG NEB BID, (Reported) Carvedilol 12.5 Mg Tablet, 12.5 MG PO BID, (Reported) Clonazepam 1 Mg Tablet, 1 MG PO HS, (Reported) Furosemide 40 Mg Tablet, 40 MG PO DAILY, (Reported) Lisinopril 20 Mg Tablet, 20 MG PO DAILY, (Reported) Pramipexole Di-HCl 1 Mg Tablet, 1 MG PO 0800,1200, (Reported) Pramipexole Di-HCl 1 Mg Tablet, 2 MG PO HS, (Reported) Sildenafil Citrate 50 Mg Tablet, 50 MG PO UD PRN for ED, (Reported) Testosterone Cypionate 100 Mg/1 Ml Vial, 1 ML IM EVERY 2 WEEKS, (Reported) Tiotropium [place] 1 Inh Aerp, 1 CAP IH DAILY PRN for SHORTNESS OF BREATH, (Reported) Venlafaxine HCl 75 Mg Cap.er.24h, 75 MG PO DAILY, (Reported) TAKES ALONG WITH 150MG Venlafaxine HCl 150 Mg Cap.er.24h, 150 MG PO DAILY, (Reported) TAKES ALONG WITH 75MG Past [id number] Hx Patient Social History Alcohol Use: Denies Use Recreational Drug Use: No Smoking Status: Former Smoker Former Smoker, Quit: Nov 28, 1986 Type Used: Cigarettes 2nd Hand Smoke Exposure: No Recent Foreign Travel: No Contact w/Someone Who Travel: No Recent Infectious Disease Expo: No Recent Hopitalizations: No Physical Abuse Screen: No Sexual Abuse: No Immunizations Up To Date Tetanus Booster (TDap): More than 5yrs Date of Pneumonia Vaccine: Jun 20, 2017 Date of Influenza Vaccine: Jun 11, 2019 Seasonal Allergies Seasonal Allergies: No Surgeries History of Surgeries: Yes Surgeries: Adenoidectomy, Tonsillectomy Respiratory History of Respiratory Disorde: Yes (COPD, chronic bronchitis, asthma) Respiratory Disorders: Asthma, Chronic Bronchitis, Sleep Apnea, COPD Cardiovascular History of Cardiac Disorders: Yes (Congestive heart failure) Cardiac Disorders: Hypertension Neurological History of Neurological Disord: No Reproductive System Hx Reproductive Disorders: No Genitourinary History of Genitourinary Disor: No Gastrointestinal History of Gastrointestinal Di: Yes Gastrointestinal Disorders: Gastroesophageal Reflux Musculoskeletal History of Musculoskeletal Dis: No Endocrine History of Endocrine Disorders: No HEENT History of HEENT Disorders: No Cancer History of Cancer: No Psychosocial History of Psychiatric Problem: Yes Behavioral Health Disorders: Sleep Difficulties, Anxiety, Depression Integumentary History of Skin or Integumenta: No Blood Transfusions History of Blood Disorders: No Adverse Reaction to a Blood Tr: No (patient has never been given blood) Family Medical History Family Medial History: FH: CHF (congestive heart failure) Review of Systems-General ROS-Unable to Obtain: patient is intubated and sedated Physical Exam-General Problems Physical Exam Vital Signs Vital Signs - First Documented 09/03/19 09/03/19 00:00 02:47 Temp 36.0 Pulse 58 Resp 28 B/P (MAP) 144/64 (90) Pulse Ox 94 O2 Delivery Mechanical Ventilator O2 Flow Rate 60.00 FiO2 60 Capillary Refill : Less Than 3 Seconds General Appearance: severe distress, obese (morbidly obese ) Respiratory: lungs clear; No rhonchi, No wheezing; other (on ventilator ) Cardiovascular: no edema, no murmur, irregularly irregular (hx of paroxysmyal A-fib ) Peripheral Pulses: 2+ Carotid (R), 2+ Carotid (L), 2+ Femoral (R), 2+ Femoral (L) Gastrointestinal: soft, no pulsatile mass, distended, hernia (umbilical ) Neurologic/Psychiatric: other (patient is sedated ) Skin: normal color, warm/dry Data Review Labs Laboratory Tests 09/08/19 09:58: Blood Gas Puncture Site UNK, Blood Gas Patient Temperature 37.1, Arterial Blood pH 7.41, Arterial Blood Partial Pressure CO2 56H, Arterial Blood Partial Pressure O2 47L, Arterial Blood HCO3 35H, Arterial Blood Total CO2 36.8H, Arterial Blood Oxygen Saturation 71L, Arterial Blood Base Excess 10.2H, Ramirez Test YES-POS, Blood Gas Ventilator Setting NO, Blood Gas Inspired Oxygen 45% 09/08/19 11:25: Glucometer 169H 09/08/19 13:30: Blood Gas Puncture Site R ART LINE, Blood Gas Patient Temperature 36.1, Arterial Blood pH 7.37, Arterial Blood Partial Pressure CO2 61H, Arterial Blood Partial Pressure O2 62L, Arterial Blood HCO3 35H, Arterial Blood Total CO2 37.0H, Arterial Blood Oxygen Saturation 89L, Arterial Blood Base Excess 9.5H, Ramirez Test ART LINE, Blood Gas Ventilator Setting YES, Blood Gas Inspired Oxygen 100% 09/08/19 17:37: Glucometer 166H 09/08/19 23:50: Glucometer 190H 09/09/19 03:00: White Blood Count 6.1, Red Blood Count 3.84L, Hemoglobin 10.2L, Hematocrit 34L, Mean Corpuscular Volume 90, Mean Corpuscular Hemoglobin 27, Mean Corpuscular Hemoglobin Concent 30L, Red Cell Distribution Width 18.0H, Platelet Count 156, Mean Platelet Volume 9.7, Neutrophils (%) (Auto) 88H, Lymphocytes (%) (Auto) 7L, Monocytes (%) (Auto) 6, Eosinophils (%) (Auto) 0, Basophils (%) (Auto) 0, Neutrophils # (Auto) 5.4, Lymphocytes # (Auto) 0.4L, Monocytes # (Auto) 0.4, Eosinophils # (Auto) 0.0, Basophils # (Auto) 0.0, Blood Gas Puncture Site RIGHT ART LINE, Blood Gas Patient Temperature 36.2, Arterial Blood pH 7.40, Arterial Blood Partial Pressure CO2 56H, Arterial Blood Partial Pressure O2 62L, Arterial Blood HCO3 34H, Arterial Blood Total CO2 35.9H, Arterial Blood Oxygen Saturation 90L, Arterial Blood Base Excess 9.0H, Ramirez Test ART LINE, Blood Gas Ventilator Setting YES, Blood Gas Inspired Oxygen 40%, Sodium Level 140, Potassium Level 4.4, Chloride Level 101, Carbon Dioxide Level 27, Anion Gap 12, Blood Urea Nitrogen 49H, Creatinine 0.87, Estimat Glomerular Filtration Rate > 60, BUN/Creatinine Ratio 56, Glucose Level 198H, Calcium Level 8.5, Phosphorus Level 4.3, Magnesium Level 2.2 09/09/19 06:18: Gastric Fluid Occult Blood POSITIVEH Microbiology 09/01/19 Mycobacterial Culture - Preliminary, Resulted 08/26/19 Blood Culture - Final, Complete No growth Assessment/Plan Assessment/Plan Assessment/Plan GI bleed - Protonix started today at 40mg BID by IV - consider EGD Hx of blood in stool with straining Distended abdomen - CT of abdomen and pelvis today Majority of patient's problems at this time are pulmonary in nature, will wait for CT and discuss plan with Dr. De Leon and patient's Clinical Quality Measures DVT/VTE Risk/Contraindication: Risk Factor Score Per Nursin RFS Level Per Nursing on Admit: 4+=Very High JUDIE BUCKLEY DO 09/09/191814: History of Present Illness History of Present Illness History of Present Illness consult requested by Dr. De Leon for gastric occult + and constipation. ruth is a 59 year old male that was found unresponsive 08/26/19 and was taken to [facility]. Was transferred here after being intubated. Patient was extubated and reintubated yesterday. Patient is currently intubated and sedated with family at bedside. Patient has history of COPD. He had gastric contents tested which did show them to be occult positive. His family states he has not had a bowel movement since being here, but there is one charted on 09/07/19. Patient unable to provide any information due to current condition. Allergies and Home Medications Allergies Coded Allergies: meperidine HCl (Unverified Allergy, Unknown, 04/22/13) Home Medications Acetaminophen 500 Mg Tablet, 1,000 MG PO Q4H PRN for PAIN-MILD, (Reported) Albuterol Sulfate 2.5 Mg/3 Ml Vial.neb, 2.5 MG NEB Q6H PRN for SHORTNESS OF BREATH, (Reported) Atorvastatin Calcium 20 Mg Tablet, 20 MG PO DAILY, (Reported) Budesonide 0.5 Mg/2 Ml Ampul.neb, 0.5 MG NEB BID, (Reported) Carvedilol 12.5 Mg Tablet, 12.5 MG PO BID, (Reported) Clonazepam 1 Mg Tablet, 1 MG PO HS, (Reported) Furosemide 40 Mg Tablet, 40 MG PO DAILY, (Reported) Lisinopril 20 Mg Tablet, 20 MG PO DAILY, (Reported) Pramipexole Di-HCl 1 Mg Tablet, 1 MG PO 0800,1200, (Reported) Pramipexole Di-HCl 1 Mg Tablet, 2 MG PO HS, (Reported) Sildenafil Citrate 50 Mg Tablet, 50 MG PO UD PRN for ED, (Reported) Testosterone Cypionate 100 Mg/1 Ml Vial, 1 ML IM EVERY 2 WEEKS, (Reported) Tiotropium [place] 1 Inh Aerp, 1 CAP IH DAILY PRN for SHORTNESS OF BREATH, (Reported) Venlafaxine HCl 75 Mg Cap.er.24h, 75 MG PO DAILY, (Reported) TAKES ALONG WITH 150MG Venlafaxine HCl 150 Mg Cap.er.24h, 150 MG PO DAILY, (Reported) TAKES ALONG WITH 75MG Patient Home Medication List Home Medication List Reviewed: Yes Past [id number] Hx Patient Social History Alcohol Use: Past History Reviewed Nursing Assessment Reviewed/Agree w Nursing PMH: Yes Family Medical History Significant Family History: No Pertinent Family Hx Family Medial History: FH: CHF (congestive heart failure) Physical Exam-General Problems Physical Exam General Appearance: other (intubated and sedated) HEENT: other (intubated, short neck, obese) Respiratory: lungs clear, other (on ventilator ) Cardiovascular: irregularly irregular (hx of paroxysmyal A-fib ) Gastrointestinal: soft, distended (minimally), hernia (umbilical ) Extremities: swelling (lower extremities, wrappe healing wounds) Neurologic/Psychiatric: No alert, No oriented x 3; other (patient is sedated ) Skin: normal color, warm/dry Assessment/Plan Assessment/Plan Assessment/Plan occult positive gastric contents-likely form recent nasogastric tube being in place monitor hgb, had slight drop but if continues to drop would consider egd acute respiratory failure intubated and sedated constipation- patient with bowel movement charged on 09/07/19, ct scan chest/abdomen/pelvis being done further recs pending result. umbilical hernia not a factor with current care needs at this time. address outpatient. Supervisory-Addendum Brief Verification & Attestation Participated in pt care: history, MDM, physical Personally performed: exam, history, MDM, supervision of care Care discussed with: Medical Student Procedures: n/a Results interpretation: Verified all documentation Verification and Attestation of Medical Student E/M Service A medical student performed and documented this service in my presence. I reviewed and verified all information documented by the medical student and made modifications to such information, when appropriate. I personally performed the physical exam and medical decision making. Judie Buckley, Sep 09, 2019,18:26 JUDY MUNOZ,MED STUDENT Sep 09, 2019 08:14 JUDIE BUCKLEY DO Sep 09, 2019 18:15
--- NOTE | 2019-09-09 08:19 | Diagnostic Imaging Report ---
CHEST 1 VIEW, AP/PA ONLY Indication: Acute respiratory failure Comparison: 09/08/2019 Findings: Stable ET and enteric tubes. Improved aeration of left hemithorax. Improved versus redistributed small to moderate left pleural effusion. Stable cardiomediastinal silhouette. No pneumothorax. Stable left PICC. Impression: 1. Improved aeration of left hemithorax may be due to decreased size of left pleural effusion. Dictated by: Dictated on workstation # [id number]
[2019-09-09] MEDS: fentaNYL INJECTION 1,250 MCG in NORMAL SALINE 250 ML INJ SCH (08:21)
[2019-09-09] MEDS: ANIDULAFUNGIN INJECTION 100 MG in NS (IVPB) 100 ML IV SCH (08:31)
[2019-09-09] MEDS: methylPREDNISolone 40 MG/ML (Solu-MEDROL) VIAL IV SCH (08:31)
[2019-09-09] MEDS: LINEZOLID IVPB 300 ML IV SCH (08:31)
[2019-09-09] MEDS: DOCUSATE SODIUM 10 MG/ML 10 ML UDC (COLACE) PO SCH (08:33)
[2019-09-09] MEDS: meTOprolol TARTRATE 25 MG (LOPRESSOR) TABLET PO SCH (08:34)
[2019-09-09] MEDS: DILTIAZEM IV FOR DRIP 125 MG in NS (IVPB) 100 ML IV SCH (08:36)
[2019-09-09] MEDS ORDERED: PANTOPRAZOLE 40 MG (PROTONIX) VIAL IV SCH (09:00)
--- NOTE | 2019-09-09 09:23 | Cardiology Progress Note ---
Subjective Date Seen by Provider: Sep 09, 2019 Time Seen by Provider: 09:20 Subjective/Events-last exam Patient is sedated and intubated. Review of Systems General: Other (sedated and intubated) Objective-Cardiology Exam Last Set of Vital Signs Vital Signs 09/09/19 09/09/19 09/09/19 09/09/19 04:21 06:32 07:00 08:32 Temp 35.15111 Pulse 61 Resp 20 B/P (MAP) 121/53 Pulse Ox 98 O2 Delivery Mechanical Ventilator O2 Flow Rate 35.00 FiO2 40 Capillary Refill : Less Than 3 Seconds I&O Intake and Output 09/09/19 00:00 Intake Total 3590 ml Output Total 4150 ml Balance -560 ml Intake Oral 0 ml IV Total 3590 ml Output Urine Total 1750 ml Gastric Drainage Total 2400 ml General: Other (sedated and intubated) HEENT: Atraumatic, PERRLA Neck: Supple, No JVD, No Thyromegaly Lungs: Normal Air Movement, Other (bilateral rhonchi) Heart: Regular Rate, Normal S1, Normal S2, No Murmurs Abdomen: No Hepatosplenomegaly, No Masses, Other (distended, diminished bowel sounds) Extremities: No Clubbing, No Cyanosis, No Tenderness/Swelling, Other (erythema ) Skin: No Significant Lesion, Other (erythema, chronic venous stasis changes) Neuro: Other (sedated and intubated) Psych/Mental Status: Other (sedated and intubated) Results Lab Laboratory Tests 09/09/19 03:00 A/P-Cardiology Admission Diagnosis PAF Acute respiratory failure COPD Morbid obesity Assessment/Plan Paroxysmal atrial fibrillation, back to sinus rhythm. Currently in sinus rhythm, continue to monitor Acute respiratory failure, ARDS, failed to stay off the ventilator. Progressing to respiratory failure, managed by Dr. De Leon Distended abdomen, occult blood positive through the NG tube with fecal material. Surgery were consulted. Acute exacerbation of COPD, currently ventilator dependent Morbid obesity with OHS, BMI 58. Recent MRSA pneumonia- management per Dr. De Leon Hypertension, blood pressure is better. Continue to monitor Hyperlipidemia, maintained on Lipitor Clinical Quality Measures DVT/VTE Risk/Contraindication: Risk Factor Score Per Nursin RFS Level Per Nursing on Admit: 4+=Very High CHARLIE ROSSI MD Sep 09, 2019 9:23 am
[2019-09-09] MEDS ORDERED: DIATRIZOATE MEGLUM/SODIUM 37% 120 ML (GASTROGRAFIN) NG ONE (11:15)
[2019-09-09] MEDS ORDERED: IOHEXOL 350 MG/ML 100 ML (OMNIPAQUE 350) VIAL IV ONE (11:15)
[2019-09-09] MEDS ORDERED: NS 100 ML (IVPB) BAG IV ONE (11:15)
[2019-09-09] MEDS ORDERED: HOLD METFORMIN - RECEIVED CONTRAST 20 ML VIAL IV SCH (11:15)
[2019-09-09] MEDS: LACTATED RINGERS 1,000 ML IV SCH (12:01)
--- NOTE | 2019-09-09 13:03 | Discharge Summary ---
Diagnosis/Chief Complaint Date of Admission Aug 26, 2019 at 19:59 Date of Discharge Discharge Date: Sep 09, 2019 Admission Diagnosis Acute hypercapnic respiratory failure Primary Care No,Local Physician Discharge Diagnosis (1) Acute hypercapnic respiratory failure (2) Essential (primary) hypertension Status: Chronic (3) CHF (congestive heart failure) Status: Chronic Discharge Summary Procedures/Consulations Pulm- Dr De Leon Discharge Physical Exam Allergies: Coded Allergies: meperidine HCl (Unverified Allergy, Unknown, 04/22/13) Vitals & I&Os Vital Signs Date Time Temp Pulse Resp B/P (MAP) Pulse Ox O2 Delivery O2 Flow Rate FiO2 09/09/19 15:41 137/56 09/09/19 15:00 60 18 90 Mechanical Ventilator 70.00 09/09/19 13:38 60 09/09/19 12:00 35.8 General Appearance: Chronically ill, Obese, Other (sedated on vent) Respiratory: Rhonci Cardiovascular: Regular Rate, Rhythm, No Murmur Hospital Course Pt was admitted due to acute on chronic hypercapnic respiratory failure. He was treated with steroids and IV antibiotics. He was placed on mechanical ventilation and was eventually liberated but failed this. He was reintubated at that time. Prior to reintubation goals of care discussions were had with he and his and he agreed to repeat ventilation and tracheostomy if needed (though given body habitus this was unlikely to be successful). 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 Labs (last 24 hrs) Microbiology 09/09/19 Mycobacterial Culture - Preliminary, Resulted 08/26/19 Blood Culture - Final, Complete No growth Patient resulted labs reviewed. Pending Labs Imaging: Reviewed Imaging Report Discussion & Recommendations Discharge Planning: >30 minutes discharge planning Discharge Home Medications: Active Scripts Active Reported Budesonide 0.5 Mg/2 Ml Ampul.neb 0.5 Mg NEB BID Tylenol Extra Strength (Acetaminophen) 500 Mg Tablet 1,000 Mg PO Q4H PRN Spiriva (Tiotropium [place]) 1 Inh Aerp 1 Cap IH DAILY PRN Venlafaxine HCl ER (Venlafaxine HCl) 150 Mg Cap.er.24h 150 Mg PO DAILY TAKES ALONG WITH 75MG Sildenafil Citrate 50 Mg Tablet 50 Mg PO UD PRN Lisinopril 20 Mg Tablet 20 Mg PO DAILY Atorvastatin Calcium 20 Mg Tablet 20 Mg PO DAILY Mirapex (Pramipexole Di-HCl) 1 Mg Tablet 2 Mg PO HS Pramipexole Dihydrochloride (Pramipexole Di-HCl) 1 Mg Tablet 1 Mg PO 0800,1200 Testosterone Cypionate 100 Mg/1 Ml Vial 1 Ml IM EVERY 2 WEEKS Venlafaxine HCl ER (Venlafaxine HCl) 75 Mg Cap.er.24h 75 Mg PO DAILY TAKES ALONG WITH 150MG Clonazepam 1 Mg Tablet 1 Mg PO HS Carvedilol 12.5 Mg Tablet 12.5 Mg PO BID Furosemide 40 Mg Tablet 40 Mg PO DAILY Albuterol Sulfate 2.5 Mg/3 Ml Vial.neb 2.5 Mg NEB Q6H PRN Instructions to patient/family Please see electronic discharge instructions given to patient. Clinical Quality Measures DVT/VTE Risk/Contraindication: Risk Factor Score Per Nursin RFS Level Per Nursing on Admit: 4+=Very High JENNI ALMODOVAR MD Sep 09, 2019 13:03
--- NOTE | 2019-09-09 13:28 | Diagnostic Imaging Report ---
PROCEDURE: CT chest, abdomen, and pelvis with contrast. TECHNIQUE: Multiple contiguous axial images were obtained through the chest, abdomen, and pelvis after the administration of intravenous contrast. Auto Exposure Controls were utilized during the CT exam to meet ALARA standards for radiation dose reduction. INDICATION: Respiratory failure. This study is performed to evaluate for gastric outlet obstruction. COMPARISON: Correlation is made with CT angiogram of the chest from 06/21/2019. CT CHEST: ET tube has tip just above the jorge luis. There is a nasogastric tube passing into the stomach. A left upper extremity PICC line has tip within the SVC. No axillary lymphadenopathy is detected. No definite mediastinal or hilar lymphadenopathy is seen. The heart is enlarged. There is no pericardial fluid. There are small bilateral pleural effusions. Pleural fluid tracks in the fissure on the left. There is airspace consolidation within the left upper lobe as well as the left lower lobe with air bronchograms. Only a small amount of aeration to the left upper lobe is seen. Right lung is better aerated but does show some consolidation in the right lower lobe with air bronchograms. IMPRESSION: Small bilateral pleural effusions. Areas of consolidation are identified bilaterally, most significant on the left where there is only a small amount of aeration to the left upper lobe. Remaining left upper lobe and left lower lobe are consolidated. No mass or lymphadenopathy is seen. CT ABDOMEN AND PELVIS: Contrast is seen within the stomach. There appears to be emptying of contrast into small bowel loops. No definite gastric outlet obstruction is seen. The liver and gallbladder are unremarkable. There is no biliary ductal dilatation. The pancreas and spleen are unremarkable. No adrenal mass is detected. Left kidney contains an exophytic low density suggestive of a cyst. Aorta is non-aneurysmal. The visualized small and large bowel loops are normal caliber. There is no obstruction. There is some gaseous distention to portions of the transverse colon perhaps owing to ileus. No free fluid or fluid collection is identified. The bladder is decompressed by Delacruz catheter. The entire pelvis was not included on this study. There is a fat-containing umbilical hernia. IMPRESSION: 1. No evidence of gastric outlet obstruction. 2. Moderate gaseous distention to the transverse colon, perhaps on the basis of ileus. 3. Fat-containing umbilical hernia. Dictated by: Dictated on workstation # [id number]
[2019-09-09] MEDS: fentaNYL INJECTION 1,250 MCG in NS (IVPB) 250 ML IV SCH ×2 (13:57→15:01)
[2019-09-09] MEDS: niCARdipine IV 50 MG in NS (IVPB) 230 ML IV SCH (13:59)
--- NOTE | 2019-09-09 15:45 | NUR ---
Pt Transferred via EMS to [facility]. No acute changes. No new complaints. Vitals remained stable. 50mL of Versed and 75mL of Fentanyl wasted with SIERRA Pham as witness.
== END 2019-09-09 15:45 | DRG 207 ==
LOC: ICU 19:59
PROVIDERS: ADMIT Family Medicine; ATTEND Family Medicine
PROC: 5A1955Z Respiratory Ventilation, Greater than 96 Consecutive Hours (ICD-10-PCS; principal; 2019-08-26)
PROC: 06HY33Z Insertion of Infusion Device into Lower Vein, Percutaneous Approach (ICD-10-PCS; 2019-08-28)
PROC: 05JY3ZZ Inspection of Upper Vein, Percutaneous Approach (ICD-10-PCS; 2019-08-28)
PROC: 0B978ZZ Drainage of Left Main Bronchus, Via Natural or Artificial Opening Endoscopic (ICD-10-PCS; 2019-09-01)
PROC: 0B938ZZ Drainage of Right Main Bronchus, Via Natural or Artificial Opening Endoscopic (ICD-10-PCS; 2019-09-01)
PROC: 5A09357 Assistance with Respiratory Ventilation, Less than 24 Consecutive Hours, Continuous Positive Airway Pressure (ICD-10-PCS; 2019-09-07)
PROC: 0BH17EZ Insertion of Endotracheal Airway into Trachea, Via Natural or Artificial Opening (ICD-10-PCS; 2019-09-08)
PROC: 5A1945Z Respiratory Ventilation, 24-96 Consecutive Hours (ICD-10-PCS; 2019-09-08)
DX: J96.22 Acute and chronic respiratory failure with hypercapnia (principal); J15.212 Pneumonia due to Methicillin resistant Staphylococcus aureus; J44.1 Chronic obstructive pulmonary disease with (acute) exacerbation; I50.32 Chronic diastolic (congestive) heart failure; E66.2 Morbid (severe) obesity with alveolar hypoventilation; Z68.44 Body mass index [BMI] 60.0-69.9, adult; I11.0 Hypertensive heart disease with heart failure; I95.9 Hypotension, unspecified; E87.6 Hypokalemia; K21.9 Gastro-esophageal reflux disease without esophagitis; G47.30 Sleep apnea, unspecified; F41.9 Anxiety disorder, unspecified; F32.9 Major depressive disorder, single episode, unspecified; Z87.891 Personal history of nicotine dependence; Z87.01 Personal history of pneumonia (recurrent); Z90.89 Acquired absence of other organs; J80 Acute respiratory distress syndrome; J96.21 Acute and chronic respiratory failure with hypoxia; K59.00 Constipation, unspecified; K42.9 Umbilical hernia without obstruction or gangrene; I48.0 Paroxysmal atrial fibrillation
CPT/HCPCS: 36415; 36569; 71045; 71260; 74177; 76700; 76937; 80048; 80053; 80202; 81000; 82140; 82271; 82805; 82962; 83605; 83735; 83880; 84100; 84478; 85007; 85025; 85027; 87015; 87040; 87070; 87077; 87081; 87101; 87106; 87116; 87186; 87205; 87206; 93005; 94002; 94003; 94640; 94660; 94664; 94799

== ENCOUNTER 2019-10-02 09:04 | Inpatient (IN) | payer MEDICARE ==
[~2019-10-02] VITALS: Ht 162 cm; Wt 158.1 kg
[~2019-10-02 09:04] MED LIST changes: +BUDE0.5A NEB
[2019-10-02] MEDS ORDERED: ONDANSETRON 4 MG (ZOFRAN) ORAL DISSOLVE TAB PO PRN (10:00)
[2019-10-02] MEDS ORDERED: ALPRAZolam 0.25 MG (XANAX) TAB PO PRN (10:00)
[2019-10-02] MEDS ORDERED: guaiFENesin/CODEINE (ROBITUSSIN AC) 10ML UDC PO PRN (10:00)
[2019-10-02] MEDS ORDERED: BISACODYL 10 MG SUPP (DULCOLAX) PR PRN (10:00)
[2019-10-02] MEDS ORDERED: ENOXAPARIN 40 MG/0.4 ML (LOVENOX) SYR SC SCH (10:00)
[2019-10-02] MEDS ORDERED: FLEET ENEMA ADULT 1 EA BTL PR PRN (10:00)
[2019-10-02] MEDS ORDERED: diphenhydrAMINE 25 MG TAB (BENADRYL) PO PRN (10:00)
[2019-10-02] MEDS ORDERED: DOCUSATE SODIUM 100 MG (COLACE) CAP PO PRN (10:00)
[2019-10-02] MEDS ORDERED: CALCIUM CARBONATE 500 MG (TUMS) TAB.CHEW PO PRN (10:00)
[2019-10-02] MEDS ORDERED: MELATONIN 3 MG TABLET PO PRN (10:00)
[2019-10-02] MEDS ORDERED: ONDANSETRON 4 MG/2 ML (SDV) Z0FRAN IV PRN (10:00)
[2019-10-02] MEDS ORDERED: LOPERAMIDE 2 MG (IMODIUM) TABLET PO PRN (10:00)
[2019-10-02] MEDS ORDERED: LACTULOSE SYRUP 10GM/15ML (ENULOSE) 30ML UDC PO PRN (10:00)
--- NOTE | 2019-10-02 12:38 | NUR ---
Luis Angel Ordoñez admitted to room 222-1, with an admitting diagnosis of COPD/MYOPATHY, on 10/02/19 from [facility] via [facility] transfer vehicle, accompanied by cdl flatbed truck driver. LUIS ANGEL ORDOÑEZ introduced to surroundings, call light, bed controls, phone, TV, temperature control, lights, meal times, smoking policy, visitor policy, side rail policy, bathrooms and showers. Patient Rights given to patient in the handbook.LUIS ANGEL ORDOÑEZ verbalizes understanding that [facility] is not responsible for the loss or damage to any personal effects or valuables that are kept in the patients possession during their hospitalization. The following Patient Care Plans were discussed with the Patient and Family: Discharge Planning, Falls,and COPD. LUIS ANGEL ORDOÑEZ verbalizes understanding of Interdisciplinary Patient Education. Patient and/or family were informed about the Rapid Response Team and its purpose. Patient received Patient Rights Booklet, which includes Privacy Act Statement and Data Collection Information Summary.
[2019-10-02 12:50] VITALS: BP 149/85
--- NOTE | 2019-10-02 13:04 | Physical Therapy Evaluation ---
PT Evaluation-General Medical Diagnosis Admission Date 10/02/2019 Medical Diagnosis: COPD myopathy Onset Date: Oct 02, 2019 Therapy Diagnosis Therapy Diagnosis: weakness / abnormal gait Height/Weight Height (Feet): 5 Height (Inches): 7.00 Weight (Pounds): 346 Weight (Ounces): 2.0 Precautions Precautions/Isolations: Standard Precautions Referral Physician: Jazmin Reason for Referral: Evaluation/Treatment Medical History Pertinent Medical History: COPD, GERD, Heart Failure, HTN Additional Medical History sleep apnea; depression/anxiety Current History Originally admitted to acute care on 08/26/2019 due to decreased ability to breathe and respiratory failure. Pt was intubated and transferred to [facility]; from [facility], he transferred to [facility] to wean off the vent. Pt has returned to this hospital ARU for skilled therapy services and continued medical management. Reviewed History: Yes Social History Home: Apartment (pt and moving to [facility].) Current Living Status: Spouse Entry Into Home: Level Entry Prior Prior Level of Function SCALE: Activities may be completed with or without assistive devices. 9-Moaggphgmv-hzjbxmn completes the activity by him/herself with no assistance from a helper. 5-Set-up or Clean-up Assistance-helper sets up or cleans up; patient completes activity. [place] assists only prior to or following the activity. 4-Supervision or Touching Assistance-helper provides verbal cues and/or touching/steadying and/or contact guard assistance as patient completes activity. Assistance may be provided throughout the activity or intermittently. 3-Partial/Moderate Assistance-helper does LESS THAN HALF the effort. Eden lifts, holds or supports trunk or limbs, but provides less than half the effort. 2-Substantial/Maximal Assistance-helper does MORE THAN HALF the effort. [place] lifts or holds trunk or limbs and provides more than half the effort. 2-Ggedyhnll-unahba does ALL the effort. Patient does none of the effort to complete the activity. Or, the assistance of 2 or more helpers is required for the patient to complete the activity. If activity was not attempted, code reason: 7-Patient Refused. 9-Not Applicable-not attempted and the patient did not perform the activity before the current illness, exacerbation or injury. 10-Not Attempted due to Environmental Limitations-(lack of equipment, weather restraints, etc.). 88-Not Attempted due to Medical Conditions or Safety Concerns. Transfers (B,C,W/C): 6 Gait: 6 (in home distances; if he went to [facility], he used a power chair. ) Stairs: 6 Indoor Mobility (Ambulation): Independent Prior Devices Use: Motorized wheelchair, Walker Pt walked short distances and outdoors but did tire easily and used a power chair for longer distances [facility] PT Evaluation-Current Subjective Pt agreeable to PT. Reports he tires easily. Objective Patient Orientation: Person, Place, Time, Situation Attachments: Oxygen (5l/min) ROM/Strength ROM Lower Extremities WFL; limitations noted due to soft tissue Strength Lower Extremities B LE strength is grossly 3/5 throughout Integumentary/Posture Integumentary refer to nursing notes for full assessment Bowel Incontinence: No Bladder Incontinence: No Posture slightly rounded shoulders; large abdomen Neuromuscular (Tone, Coordination, Reflexes) intact and functional Sensory Vision: Functional Hearing: Functional Hand Dominance: Right Sensation Right Lower Extremit: Intact Sensation Left Lower Extremity: Intact Transfers Roll Left to Right (QC): 3 (min assist and skilled cues to sequence) Sit to Lying (QC): 2 (max assist to lie down. ) Lying to Sitting/Side of Bed(Q: 2 (max assist to come to sit EOB with cues for task initiation) Sit to Stand (QC): 1 (assist of 2 to stand with FWW) Chair/Usq-uf-Wxorz Xfer(QC): 1 (sit to stand lift; dependent for transfer.) Toilet Transfer: 88 Car Transfer (QC): 88 pt initiates task well but requires cues to sequence. Gait Does the Patient Walk?: No and Walking Goal IS indicated Mode of Locomotion: Both Anticipated Mode of Locomotion: Both Walk 10 feet (QC): 88 Walk 50 ft with 2 Turns(QC): 88 Walk 150 ft (QC): 88 Walking 10ft/uneven surface-QC: 88 Gait Assistive Device: FWW Comments/Gait Description Pt unable to ambulate at this time. Wheelchair Training Does the Pt Use a Wheelchair?: Yes Wheel 50 ft with 2 turns (QC): 1 Wheel 150 ft (QC): 1 Type of Wheelchair: Manual dependent for wheelchair mobility at this time. Stairs 1 Step (curb) (QC): 88 4 Steps (QC): 88 12 Steps (QC): 88 Walking Assistive Device: Walker Balance Sitting Static: Fair Sitting Dynamic: Fair Picking up an Object (QC): 88 Special Test Comments standing balance not tested as pt unable to stand without assist at this time. Treatment Co treat with OT to complete functional mobility and for transfers and self care such as sponge bath and dressing; skill of 2 clinicians indicated to complete tasks due to complexity of patient; PT addressed gross transfers to transfer sit to/from supine as well as transfer to/from the wc with the sit to stand lift; as pt completed ADL tasks, OT addressed self care as PT addressed core control, strengh of the core to maintain balance and to lean and turn to bathe and dress. Pt performed leaning/ twisting and sit to stand to complete bathing and dressing. Pt able to stand with max assist of 2 which is dependent; stood for approx 30 seconds with max assist of 2. Assessment/Needs pt presents post lengthy hospital stay with medical complications that has resulted in significant strength, balance, functional activity tolerance deficits that impairs bed mobility, transfers and gait or gait initiation. He will benefit from skilled PT services to address strength, balance, activity tolerance and safety to return to a mod indep level of mobiltiy to return home with his as before. Rehab Potential: Good PT Short Term Goals Short Term Goals Time Frame: Oct 16, 2019 Sit to lyin Lying to sitting on side of be: 3 Sit to stand: 3 Chair/ucn-vt-fhlfl transfer: 3 Walk 50 feet with two turns: 3 PT Retirement Goals Retirement Goals PT Lock Setter Goals Time Frame: Oct 30, 2019 Roll Left & Right (QC): 6 Sit to Lying (QC): 6 Lying-Sitting on Side/Bed(QC): 6 Sit to Stand (QC): 6 Chair/Nsm-kj-Votrr Xfer(QC): 6 Toilet Transfer (QC): 6 Car Transfer (QC): 5 Does the Patient Walk: No and Walking Goal IS indicated Walk 10 feet (QC): 6 Walk 50ft with 2 Turns (QC): 6 Walk 150 ft (QC): 6 Walking 10ft on Uneven Surface: 4 1 Step (curb) (QC): 6 4 Steps (QC): 4 12 Steps (QC): 9 Picking up an Object (QC): 9 PT Plan Problem List Problem List: Activity Tolerance, Functional Strength, Safety, Balance, Gait, Transfer, Bed Mobility Treatment/Plan Treatment Plan: Continue Plan of Care Treatment Plan: Bed Mobility, Education, Functional Activity Brianna, Functional Strength, Group Therapy, Gait, Safety, Therapeutic Exercise, Transfers Treatment Duration: Oct 30, 2019 Frequency: At least 5 of 7 days/Wk (IRF) Estimated Hrs Per Day: 1.5 hours per day Patient and/or Family Agrees t: Yes Safety Risks/Education Patient Education: Transfer Techniques, Safety Issues Teaching Recipient: Patient Teaching Methods: Discussion Response to Teaching: Reinforcement Needed Discharge Recommendations Therapy Discharge Recommendati: Post Acute PT Time/GCodes Time In: 1240 Time Out: 1250 ([id number]: 70 min Co treat wit OT;) Total Billed Treatment visit x 2 EVM 10 FA 70 KATALINA HILL PT Oct 02, 2019 13:04
[2019-10-02] MEDS ORDERED: CARB-254 OU (13:29)
[2019-10-02] MEDS ORDERED: LACT20SO2 PO (13:29)
[2019-10-02] MEDS ORDERED: DEXT33GE7 PO (13:29)
[2019-10-02] MEDS ORDERED: LEVA1.2527 NEB (13:29)
[2019-10-02] MEDS ORDERED: GLUC1KIT IM (13:29)
[2019-10-02] MEDS ORDERED: METO5VIA26 IV (13:29)
[2019-10-02] MEDS ORDERED: [UNRECOGNIZED DRUG - CODE] IJ (13:29)
[2019-10-02] MEDS ORDERED: METO50TA15 PO (13:29)
[2019-10-02] MEDS ORDERED: MULT-619 PO (13:29)
[2019-10-02] MEDS ORDERED: ZOLP5TAB7 PO (13:29)
[2019-10-02] MEDS ORDERED: CLON0.1T PO (13:29)
[2019-10-02] MEDS ORDERED: POLY15DR27 OU (13:29)
[2019-10-02] MEDS ORDERED: FLUT16SP22 NS (13:29)
[2019-10-02] MEDS ORDERED: DIGO125T3 PO (13:29)
[2019-10-02] MEDS ORDERED: PHEN30SP8 MM (13:29)
[2019-10-02] MEDS ORDERED: ACET325T49 PO (13:29)
[2019-10-02] MEDS ORDERED: INSU100V39 SQ (13:29)
[2019-10-02] MEDS ORDERED: DILT180C84 PO (13:29)
[2019-10-02] MEDS ORDERED: BUSP15TA60 PO (13:29)
[2019-10-02] MEDS ORDERED: ACETYLCYSTEINE 20% INH (13:29)
[2019-10-02] MEDS ORDERED: LEVA1.2521 NEB (13:29)
[2019-10-02] MEDS ORDERED: AMIO400T5 PO (13:29)
[2019-10-02] MEDS ORDERED: SILD20TA14 PO (13:29)
[2019-10-02] MEDS ORDERED: BUME1TAB8 PO (13:29)
[2019-10-02] MEDS ORDERED: BENZ200C51 PO (13:29)
[2019-10-02] MEDS ORDERED: LACT1CAP76 PO (13:29)
[2019-10-02] MEDS ORDERED: OLAN5TAB25 PO (13:29)
[2019-10-02] MEDS ORDERED: FENT1PAT58 TD (13:41)
[2019-10-02] MEDS ORDERED: DOCU-143 PO (13:41)
[2019-10-02] MEDS ORDERED: PANT40TA2 PO (13:41)
[2019-10-02] MEDS ORDERED: ZOLPIDEM 5 MG (AMBIEN) TAB PO PRN (14:30)
[2019-10-02] MEDS ORDERED: OLANZapine 5 MG (ZyPREXA) TAB PO PRN (14:30)
[2019-10-02] MEDS ORDERED: ACETAMINOPHEN 325 MG TABLET PO PRN (14:30)
--- NOTE | 2019-10-02 14:43 | Occupational Therapy Eval ---
OT Evaluation-General/PLF Medical Diagnosis Admission Date Oct 02, 2019 at 12:45 Medical Diagnosis: COPD myopathy Onset Date: Oct 02, 2019 Therapy Diagnosis Therapy Diagnosis: impaired ADLs/functional mobility Height/Weight Height (Feet): 5 Height (Inches): 7.00 Weight (Pounds): 346 Weight (Ounces): 2.0 Precautions Precautions/Isolations: Standard Precautions Referral Physician: Jazmin Referral Reason: Activity Tolerance, Self Care, Evaluation/Treatment, Strengthening/ROM Medical History Pertinent Medical History: COPD, GERD, Heart Failure, HTN Additional Medical History sleep apnea (uses BiPAP), depression/anxiety. Current History Pt admitted to acute care on 08/26/19 due to decreased ability to breathe and respiratory failure, he was then intubated. He transferred to [facility] to wean off of the vent. He returned to [facility] for skilled therapy and continued medication management. Reviewed History: Yes Social History Home: Apartment (pt and moving to [facility].) Current Living Status: Spouse Entry Into Home: Level Entry ADL-Prior Level of Function SCALE: Activities may be completed with or without assistive devices. 1-Qfwjjixoxk-pqjecjn completes the activity by him/herself with no assistance from a helper. 5-Set-up or Clean-up Assistance-helper sets up or cleans up; patient completes activity. [place] assists only prior to or following the activity. 4-Supervision or Touching Assistance-helper provides verbal cues and/or touching/steadying and/or contact guard assistance as patient completes activity. Assistance may be provided throughout the activity or intermittently. 3-Partial/Moderate Assistance-helper does LESS THAN HALF the effort. [place] lifts, holds or supports trunk or limbs, but provides less than half the effort. 2-Substantial/Maximal Assistance-helper does MORE THAN HALF the effort. [place] lifts or holds trunk or limbs and provides more than half the effort. 6-Afgpehfpr-dvhedt does ALL the effort. Patient does none of the effort to complete the activity. Or, the assistance of 2 or more helpers is required for the patient to complete the activity. If activity was not attempted, code reason: 7-Patient Refused. 9-Not Applicable-not attempted and the patient did not perform the activity before the current illness, exacerbation or injury. 10-Not Attempted due to Environmental Limitations-(lack of equipment, weather restraints, etc.). 88-Not Attempted due to Medical Conditions or Safety Concerns. ADL PLOF Comments Pt reports being able to complete bathing and dressing without assistance. With further discussion, pt and revealed that his assists him with washing his feet and putting on socks and shoes. He has a power wheelchair that he uses for long distances, and a walker to use around the house if he feels fatigued. He primarily walks around his home without AD. Pt and his are in the process to moving to [place] where they will have level entry but they are unsure if they are going to have a tub/shower or walk-in shower. At the home he is moving from in [place], he had a walk-in shower and a shower chair. Self Care: Needed Some Help Functional Cognition: Independent DME/Equipment: Bath Chair DME/Equipment Comments power chair, walker, Occupation: prior care aid, approx 6 years ago OT Current Status Subjective Pt laying in bed at start of OT evaluation, agreeable to OT evaluation and Co- Treat with PT due to increased medical complexity. He denied having pain throughout treatment. Mental Status/Objective Patient Orientation: Person, Place, Time, Situation Attachments: Oxygen (5L) Current Glasses/Contacts: Yes (reading) Hearing Aids: No Dentures/Partials: No Hand Dominance: Right Upper Extremity ROM WFL, BUE shoulder flexion to approx 140 degrees Upper Extremity Coordination WFL Upper Extremity Sensation pt denies tingling/numbness BUEs Upper Extremity Strength grossly 3+/5 MMT ADL-Treatment Eating (QC): 6 (pt able to open ware and sweetener packets without difficulty. Pt used fork to bring food to mouth, noted slight tremors in hands with task.) Oral Hygiene (QC): 5 (set up with task, pt was able to open toothpaste and squeeze onto toothbrush with increased time, noted tremors with task.) Shower/Bathe Self (QC): 2 (Pt able to wash BUEs, chest and abdomen, required assistance with BLEs upper and lower legs/feet, periarea, and buttocks. Max A X2 during stand at FWW) Upper Body Dressing (QC): 3 (Pt able to doff shirt and manage around oxygen tubing. With donning, he could thread arms and head but required assistance managing shirt down in the back and verbal cue with oxygen tubing.) Lower Body Dressing (QC): 1 (Pt required Max Assist x2 to stand at walker as OT managed pants up/down for pt) On/Off Footwear (QC): 1 (Pt required total assist to don/doff slipper socks.) Toileting Hygiene (QC): 1 (Max Assist X2 to stand at FWW, OT performed clothing management and cleansing) Other Treatments Pt laying in bed at start of session, provided information for OT evaluation. OT/PT co-treat secondary to increased medical complexity requiring the skill of 2 disciplines which a rehab nursing tech could not perform. OT focused on ADLs, UE placement, and sequencing with tasks while PT focused on gross movements, core control/strength to maintain balance. Pt transferred from bed to recliner using sit to stand lift, he then completed dressing and sponge bath. During bath, pt was able to stand at FWW with max assist x2 for approximately 30 seconds as OT completed clothing management & buttocks/periarea cleansing. Pt then completed oral hygiene seated with set up at tray table. Multiple rest breaks required throughout session due to increased fatigue and decreased functional endurance. OT/PT co-treat ended, and OT continued to work with pt in order to assess pt's feeding. Pt's lunch tray arrived and pt began eating. Post OT session, pt seated upright in w/c, eating lunch with call light in reach, present and all needs met. Education OT Patient Education: Correct positioning, Energy conservation, Modified ADL techniques, Progress toward Goal/Update tx plan, Purpose of tx/functional activities, Rehab process, Safety issues, Transfer techniques Teaching Recipient: Patient, Significant Other Teaching Methods: Demonstration, Discussion Response to Teaching: Verbalize Understanding, Return Demonstration OT Short Term Goals Short Term Goals Time Frame: Oct 17, 2019 Toileting hygiene: 3 Shower/bathe self: 3 Upper body dressin Lower body dressin Putting on/taking off footwear: 3 OT Web Publisher Goals Mcfp Goals Time Frame: Oct 31, 2019 Oral Hygiene (QC): 6 Toileting Hygiene (QC): 6 Shower/Bathe Self (QC): 6 Upper Body Dressing (QC): 6 Lower Body Dressing (QC): 6 On/Off Footwear (QC): 6 Additional Goals: 1-Demonstrate ADL Tasks, 2-Verbalize Understanding, 3- ImproveStrength/Brianna 1=Demonstrate adherence to instructed precautions during ADL tasks. 2=Patient will verbalize/demonstrate understanding of assistive devices/modifi cations for ADL. 3=Patient will improve strength/tolerance for activity to enable patient to perform ADL's. OT Education/Plan Problem List/Assessment Assessment: Decreased Activ Tolerance, Decreased UE Strength, Dependent Transfers, Impaired Funct Balance, Impaired I ADL's, Impaired Self-Care Skills Discharge Recommendations Plan/Recommendations: Continue POC Treatment Plan/Plan of Care Treatment,Training & Education: Yes Patient would benefit from OT for education, treatment and training to promote independence in ADL's, mobility, safety and/or upper extremity function for ADL's. Plan of Care: ADL Retraining, Functional Mobility, Group Exercise/Act as Ind, UE Funct Exercise/Act Treatment Duration: Oct 31, 2019 Frequency: At least 5 of 7 days/Wk (IRF) Estimated Hrs Per Day: 1.5 hours per day Agreement: Yes Rehab Potential: Good Time/GCodes Start Time: 12:50 Stop Time: 14:20 Total Time Billed (hr/min): 90 Billed Treatment Time 12:50-1300 OT evaluation [id number] OT/PT co-treat [id number] OT tx. 1, EVM (10'), ADL 5 (80') ANNABELLE BRADSHAW OT Oct 02, 2019 14:43
[2019-10-02] MEDS ORDERED: BENZONATATE 100 MG (TESSALON) CAPSULE PO PRN (14:45)
[2019-10-02] MEDS ORDERED: CHLORASEPTIC SPRAY 177 ML LIQUID MC PRN (14:45)
[2019-10-02] MEDS ORDERED: ARTIFICAL TEARS 0.4 ML UNIT DOSE (REFRESH PLUS) OU PRN (14:45)
[2019-10-02] MEDS ORDERED: RT-ALBUTEROL SULF 2.5 MG/3 ML PRE-MIX VIAL IH PRN (15:00)
--- NOTE | 2019-10-02 15:41 | Physical Therapy Daily Note ---
PT Daily Note-Current Subjective Requests to return to bed. Transfers SCALE: Activities may be completed with or without assistive devices. 6-Ggrzwzxegl-fxfyisd completes the activity by him/herself with no assistance from a helper. 5-Set-up or Clean-up Assistance-helper sets up or cleans up; patient completes activity. [place] assists only prior to or following the activity. 4-Supervision or Touching Assistance-helper provides verbal cues and/or touching/steadying and/or contact guard assistance as patient completes activity. Assistance may be provided throughout the activity or intermittently. 3-Partial/Moderate Assistance-helper does LESS THAN HALF the effort. [place] lifts, holds or supports trunk or limbs, but provides less than half the effort. 2-Substantial/Maximal Assistance-helper does MORE THAN HALF the effort. [place] lifts or holds trunk or limbs and provides more than half the effort. 4-Brrxjptzd-jdgwoo does ALL the effort. Patient does none of the effort to complete the activity. Or, the assistance of 2 or more helpers is required for the patient to complete the activity. If activity was not attempted, code reason: 7-Patient Refused. 9-Not Applicable-not attempted and the patient did not perform the activity before the current illness, exacerbation or injury. 10-Not Attempted due to Environmental Limitations-(lack of equipment, weather restraints, etc.). 88-Not Attempted due to Medical Conditions or Safety Concerns. Treatments Sit to stand lift to transfer back to bed. Dep assist to lie down and to scoot in bed. Pt in bed with needs met post treatment. Assessment Fatigued this afternoon. Transfer to bed more difficult than earlier. PT Short Term Goals Short Term Goals Time Frame: Oct 16, 2019 Sit to lyin Lying to sitting on side of be: 3 Sit to stand: 3 Chair/xad-zq-xgdbj transfer: 3 Walk 50 feet with two turns: 3 PT Wink Cutter Operator Goals [facility] Goals PT Wink Cutter Operator Goals Time Frame: Oct 30, 2019 Roll Left & Right (QC): 6 Sit to Lying (QC): 6 Lying-Sitting on Side/Bed(QC): 6 Sit to Stand (QC): 6 Chair/Yrb-th-Hstco Xfer(QC): 6 Toilet Transfer (QC): 6 Car Transfer (QC): 5 Does the Patient Walk: No and Walking Goal IS indicated Walk 10 feet (QC): 6 Walk 50ft with 2 Turns (QC): 6 Walk 150 ft (QC): 6 Walking 10ft on Uneven Surface: 4 1 Step (curb) (QC): 6 4 Steps (QC): 4 12 Steps (QC): 9 Picking up an Object (QC): 9 PT Plan Problem List Problem List: Activity Tolerance, Functional Strength, Safety Treatment/Plan Treatment Plan: Continue Plan of Care Treatment Plan: Bed Mobility, Education, Functional Activity Brianna, Functional Strength, Group Therapy, Gait, Safety, Therapeutic Exercise, Transfers Treatment Duration: Oct 30, 2019 Frequency: At least 5 of 7 days/Wk (IRF) Estimated Hrs Per Day: 1.5 hours per day Patient and/or Family Agrees t: Yes Time/GCodes Time In: 1515 Time Out: 1530 Total Billed Treatment Time: 15 Total Billed Treatment visit FA 15 KATALINA HILL PT Oct 02, 2019 15:41
--- NOTE | 2019-10-02 16:00 | NUR ---
O2 SAT drops to 80 with patient on 5L/ nasal cannula, RT consulted, patient placed on VAPOTHERM per RT protocol, Dr. De Leon notified, STAT CXR ordered, SAT's increase to 92% @ 1700, pt rests.
--- NOTE | 2019-10-02 16:00 | NUR ---
Patient hands shaking, requests anxiety pill. .25mg Xanax given PO. rests.
[2019-10-02] MEDS ORDERED: ATOR20TA66 PO (16:11)
[2019-10-02] MEDS ORDERED: PRAM1TAB2 PO ×2 (16:11)
[2019-10-02] MEDS ORDERED: ACET-2267 PO (16:11)
[2019-10-02] MEDS ORDERED: VENL150C98 PO (16:11)
[2019-10-02] MEDS ORDERED: CARV12.53 PO (16:11)
[2019-10-02] MEDS ORDERED: TIOT18CA2 IH (16:11)
[2019-10-02] MEDS ORDERED: LISI-552 PO (16:11)
[2019-10-02] MEDS ORDERED: VENL75CA93 PO (16:11)
[2019-10-02] MEDS ORDERED: FURO40TA4 PO (16:11)
[2019-10-02] MEDS ORDERED: CLON1TAB13 PO (16:11)
[2019-10-02] MEDS ORDERED: TEST100V3 IM (16:11)
[2019-10-02] MEDS ORDERED: ALBU2.5V4 NEB (16:11)
[2019-10-02] MEDS ORDERED: SILD50TA48 PO (16:11)
[2019-10-02] MEDS ORDERED: BUDE0.5A NEB (16:11)
--- NOTE | 2019-10-02 16:12 | NUR ---
ENTERED ORDERS SENT OVER FROM [facility] INTO THE MED REC, AFTER THEY WERE CONTINUED BY DR. Anne SET THE PROFILE BACK TO THE LIST OF MEDICATIONS WE HAD ON FILE WHEN THE PATIENT WAS HERE PREVIOUSLY. AT THAT PREVIOUS ADMISSION I WAS UNABLE TO SPEAK WITH HIM DIRECTLY BUT DID UPDATE THE MED REC WITH WHAT HAD BEEN FILLED RECENTLY, SEE NOTES ON PREVIOUS ADMISSION FOR DETAILS. ORDER FROM [facility] TODAY: ACETYLCYSTEINE 20% SOLN 4ML INH Q4H AMIODARONE 400MG BID ARTIFICIAL TEARS 1 DROP OU TID BUMEX 1MG DAILY BUSPIRONE 15MG BID CHLORASEPTIC SPRAY 1 SPRAY Q2H PRN CLONIDINE 0.1MG BID DIGOXIN 125MCG DAILY DILTIAZEM CD 180MG CAP BID COLACE 100MG BID FENTANYL 50MCG PATCH Q72H FLONASE 2 SPRAYS NS BID HEPARIN 5,000 UNITS/ML INJ Q12H (VERIFIED WITH NURSE HE HAS NOT GOTTEN TODAY) INSULIN LISPRO 0-14 UNITS ACHS SLIDING SCALE A LACTOBACILLUS W/ PECTIN BID LACTULOSE 20MG BID XOPENEX 1.25MG Q4H METOPROLOL 50MG BID (CALLED AND VERIFIED THIS IS TARTRATE) MTV DAILY SILDENAFIL 20MG TID VENLAFAXINE ER 75MG DAILY TYLENOL 325MG 2 Q6H PRN ARTIFICIAL TEARS 1 DROP OU Q1H PRN BENZONATATE 200MG Q8H PRN PROTONIX 40MG DAILY GLUCAGON IM PRN GLUCOSE GEL PRN XOPENEX 1.25MG Q4H PRN METOPROLOL INJECTABLE 7.5MG IV Q6H PRN HR>100 OLANZAPINE 5MG HS PRN AGITATION ZOLPIDEM 5MG HS PRN
--- NOTE | 2019-10-02 16:40 | Consultation - Surgery ---
[facility] 10/02/19 1640: History of Present Illness History of Present Illness Patient Consulted On(salvador/time) 10/02/19 16:36 Date Seen by Provider: Oct 02, 2019 Time Seen by Provider: 04:20 History of Present Illness Ortega is a 59 year old male with history of respiratory failure and COPD. His is at bedside and patient is having difficulty breathing during my visit. Consult ordered by Dr. Wu for evaluation of skin tags on the patients back. states that it will bleed now and again and it looks like they are ready to fall off. Patient has refused any procedure regarding removal of the skin tags at this time. Inspection revealed a skin tag on the upper left side of his back, there is a bandage over them, skin tag was not actively bleeding. Patient denies smoking, drinking or recreational drugs. Allergies and Home Medications Allergies Coded Allergies: meperidine HCl (Unverified Allergy, Unknown, 04/22/13) Home Medications Acetaminophen 500 Mg Tablet, 1,000 MG PO Q4H PRN for PAIN-MILD (1-4), (Reported) Albuterol Sulfate 2.5 Mg/3 Ml Vial.neb, 2.5 MG NEB Q6H PRN for SHORTNESS OF BREATH, (Reported) Atorvastatin Calcium 20 Mg Tablet, 20 MG PO DAILY, (Reported) Budesonide 0.5 Mg/2 Ml Ampul.neb, 0.5 MG NEB BID, (Reported) Carvedilol 12.5 Mg Tablet, 12.5 MG PO BID, (Reported) Clonazepam 1 Mg Tablet, 1 MG PO HS, (Reported) Furosemide 40 Mg Tablet, 40 MG PO DAILY, (Reported) Lisinopril 20 Mg Tablet, 20 MG PO DAILY, (Reported) Pramipexole Di-HCl 1 Mg Tablet, 1 MG PO 0800,1200, (Reported) Pramipexole Di-HCl 1 Mg Tablet, 2 MG PO HS, (Reported) Sildenafil Citrate 50 Mg Tablet, 50 MG PO UD PRN for ED, (Reported) Testosterone Cypionate 100 Mg/1 Ml Vial, 1 ML IM EVERY 2 WEEKS, (Reported) Tiotropium [place] 1 Inh Aerp, 1 CAP IH DAILY PRN for SHORTNESS OF BREATH, (Reported) Venlafaxine HCl 75 Mg Cap.er.24h, 75 MG PO DAILY, (Reported) Venlafaxine HCl 150 Mg Cap.er.24h, 150 MG PO DAILY, (Reported) Past Ffrajfy-Bnyycb-Fodwmm Hx Patient Social History Alcohol Use: Denies Use Recreational Drug Use: No Smoking Status: Former Smoker (hasnt smoked in over 30 years. prior 15 yr pack hx) Former Smoker, Quit: Oct 02, 1987 Type Used: Cigarettes 2nd Hand Smoke Exposure: No Recent Foreign Travel: No Contact w/Someone Who Travel: No Recent Infectious Disease Expo: No Recent Hopitalizations: No Physical Abuse Screen: No Sexual Abuse: No Immunizations Up To Date Tetanus Booster (TDap): More than 5yrs Date of Pneumonia Vaccine: Jun 20, 2017 Date of Influenza Vaccine: Jun 11, 2019 Seasonal Allergies Seasonal Allergies: No Surgeries History of Surgeries: Yes Surgeries: Adenoidectomy, Tonsillectomy Respiratory History of Respiratory Disorde: Yes (COPD, chronic bronchitis, asthma) Respiratory Disorders: Asthma, Chronic Bronchitis, Sleep Apnea, COPD Cardiovascular History of Cardiac Disorders: Yes (Congestive heart failure) Cardiac Disorders: High Cholesterol, Hypertension Neurological History of Neurological Disord: No Reproductive System Hx Reproductive Disorders: No Genitourinary History of Genitourinary Disor: No Gastrointestinal History of Gastrointestinal Di: No Musculoskeletal History of Musculoskeletal Dis: No Endocrine History of Endocrine Disorders: No HEENT History of HEENT Disorders: Yes Hearing Impairment: Hard of Hearing Cancer History of Cancer: No Psychosocial History of Psychiatric Problem: Yes Behavioral Health Disorders: Sleep Difficulties, Anxiety, Depression Integumentary History of Skin or Integumenta: No Blood Transfusions History of Blood Disorders: No Adverse Reaction to a Blood Tr: No (patient has never been given blood) Family Medical History Significant Family History: Heart Disease (father) Family Medial History: Alcoholism 19 MOTHER Cardiovascular disease 19 FATHER FH: CHF (congestive heart failure) 19 FATHER Headache disorder 19 MOTHER Hypertension 19 FATHER Psychosocial problem 19 MOTHER Review of Systems-General Constitutional: No diaphoresis; dizziness (when standing); No weakness EENTM: hearing loss, hoarseness (was previously intubated for 3 weeks); No vision loss, No dental problems Respiratory: cough, orthopnea, phlegm, short of breath, wheezing Cardiovascular: No chest pain, No palpitations, No syncope Gastrointestinal: No abdominal pain, No constipation, No diarrhea Genitourinary: No frequency, No hematuria, No incontinence Musculoskeletal: joint pain, muscle pain (improving); No muscle weakness Skin: No change in color, No change in hair/nails; dryness; No hx of skin cancer, No pruritus, No rash Psychiatric/Neurological: Anxiety, Depressed; Denies Seizure, Denies Tingling, Denies Tremors Physical Exam-General Problems Physical Exam Vital Signs Vital Signs - First Documented 10/02/19 12:50 Temp 37.4 Pulse 54 Resp 24 B/P (MAP) 149/85 (106) Pulse Ox 90 O2 Delivery Nasal Cannula O2 Flow Rate 5.00 Capillary Refill : General Appearance: no apparent distress, obese Eyes: Left Eye Normal Inspection HEENT: No scleral icterus (R), No scleral icterus (L) Neck: non-tender, supple Respiratory: chest non-tender, no accessory muscle use, crackles, wheezing Cardiovascular: no murmur, irregularly irregular Peripheral Pulses: 2+ Radial Pulses (R), 2+ Radial Pulses (L) Gastrointestinal: non tender, soft, no pulsatile mass; No guarding, No rebound, No tenderness Rectal: deferred Back: no CVA tenderness, no vertebral tenderness Extremities: no calf tenderness, normal capillary refill, pedal edema Neurologic/Psychiatric: alert, normal mood/affect, oriented x 3 Skin: normal color, warm/dry Lymphatic: no adenopathy (neck, anterior auricular, supraclavicular and popliteal) Assessment/Plan Assessment/Plan Assessment/Plan 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 Does not want anything done for it. Respiratory failure COPD Hx of HTN and high cholesterol Asthma TESSA Hx of anxiety and depression Family history of heart disease Family history of alcoholism Clinical Quality Measures DVT/VTE Risk/Contraindication: Risk Factor Score Per Nursin RFS Level Per Nursing on Admit: 4+=Very High DAVID BASILIO DO 10/03/19 0156: History of Present Illness History of Present Illness Time Seen by Provider: 16:24 History of Present Illness Surgery asked to consult regarding bleeding "skin tag" on pt's back. Pt states it has been there "a while" and he never really noticed it. States he has had them removed in the past and they are very painful; he is refusing any surgery. Allergies and Home Medications Allergies Coded Allergies: meperidine HCl (Unverified Allergy, Unknown, 04/22/13) Home Medications Acetaminophen 500 Mg Tablet, 1,000 MG PO Q4H PRN for PAIN-MILD (1-4), (Reported) Albuterol Sulfate 2.5 Mg/3 Ml Vial.neb, 2.5 MG NEB Q6H PRN for SHORTNESS OF BREATH, (Reported) Atorvastatin Calcium 20 Mg Tablet, 20 MG PO DAILY, (Reported) Budesonide 0.5 Mg/2 Ml Ampul.neb, 0.5 MG NEB BID, (Reported) Carvedilol 12.5 Mg Tablet, 12.5 MG PO BID, (Reported) Clonazepam 1 Mg Tablet, 1 MG PO HS, (Reported) Furosemide 40 Mg Tablet, 40 MG PO DAILY, (Reported) Lisinopril 20 Mg Tablet, 20 MG PO DAILY, (Reported) Pramipexole Di-HCl 1 Mg Tablet, 1 MG PO 0800,1200, (Reported) Pramipexole Di-HCl 1 Mg Tablet, 2 MG PO HS, (Reported) Sildenafil Citrate 50 Mg Tablet, 50 MG PO UD PRN for ED, (Reported) Testosterone Cypionate 100 Mg/1 Ml Vial, 1 ML IM EVERY 2 WEEKS, (Reported) Tiotropium [place] 1 Inh Aerp, 1 CAP IH DAILY PRN for SHORTNESS OF BREATH, (Reported) Venlafaxine HCl 75 Mg Cap.er.24h, 75 MG PO DAILY, (Reported) Venlafaxine HCl 150 Mg Cap.er.24h, 150 MG PO DAILY, (Reported) Patient Home Medication List Home Medication List Reviewed: Yes Past Ijvjgve-Onavsi-Edetrg Hx Family Medical History Family Medial History: Alcoholism 19 MOTHER Cardiovascular disease 19 FATHER FH: CHF (congestive heart failure) 19 FATHER Headache disorder 19 MOTHER Hypertension 19 FATHER Psychosocial problem 19 MOTHER Physical Exam-General Problems Physical Exam Skin: other (pt has what looks like a broad based skin tag, it is irritated and has erosion that appears to have bled, no surrounding erythema) Assessment/Plan Assessment/Plan Assessment/Plan If pt changes his mind this can easily be removed at the bed side. I explained that he has very few pain fibers on his back so it would be very unlikely that removal would cause him as much pain as the previous excisions. It is possible it is more than a skin tag; although very unlikely. Thank you for this consult I will sign off and resee him if needed. Supervisory-Addendum Brief Verification & Attestation Participated in pt care: history, MDM, physical Personally performed: exam, history, MDM Care discussed with: Medical Student Procedures: n/a Verification and Attestation of Medical Student E/M Service A medical student performed and documented this service in my presence. I reviewed and verified all information documented by the medical student and made modifications to such information, when appropriate. I personally performed the physical exam and medical decision making. David Basilio, Oct 03, 2019,01:57 [facility] Oct 02, 2019 16:40 DAVID BASILIO DO Oct 03, 2019 01:56
[2019-10-02] MEDS ORDERED: RT-ALBUTEROL/IPRATROPIUM 3 ML (DUONEB) VIAL INH PRN (16:45)
[2019-10-02] MEDS ORDERED: ENOXAPARIN 60 MG/0.6 ML (LOVENOX) SYR SC SCH (17:00)
[2019-10-02 17:06] VITALS: BP 135/79
[2019-10-02] MEDS ORDERED: RT-LEVALBUTEROL (XOPENEX) 1.25 MG/3 ML NEB NON-FORMULARY INH PRN (17:15)
--- NOTE | 2019-10-02 17:47 | Diagnostic Imaging Report ---
INDICATION: Shortness of air. COMPARISON: September 09, 2019 TECHNIQUE: Single radiograph of the chest dated October 02, 2019. FINDINGS: Examination is significantly limited secondary to patient body habitus. A left-sided PICC line is again identified. The distal tip is not well seen, though appears to extend into at least the mid superior vena cava. No pneumothorax. The cardiac silhouette is significantly enlarged, though similar to the prior examination. Minimal central pulmonary vascular congestion, significantly improved since the prior exam. The lungs appear better aerated than the prior examination with left basilar opacities suggested with slight obscuration of the left hemidiaphragm. No large volume pleural effusion. No pneumothorax. Osseous structures appear stable. IMPRESSION: Stable enlargement of the cardiac silhouette with mild though improved pulmonary vascular congestion. Mild left basilar atelectasis and/or pneumonitis. Left-sided PICC line is present as described above with previously noted enteric catheter and endotracheal tube having been removed. Dictated by: Dictated on workstation # [id number]
[2019-10-02] MEDS: ARTIFICAL TEARS 0.4 ML UNIT DOSE (REFRESH PLUS) OU SCH ×2 (17:59→20:24)
[2019-10-02] MEDS ORDERED: aCETylcysteine 20% (MUCOMYST) 30ML SOLN VIAL INH SCH (18:00)
[2019-10-02] MEDS ORDERED: RT-LEVALBUTEROL (XOPENEX) 1.25 MG/3 ML NEB NON-FORMULARY INH SCH (18:00)
[2019-10-02] MEDS ORDERED: RT-ALBUTEROL/IPRATROPIUM 3 ML (DUONEB) VIAL INH SCH (18:00)
[2019-10-02] MEDS ORDERED: RT-ALBUTEROL SULF 2.5 MG/3 ML PRE-MIX VIAL INH SCH (18:00)
[2019-10-02] MEDS: SILDENAFIL 20 MG (REVATIO) TAB NON-FORMULARY PO SCH ×2 (18:20→20:29)
--- NOTE | 2019-10-02 19:05 | Progress Note ---
VERÓNICA DUEÑAS, MEDICAL STUDENT 10/02/194: Progress Note HPI: 59 YO M with PMH of COPD Myopathy, CHF, A fibb, PNA, HTN, GERD, Obesity hypoventilation, anxiety, depression, BLE osteo who requires intensive rehabilitation, pain and medication management. He also requires constant monitoring of cardiac and respiratory status. Patient will require PT and OT for rehabilitation for return to normal strength and completing ADLs. The patient's medical course included an admission to [facility] on . He was admitted due to decreased level of consciousness and CO2 retention. He was found asleep and could not be woken up. He was intubated and transferred to [facility] and was eventually extubated. A bronchoscopy was performed where thick secretions were obtained. He received Linezolid, Meropenem and Micafungin from Pulmonology. He no longer smokes as of 32 years ago and quit drinking 10 years ago. - Verónica Dueñas MS4 MAYI SHAH DO 10/02/192131: Supervisory-Addendum Brief Verification & Attestation Participated in pt care: history, MDM, physical Personally performed: exam, history, MDM, supervision of care Care discussed with: Medical Student Procedures: n/a Results interpretation: Verified all documentation Verification and Attestation of Medical Student E/M Service A medical student performed and documented this service in my presence. I reviewed and verified all information documented by the medical student and made modifications to such information, when appropriate. I personally performed the physical exam and medical decision making. Mayi Shah, Oct 02, 2019,21:32 VERÓNICA DUEÑAS, MEDICAL STUDENT Oct 02, 2019 19:04 MAYI SHAH DO Oct 02, 2019 21:32
[2019-10-02] MEDS ORDERED: RT-LEVALBUTEROL (XOPENEX) 1.25 MG/3 ML NEB NON-FORMULARY ONE (19:19)
--- NOTE | 2019-10-02 20:00 | NUR ---
0720 During bedside report, the patient appeared lethargic with eyes closed, responding to name and pain, however did not speak and closed his eyes immediately. Pt able to move his arms and recognize his . GCS 12. Vapotherm 46% O@, O2 sat 70's, HR 110'2, BP 180/89. Rt notified, patient switched to Bi-pap 18/5 80% FIO2. O2 sat low 90's. 07 Dr. Wu notified concerning pt's condition and code status (CPR and Meds only, do not intubate). New order to notify Dr. De Leon 0755 Dr. De Leon notified, new order to keep Bi-pap and transfer patient to ICU. 2009 Pt's updated concerning pt's condition and plans to transfer him to ICU. Questions and concerns were addressed at this time. 2039 Report given to Arleth ESQUIVEL 2049 Pt able to take PO Meds at this time 2100 Pt transferred to ICU via bariatric bed, Bi-pap in placed.
--- NOTE | 2019-10-02 20:10 | NUR ---
TEXTED DR SOOD PT WAS NOT DOING WELL ON 10/04, ORDER TO INCREASE TO 18/, TRANSFER TO ICU AND CONSULT EICU Addendum: 10/02/19 at 2012 by GEOVANI DAVIES RT Amended: Links added.
--- NOTE | 2019-10-02 20:12 | NUR ---
HAD TO INCREASE FIO2 TO 80% DUE TO NEW ORDERS Addendum: 10/02/19 at 2011 by GEOVANI DAVIES RT Amended: Links added.
[2019-10-02] MEDS ORDERED: FLUTICASONE NASAL SPRAY (FLONASE) 16 GM BTL NS SCH (21:00)
[2019-10-02] MEDS ORDERED: polyethylene glycoL POWDER 17 GM (MIRALAX) PACK PO SCH (21:00)
[2019-10-02] MEDS ORDERED: meTOprolol TARTRATE 50 MG (LOPRESSOR) TAB PO SCH (21:00)
[2019-10-02] MEDS ORDERED: cloNIDine 0.1 MG (CATAPRES) TAB PO SCH (21:00)
[2019-10-02] MEDS ORDERED: LACTOBACILLUS ACIDOPHILUS (PROBIOTIC) CAPSULE PO SCH (21:00)
[2019-10-02] MEDS ORDERED: SENNA W/DOCUSATE (SENOKOT S) TABLET PO SCH (21:00)
[2019-10-02] MEDS ORDERED: LACTULOSE SYRUP 10GM/15ML (ENULOSE) 30ML UDC PO SCH (21:00)
[2019-10-02] MEDS ORDERED: AMIODARONE 200 MG (CORDARONE) TAB PO SCH (21:00)
[2019-10-02] MEDS ORDERED: busPIRone 15 MG (BUSPAR) TABLET PO SCH (21:00)
[2019-10-02] MEDS ORDERED: DOCUSATE SODIUM 100 MG (COLACE) CAP PO SCH ×2 (21:00)
--- NOTE | 2019-10-02 21:08 | PM&R Post Admission Assessment ---
PM&R HP Date of Visit: Oct 02, 2019 Time of Visit: 13:10 History of Present Illness CC: COPD Myopathy HPI: This is a 59yoWM with a history of respiratory failure who presents from [facility] after a three week hospital course after transferred there on September 09 from [facility] due to difficulty with extubation due to hypercapnic respiratory failure. He has since been weaned off the ventilator and he continues to have anasarca. Due to his obesity of 400lbs he will need assistance with sofia lift to help in regaining his function in order to go home with his . Cardiology and pulmonology will also assist in consultation. 59 YO M with [facility] of COPD Myopathy, CHF, A fibb, PNA, HTN, GERD, Obesity hypoventilation, anxiety, depression, BLE osteo who requires intensive rehabilitation, pain and medication management. He also requires constant monitoring of cardiac and respiratory status. Patient will require PT and OT for rehabilitation for return to normal strength and completing ADLs. The patient's medical course included an admission to [facility] on . He was admitted due to decreased level of consciousness and CO2 retention. He was found asleep and could not be woken up. He was intubated and transferred to [facility] and was eventually extubated. A bronchoscopy was performed where thick secretions were obtained. He received Linezolid, Meropenem and Micafungin from Pulmonology. He no longer smokes as of 32 years ago and quit drinking 10 years ago. - Harleen Dueñas MS4 Past Vgdqkbv-Nxhypu-Iuizte Hx Past Med/Social Hx: Reviewed Nursing Past Med/Soc Hx, Reviewed and Corrections made Patient Social History Marrital Status: Employed/Student: retired Alcohol Use: Denies Use Recreational Drug Use: No Smoking Status: Former Smoker (hasnt smoked in over 30 years. prior 15 yr pack hx) Former Smoker, Quit: Oct 02, 1987 Type Used: Cigarettes 2nd Hand Smoke Exposure: No Physical Abuse Screen: No Sexual Abuse: No Recent Foreign Travel: No Contact w/other who traveled: No Recent Hopitalizations: No Recent Infectious Disease Expo: No Immunizations Up To Date Tetanus Booster (TDap): More than 5yrs Date of Pneumonia Vaccine: Jun 20, 2017 Date of Influenza Vaccine: Jun 11, 2019 Seasonal Allergies Seasonal Allergies: No Past Medical History Surgeries: Adenoidectomy, Tonsillectomy Respiratory: COPD, Pneumonia, Sleep Apnea Currently Using CPAP: Yes Currently Using BIPAP: No Cardiac: High Cholesterol, Hypertension Reproductive: No Hearing Impairment: Hard of Hearing Psychosocial: Sleep Difficulties, Anxiety, Depression History of Blood Disorders: No Adverse Reaction to Blood Walker: No (patient has never been given blood) Family History Alcoholism 19 MOTHER Cardiovascular disease 19 FATHER FH: CHF (congestive heart failure) 19 FATHER Headache disorder 19 MOTHER Hypertension 19 FATHER Psychosocial problem 19 MOTHER Heart Disease (father) Prior Level of Function Transfers: 6 Gait: 6 (in home distances; if he went to [facility], he used a power chair. ) Stairs: 6 Indoor Mobility (Ambulation): Independent Prior Devices Use: Motorized wheelchair, Walker Self Care: Needed Some Help Functional Cognition: Independent Occupation: prior cardiac care unit nurse, approx 6 years ago Current Level of Fuctioning Roll Left to Right: 3 (min assist and skilled cues to sequence) Sit to Lyin (max assist to lie down. ) Lying to Sitting/Side of Bed: 2 (max assist to come to sit EOB with cues for task initiation) Sit to Stand: 1 (assist of 2 to stand with FWW) Chair/Pyg-sd-Geeon Xfer: 1 (sit to stand lift; dependent for transfer.) Car Transfer: 88 Does the Patient Walk: No and Walking Goal IS indicated Mode of Locomotion: Both Anticipated Mode of Locomotion: Both Walk 10 feet: 88 Walk 50 ft with 2 Turns: 88 Walk 150 ft: 88 Walking 10ft on uneven surface: 88 Gait Assistive Device: FWW Does the Pt Use a Wheelchair: Yes Wheel 50 ft with 2 turns: 1 Wheel 150 ft: 1 Type of Wheelchair: Manual 1 Step (curb): 88 4 Steps: 88 Walking Assistive Device: Walker 12 Steps: 88 Picking up an Object: 88 Eatin (pt able to open ware and sweetener packets without difficulty. Pt used fork to bring food to mouth, noted slight tremors in hands with task.) Oral Hygiene: 5 (set up with task, pt was able to open toothpaste and squeeze onto toothbrush with increased time, noted tremors with task.) Shower/Bathe Self: 2 (Pt able to wash BUEs, chest and abdomen, required assistance with BLEs upper and lower legs/feet, periarea, and buttocks. Max A X2 during stand at FWW) Upper Body Dressin (Pt able to doff shirt and manage around oxygen tubing. With donning, he could thread arms and head but required assistance managing shirt down in the back and verbal cue with oxygen tubing.) Lower Body Dressin (Pt required Max Assist x2 to stand at walker as OT managed pants up/down for pt) On/Off Footwear: 1 (Pt required total assist to don/doff slipper socks.) Toileting Hygiene: 1 (Max Assist X2 to stand at FWW, OT performed clothing management and cleansing) PM&R Allergy/Meds/Data Review Allergies Coded Allergies: meperidine HCl (Unverified Allergy, Unknown, 04/22/13) Home Medications Scheduled Atorvastatin Calcium (Atorvastatin Calcium), 20 MG PO DAILY, (Reported) Budesonide (Budesonide), 0.5 MG NEB BID, (Reported) Carvedilol (Carvedilol), 12.5 MG PO BID, (Reported) Clonazepam (Clonazepam), 1 MG PO HS, (Reported) Furosemide (Furosemide), 40 MG PO DAILY, (Reported) Lisinopril (Lisinopril), 20 MG PO DAILY, (Reported) Pramipexole Di-HCl (Mirapex), 1 MG PO 0800,1200, (Reported) Pramipexole Di-HCl (Mirapex), 2 MG PO HS, (Reported) Testosterone Cypionate (Testosterone Cypionate), 1 ML IM EVERY 2 WEEKS, (Repor keshia) Venlafaxine HCl (Venlafaxine HCl ER), 75 MG PO DAILY, (Reported) Venlafaxine HCl (Venlafaxine HCl ER), 150 MG PO DAILY, (Reported) Scheduled PRN Acetaminophen (Tylenol Extra Strength), 1,000 MG PO Q4H PRN for PAIN-MILD (1-4), (Reported) Albuterol Sulfate (Albuterol Sulfate), 2.5 MG NEB Q6H PRN for SHORTNESS OF BREATH, (Reported) Sildenafil Citrate (Sildenafil Citrate), 50 MG PO UD PRN for ED, (Reported) Tiotropium [place] (Spiriva), 1 CAP IH DAILY PRN for SHORTNESS OF BREATH, (Reported) Current Medications Current Medications Reviewed Laboratory Data Laboratory Tests 10/02/19 20:57: Review of Systems Constitutional: see HPI, malaise, weakness Respiratory: dyspnea on exertion, short of breath Physical Exam Physical Exam Vital Signs Vital Signs - First Documented 10/02/19 12:50 Temp 37.4 Pulse 54 Resp 24 B/P (MAP) 149/85 (106) Pulse Ox 90 O2 Delivery Nasal Cannula O2 Flow Rate 5.00 Capillary Refill : Less Than 3 Seconds Height, Weight, BMI Height: 5'7.00" Weight: 346lbs. 2.0oz. 156.121248qu; 60.24 BMI Method:Stated General Appearance: No Apparent Distress, WD/WN, Chronically ill, Obese Eyes: Left Eye Normal Inspection HEENT: PERRL/EOMI, Normal ENT Inspection, Pharynx Normal Neck: Full Range of Motion, Normal Inspection, Non Tender, Supple, Carotid Bruit Respiratory: Chest Non Tender, Lungs Clear, No Accessory Muscle Use, No Respiratory Distress, Decreased Breath Sounds Cardiovascular: Regular Rate, Rhythm, No Gallop, No JVD, No Murmur, Normal Peripheral Pulses Gastrointestinal: Normal Bowel Sounds, No Organomegaly, No Pulsatile Mass, Non Tender, Soft Back: Normal Inspection, No CVA Tenderness, No Vertebral Tenderness Extremity: Normal Capillary Refill, Normal Inspection, Normal Range of Motion, Non Tender, No Calf Tenderness, Pedal Edema Neurologic/Psychiatric: Alert, Oriented x3, No Motor/Sensory Deficits, Normal Mood/Affect, Motor Weakness (generalized) Skin: Normal Color, Warm/Dry Lymphatic: No Adenopathy PM&R Medical Assessment & Plan REHAB/MEDICAL ASSESSMENT AND PLAN: REHAB IMPAIRMENT GROUP: COPD myopathy ETIOLOGIC DIAGNOSIS: COPD myopathy The comorbidities that impact the patients function and/or functional outcome by: Morbid obesity BMI 60, severe chronic debility REHAB PLAN: The patient is being admitted to our comprehensive inpatient rehabilitation facility and can tolerate the intensity of service consisting of at least: 180 minutes of therapy a day, 5 out of 7 days a week Rehab treatment will consist of: Regaining strength and preventing respiratory compromise while trying to return to PLOF The patient/family has a good understanding of our discharge process and will benefit from an interdisciplinary inpatient rehabilitation program. The patient has potential to make improvement and is in need of at least two of the following multidisciplinary therapies including but not limited to physical, occupational, speech, and prosthetics and orthotics. Additionally the patient will need services from respiratory, nutritional services, wound care, psychology, etc. (Customize this to each patient). Given the patients complex condition and risk of further medical complications, rehabilitation services cannot be safely or effectively provided at a lower level of care such as a fci facility. BARRIERS TO DISCHARGE: Morbid obesity ESTIMATED LOS: 10 days DISPOSITION: Home RELEVANT CHANGES SINCE PREADMISSION SCREENING: I have compared the patients medical and functional status at the time of the preadmission screening and there are: no changes PROGNOSIS: Fair REHABILITATION GOALS: 1. PT and OT will help patient regain strength and help improve lung function with increasing ADL's All the above goals were reviewed with the patient and he/she is in agreement. By signing this document, I acknowledge that I have personally performed a full physical examination on this patient within 24 hours of admission to this inpatient rehabilitation facility and have determined the patient to be able to tolerate the above course of treatment at an intensive level for a reasonable period of time. I will be completing a detailed individualized Plan of Care for this patient by day #4 of the patients stay based upon the Preadmission Screen, the Post-Admission Evaluation, and the therapy evaluations. Admission Dx/Comorbidities: (1) Myopathy ICD Codes: G72.9 - Myopathy, unspecified (2) Super obesity Status: Chronic ICD Codes: E66.9 - Obesity, unspecified (3) CHF (congestive heart failure) Status: Chronic ICD Codes: I50.9 - Heart failure, unspecified (4) Essential (primary) hypertension Status: Chronic ICD Codes: I10 - Essential (primary) hypertension (5) Hypercapnic respiratory failure Status: Acute ICD Codes: J96.92 - Respiratory failure, unspecified with hypercapnia (6) Obesity hypoventilation syndrome Status: Acute ICD Codes: E66.2 - Morbid (severe) obesity with alveolar hypoventilation PADMINI SHAH DO Oct 02, 2019 21:08
[2019-10-03] MEDS ORDERED: DIGOXIN 0.125 MG (LANOXIN) TAB PO SCH (07:00)
[2019-10-03] MEDS ORDERED: MULTIVIT W/MINERALS TAB (THERAGRAN M) PO SCH (07:00)
--- NOTE | 2019-10-03 08:58 | Discharge Summary ---
Diagnosis/Chief Complaint Date of Admission Oct 02, 2019 at 12:45 Date of Discharge Discharge Diagnosis Respiratory failure Discharge Summary Discharge Physical Examination Allergies: Coded Allergies: meperidine HCl (Unverified Allergy, Unknown, 04/22/13) Vitals & I&Os Vital Signs Date Time Temp Pulse Resp B/P (MAP) Pulse Ox O2 Delivery O2 Flow Rate FiO2 10/02/19 20:20 94 NIV Bilevel 80 10/02/19 19:59 96 85.00 10/02/19 19:25 23 10/02/19 17:06 37.1 135/79 (97) Hospital Course Was the Problem List Reviewed?: Yes Course: patient had a brief IRF course for 5 hours after arriving from [place]. Patient progressed into acute respiratory failure and CO2 narcosis and ul timately required transfer to ICU and the following morning on comfort care. Discharge Home Medications: Active Scripts Active Reported Venlafaxine HCl ER (Venlafaxine HCl) 150 Mg Cap.er.24h 150 Mg PO DAILY Venlafaxine HCl ER (Venlafaxine HCl) 75 Mg Cap.er.24h 75 Mg PO DAILY Spiriva (Tiotropium [place]) 1 Inh Aerp 1 Cap IH DAILY PRN Testosterone Cypionate 100 Mg/1 Ml Vial 1 Ml IM EVERY 2 WEEKS Sildenafil Citrate 50 Mg Tablet 50 Mg PO UD PRN Mirapex (Pramipexole Di-HCl) 1 Mg Tablet 2 Mg PO HS Mirapex (Pramipexole Di-HCl) 1 Mg Tablet 1 Mg PO 0800,1200 Lisinopril 20 Mg Tablet 20 Mg PO DAILY Furosemide 40 Mg Tablet 40 Mg PO DAILY Clonazepam 1 Mg Tablet 1 Mg PO HS Carvedilol 12.5 Mg Tablet 12.5 Mg PO BID Budesonide 0.5 Mg/2 Ml Ampul.neb 0.5 Mg NEB BID Atorvastatin Calcium 20 Mg Tablet 20 Mg PO DAILY Albuterol Sulfate 2.5 Mg/3 Ml Vial.neb 2.5 Mg NEB Q6H PRN Tylenol Extra Strength (Acetaminophen) 500 Mg Tablet 1,000 Mg PO Q4H PRN Instructions to patient/family Please see electronic discharge instructions given to patient. Diagnosis/Problems Diagnosis/Problems (1) Myopathy (2) Super obesity Status: Chronic (3) CHF (congestive heart failure) Status: Chronic (4) Essential (primary) hypertension Status: Chronic (5) Hypercapnic respiratory failure Status: Acute (6) Obesity hypoventilation syndrome Status: Acute Clinical Quality Measures DVT/VTE Risk/Contraindication: Risk Factor Score Per Nursin RFS Level Per Nursing on Admit: 4+=Very High PADMINI SHAH DO Oct 03, 2019 08:58
[2019-10-03] MEDS ORDERED: fentaNYL PATCH 50 MCG (DURAGESIC) TD SCH (09:00)
[2019-10-03] MEDS ORDERED: VENlafaxine XR 75 MG (EFFEXOR XR) CAP PO SCH (09:00)
[2019-10-03] MEDS ORDERED: BUMETANIDE 1 MG (BUMEX) TAB PO SCH (09:00)
[2019-10-03] MEDS ORDERED: PANTOPRAZOLE 40 MG (PROTONIX) TAB PO SCH (09:00)
--- NOTE | 2019-10-03 10:50 | Therapy Team Discharge Summary ---
Therapy Discharge Summary Discharge Recommendations Date of Discharge 10/03/2019 Physical Therapy Pt seen for eval and visit only. Pt was transferred off the unit (same day) due to medical complications. No further treatment rendered. No goals met. DC PT. Occupational Therapy Decreased Activ Tolerance, Decreased UE Strength, Dependent Transfers, Impaired Funct Balance, Impaired I ADL's, Impaired Self-Care Skills PT Prison Goals Professional Athlete Goals PT Prison Goals Time Frame: Oct 30, 2019 Roll Left to Right (QC): 6 Sit to Lying (QC): 6 Lying-Sitting on Side/Bed(QC): 6 Sit to Stand (QC): 6 Chair/Lcc-vt-Gdpmq Xfer(QC): 6 Car Transfer (QC): 5 Does the Patient Walk: No and Walking Goal IS indicated Walk 10 feet (QC): 6 Walk 10ft-Uneven Surface(QC): 4 Walk 50ft with 2 Turns (QC): 6 Walk 150 ft (QC): 6 1 Step (curb) (QC): 6 4 Steps (QC): 4 12 Steps (QC): 9 Picking up an Object (QC): 9 OT Professional Athlete Goals Professional Athlete Goals Time Frame: Oct 31, 2019 Oral Hygiene (QC): 6 Shower/Bathe Self (QC): 6 Upper Body Dressing (QC): 6 Lower Body Dressing (QC): 6 On/Off Footwear (QC): 6 Toileting Hygiene (QC): 6 Toilet/Commode Transfer (QC): 6 Additional Goals: 1-Demonstrate ADL Tasks, 2-Verbalize Understanding, 3- ImproveStrength/Brianna 1=Demonstrate adherence to instructed precautions during ADL tasks. 2=Patient will verbalize/demonstrate understanding of assistive devices/modifications for ADL. 3=Patient will improve strength/tolerance for activity to enable patient to perform ADL's. KATALINA HILL PT Oct 03, 2019 10:50
--- NOTE | 2019-10-03 11:08 | Therapy Team Discharge Summary ---
Therapy Discharge Summary Discharge Recommendations Date of Discharge 10/03/2019 Occupational Therapy Pt seen for evaluation only, and he was later transferred off the unit (same day) secondary to increased medical complexity. No further treatment rendered, thus no goals met. D/C OT. Decreased Activ Tolerance, Decreased UE Strength, Dependent Transfers, Impaired Funct Balance, Impaired I ADL's, Impaired Self-Care Skills PT Penitentiary Goals Penitentiary Goals PT Penitentiary Goals Time Frame: Oct 30, 2019 Roll Left to Right (QC): 6 Sit to Lying (QC): 6 Lying-Sitting on Side/Bed(QC): 6 Sit to Stand (QC): 6 Chair/Sye-nh-Zdapx Xfer(QC): 6 Car Transfer (QC): 5 Does the Patient Walk: No and Walking Goal IS indicated Walk 10 feet (QC): 6 Walk 10ft-Uneven Surface(QC): 4 Walk 50ft with 2 Turns (QC): 6 Walk 150 ft (QC): 6 1 Step (curb) (QC): 6 4 Steps (QC): 4 12 Steps (QC): 9 Picking up an Object (QC): 9 OT Penitentiary Goals Penitentiary Goals Time Frame: Oct 31, 2019 Oral Hygiene (QC): 6 (Not Met) Shower/Bathe Self (QC): 6 (Not Met) Upper Body Dressing (QC): 6 (Not Met) Lower Body Dressing (QC): 6 (Not Met) On/Off Footwear (QC): 6 (Not Met) Toileting Hygiene (QC): 6 (Not Met) Toilet/Commode Transfer (QC): 6 (Not Met) Additional Goals: 1-Demonstrate ADL Tasks, 2-Verbalize Understanding, 3- ImproveStrength/Brianna 1=Demonstrate adherence to instructed precautions during ADL tasks. 2=Patient will verbalize/demonstrate understanding of assistive devices/modifications for ADL. 3=Patient will improve strength/tolerance for activity to enable patient to perform ADL's. ANNABELLE BRADSHAW OT Oct 03, 2019 11:08
== END 2019-10-02 20:47 | disposition short-term general hospital (02) | DRG 91 ==
PROVIDERS: ADMIT Internal Medicine; ATTEND Internal Medicine
DX: G72.89 Other specified myopathies (principal); J44.9 Chronic obstructive pulmonary disease, unspecified; J96.02 Acute respiratory failure with hypercapnia; R60.1 Generalized edema; E66.2 Morbid (severe) obesity with alveolar hypoventilation; Z68.44 Body mass index [BMI] 60.0-69.9, adult; I11.0 Hypertensive heart disease with heart failure; I50.9 Heart failure, unspecified; I48.91 Unspecified atrial fibrillation; K21.9 Gastro-esophageal reflux disease without esophagitis; E78.00 Pure hypercholesterolemia, unspecified; F41.9 Anxiety disorder, unspecified; F32.9 Major depressive disorder, single episode, unspecified; Z87.891 Personal history of nicotine dependence; Z90.89 Acquired absence of other organs
CPT/HCPCS: 71045; 82805; 94660

== ENCOUNTER 2019-10-02 20:47 | Inpatient (IN) | payer MEDICARE ==
[~2019-10-02] VITALS: Ht 172 cm; Wt 156.0 kg
--- NOTE | 2019-10-02 20:45 | NUR ---
RECEIVED FROM REHAB, 59 YEAR OLD MALE WITH DX OF RESP DISTRESS. PT IS ON BI-PAP AT 80%. ABG OBTAINED AND CALLED TO EICU. PT VERY ADAMANT ABOUT NOT BEING INTUBATED, CODE STATUS IS DNI, OK WITH MEDS AND COMPRESSIONS. AT BEDSIDE
[~2019-10-02 20:47] MED LIST changes: +ACET325T49 PO; +ACETYLCYSTEINE 20% INH; +AMIO400T5 PO; +BENZ200C51 PO; +BUME1TAB8 PO; +BUSP15TA60 PO; +CARB-254 OU; +CLON0.1T PO; +DEXT33GE7 PO; +DIGO125T3 PO; +DILT180C84 PO; +DOCU-143 PO; +FENT1PAT58 TD; +FLUT16SP22 NS; +GLUC1KIT IM; +INSU100V39 SQ; +LACT1CAP76 PO; +LACT20SO2 PO; +LEVA1.2521 NEB; +LEVA1.2527 NEB; +METO50TA15 PO; +METO5VIA26 IV; +MULT-619 PO; +OLAN5TAB25 PO; +PANT40TA2 PO; +PHEN30SP8 MM; +POLY15DR27 OU; +SILD20TA14 PO; +ZOLP5TAB7 PO; +[UNRECOGNIZED DRUG - CODE] IJ
[2019-10-02 21:00] VITALS: BP 174/81
[2019-10-02 21:15] VITALS: BP 163/89
[2019-10-02 21:30] VITALS: BP 134/82
[2019-10-02 22:00] VITALS: BP 130/61
[2019-10-02] MEDS ORDERED: ONDANSETRON 4 MG/2 ML (SDV) Z0FRAN IVP PRN (22:30)
[2019-10-02] MEDS ORDERED: CHLORASEPTIC SPRAY 177 ML LIQUID MC PRN (22:30)
[2019-10-02] MEDS ORDERED: guaiFENesin/CODEINE (ROBITUSSIN AC) 10ML UDC PO PRN (22:30)
[2019-10-02] MEDS ORDERED: RT-LEVALBUTEROL (XOPENEX) 1.25 MG/3 ML NEB NON-FORMULARY INH PRN (22:30)
[2019-10-02] MEDS ORDERED: diphenhydrAMINE 25 MG TAB (BENADRYL) PO PRN (22:30)
[2019-10-02] MEDS ORDERED: LOPERAMIDE 2 MG (IMODIUM) TABLET PO PRN (22:30)
[2019-10-02] MEDS ORDERED: ARTIFICAL TEARS 0.4 ML UNIT DOSE (REFRESH PLUS) OU PRN (22:30)
[2019-10-02] MEDS ORDERED: MELATONIN 3 MG TABLET PO PRN (22:30)
[2019-10-02] MEDS ORDERED: DOCUSATE SODIUM 100 MG (COLACE) CAP PO PRN (22:30)
[2019-10-02] MEDS ORDERED: LACTULOSE SYRUP 10GM/15ML (ENULOSE) 30ML UDC PO PRN (22:30)
[2019-10-02] MEDS ORDERED: CALCIUM CARBONATE 500 MG (TUMS) TAB.CHEW PO PRN (22:30)
[2019-10-02] MEDS ORDERED: ALPRAZolam 0.25 MG (XANAX) TAB PO PRN (22:30)
[2019-10-02] MEDS ORDERED: BISACODYL 10 MG SUPP (DULCOLAX) PR PRN (22:45)
[2019-10-02] MEDS ORDERED: ZOLPIDEM 5 MG (AMBIEN) TAB PO PRN (22:45)
[2019-10-02] MEDS ORDERED: FLEET ENEMA ADULT 1 EA BTL PR PRN (22:45)
[2019-10-02] MEDS ORDERED: BENZONATATE 100 MG (TESSALON) CAPSULE PO PRN (22:45)
[2019-10-02] MEDS ORDERED: ONDANSETRON 4 MG (ZOFRAN) ORAL DISSOLVE TAB PO PRN (22:45)
[2019-10-02] MEDS ORDERED: ACETAMINOPHEN 325 MG TABLET PO PRN (22:45)
[2019-10-02] MEDS ORDERED: OLANZapine 5 MG (ZyPREXA) TAB PO PRN (22:45)
[2019-10-02 22:49] VITALS: BP 130/61
[2019-10-02] MEDS: RT-LEVALBUTEROL (XOPENEX) 1.25 MG/3 ML NEB NON-FORMULARY INH SCH (22:49)
[2019-10-02] MEDS: aCETylcysteine 20% (MUCOMYST) 30ML SOLN VIAL INH SCH (22:49)
[2019-10-02 23:00] VITALS: BP 138/92
[2019-10-03] VITALS (7 sets, daily range): BP systolic 135–153; BP diastolic 64–85
[2019-10-03] MEDS: aCETylcysteine 20% (MUCOMYST) 30ML SOLN VIAL INH SCH (01:33)
[2019-10-03] MEDS: RT-LEVALBUTEROL (XOPENEX) 1.25 MG/3 ML NEB NON-FORMULARY INH SCH (01:34)
[2019-10-03 03:11] LABS: ABG OXYGEN SATURATION 80 % (94-100); ABG PO2 53 MMHG (79-93); ABG TCO2 44.8 MMOL/L (21.0-31.0)
[2019-10-03 03:12] LABS: ABG PH 7.11 (7.37-7.43)
[2019-10-03 03:13] LABS: ABG PCO2 133 MMHG (35-45)
[2019-10-03 03:14] LABS: ALLENS TEST YES-POS; INSPIRED O2 100%; PATIENT TEMP 36.4; VENTILATOR NO
[2019-10-03] MEDS: morphine INJ 4 MG/ML 1 ML (VIAL/SYRINGE) IVP PRN ×2 (04:30→06:09)
[2019-10-03] MEDS ORDERED: morphine INJ 4 MG/ML 1 ML (VIAL/SYRINGE) ONE (04:30)
[2019-10-03] MEDS: LORazepam INJ 2 MG/ML (ATIVAN) VIAL IVP PRN ×2 (04:30→06:09)
[2019-10-03] MEDS ORDERED: LORazepam INJ 2 MG/ML (ATIVAN) VIAL ONE (04:30)
[2019-10-03 04:33] LABS: HEMATOCRIT 38 % (40-54); HEMOGLOBIN 10.9 G/DL (13.3-17.7); MEAN CORPUSCULAR HEMOGLOBIN 28 PG (25-34); WHITE BLOOD COUNT 24.1 10^3/uL (4.3-11.0)
[2019-10-03 04:34] LABS: BASOPHILS % (AUTO) 1 % (0-10); EOSINOPHILS % (AUTO) 0 % (0-10); LYMPHOCYTES % (AUTO) 4 % (12-44); MEAN CORPUSCULAR HGB CONC 29 G/DL (32-36); MEAN CORPUSCULAR VOLUME 96 FL (80-99); MEAN PLATELET VOLUME 8.8 FL (7.4-10.4); MONOCYTES % (AUTO) 6 % (0-12); NEUTROPHILS % (AUTO) 89 % (42-75); PLATELET COUNT 235 10^3/uL (130-400); RED CELL DISTRIBUTION WIDTH 18.3 % (10.0-14.5)
[2019-10-03 04:35] LABS: BASOPHILS # (AUTO) 0.1 10^3/uL (0.0-0.1); MONOCYTES # (AUTO) 1.5 X 10^3 (0.0-1.0); NEUTROPHILS # (AUTO) 21.5 X 10^3 (1.8-7.8)
[2019-10-03 04:36] LABS: BAND NEUTROPHILS 6 %; LYMPHOCYTES % (MANUAL) 4 %; MONOCYTES % (MANUAL) 4 %; NEUTROPHILS % (MANUAL) 86 %; NUCLEATED RED BLOOD CELLS 1; POLYCHROMASIA SLIGHT
[2019-10-03 04:37] LABS: BUN/CREATININE RATIO 14; CARBON DIOXIDE 35 MMOL/L (21-32); CHLORIDE 94 MMOL/L (98-107); CREATININE SERUM 0.79 MG/DL (0.60-1.30); GFR ESTIMATED > 60; GLUCOSE 172 MG/DL (70-105); HYPOCHROMASIA SLIGHT; POTASSIUM 4.8 MMOL/L (3.6-5.0); SODIUM 139 MMOL/L (135-145); STOMATOCYTES MODERATE
[2019-10-03 04:38] LABS: ALANINE AMINOTRANSFERASE 47 U/L (0-55); ALBUMIN 3.6 GM/DL (3.2-4.5); ALKALINE PHOSPHATASE 98 U/L (40-136); BILIRUBIN,TOTAL 0.2 MG/DL (0.1-1.0); CALCIUM 8.9 MG/DL (8.5-10.1); PHOSPHORUS 4.6 MG/DL (2.3-4.7); TOTAL PROTEIN 6.7 GM/DL (6.4-8.2)
[2019-10-03] MEDS ORDERED: GLYCOPYRROLATE 0.2 MG/ML (ROBINUL) 2 ML VIAL IV PRN (04:45)
[2019-10-03] MEDS ORDERED: ACETAMINOPHEN 650 MG SUPP (TYLENOL) PR PRN (04:45)
[2019-10-03] MEDS ORDERED: ONDANSETRON 4 MG/2 ML (SDV) Z0FRAN IVP PRN (04:45)
[2019-10-03] MEDS ORDERED: BISACODYL 10 MG SUPP (DULCOLAX) PR PRN (04:45)
[2019-10-03] MEDS ORDERED: SALIVA STIMULANT MOUTH SPRAY (BIOTENE) 1.5 OZ MM PRN (04:45)
[2019-10-03] MEDS ORDERED: RT-ALBUTEROL/IPRATROPIUM 3 ML (DUONEB) VIAL INH PRN (04:45)
[2019-10-03] MEDS ORDERED: ARTIFICAL TEARS 0.4 ML UNIT DOSE (REFRESH PLUS) OU PRN (04:45)
[2019-10-03] MEDS ORDERED: PROMETHAZINE INJ 25 MG/ML (PHENERGAN) AMP IVP PRN (04:45)
--- NOTE | 2019-10-03 04:45 | NUR ---
DR SOOD HERE, AFTER DISCUSSION WITH , PT MADE COMFORT CARE STATUS
[2019-10-03 04:46] LABS: ABG BASE EXCESS 12.3 MMOL/L (-2.5-2.5); ABG OXYGEN SATURATION 92 % (94-100); ABG PCO2 101 MMHG (35-45); ABG PH 7.23 (7.37-7.43); ABG PO2 72 MMHG (79-93); ABG TCO2 42.9 MMOL/L (21.0-31.0)
[2019-10-03 04:47] LABS: ALLENS TEST YES-POS; INSPIRED O2 85%; PATIENT TEMP 37.6; VENTILATOR NO
--- NOTE | 2019-10-03 04:51 | Pulmonary Consultation ---
History of Present Illness History of Present Illness Date Seen by Provider: Oct 03, 2019 Time Seen by Provider: 04:48 Date of Admission Allergies and Home Medications Allergies Coded Allergies: meperidine HCl (Unverified Allergy, Unknown, 04/22/13) Home Medications Acetaminophen 500 Mg Tablet, 1,000 MG PO Q4H PRN for PAIN-MILD (1-4), (Reported) Albuterol Sulfate 2.5 Mg/3 Ml Vial.neb, 2.5 MG NEB Q6H PRN for SHORTNESS OF BREATH, (Reported) Atorvastatin Calcium 20 Mg Tablet, 20 MG PO DAILY, (Reported) Budesonide 0.5 Mg/2 Ml Ampul.neb, 0.5 MG NEB BID, (Reported) Carvedilol 12.5 Mg Tablet, 12.5 MG PO BID, (Reported) Clonazepam 1 Mg Tablet, 1 MG PO HS, (Reported) Furosemide 40 Mg Tablet, 40 MG PO DAILY, (Reported) Lisinopril 20 Mg Tablet, 20 MG PO DAILY, (Reported) Pramipexole Di-HCl 1 Mg Tablet, 1 MG PO 0800,1200, (Reported) Pramipexole Di-HCl 1 Mg Tablet, 2 MG PO HS, (Reported) Sildenafil Citrate 50 Mg Tablet, 50 MG PO UD PRN for ED, (Reported) Testosterone Cypionate 100 Mg/1 Ml Vial, 1 ML IM EVERY 2 WEEKS, (Reported) Tiotropium [place] 1 Inh Aerp, 1 CAP IH DAILY PRN for SHORTNESS OF BREATH, (Reported) Venlafaxine HCl 75 Mg Cap.er.24h, 75 MG PO DAILY, (Reported) Venlafaxine HCl 150 Mg Cap.er.24h, 150 MG PO DAILY, (Reported) Past Ngvarug-Rjwicx-Jrkurf Hx Patient Social History Alcohol Use: Denies Use Recreational Drug Use: No Smoking Status: Former Smoker Type Used: Cigarettes Former Smoker, Quit: Oct 02, 1987 2nd Hand Smoke Exposure: No Recent Foreign Travel: No Contact w/Someone Who Travel: No Recent Hopitalizations: No Immunizations Up To Date Tetanus Booster (TDap): More than 5yrs Date of Pneumonia Vaccine: Jun 20, 2017 Date of Influenza Vaccine: Jun 11, 2019 Seasonal Allergies Seasonal Allergies: No Past Medical History Surgeries: Yes Adenoidectomy, Tonsillectomy Respiratory: Yes (COPD, chronic bronchitis, asthma) Asthma, Chronic Bronchitis, Sleep Apnea, COPD Currently Using CPAP: Yes Currently Using BIPAP: No Cardiac: Yes (Congestive heart failure) High Cholesterol, Hypertension Neurological: No Reproductive Disorders: No Genitourinary: No Gastrointestinal: No Gastroesophageal Reflux Musculoskeletal: No Endocrine: No HEENT: Yes Hearing Impairment: Hard of Hearing Cancer: No Psychosocial: Yes Sleep Difficulties, Anxiety, Depression Integumentary: No Blood Disorders: No Adverse Reaction/Blood Tranf: No (patient has never been given blood) Family Medical History Alcoholism 19 MOTHER Cardiovascular disease 19 FATHER FH: CHF (congestive heart failure) 19 FATHER Headache disorder 19 MOTHER Hypertension 19 FATHER Psychosocial problem 19 MOTHER Heart Disease Review of Systems Time Seen by Provider: 07:10 Sepsis Event Evaluation Height, Weight, BMI Height: 5'7.00" Weight: 346lbs. 2.0oz. 156.094522iw; 52.39 BMI Method:Stated Exam Exam Vital Signs Date Time Temp Pulse Resp B/P (MAP) Pulse Ox O2 Delivery O2 Flow Rate FiO2 10/03/19 04:00 75 25 135/64 (87) 73 NIV Bilevel 100.00 10/03/19 03:00 73 23 145/75 (98) 83 NIV Bilevel 100.00 10/03/19 02:00 92 18 135/80 (98) 84 NIV Bilevel 100.00 10/03/19 01:34 94 24 86 100.00 10/03/19 01:00 100 10/03/19 01:00 96 20 144/79 (100) 83 NIV Bilevel 100.00 10/03/19 00:00 94 22 153/85 (107) 83 NIV Bilevel 100.00 10/03/19 00:00 86 NIV Bilevel 100 10/02/19 23:00 81 23 138/92 (107) 86 NIV Bilevel 100.00 10/02/19 22:49 79 23 86 100.00 10/02/19 22:30 86 24 88 NIV Bilevel 100.00 10/02/19 22:30 36.6 NIV Bilevel 100.00 10/02/19 22:00 82 25 130/61 (84) 87 NIV Bilevel 80.00 10/02/19 21:30 99 23 134/82 (99) 95 NIV Bilevel 80.00 10/02/19 21:15 105 23 163/89 (113) 90 NIV Bilevel 80.00 10/02/19 21:00 36.3 103 14 174/81 (859) 88 NIV Bilevel 80.00 10/02/19 20:52 100 I & O 10/03/19 07:00 Intake Total 100 ml Output Total 1000 ml Balance -900 ml Height & Weight Height: 5'7.00" Weight: 346lbs. 2.0oz. 156.514758jw; 52.39 BMI Method:Stated General Appearance: Anxious, Obese, Severe Distress HEENT: PERRL/EOMI, Pharynx Normal Neck: Non Tender, Supple Respiratory: Chest Non Tender, Accessory Muscle Use, Crackles, Decreased Breath Sounds, Respiratory Distress, Rhonci Cardiovascular: Tachycardia Capillary Refill: Less Than 3 Seconds Gastrointestinal: non tender, soft, no organomegaly Extremity: Normal Capillary Refill, Normal Inspection, Non Tender, Pedal Edema Neurologic/Psychiatric: Depressed Affect, Disoriented Skin: Normal Color, Warm/Dry Lymphatic: No Adenopathy Results Lab Laboratory Tests 10/03/19 03:15 Assessment/Plan Assessment/Plan Acute on chronic respiratory distress -Currently on BiPAP -Pt is no reintubation -Sp02 in in 70's while on 100% BiPAP -Discussed with pt's and she wants to proceed with comfort care only. -All questions were answered with RN at bedside. knows pt will with comfort care only. -Left lung opacification Severe Sepsis Anemia -Monitor GILLIAN SOOD DO Oct 03, 2019 04:50
[2019-10-03] MEDS ORDERED: KCL 20 MEQ TAB (K-DUR) PO SCH (06:00)
[2019-10-03] MEDS ORDERED: MAGNESIUM 1 GM/100 ML IVPB 100 ML IV SCH (06:00)
[2019-10-03] MEDS ORDERED: POTASSIUM CL 10MEQ/50ML IVPB 50 ML IV SCH (06:00)
--- NOTE | 2019-10-03 06:00 | NUR ---
BI-PAP OFF AND NASAL CANNULA APPLIED. FAMILY AT BEDSIDE
--- NOTE | 2019-10-03 06:35 | NUR ---
PT HAS NO HEARTBEAT OR RESPIRATIONS. FAMILY AT BEDSIDE. DR SHAH AND DR SOOD NOTIFIED
--- NOTE | 2019-10-03 08:01 | Diagnostic Imaging Report ---
EXAM: CHEST 1 VIEW, AP/PA ONLY INDICATION: Respiratory failure. COMPARISON: 10/02/2019. FINDINGS: There is now complete opacification of left hemithorax. There is also new consolidation in the right lung base. Left PICC tip mid SVC. No pneumothorax. Heart size is obscured. IMPRESSION: 1. New consolidation throughout the entire left hemithorax suspicious for large pleural effusion. 2. There is also new airspace opacity in the right lung base. Dictated by: Dictated on workstation # [id number]
--- NOTE | 2019-10-03 08:56 | NUR ---
TOJamil visit: Gloria at bedside. Visited with daughters and sons who arrived, provided chairs. Comfort Care cart provided. Spiritual care support ongoing. A daughter is anticipated within the next 45 minutes. Family is assisting Gloria with arrangements. Gloria said they may choose [facility] but will verify.
--- NOTE | 2019-10-03 08:56 | Short Stay Summary-Hospitalist ---
History of Present Illness HPI/Chief Complaint CC: Hypercapnia HPI: This is a 59yoWM who was just transferred from IRF after 5 hours since recovering from [place] for long wean off ventilator due to severe obesity and OHS who refused trach and reintubation who became more and more complicated in IRF and required transfer to ICU with Dr De Leon guidance who ultimately became more and more complicated due to CO2 retention and ultimately 1 hour after comfort care protocol was initiated in the ICU after Dr De Leon spoke to his . Source: RN/MD Exam Limitations: other () Date Seen 10/03/19 Time Seen by a Provider: 00:00 Attending Physician Mayi Wu DO PCP No,Local Physician Referring Physician Date of Admission Oct 02, 2019 at 20:47 Home Medications & Allergies Home Medications Reviewed patient Home Medication Reconciliation performed by pharmacy medication reconciliations outdoor emergency care technician and/or nursing. Patients Allergies have been reviewed. Allergies Allergies Coded Allergies meperidine HCl (Unverified Allergy, Unknown, 04/22/13) Past Ridbcrn-Msfxxm-[place] Hx Past Med/Social Hx: Reviewed Nursing Past Med/Soc Hx, Reviewed and Corrections made Patient Social History Marrital Status: Employed/Student: unemployed Alcohol Use: Denies Use Recreational Drug Use: No Smoking Status: Former Smoker Former Smoker, Quit: Oct 02, 1987 Type Used: Cigarettes 2nd Hand Smoke Exposure: No Physical Abuse Screen: No Sexual Abuse: No Recent Foreign Travel: No Contact w/other who traveled: No Recent Hopitalizations: No Immunizations Up To Date Tetanus Booster (TDap): More than 5yrs Date of Pneumonia Vaccine: Jun 20, 2017 Date of Influenza Vaccine: Jun 11, 2019 Seasonal Allergies Seasonal Allergies: No Past Medical History Surgeries: Adenoidectomy, Tonsillectomy Respiratory: COPD, Sleep Apnea Currently Using CPAP: Yes Currently Using BIPAP: No Cardiac: High Cholesterol, Hypertension Reproductive: No Gastrointestinal: Gastroesophageal Reflux Hearing Impairment: Hard of Hearing Psychosocial: Sleep Difficulties, Anxiety, Depression History of Blood Disorders: No Adverse Reaction to Blood Walker: No (patient has never been given blood) Family History Alcoholism 19 MOTHER Cardiovascular disease 19 FATHER FH: CHF (congestive heart failure) 19 FATHER Headache disorder 19 MOTHER Hypertension 19 FATHER Psychosocial problem 19 MOTHER Heart Disease Review of Systems Constitutional: see HPI Physical Exam Physical Exam Vital Signs Vital Signs - First Documented 10/02/19 10/02/19 10/03/19 20:52 21:00 00:00 Temp 36.3 Pulse 100 Resp 14 B/P (MAP) 174/81 (112) Pulse Ox 88 O2 Delivery NIV Bilevel O2 Flow Rate 80.00 FiO2 100 Capillary Refill : Less Than 3 Seconds Height, Weight, BMI Height: 5'7.00" Weight: 346lbs. 2.0oz. 156.779023ct; 52.39 BMI Method:Stated General Appearance: Anxious, Obese, Severe Distress HEENT: PERRL/EOMI, Pharynx Normal Neck: Non Tender, Supple Respiratory: Chest Non Tender, Accessory Muscle Use, Crackles, Decreased Breath Sounds, Respiratory Distress, Rhonci Cardiovascular: Tachycardia Extremity: Normal Capillary Refill, Normal Inspection, Non Tender, Pedal Edema Neurologic/Psychiatric: Depressed Affect, Disoriented Skin: Normal Color, Warm/Dry Lymphatic: No Adenopathy Results Results/Procedures Labs Laboratory Tests 10/03/19 03:15 Patient resulted labs reviewed. Short Stay Diagnosis Discharge Diagnosis-Short Stay Admission Diagnosis Assessment: Acute on chronic respiratory failure Severe respiratory acidosis from CO2 retention acute on chronic OHS Former smoker COPD Final Discharge Diagnosis Assessment: Acute on chronic respiratory failure Severe respiratory acidosis from CO2 retention acute on chronic OHS Former smoker COPD Conclusion Plan when placed on comfort care Diagnosis/Problems Diagnosis/Problems (1) (2) Acute hypercapnic respiratory failure (3) Acute respiratory failure with hypoxia Status: Acute Clinical Quality Measures DVT/VTE Risk/Contraindication: Risk Factor Score Per Nursin RFS Level Per Nursing on Admit: 4+=Very High MAYI WU DO Oct 03, 2019 08:56
[2019-10-03] MEDS ORDERED: DIGOXIN 0.125 MG (LANOXIN) TAB PO SCH (09:00)
[2019-10-03] MEDS ORDERED: cloNIDine 0.1 MG (CATAPRES) TAB PO SCH (09:00)
[2019-10-03] MEDS ORDERED: VENlafaxine XR 75 MG (EFFEXOR XR) CAP PO SCH (09:00)
[2019-10-03] MEDS ORDERED: SENNA W/DOCUSATE (SENOKOT S) TABLET PO SCH (09:00)
[2019-10-03] MEDS ORDERED: PANTOPRAZOLE 40 MG (PROTONIX) TAB PO SCH (09:00)
[2019-10-03] MEDS ORDERED: AMIODARONE 200 MG (CORDARONE) TAB PO SCH (09:00)
[2019-10-03] MEDS ORDERED: BUMETANIDE 1 MG (BUMEX) TAB PO SCH (09:00)
[2019-10-03] MEDS ORDERED: ARTIFICAL TEARS 0.4 ML UNIT DOSE (REFRESH PLUS) OU SCH (09:00)
[2019-10-03] MEDS ORDERED: MULTIVIT W/MINERALS TAB (THERAGRAN M) PO SCH (09:00)
[2019-10-03] MEDS ORDERED: LACTOBACILLUS ACIDOPHILUS (PROBIOTIC) CAPSULE PO SCH (09:00)
[2019-10-03] MEDS ORDERED: busPIRone 15 MG (BUSPAR) TABLET PO SCH (09:00)
[2019-10-03] MEDS ORDERED: FLUTICASONE NASAL SPRAY (FLONASE) 16 GM BTL NS SCH (09:00)
[2019-10-03] MEDS ORDERED: DOCUSATE SODIUM 100 MG (COLACE) CAP PO SCH ×2 (09:00)
[2019-10-03] MEDS ORDERED: ENOXAPARIN 60 MG/0.6 ML (LOVENOX) SYR SC SCH (09:00)
[2019-10-03] MEDS ORDERED: polyethylene glycoL POWDER 17 GM (MIRALAX) PACK PO SCH (09:00)
[2019-10-03] MEDS ORDERED: meTOprolol TARTRATE 50 MG (LOPRESSOR) TAB PO SCH (09:00)
[2019-10-03] MEDS ORDERED: LACTULOSE SYRUP 10GM/15ML (ENULOSE) 30ML UDC PO SCH (09:00)
--- NOTE | 2019-10-03 12:27 | NUR ---
Pt's family requested intelligence consultant support with contacting [facility]. I communicated with the RN after calling the mortuary. The RN said he spoke with [facility], which said they would not contact the family until they left the hospital. The family expressed to me their intention of staying until the mortuary arrived. I contacted [facility] and notified them of the family's wishes to remain at the hospital until the mortuary arrived. [facility] said they would initiate contact with the pt's . While supportively engaging in discussion about arrangements, the family mentioned the pt had told them if anyone could benefit from his organs he would donate.
--- NOTE | 2019-10-03 18:14 | NUR ---
PT PICKED UP BY TRANSPORT FOR [facility]
[2019-10-05] MEDS ORDERED: fentaNYL PATCH 50 MCG (DURAGESIC) TD SCH (14:30)
--- NOTE | 2019-10-06 11:22 | Physician Query Clarification ---
PQ-Conflicting Diagnosis Admission/Discharge Admission Date: Oct 02, 2019 at 20:47 Discharge Date: Oct 03, 2019 at 18:15 The medical record reflects the following clinical scenario: History/Risk Factors: Acute on chronic hypercapnic/hypoxic respiratory failure, OHS, HTN w/CHF Clinical Findings: T36.3, P105, R23, BP 174/81, CXR - New consolidation throughout the entire left hemithorax suspicious for large pleural effusion. 2. There is also new airspace opacity in the right lung base. Treatment: Xopenx, Mucomyst, comfort care Question: Do you agree with the impression of the Severe Sepsis per Dr. De Leon. Please document a response in Progress Note or Discharge Summary. 1. Yes 2. No 3. Other, with explanation of clinical findings 4. Clinically undetermined, no explanation for clinical findings. PHYSICIAN RESPONSE Do you agree w/Consulting Dx?: Yes Please remember a lack of response to the above will prompt a phone page by CDI/Coding staff. In responding to this query, please exercise your independent professional judgment. The purpose of this communication is to more accurately reflect the complexity of your patients condition. The fact that a question is asked does not imply that any particular answer is desired or expected. Thank you for your timely response to this clarification. Requestors name: Temo THIS PHYSICIAN QUERY FORM IS A PERMANENT PART OF THE MEDICAL RECORD TEMO CAGE Oct 06, 2019 11:22 PADMINI SHAH DO Oct 06, 2019 12:13
== END 2019-10-03 18:15 | disposition expired | DRG 871 ==
LOC: ICU 20:47 → CSD 10-03 12:43
PROVIDERS: ADMIT Internal Medicine; ATTEND Internal Medicine
DX: A41.9 Sepsis, unspecified organism (principal); R65.20 Severe sepsis without septic shock; J96.22 Acute and chronic respiratory failure with hypercapnia; J96.21 Acute and chronic respiratory failure with hypoxia; E87.2 Acidosis; E66.2 Morbid (severe) obesity with alveolar hypoventilation; Z68.44 Body mass index [BMI] 60.0-69.9, adult; Z51.5 Encounter for palliative care; Z66 Do not resuscitate; I11.0 Hypertensive heart disease with heart failure; I50.9 Heart failure, unspecified; J44.9 Chronic obstructive pulmonary disease, unspecified; E78.00 Pure hypercholesterolemia, unspecified; K21.9 Gastro-esophageal reflux disease without esophagitis; F41.9 Anxiety disorder, unspecified; F32.9 Major depressive disorder, single episode, unspecified; D64.9 Anemia, unspecified; Z87.891 Personal history of nicotine dependence
CPT/HCPCS: 36415; 71045; 80053; 82805; 83735; 84100; 85007; 85027; 94640; 94660